=== PATIENT | female | born 1940 | race Caucasian/White ===

== ENCOUNTER 2021-03-02 05:49 | Emergency (ER) | payer MEDICARE, MEDICAID, SELFPAY ==
--- NOTE | ~2021-03-02 | XR_ITS ---
EXAMINATION: XR hip RT 2V w AP pelvis INDICATION: Right hip pain after fall TECHNIQUE: AP view of the pelvis and two views of the right hip are obtained. COMPARISON: None available FINDINGS: Bone alignment is normal. There is no fracture. 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 Phleboliths are n oted in the pelvis. There is calcified atherosclerosis. IMPRESSION: 1. No acute osseous abnormality. Reviewed, dictated and finalized at location A.
--- NOTE | ~2021-03-02 | CT_ITS ---
EXAMINATION: CT cervical spine wo con DATE: 03/02/2021 06:24 INDICATION: Neck pain, head injury TECHNIQUE: Computed tomography (CT) of the cervical spine was performed without intravenous contrast. The dose-length product (DLP) was 461.10 mGy-cm. Automated exposure control and iterative reconstruc tion technique were employed. COMPARISON: None FINDINGS: There is no fracture. There are 2 mm of anterolisthesis of C3 on C4. The vertebral body hei ghts are maintained. There is severe loss of intervertebral disc space height at C4-5, C5-6, and C6-7 . The odontoid is intact. The prevertebral soft tissues are normal. There is moderate multilevel face t and uncovertebral joint osteoarthritis. There is moderate central canal stenosis at C5-6. Scarring is noted in the lung apices. IMPRESSION: 1. Severe cervical spondylosis without acute findings. Reviewed, dictated and finalized at location A.
--- NOTE | ~2021-03-02 | XR_ITS ---
EXAMINATION: XR shoulder RT min 2V INDICATION: Right shoulder pain TECHNIQUE: Four views of the right shoulder are submitted. COMPARISON: None FINDINGS: Normal alignment. No fracture. Glenohumeral and acromioclavicular joint spaces are normal. Soft tissues are unremarkable. IMPRESSION: 1. No acute osseous abnormality. Reviewed, dictated and finalized at location A.
--- NOTE | ~2021-03-02 | XR_ITS ---
EXAMINATION: XR foot RT min 3V DATE: 03/02/2021 06:39 INDICATION: Right foot pain TECHNIQUE: Dorsoplantar, lateral, and 2 oblique views of the right foot were obtained. COMPARISON: None. FINDINGS: There is no fracture, dislocation, or subluxation. Mild osteoarthritis is noted in multiple interphalangeal joints as well as at the first metatarsophalangeal joint. The soft tissues are unrem arkable IMPRESSION: 1. No acute osseous abnormality. Reviewed, dictated and finalized at location A.
--- NOTE | ~2021-03-02 | CT_ITS ---
EXAMINATION: CT brain wo con INDICATION: Head injury COMPARISON: None TECHNIQUE: Standard unenhanced head CT. The dose-length product (DLP) was 605.33 mGy-cm. The mA was a djusted according to patient size. Iterative reconstruction technique was employed. FINDINGS: There is no acute intraparenchymal hemorrhage. No evidence of mass lesion. No evidence of a cute infarction. There is mild periventricular and subcortical hypodensity probably related to small vessel ischemic disease. There is mild prominence of the sulci and ventricles related to cerebral atr ophy. Intracranial calcified cerebral atherosclerosis is noted. There are no extra-axial collections. There is no mass effect or midline shift. Changes in the globes are likely from ocular lens surgery. There is a polyp or mucous retention cyst of the left maxillary sinus. There is frontal skull hypero stosis (hyperostosis frontalis interna), a normal variant. IMPRESSION: 1. No acute intracranial abnormality. 2. Age related findings. Reviewed, dictated and finalized at location A.
[2021-03-02 05:58] VITALS: BP 143/86; PULSE 89; RESP 18; TEMP 36.6; O2SAT 97
--- NOTE | 2021-03-02 06:08 | ED.GENADULT ---
HPI - General Adult General Chief complaint: Fall <Khalif Chaidez MD - Last Filed: 03/02/21 06:09> Stated complaint: fall on eliquis <Khalif Chaidez MD - Last Filed: 03/02/21 06:09> Time Seen by Provider: 03/02/21 05:56 <Khalif Chaidez MD - Last Filed: 03/02/21 06:09> History of Present Illness HPI narrative: 80-year-old female from with chief complaint of the right side. The patient reports that she was reaching to adjust her CPAP machine and struck her head and right shoulder against a table and a door at home where she lives. Patient states she also has pain in her right hip and also in her right foot. Patient denies loss of consciousness but does report that she is on Eliquis for a blood thinner. Patient states that she had a little bit of a headache she was given a [place]se[place] prior to arrival in the emergency department. Patient denies nausea vomiting denies focal neurological deficit. <Khalif Chaidez MD - Last Filed: 03/02/21 06:09> Related Data Home medications: Home Medications Medication Instructions Recorded Confirmed acetaminophen 500 mg PO TID 03/02/21 03/02/21 albuterol sulfate [Ventolin HFA] 2 puff INHALATION QID 03/02/21 03/02/21 apixaban [Eliquis] 5 mg PO BID 03/02/21 03/02/21 atorvastatin [Lipitor] 40 mg PO HS 03/02/21 03/02/21 atorvastatin [Lipitor] 40 mg PO HS 03/02/21 03/02/21 bisacodyl 10 mg RECTAL DAILY PRN 03/02/21 03/02/21 budesonide-formoterol [Symbicort] 2 puff INHALATION Q12H 03/02/21 03/02/21 fludrocortisone 0.1 mg PO DAILY 03/02/21 03/02/21 fluticasone propionate 2 spray INTRANASAL DAILY 03/02/21 03/02/21 furosemide 80 mg PO DAILY 03/02/21 03/02/21 gabapentin 200 mg PO BID 03/02/21 03/02/21 gabapentin 400 mg PO HS 03/02/21 03/02/21 latanoprost [Xalatan] 1 drp EACH EYE QPM 03/02/21 03/02/21 levothyroxine [Synthroid] 137 mcg PO DAILY 03/02/21 03/02/21 lidocaine [Lidocaine Pain Relief] 1 patch TOPICAL DAILY PRN 03/02/21 03/02/21 metoprolol succinate 12.5 mg PO DAILY 03/02/21 03/02/21 nystatin 1 applic TOPICAL TID 03/02/21 03/02/21 polyethylene glycol 3350 [Miralax] 17 g PO DAILY 03/02/21 03/02/21 primidone 150 mg PO HS 03/02/21 03/02/21 sertraline [Zoloft] 75 mg PO HS 03/02/21 03/02/21 sertraline [Zoloft] 100 mg PO DAILY 03/02/21 03/02/21 trazodone 150 mg PO HS 03/02/21 03/02/21 <Khalif Chaidez MD - Last Filed: 03/02/21 06:09> Allergies/adverse reactions: Allergies Allergy/AdvReac Type Severity Reaction Status Date / Time No Known Allergies Allergy Verified 03/02/21 06:08 <Khalif Chaidez MD - Last Filed: 03/02/21 06:09> Review of Systems Review of Systems: A 10 system review of systems was completed on the patient and is negative except for what is stated in the HPI. Nursing and ancillary documentation was reviewed. <Khalif Chaidez MD - Last Filed: 03/02/21 06:09> Exam Narrative: GENERAL: Well-appearing, well-nourished, and in no acute distress. HEAD: Normocephalic, atraumatic. EYES: PERRLA and EOMI. ENT: Nares clear, no rhinorrhea or epistaxis. Mucous membranes moist. NECK: Supple. CHEST: Clear to auscultation. No respiratory distress. HEART: Regular rate and rhythm. No murmur heard. Normal peripheral pulses. ABDOMEN: Soft, nontender, nondistended, normal active bowel sounds. EXTREMITIES: Normal range of motion. No edema. There is tenderness palpation the right shoulder right hip and right foot SKIN: Warm, dry, no rash. NEURO: No focal deficits. Alert and oriented x3. PSYCH: Normal mood and affect. <Khalif Chaidez MD - Last Filed: 03/02/21 06:09> Course Course Emergency Course: I assumed care of this patient at shift change with pending radiology results. I have reviewed all the x-rays including CT scans. Reevaluated the patient. Patient states she is feeling much better. She does feel comfortable going back to correction. <Jonah Padilla MD - Last Filed: 02/06
[2021-03-02 06:42] VITALS: BP 137/95; PULSE 88; RESP 18; O2SAT 95
[2021-03-02 08:37] VITALS: BP 122/91; PULSE 82; RESP 14; O2SAT 96
[2021-03-02 09:30] VITALS: BP 106/88; PULSE 80; RESP 18; O2SAT 98
== END 2021-03-02 09:35 ==
PROVIDERS: Emergency Provider Family Medicine; PCP Family Medicine
DX: S40.011A Contusion of right shoulder, initial encounter (principal); S70.01XA Contusion of right hip, initial encounter; M47.812 Spondylosis without myelopathy or radiculopathy, cervical region; Z79.01 Long term (current) use of anticoagulants; W01.198A Fall on same level from slipping, tripping and stumbling with subsequent striking against other object, initial encounter
CPT/HCPCS: 70450; 72125; 73030; 73502; 73630; 99284

== ENCOUNTER 2021-06-30 22:43 | Emergency (ER) | payer OTHER, SELFPAY ==
--- NOTE | ~2021-06-30 | XR_ITS ---
EXAMINATION: XR hip LT min 3V w AP pelvis DATE: 07/01/2021 00:00 INDICATION: Left hip pain. Fall. TECHNIQUE: An anteroposterior view of the pelvis and 2 views of left hip were obtained. COMPARISON: Pelvis radiograph 03/02/2021 FINDINGS: Bone alignment is normal. No acute fracture. There are old healed fractures of left superio r and inferior pubic rami. There is mild osteoarthritis of the hips. There is moderate lumbar spondyl osis. IMPRESSION: 1. Mild osteoarthritis of the hips. Reviewed, dictated and finalized at location E. GER STORY
--- NOTE | ~2021-06-30 | CT_ITS ---
EXAMINATION: CT thoracic lumbar wo con EXAM DATE: 06/30/2021 23:35 INDICATION: Fall, mid and low back pain. TECHNIQUE: Spiral CT thoracolumbar spine was performed without contrast. Axial, coronal and sagittal images of the thoracic spine were reviewed. Axial, coronal and sagittal images of the lumbar spine we re reviewed. The dose-length product (DLP) for this examination was 2077.14 mGy-cm. The exposure was tailored according to patient size (auto mA exposure control), and iterative reconstruction (ASIR) w as used as additional dose reduction technique. There is no prior study for comparison. FINDINGS: THORACIC SPINE: Mild to moderate thoracic facet arthropathy. Mild to moderate thoracic spondylosis. T here are no acute fractures identified. Paraspinal soft tissue is unremarkable. LUMBAR SPINE: Mild to moderate lumbar spondylosis. There is no evidence of acute lumbar fracture. T here is no disc space widening or traumatic vertebral body subluxation suspected. Paraspinal soft ti ssue is unremarkable. Vertebral body and disc heights are well-maintained. A detailed level by myrtle bangura evaluation of spondylosis can be added as addendum if requested. IMPRESSION: 1. No acute findings. 2. Mild to moderate thoracolumbar spondylosis. Reviewed, dictated and finalized at location G. RONMENTAL PROTECTION INSPECTOR
--- NOTE | ~2021-06-30 | CT_ITS ---
EXAMINATION: CT brain wo con, CT cervical spine wo con EXAM DATE: 06/30/2021 23:34 (accession [id number]), 06/30/2021 23:35 (accession [id number]) INDICATION: Head injury, fall. TECHNIQUE: Spiral CT of the head was performed without contrast. Axial, coronal and sagittal images were reviewed. Spiral CT of the cervical spine was performed without contrast. Axial images were rev iewed. Coronal and sagittal reformatted images were also reviewed. The dose-length product (DLP) fo r this examination was 681.00 (accession [id number]), 493.05 (accession [id number]) mGy-cm. The exposure was tailored according to patient size, and iterative reconstruction (ASIR) was used as additional dose reduction technique. Comparison is made to prior examination from 03/02/2021. FINDINGS: HEAD CT: Right-sided mastoidectomy. There is no acute intraparenchymal hemorrhage. No evidence of in traparenchymal brain mass lesion. No evidence of acute infarction. Please note that initial head CT has limited sensitivity for small or acute infarctions. There is mild periventricular and subcortica l hypodensity, nonspecific but probably related to small vessel ischemic disease. There is moderate prominence of the sulci and ventricles related to cerebral atrophy. Hyperostosis frontalis. There i s intracranial carotid arteriosclerosis. There are no extra-axial collections. There is no mass eff ect or midline shift. Patient has had bilateral ocular lens surgery. Soft tissue is unremarkable. The visualized sinuses and mastoid air cells are well aerated. CERVICAL CT: There is no evidence of acute cervical fracture. The odontoid process is intact. Pre- dens space is normal. Prevertebral soft tissue is normal. There are no soft tissue abnormalities id entified. There is no disc space widening or traumatic vertebral body subluxation suspected. Modera te to severe cervical spondylosis. Apical scarring. A detailed level by level evaluation of spondylo sis can be added as addendum if requested. IMPRESSION: 1. No acute intracranial findings or cervical fracture. 2. Moderate to severe cervical spondylosis. 3. Atrophy and microangiopathy. Reviewed, dictated and finalized at location G. CTOR OF THERAPY SERVICES IMPRESSION: 1. No acute intracranial findings or cervical fracture. 2. Moderate to severe cervical spondylosis. 3. Atrophy and microangiopathy.
--- NOTE | ~2021-06-30 | XR_ITS ---
EXAMINATION: XR ribs RT 2V w CXR 2V DATE: 07/01/2021 00:00 INDICATION: Right posterior rib pain TECHNIQUE: AP and lateral views of the chest of the chest and 3 views of the left ribs were obtained. COMPARISON: None FINDINGS: No rib fractures identified. No focal airspace opacities, pulmonary edema, pleural effusion or pneumo thorax. Cardiomediastinal silhouette is normal. Dual lead pacemaker seen with leads projecting over t he expected locations of the right atrium and right ventricle. Mild to moderate thoracic spondylosis. IMPRESSION: 1. No rib fracture or acute cardiopulmonary disease. Reviewed, dictated and finalized at location A. URER MACHINE
[2021-06-30 22:44] VITALS: BP 159/90; PULSE 90; RESP 17; TEMP 36.6; O2SAT 96
--- NOTE | 2021-06-30 23:02 | ED.FALL ---
HPI - Fall General Chief Complaint: Fall <Anne Urena PA-C - Last Filed: 07/01/21 02:03> Stated Complaint: glf x 3 <Anne Urena PA-C - Last Filed: 07/01/21 02:03> Time Seen by Provider: 06/30/21 22:49 <Anne Urena PA-C - Last Filed: 07/01/21 02:03> Source: patient and EMS <Anne Urena PA-C - Last Filed: 07/01/21 02:03> Mode of arrival: EMS <CLOVER Hernández Last Filed: 07/01/21 02:03> Limitations: other (poor historian) <Anne Urena PA-C - Last Filed: 07/01/21 02:03> History of Present Illness HPI Narrative: This is a 81-year-old female that presents to the emergency department after a fall today with head injury. Reports she was trying to get up off the toilet when she fell and struck her head. She does not think that she lost consciousness. She was sent in for evaluation due to her being on Eliquis. Also reports back pain and left hip pain. Denies vision changes, vomiting, numbness, or weakness. <Anne Urena PA-C - Last Filed: 07/01/21 02:03> Related Data Home Medications: Home Medications Medication Instructions Recorded Confirmed acetaminophen 500 mg PO TID 03/02/21 03/02/21 albuterol sulfate [Ventolin HFA] 2 puff INHALATION QID 03/02/21 03/02/21 apixaban [Eliquis] 5 mg PO BID 03/02/21 03/02/21 atorvastatin [Lipitor] 40 mg PO HS 03/02/21 03/02/21 atorvastatin [Lipitor] 40 mg PO HS 03/02/21 03/02/21 bisacodyl 10 mg RECTAL DAILY PRN 03/02/21 03/02/21 budesonide-formoterol [Symbicort] 2 puff INHALATION Q12H 03/02/21 03/02/21 fludrocortisone 0.1 mg PO DAILY 03/02/21 03/02/21 fluticasone propionate 2 spray INTRANASAL DAILY 03/02/21 03/02/21 furosemide 80 mg PO DAILY 03/02/21 03/02/21 gabapentin 200 mg PO BID 03/02/21 03/02/21 gabapentin 400 mg PO HS 03/02/21 03/02/21 latanoprost [Xalatan] 1 drp EACH EYE QPM 03/02/21 03/02/21 levothyroxine [Synthroid] 137 mcg PO DAILY 03/02/21 03/02/21 metoprolol succinate 12.5 mg PO DAILY 03/02/21 03/02/21 nystatin 1 applic TOPICAL TID 03/02/21 03/02/21 polyethylene glycol 3350 [Miralax] 17 g PO DAILY 03/02/21 03/02/21 primidone 150 mg PO HS 03/02/21 03/02/21 sertraline [Zoloft] 75 mg PO HS 03/02/21 03/02/21 sertraline [Zoloft] 100 mg PO DAILY 03/02/21 03/02/21 trazodone 150 mg PO HS 03/02/21 03/02/21 lidocaine 4 % topical patch 2 patch TOPICAL DAILY ea 03/29/21 <Anne Urena PA-C - Last Filed: 07/01/21 02:03> Allergies/Adverse Reactions: Allergies Allergy/AdvReac Type Severity Reaction Status Date / Time No Known Allergies Allergy Verified 03/02/21 06:08 <Anne Urena PA-C - Last Filed: 07/01/21 02:03> Review of Systems Review of Systems: CONSTITUTIONAL: Denies fever EYES: Denies visual changes CARDIOVASCULAR: Denies chest pain RESPIRATORY: Denies dyspnea. GASTROINTESTINAL: Denies vomiting MUSCULOSKELETAL: Reports back pain, joint pain, and myalgia. NEUROLOGIC: Denies headache, numbness, or weakness. <Anne Urena PA-C - Last Filed: 07/01/21 02:03> All systems reviewed & are unremarkable except as noted in HPI and below <Anne Urena PA-C - Last Filed: 07/01/21 02:03> [facility] Past Medical History Medical History: Medical History (Updated 07/01/21 @ 01:08 by Anne Urena PA-C) History of atrial fibrillation History of bipolar disorder History of COPD History of hyperlipidemia History of hypothyroidism <Anne Urena PA-C - Last Filed: 07/01/21 02:03> Social History Social History: Social History (Updated 06/30/21 @ 23:06 by Anne Urena PA-C) Smoking status: Never smoker <Anne Urena PA-C - Last Filed: 07/01/21 02:03> Exam Narrative: GENERAL: Elderly, well-nourished, and in no acute distress. HEAD: Normocephalic, atraumatic. EYES: EOMI. Right pupil is irregular and not reactive due to history of previous surgery ENT: Nares clear, no rhinorrhea or epistaxis. Mucous membranes moist. Oropharynx without tonsillar hypertrophy e
[2021-07-01 04:38] VITALS: BP 123/76; PULSE 89; RESP 18; TEMP 36.7; O2SAT 99
[2021-07-01 04:42] VITALS: BP 123/76; PULSE 89; RESP 18; TEMP 36.7; O2SAT 99
== END 2021-07-01 05:03 ==
PROVIDERS: Emergency Provider Emergency Medicine; PCP Family Medicine
DX: I48.91 Unspecified atrial fibrillation (principal); J44.9 Chronic obstructive pulmonary disease, unspecified; E78.5 Hyperlipidemia, unspecified; E03.9 Hypothyroidism, unspecified; F31.9 Bipolar disorder, unspecified; Z79.01 Long term (current) use of anticoagulants; M47.812 Spondylosis without myelopathy or radiculopathy, cervical region; W18.11XA Fall from or off toilet without subsequent striking against object, initial encounter
CPT/HCPCS: 70450; 71046; 71100; 72125; 72128; 72131; 73502; 99284

== ENCOUNTER 2021-08-25 10:22 | Outpatient (CLI) | payer MEDICAID, SELFPAY ==
--- NOTE | ~2021-08-25 | US_ITS ---
EXAMINATION: US abdomen duplex complete DATE: 08/25/2021 11:32 INDICATION: Mesenteric artery stenosis TECHNIQUE: Multiple grayscale, color Doppler, and pulsed Doppler images of the superior mesenteric ar dixon, celiac axis and common, left and right hepatic arteries. COMPARISON: None. FINDINGS: The aorta peak systolic velocity is 56 cm/s. The celiac axis peak systolic velocity is 397 cm/s peak systolic velocity in the common hepatic artery is 279 cm/s proximally, 156 cm/s in the mid segment, a nd 140 cm/s in the distal segment. The left hepatic artery peak systolic velocity is 67 cm/s and the right hepatic artery peak systolic velocity is 133 cm/s. Peak systolic velocities in the superior mes enteric artery are 113 cm/s in the proximal segment, 139 cm/s in the mid segment, and 75 cm/s in the distal segment. The origin of the superior mesenteric artery is however not visualized. IMPRESSION: 1. Markedly elevated peak systolic velocities at the celiac axis and into the proximal common hepati c artery consistent with a likely high-grade stenosis. 2. Normal peak systolic velocities in the visualized superior mesenteric artery. There does however a ppear to be a likely hemodynamically significant stenosis at the origin of the superior mesenteric ar dixon based upon thoracic spine CT dated 06/30/2021 which is not correctly imaged on the current study. Reviewed, dictated and finalized at location A. IMPRESSION: 1. 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 2. Normal peak systolic velocities in the visualized superior mesenteric artery . There does however appear to be a likely hemodynamically significant stenosis at the origin of the superior mesenteric artery based upon thoracic spine CT d ated 06/30/2021 which is not correctly imaged on the current study.
== END 2021-08-25 10:23 | disposition home or self-care (01) ==
PROVIDERS: PCP Family Medicine; Visit Provider Family Medicine
DX: K55.1 Chronic vascular disorders of intestine (principal)
CPT/HCPCS: 93978

== ENCOUNTER 2021-11-05 14:07 | Emergency (ER) | payer MEDICARE, MEDICAID, SELFPAY ==
[2021-11-05] VITALS (7 sets, daily range): BP systolic 112–139; BP diastolic 57–107; PULSE 70–100; RESP 9–18; TEMP 36.4; O2SAT 95–99
--- NOTE | ~2021-11-05 | XR_ITS ---
XR chest 2V DATE: 11/05/2021 14:48 INDICATION: Shaking, weakness TECHNIQUE: AP and lateral views COMPARISON: June 30, 2021 AP and lateral chest FINDINGS: Left-sided dual-lead pacemaker device with leads overlying right atrium and right ventricle . Borderline heart size. Aortic calcification and mild unfolding. No pulmonary infiltrate or consolidation, pleural effusion or pulmonary vascular congestion or pneumo thorax is detected. The lungs are moderately hyperinflated. Diffuse osteopenia. IMPRESSION: Borderline heart size Dual-lead left-sided pacemaker device No active pulmonary disease Osteopenia Reviewed, dictated and finalized at location A.
--- NOTE | 2021-11-05 14:31 | ECG_ITS ---
Measurements Intervals [place] Rate: 93 P: OR: 0 QRS: 7 QRSD: 105 T: 96 QT: 397 QTc: 495 Interpretive Statements ATRIAL FIBRILLATION INCOMPLETE RIGHT BUNDLE BRANCH BLOCK BORDERLINE T WAVE ABNORMALITY- DIFFUSE LEADS BASELINE ARTIFACT- V3 ABNORMAL ECG Electronically Signed On 11-05-2021 15:26:21 CDT by Jez Gauthier D.O.
[2021-11-05 15:42] LABS: Basophils Percent Auto 0.6 % (0.2-1.2); Eosinophils Absolute Auto 0.1 K/mm3 (0-0.3); Hematocrit 46.4 % (37.0-47.0); Hemoglobin 14.9 g/dL (12.0-15.0); Immature Granulocyte Absolute 0.01 K/mm3 (0.00-0.031); Immature Granulocyte Percent A 0.1 % (0-0.5); Lymphocytes Absolute Auto 3.21 K/mm3 (0.9-3.2); Lymphocytes Percent Auto 44.9 % (18.3-44.2); Mean Corpuscular HGB Conc 32.1 g/dl (32-36); Mean Corpuscular Hemoglobin 30.3 pg (26-34); Mean Corpuscular Volume 94.3 fl (80-100); Mean Platelet Volume 9.3 fl (7.4-10.4); Monocytes Absolute Auto 0.4 K/mm3 (0.1-0.6); Monocytes Percent Auto 5.9 % (2.6-8.5); Neutrophils Absolute Auto 3.4 K/mm3 (1.3-6.7); Neutrophils Percent Auto 47.5 % (45.5-73.1); Platelet Count Result 177 k/mm3 (150-375); Red Blood Count 4.92 M/mm3 (4.2-5.4); Red Cell Distribution Width 13.6 % (11.5-14.5); White Blood Count 7.2 K/mm3 (4.5-10.0)
[2021-11-05 15:49] LABS: Alanine Aminotransferase 15 U/L (6-35); Albumin Level 4.2 g/dL (3.5-5.1); Alkaline Phosphatase 82 U/L (38-126); Anion Gap 6 mmol/L (8-16); Aspartate Amino Transferase 24 U/L (14-36); Bilirubin,Total 0.6 mg/dL (0.2-1.3); Blood Urea Nitrogen 25 mg/dL (7-17); Calcium 9.4 mg/dL (8.4-10.2); Carbon Dioxide 31 mmol/L (22-30); Chloride 104 mmol/L (98-107); Estimated Glomerular Filt Rate 53; Glucose 91 mg/dL (65-110); Sodium 141 mmol/L (137-145)
[2021-11-05 16:47] LABS: Appearance Urine Clear (Clear); Bilirubin Urine Negative (Negative); Blood Urine 1+ (Negative); Color Urine Yellow (Yellow); Glucose Urine UA Negative (Negative); Ketones Urine Negative (Negative); Leukocyte Esterase Ur Trace LEU/UL (Negative); Nitrate Urine Negative (Negative); Protein Urine Negative (Negative); Specific Grav Ur 1.015 (1.001-1.035)
[2021-11-05 16:52] LABS: Bacteria Urine Trace /hpf; Mucus Urine Rare /lpf; Squamous Epithelial Cell Urine Rare /hpf (Few); WBC Urine 0-3 /hpf
[2021-11-05 17:01] LABS: Add Urine Microscopic? YES
--- NOTE | 2021-11-05 17:48 | ED.WEAKNESS ---
HPI - Weakness General Chief complaint: Weakness Stated complaint: weakness Time Seen by Provider: 11/05/21 14:14 History of Present Illness HPI Narrative: Patient is a 81-year-old female who presents ER with generalized weakness. Occurred at her custodial. Patient has no complaints of pain at this time. She is oriented x3. She has no urinary frequency urgency or dysuria. Family arrived later and reports that patient has had some intermittent episodes like this in the past. She has not been able to get an MRI due to an implanted pacemaker. Patient has no seizure history. Related Data Home Medications Medication Instructions Recorded Confirmed acetaminophen 500 mg tablet 500 mg PO TID 03/02/21 03/02/21 albuterol sulfate 90 mcg/actuation 2 puff inhalation QID 03/02/21 03/02/21 aerosol inhaler (Ventolin HFA) apixaban 5 mg tablet (Eliquis) 5 mg PO BID 03/02/21 03/02/21 atorvastatin 40 mg tablet (Lipitor) 40 mg PO HS 03/02/21 03/02/21 bisacodyl 10 mg rectal suppository 10 mg RECTAL DAILY PRN Constipation 03/02/21 03/02/21 budesonide-formoterol HFA 160 2 puff inhalation Q12H 03/02/21 03/02/21 mcg-4.5 mcg/actuation aerosol inhaler (Symbicort) fludrocortisone 0.1 mg tablet 0.1 mg PO DAILY 03/02/21 03/02/21 fluticasone propionate 50 2 spray intranasal DAILY 03/02/21 03/02/21 mcg/actuation nasal spray,suspension furosemide 40 mg tablet 80 mg PO DAILY 03/02/21 03/02/21 gabapentin 100 mg tablet 400 mg PO TID 03/02/21 03/02/21 gabapentin 400 mg capsule 400 mg PO HS 03/02/21 03/02/21 levothyroxine 137 mcg tablet 137 mcg PO DAILY 03/02/21 03/02/21 (Synthroid) metoprolol succinate 25 mg capsule 12.5 mg PO DAILY 03/02/21 03/02/21 sprinkle, ext. release 24 hr nystatin 100,000 unit/gram topical 1 applic topical TID 03/02/21 03/02/21 cream polyethylene glycol 3350 17 gram 17 g PO DAILY 03/02/21 03/02/21 oral powder packet (Miralax) primidone 50 mg tablet 150 mg PO HS 03/02/21 03/02/21 sertraline 100 mg tablet (Zoloft) 100 mg PO DAILY 03/02/21 03/02/21 sertraline 50 mg tablet (Zoloft) 75 mg PO HS 03/02/21 03/02/21 lidocaine 4 % topical patch 2 patch topical DAILY Muscle Pain 03/29/21 (Lidocaine Pain Relief) calcium carbonate 500 mg calcium 500 mg PO DAILY 11/05/21 (1,250 mg) chewable tablet cetirizine 5 mg tablet 5 mg PO DAILY 11/05/21 chlorhexidine gluconate 0.12 % 15 ml buccal BID 11/05/21 mouthwash cholecalciferol (vitamin D3) 50 50 mcg PO DAILY 11/05/21 mcg (2,000 unit) tablet diclofenac sodium 3 % topical gel 1 applic topical QID 11/05/21 divalproex 125 mg capsule,delayed 125 mg PO BID 11/05/21 release sprinkle (Depakote Sprinkles) latanoprost 0.005 % eye drops 1 drp EACH EYE QPM 11/05/21 (Xalatan) potassium chloride 20 mEq 40 meq PO DAILY 11/05/21 tablet,extended release trazodone 100 mg tablet 100 mg PO HS 11/05/21 Allergies Allergy/AdvReac Type Severity Reaction Status Date / Time No Known Allergies Allergy Verified 03/02/21 06:08 Review of Systems Review of Systems: All systems reviewed & are unremarkable except as noted in HPI and below Constitutional: Constitutional: Denies chills, Denies fever(s) and Reports weakness ENT: Denies nasal congestion and Denies sore throat Cardiovascular: Cardiovascular: Denies chest pain and Denies radiating jaw, neck or arm pain Gastrointestinal: Gastrointestinal: Denies abdominal pain, Denies diarrhea, Denies nausea and Denies vomiting Genitourinary: Genitourinary: Denies nocturia and Denies dysuria Neurologic: Denies headache(s), Denies focal weakness and Denies numbness PMFSH Past Medical History Medical History (Updated 11/05/21 @ 18:51 by Graeme Jackson MD) History of atrial fibrillation History of bipolar disorder History of COPD History of hyperlipidemia History of hypothyroidism Surgical History Surgical History (Updated 11/05/21 @ 22:17 by Graeme Jackson MD) Pacemaker Social History Social
== END 2021-11-05 19:55 ==
PROVIDERS: Emergency Provider Emergency Medicine; PCP Family Medicine
DX: R53.1 Weakness (principal); I48.91 Unspecified atrial fibrillation; J44.9 Chronic obstructive pulmonary disease, unspecified; E78.5 Hyperlipidemia, unspecified; E03.9 Hypothyroidism, unspecified
CPT/HCPCS: 36415; 71046; 80053; 81001; 85025; 93005; 99283

== ENCOUNTER 2021-11-15 17:47 | Inpatient (IN) | payer MEDICARE, MEDICAID, SELFPAY ==
[2021-11-15] VITALS (9 sets, daily range): BP systolic 149–170; BP diastolic 77–115; PULSE 121–140; RESP 18–20; TEMP 36.3–36.6; O2SAT 93–99; BMI 36.1
--- NOTE | ~2021-11-15 | XR_ITS ---
XR hand LT min 3V 11/15/2021 20:02 Indication: Left hand pain Procedure: 3 views left hand Comparison: No prior studies for comparison. Findings: There is osteoarthritis of the first carpometacarpal joint. Osteopenia. No acute fracture o r traumatic malalignment. No focal soft tissue abnormality. No foreign body. Impression: 1: No acute fracture. Reviewed, dictated and finalized at location A. Impression: 1: No acute fracture.
--- NOTE | ~2021-11-15 | US_ITS ---
EXAMINATION: US abdomen limited DATE: 11/19/2021 10:00 INDICATION: Abnormal liver function tests. TECHNIQUE: Multiple grayscale and Doppler ultrasound images of the abdomen were obtained. COMPARISON: CT abdomen and pelvis 11/15/2021 FINDINGS: The visualized portions of the head, body, and tail of the pancreas are normal. The liver i s normal without focal lesion. There is normal flow in main portal vein. The gallbladder is absent. T he common duct is normal and measures 6 mm. IMPRESSION: 1. Normal right upper quadrant ultrasound status post cholecystectomy. Reviewed, dictated and finalized at location A.
--- NOTE | ~2021-11-15 | CT_ITS ---
EXAMINATION: CT abdomen pelvis wo con DATE: 11/15/2021 19:01 INDICATION: Altered mental status. Abdomen pain. TECHNIQUE: Computed tomography (CT) of the abdomen and pelvis was performed without intravenous contr ast. The dose-length product was 1421.38 mGy-cm. Automated exposure control and iterative reconstruct ion technique were employed. COMPARISON: None. FINDINGS: Lung bases unremarkable. Heart size normal. No significant pleural or pericardial effusion. Small hiatal hernia. There is atherosclerosis of the aorta without aneurysm. Status post cholecystectomy. The liver, spleen, pancreas, adrenal glands and kidneys are unremarkable . No hydronephrosis. Nonobstructive bowel gas pattern. No free air or free fluid. No lymphadenopathy. Bladder is decompressed. Mild-moderate lumbar spondylosis. Healed left pubic rami fracture noted. No acute osseous abnormality. IMPRESSION: 1. No acute abdominal abnormality. Reviewed, dictated and finalized at location A.
--- NOTE | ~2021-11-15 | XR_ITS ---
XR chest 1V portable 11/15/2021 18:36 Indication: Altered mental status. Procedure: AP portable chest Comparison: 11/05/2021 Findings: Borderline heart size. Pacemaker leads are stable. There is mild interstitial edema. The ronen ngs are hyperinflated which is consistent with, but not diagnostic of chronic obstructive pulmonary d isease. Impression: 1: Borderline heart size is with mild interstitial edema. Reviewed, dictated and finalized at location A. Impression: 1: Borderline heart size is with mild interstitial edema.
--- NOTE | ~2021-11-15 | XR_ITS ---
XR foot RT min 3V 11/15/2021 20:02 Indication: Right foot pain Procedure: 3 views right foot Comparison: 03/02/2021 Findings: Osteopenia. Demineralization limits evaluation for nondisplaced fractures. Lisfranc joint i s intact. No fracture or traumatic malalignment. No focal soft tissue abnormality. Mild osteoarthriti s of the first MTP joint. Impression: 1: No acute fracture. Reviewed, dictated and finalized at location A. Impression: 1: No acute fracture.
--- NOTE | ~2021-11-15 | CT_ITS ---
EXAMINATION: CT brain wo con DATE: 11/15/2021 19:01 INDICATION: Altered mental status TECHNIQUE: Computed tomography (CT) of the head was performed without intravenous contrast. The dose- length product was 908.00 mGy-cm. Automated exposure control and iterative reconstruction technique w ere employed. COMPARISON: CT dated 06/30/2021 FINDINGS: Generalized atrophy. There are scattered mild periventricular and subcortical white matter changes, most likely related to small vessel ischemic disease (microangiopathy). No ventriculomegaly or midline shift. Basilar cisterns are patent. No acute intracranial hemorrhage, infarction, mass or mass effect. Paranasal sinuses and mastoids are pneumatized. There is hyperostosis frontalis interna. No depressed skull fractures. IMPRESSION: 1. No acute intracranial abnormality. 2: Chronic age-related findings. Reviewed, dictated and finalized at location A.
--- NOTE | ~2021-11-15 | XR_ITS ---
EXAMINATION: XR barium swallow modified DATE: 11/18/2021 09:45 INDICATION: Dysphagia. Cough. TECHNIQUE: The patient was given barium-containing material of multiple consistencies to swallow by t kimberly speech pathologist while I performed fluoroscopy. Fluoroscopy exposure time was 1.4 minutes. The n umber of fluoroscopy images saved to the PACS was 1. Dose-area product was 1.137 Gy-cm^2. FINDINGS: There is reduced laryngeal elevation. There is trace laryngeal penetration with thin liquids via stra w. No aspiration. IMPRESSION: 1. Trace laryngeal penetration with thin liquids via straw. 2. Please refer to the speech therapy report for recommendations. Reviewed, dictated and finalized at location A.
--- NOTE | 2021-11-15 17:54 | ECG_ITS ---
Measurements Intervals [place] Rate: 141 P: [place]: 0 QRS: 5 QRSD: 96 T: 0 QT: 209 QTc: 320 Interpretive Statements ATRIAL FIBRILLATION WITH RAPID VENTRICULAR RESPONSE NONSPECIFIC ST & T-WAVE ABNORMALITY- INF/LAT LEADS ABNORMAL ECG Electronically Signed On 11-15-2021 21:23:33 CDT by Jez Gauthier D.O.
[2021-11-15] MEDS: SODIUM CHLORIDE 0.9% IV 1,000 ML 999 ML IV CONT (18:06)
[2021-11-15 18:22] LABS: Appearance Urine Turbid (Clear); Bilirubin Urine 2+ (Negative); Blood Urine 2+ (Negative); Color Urine Amber (Yellow); Glucose Urine UA Negative (Negative); Ketones Urine 1+ mg/dL (Negative); Leukocyte Esterase Ur 3+ LEU/UL (Negative); Nitrate Urine Negative (Negative); Protein Urine 3+ mg/dL (Negative); Urobilinogen Urine >=8.0 mg/dL (<2.0)
[2021-11-15 18:33] LABS: Basophils Percent Auto 0.2 % (0.2-1.2); Hematocrit 42.8 % (37.0-47.0); Hemoglobin 14.4 g/dL (12.0-15.0); Immature Granulocyte Absolute 0.11 K/mm3 (0.00-0.031); Immature Granulocyte Percent A 0.8 % (0-0.5); Lymphocytes Absolute Auto 2.06 K/mm3 (0.9-3.2); Lymphocytes Percent Auto 14.3 % (18.3-44.2); Mean Corpuscular HGB Conc 33.6 g/dl (32-36); Mean Corpuscular Hemoglobin 30.4 pg (26-34); Mean Corpuscular Volume 90.5 fl (80-100); Mean Platelet Volume 9.6 fl (7.4-10.4); Monocytes Absolute Auto 1.4 K/mm3 (0.1-0.6); Monocytes Percent Auto 9.9 % (2.6-8.5); Neutrophils Absolute Auto 10.8 K/mm3 (1.3-6.7); Neutrophils Percent Auto 74.8 % (45.5-73.1); Platelet Count Result 274 k/mm3 (150-375); Red Blood Count 4.73 M/mm3 (4.2-5.4); Red Cell Distribution Width 13.9 % (11.5-14.5); White Blood Count 14.4 K/mm3 (4.5-10.0)
[2021-11-15 18:33] LABS: Bacteria Urine Trace /hpf; Mucus Urine Rare /lpf; WBC Clumps Urine Present /HPF; WBC Urine >75 /hpf
[2021-11-15 18:43] LABS: INR 1.4; Prothrombin Time 16.6 Seconds (11.1-14.7)
[2021-11-15 18:44] LABS: Partial Thromboplastin Time 43.2 SECONDS (22.3-36.8)
[2021-11-15 18:45] LABS: Add Urine Microscopic? YES
[2021-11-15 18:51] LABS: Lactic Acid Reflex 1.5 mmol/L (0.7-2.0); Magnesium 1.9 mg/dL (1.6-2.3)
[2021-11-15 19:03] LABS: NT Pro B Type Natriuretic Pept 1920 pg/mL (5-100); Troponin I < 0.012 ng/mL (0.000-0.034)
[2021-11-15 19:20] LABS: Alanine Aminotransferase 38 U/L (6-35); Albumin Level 3.9 g/dL (3.5-5.1); Alkaline Phosphatase 137 U/L (38-126); Anion Gap 5 mmol/L (8-16); Aspartate Amino Transferase 30 U/L (14-36); Blood Urea Nitrogen 25 mg/dL (7-17); Calcium 10.6 mg/dL (8.4-10.2); Carbon Dioxide 33 mmol/L (22-30); Chloride 99 mmol/L (98-107); Estimated Glomerular Filt Rate 60; Glucose 204 mg/dL (65-110); Potassium 4.2 mmol/L (3.4-5.0); Sodium 137 mmol/L (137-145)
[2021-11-15 19:25] LABS: Bilirubin,Total 0.8 mg/dL (0.2-1.3)
--- NOTE | 2021-11-15 19:49 | PC.NURSE ---
called lab at 19:48 and added Zachary ramírez
[2021-11-15] MEDS: dilTIAZem HCl INJ 25 MG/5 ML VIAL 5 MG IV PUSH (20:03)
[2021-11-15] MEDS: dilTIAZem 100 MG/100 ML 100 MG/100 ML BAG IV CONT (20:04)
[2021-11-15] MEDS: SODIUM CHLORIDE 0.9% IV 1,000 ML 125 ML IV CONT (20:07)
[2021-11-15 20:15] LABS: Alveolar/Arterial O2 Gradient 35.7 mmHg; Base Excess ABG 6.8 mEq/l (+/-2.0); Carboxyhemoglobin 0.6 % THb (0-2.0); Fractional Inspired Oxygen 21 %; HCO3 ABG 31.3 mEq/l (22.0-26.0); Methemoglobin ABG 0.2 %THb (0-1.5); Oxygen Saturation ABG 92.7 % (95.0-100.0); Oxyhemoglobin 90.8 % THb (90.0-100.0); PCO2 ABG 44.1 mmHg (35.0-45.0); PO2 ABG 61.2 mmHg (80.0-100.0); PO2 FiO2 Ratio Arterial Blood 2.91 %; Reduced Hemoglobin 8.4 %THb (0-5.0); Total Hemoglobin 14.1 g/dL (12.0-18.0); pH ABG 7.469 (7.350-7.450)
--- NOTE | 2021-11-15 20:27 | ED.WEAKNESS ---
HPI - Weakness General Chief complaint: Weakness Stated complaint: increased lethargy Time Seen by Provider: 11/15/21 17:59 Source: RN notes reviewed History of Present Illness HPI Narrative: Patient presents emergency department from [facility] via EMS for weakness. History is per the patient as well as daughters present. Daughter states the patient has had a progressive downhill decline since May. States that she has been less responsive and weaker. Patient began to have redness and erythema with swelling over her right foot and left hand starting yesterday. The patient was less responsive today per the staff at [facility] and was sent in for further evaluation patient is currently sleeping in bed but will awaken to verbal stimuli she is able to tell me her name and location she notes pain in her hand and foot she denies any chest pain shortness of breath nausea or vomiting Related Data Home Medications Medication Instructions Recorded Confirmed acetaminophen 500 mg tablet 500 mg PO TID 03/02/21 03/02/21 albuterol sulfate 90 mcg/actuation 2 puff inhalation QID 03/02/21 03/02/21 aerosol inhaler (Ventolin HFA) apixaban 5 mg tablet (Eliquis) 5 mg PO BID 03/02/21 03/02/21 atorvastatin 40 mg tablet (Lipitor) 40 mg PO HS 03/02/21 03/02/21 bisacodyl 10 mg rectal suppository 10 mg RECTAL DAILY PRN Constipation 03/02/21 03/02/21 budesonide-formoterol HFA 160 2 puff inhalation Q12H 03/02/21 03/02/21 mcg-4.5 mcg/actuation aerosol inhaler (Symbicort) fludrocortisone 0.1 mg tablet 0.1 mg PO DAILY 03/02/21 03/02/21 fluticasone propionate 50 2 spray intranasal DAILY 03/02/21 03/02/21 mcg/actuation nasal spray,suspension furosemide 40 mg tablet 80 mg PO DAILY 03/02/21 03/02/21 gabapentin 100 mg tablet 400 mg PO TID 03/02/21 03/02/21 gabapentin 400 mg capsule 400 mg PO HS 03/02/21 03/02/21 levothyroxine 137 mcg tablet 137 mcg PO DAILY 03/02/21 03/02/21 (Synthroid) metoprolol succinate 25 mg capsule 12.5 mg PO DAILY 03/02/21 03/02/21 sprinkle, ext. release 24 hr nystatin 100,000 unit/gram topical 1 applic topical TID 03/02/21 03/02/21 cream polyethylene glycol 3350 17 gram 17 g PO DAILY 03/02/21 03/02/21 oral powder packet (Miralax) primidone 50 mg tablet 150 mg PO HS 03/02/21 03/02/21 sertraline 100 mg tablet (Zoloft) 100 mg PO DAILY 03/02/21 03/02/21 sertraline 50 mg tablet (Zoloft) 75 mg PO HS 03/02/21 03/02/21 lidocaine 4 % topical patch 2 patch topical DAILY Muscle Pain 03/29/21 (Lidocaine Pain Relief) calcium carbonate 500 mg calcium 500 mg PO DAILY 11/05/21 (1,250 mg) chewable tablet cetirizine 5 mg tablet 5 mg PO DAILY 11/05/21 chlorhexidine gluconate 0.12 % 15 ml buccal BID 11/05/21 mouthwash cholecalciferol (vitamin D3) 50 50 mcg PO DAILY 11/05/21 mcg (2,000 unit) tablet diclofenac sodium 3 % topical gel 1 applic topical QID 11/05/21 divalproex 125 mg capsule,delayed 125 mg PO BID 11/05/21 release sprinkle (Depakote Sprinkles) latanoprost 0.005 % eye drops 1 drp EACH EYE QPM 11/05/21 (Xalatan) potassium chloride 20 mEq 40 meq PO DAILY 11/05/21 tablet,extended release trazodone 100 mg tablet 100 mg PO HS 11/05/21 Allergies Allergy/AdvReac Type Severity Reaction Status Date / Time No Known Allergies Allergy Verified 11/15/21 18:14 Review of Systems Review of Systems: Gen.: Denies fevers or chills Eyes: Denies eye pain or visual change ENT: Denies congestion Respiratory: Denies shortness of breath or cough CV: Denies chest pain or palpitations GI: Denies abdominal pain nausea, emesis or diarrhea Musculoskeletal: Denies back pain or muscle pain Neuro: Reports generalized weakness Skin: redness of right foot and left hand Except as documented, all other systems reviewed and negative PMFSH Past Medical History Medical History History of atrial fibrillation History of bipolar disorder History of COPD History of hyperlipidem
--- NOTE | 2021-11-15 20:31 | PM.IMHP ---
H&P: HPI History of Present Illness Date/Time: 11/15/21 20:31 Chief Complaint: Weakness Narrative: 81-year-old female with past medical history significant for bipolar disorder, COPD, atrial fibrillation, hyperlipidemia and hypothyroidism is presenting with generalized weakness. Daughters in the room and provides some history. She states her mother appears to have declined overall since May 2021. She appears to be less responsive and more weak. The nursing staff at the [facility] sent her to the ER for evaluation due to decrease in responsiveness to verbal stimuli and also concern for redness and swelling of her right foot and left hand since yesterday. Per the ER documentation, she complained of pain in her right foot and left hand but denied chest pain, shortness of breath, nausea, vomiting or diarrhea. No fevers or chills noted. In the ER, ECG showed AFib with RVR. She is on chronic anticoagulation with Eliquis at home. She was started on a Cardizem drip as well as normal saline at 125 mL/hr (this was discontinued when she arrived to the floor). Cardiology was consulted. Labs showed a leukocytosis of 14. ABG on room air showed a pH of 7.46, CO2 of 44, O2 of 61 an oxygen saturation of 92.7%. CMP showed elevated carbon dioxide of 33, BUN of 25, creatinine of 0.9, which appears to be baseline. Glucose of 204. She was noted to have hypercalcemia with a calcium of 10.6. LFTs were slightly elevated with an ALT of 38 and an alk-phos of 137, AST was normal at 30. Troponin was negative. BNP was elevated at 1920. Urinalysis looked positive for infection, nitrites were negative but leuk esterase was positive with numerous white blood cells. Urine culture pending, dose of Rocephin given in the ER. Hand and foot x-rays were negative for acute fractures. Some osteopenia noted with osteoarthritis but no further changes commented on. CT abdomen and pelvis was essentially benign. Head CT was nonacute. Chest x-ray showed some mild interstitial edema. Blood cultures were sent and are pending. When the patient arrived to the floor, Cardizem drip and was increased to 15 milligrams/hour with little improvement in heart rate. Patient remained in the 120s to 130s. Therefore, this was switched to labetalol. Cardiology consult pending. Review of Systems Review of Systems: 12 point review of systems was assessed and was negative except as noted in the HPI ROS unobtainable: Yes unobtainable due to mental status PMFSH Past Medical History Medical History History of atrial fibrillation History of bipolar disorder History of COPD History of hyperlipidemia History of hypothyroidism Surgical History Surgical History Pacemaker Family History Family History Other Unknown family medical history Social History Social History Smoking status: Never smoker Alcohol intake: never Substance use: never Substance use type: does not use Spiritual care concerns: No Meds Home Medications and Allergies Home Medications Medication Instructions Recorded Confirmed Type acetaminophen 500 mg tablet 500 mg PO TID 03/02/21 03/02/21 History albuterol sulfate 90 mcg/actuation 2 puff inhalation QID PRN 03/02/21 11/15/21 History aerosol inhaler (Ventolin HFA) Shortness Of Breath Or Wheezing apixaban 5 mg tablet (Eliquis) 5 mg PO BID 03/02/21 11/15/21 History atorvastatin 40 mg tablet (Lipitor) 40 mg PO HS 03/02/21 11/15/21 History bisacodyl 10 mg rectal suppository 10 mg RECTAL DAILY PRN Constipation 03/02/21 11/15/21 History budesonide-formoterol HFA 160 2 puff inhalation Q12H 03/02/21 11/15/21 History mcg-4.5 mcg/actuation aerosol inhaler (Symbicort) fludrocortisone 0.1 mg tablet 0.1 mg PO DAILY 03/02/21 11/15/21 History f
[2021-11-15 20:53] LABS: Uric Acid 8.7 mg/dL (2.5-7.5)
--- NOTE | 2021-11-15 20:57 | ADMGEN ---
This patient, Carissa Castro, was admitted to IMU Room 213-01 at 2057. Patient/family oriented to hospital policies and general routines including ID bracelet, bed and alarms, visiting hours, pain management, procedures, bathroom and other care routines, personal items, smoking policy, room service/diet, and visiting hours. Information on how to activate the Rapid Response Team has been discussed. Patient/Family are encouraged to report perceived risks to care and to ask questions if they do not understand what they are told or what they should do.
[2021-11-15 21:37] LABS: SARS-CoV-2 RNA PCR Negative
[2021-11-15 22:07] LABS: Troponin I < 0.012 ng/mL (0.000-0.034)
[2021-11-16] VITALS (23 sets, daily range): BP systolic 142–156; BP diastolic 78–97; PULSE 116–149; RESP 18–20; TEMP 36.1–36.6; O2SAT 93–99
[2021-11-16 01:17] LABS: Troponin I < 0.012 ng/mL (0.000-0.034)
[2021-11-16] MEDS: LABETALOL HCL INJ 100 MG/20 ML VIAL 20 MG IV PUSH (02:50)
[2021-11-16 05:20] LABS: Basophils Percent Auto 0.1 % (0.2-1.2); Hematocrit 39.5 % (37.0-47.0); Hemoglobin 13.1 g/dL (12.0-15.0); Immature Granulocyte Absolute 0.07 K/mm3 (0.00-0.031); Immature Granulocyte Percent A 0.5 % (0-0.5); Lymphocytes Absolute Auto 2.37 K/mm3 (0.9-3.2); Lymphocytes Percent Auto 16.9 % (18.3-44.2); Mean Corpuscular HGB Conc 33.2 g/dl (32-36); Mean Corpuscular Hemoglobin 30.3 pg (26-34); Mean Corpuscular Volume 91.4 fl (80-100); Mean Platelet Volume 9.5 fl (7.4-10.4); Monocytes Absolute Auto 1.5 K/mm3 (0.1-0.6); Monocytes Percent Auto 10.5 % (2.6-8.5); Neutrophils Absolute Auto 10.1 K/mm3 (1.3-6.7); Platelet Count Result 277 k/mm3 (150-375); Red Blood Count 4.32 M/mm3 (4.2-5.4); Red Cell Distribution Width 14.1 % (11.5-14.5)
[2021-11-16 05:54] LABS: Alanine Aminotransferase 30 U/L (6-35); Albumin Level 3.7 g/dL (3.5-5.1); Alkaline Phosphatase 122 U/L (38-126); Anion Gap 7 mmol/L (8-16); Aspartate Amino Transferase 27 U/L (14-36); Bilirubin,Total 0.8 mg/dL (0.2-1.3); Blood Urea Nitrogen 24 mg/dL (7-17); Calcium 10.3 mg/dL (8.4-10.2); Carbon Dioxide 29 mmol/L (22-30); Chloride 103 mmol/L (98-107); Estimated CRCL calculation 63 ml/min; Estimated Glomerular Filt Rate > 60; Glucose 130 mg/dL (65-110); Sodium 139 mmol/L (137-145)
[2021-11-16] MEDS: METOPROLOL TARTRATE INJ 5 MG/5 ML VIAL IV PUSH (10:32)
[2021-11-16 12:00] LABS: Uric Acid 8.5 mg/dL (2.5-7.5)
--- NOTE | 2021-11-16 12:11 | PM.CNCAR ---
Assessment and Plan Assessment and plan (1) Atrial fibrillation with rapid ventricular response: Code(s): I48.91 - Unspecified atrial fibrillation Status: Acute Assessment and Plan: Poorly controlled atrial fibrillation with rapid ventricular response. She remains anticoagulated with Eliquis 5 mg twice daily. Heart rate no doubt driven by acute infection and severe pain in her feet and left hand. Continue systemic anticoagulation with Eliquis 5 mg b.i.d.. Heart rate control strategy at this time most appropriate given presentation with a degree of altered mental status. Continue treatment of her underlying infection, pain control likely to improve overall response to therapy. He to clarify prior records with regards to chronicity of atrial fibrillation. If patient poorly tolerates medications and/or heart rate remains unacceptably rapid cardioversion an option with or without AMBROCIO depending upon chronicity with anticoagulation as well as atrial fibrillation not deemed longstanding persistent. Heart rate slightly improved with addition of metoprolol, poor response to diltiazem at 15 milligrams/hour. Increase metoprolol to 50 mg p.o. q.8 hours. Give IV digoxin 0.25 mg x 10.125 mg daily beginning tomorrow depending on heart rate control. 2D echo cardiac to assess LV size/function, chamber size, valve pathology pulmonary pressures with heart rate better controlled. (2) Acute UTI: Code(s): N39.0 - Urinary tract infection, site not specified Status: Acute Assessment and Plan: Per primary service. Continue IV antibiotics. (3) Sepsis: Code(s): A41.9 - Sepsis, unspecified organism Status: Acute Assessment and Plan: Per primary service. Patient improving on IV antibiotics. Currently afebrile, BP stable. Cultures pending. (4) History of hypothyroidism: Code(s): Z86.39 - Personal history of other endocrine, nutritional and metabolic disease Status: Acute Assessment and Plan: Check TSH. (5) Cellulitis of foot, right: Code(s): L03.115 - Cellulitis of right lower limb Status: Acute Assessment and Plan: Per primary service. X-rays without fracture or evidence of acute infection. Monitor response with IV antibiotics. (6) Cellulitis of left hand: Code(s): L03.114 - Cellulitis of left upper limb Status: Acute Assessment and Plan: As above. (7) History of hyperlipidemia: Code(s): Z86.39 - Personal history of other endocrine, nutritional and metabolic disease Status: Acute Assessment and Plan: Continue atorvastatin. History of Present Illness History of Present Illness Consult date/time: Date of service: 11/16/21 12:11 Requesting physician: Raysa Whipple DO Reason For Visit: sepsis, uti, a fib with rvr Narrative: On a patient is a 81-year-old female with a past medical history significant for bipolar disorder, COPD, atrial fibrillation, hyperlipidemia, hypothyroidism who presents emergency department complaints of weakness and lethargy. Patient was complaining of redness pain and swelling of the right foot left hand prior to admission. She was found to have urinary tract infection based on urinalysis with evidence of leukocytosis, tachycardia for which she was given IV ceftriaxone in the emergency department. CT abdomen and pelvis was obtained in the ER which was unremarkable as was her CT head. Patient was found to be in atrial fibrillation with rapid ventricular response with heart rate in the 140s for which she was started on diltiazem continuous infusion and increased to 15 milligrams/hour without significant improvement. She was given IV fluids admitted to the floor. Diltiazem infusion with subsequent discontinued in favor of p.r.n. IV labetalol, however, her heart rate remains poorly controlled generally in the 140s- 150s this morning. Patient denies chest pain, shortness of breath or palpi
[2021-11-16] MEDS: METOPROLOL TARTRATE 50 MG TAB PO ×2 (13:13→21:00)
--- NOTE | 2021-11-16 13:44 | ECHO_ITS ---
Patient Info Name: Carissa Castro Age: 81 years : 1940 Gender: Female Ht: 64 in Wt: 210 lbs BSA: 2.12 m2 HR: 124 bpm BP: 156 / 78 mmHg Heart Rhythm: Atrial Fibrillation, Tachycardia Technical Quality: Fair Exam Date: 11/16/2021 2:09 PM Exam Location: [facility] Card Pulmonary Patient Status: Inpatient Admit Date: 11/15/2021 Staff Ordering Physician: Frankie Grijalva MD Dairy Processing Equipment Operator: Deysi Mullins RDCS Attending Provider: Raysa Whipple DO Referring Physician: Valentine OLIVA; Exam Type: CA echo doppler color flow Study Info Indications - Afib with RVR Complete two-dimensional, color flow and Doppler transthoracic echocardiogram is performed. Summary 1. Complete two-dimensional, color flow and Doppler transthoracic echocardiogram is performed. 2. Left ventricular chamber dimension is normal. 3. Left ventricular systolic function is normal, estimated at 65-70%. 4. There is mildly increased left ventricular wall thickness. 5. There is mild mitral valve regurgitation. 6. There is no aortic valve stenosis. 7. There is mild tricuspid valve regurgitation. 8. Mild pulmonary hypertension, estimated pulmonary arterial systolic pressure is 37 mmHg. Left Ventricle Left ventricular chamber dimension is normal. Left ventricular systolic function is normal, estimated at 65-70%. There is mildly increased left ventricular wall thickness. The left ventricular diastolic function is indeterminate. Right Ventricle Right ventricular chamber dimension is normal. Right ventricular systolic function is normal. Left Atria Left atrial chamber dimension is normal. Right Atria Right atrial chamber dimension is normal. Aortic Valve The aortic valve is not well visualized. There is no aortic valve stenosis. There is no aortic valve regurgitation. Pulmonic Valve The pulmonic valve is not well visualized. Mitral Valve The mitral valve has thickened leaflets. There is mild mitral valve regurgitation. The mitral valve annulus is moderately calcified. Tricuspid Valve The tricuspid valve leaflets are normal. There is mild tricuspid valve regurgitation. Mild pulmonary hypertension, estimated pulmonary arterial systolic pressure is 37 mmHg. Pericardium/Pleural The pericardium appears normal. There is small pericardial effusion. Aorta The aortic root size at the sinus of Valsalva is normal. There is mild-moderate aortic atherosclerosis. Left Ventricular Outflow Tract Name Value Normal LVOT 2D LVOT Diameter 1.9 cm LVOT Doppler LVOT Peak Gradient 2 mmHg LVOT Mean Gradient 1 mmHg LVOT VTI 13 cm LVOT VTI/AV VTI Ratio 0.7 LVOT Stroke Volume 38 ml LVOT CO 3.6 l/min LVOT CI 1.7 l/min/m2 Pulmonic Valve Name Value Normal
[2021-11-16] MEDS: IPRATROPIUM BR 0.02% INH SOLN 0.5 MG/2.5 ML VIAL INHALATION ×2 (14:43→20:06)
[2021-11-16] MEDS: DIGOXIN INJ 250 MCG/ML 2 ML AMP (*BKC) IV PUSH (15:34)
--- NOTE | 2021-11-16 17:35 | PM.IMPN ---
Progress Note: A&P Assessment and Plan (1) Acute UTI: Code(s): N39.0 - Urinary tract infection, site not specified Status: Acute Assessment and Plan: Continue Rocephin, follow up urine culture (2) Atrial fibrillation with rapid ventricular response: Code(s): I48.91 - Unspecified atrial fibrillation Status: Acute Assessment and Plan: Continue Cardizem drip, appreciate cardiology consultation, continue home Eliquis Update: Switched to labetalol, patient was still tachy in the 140s on Cardizem at 15 milligrams/hour (3) Cellulitis of left hand: Code(s): L03.114 - Cellulitis of left upper limb Status: Acute Assessment and Plan: Do not suspect cellulitis, monitor (4) Cellulitis of foot, right: Code(s): L03.115 - Cellulitis of right lower limb Status: Acute Assessment and Plan: Do not suspect cellulitis, monitor (5) History of hypothyroidism: Code(s): Z86.39 - Personal history of other endocrine, nutritional and metabolic disease Status: Acute Assessment and Plan: Continue home medications (6) History of hyperlipidemia: Code(s): Z86.39 - Personal history of other endocrine, nutritional and metabolic disease Status: Acute (7) History of bipolar disorder: Code(s): Z86.59 - Personal history of other mental and behavioral disorders Status: Acute (8) History of COPD: Code(s): Z87.09 - Personal history of other diseases of the respiratory system Status: Acute Plan Some concern for multiple myeloma or other underlying malignancy due to elevated calcium, elevated uric acid, elevated alk-phos with mildly elevated ALT and AST within normal limits. Would recommend rechecking labs after hydration to assess possible resolution versus further workup. Eliquis for DVT prophylaxis Full code Additional Plan 11/16/2021 interval history: patient with history of atrial fibrillator presented with a RVR and was started on diltiazem drip this morning patient heart rate is still trending up patient seen by pantry attendant recommended to stop the diltiazem drip and added metoprolol 50 mg q.8 and digoxin and continue anticoagulation suspect the increased heart rate stemming from cellulitis and possibly gout, pain in her wrist lower extremity, her urine is also suspicion for UTI patient being treated with Rocephin for UTI and cellulitis added prednisone 60 mg for gout as patient uric acid level is elevated. patient family is presented in the room. Subjective Date/time seen: 11/16/21 17:35 Weakness Narrative: [id number]-old female with past medical history significant for bipolar disorder, COPD, atrial fibrillation, hyperlipidemia and hypothyroidism is presenting with generalized weakness.? Daughters in the room and provides some history.? She states her mother appears to have declined overall since May 2021.? She appears to be less responsive and more weak.? The nursing staff at the [facility] sent her to the ER for evaluation due to decrease in responsiveness to verbal stimuli and also concern for redness and swelling of her right foot and left hand since yesterday.? Per the ER documentation, she complained of pain in her right foot and left hand but denied chest pain, shortness of breath, nausea, vomiting or diarrhea.? No fevers or chills noted. In the ER, ECG showed AFib with RVR.? She is on chronic anticoagulation with Eliquis at home.? She was started on a Cardizem drip as well as normal saline at 125 mL/hr (this was discontinued when she arrived to the floor). Cardiology was consulted.? Labs showed a leukocytosis of 14.? ABG on room air showed a pH of 7.46, CO2 of 44, O2 of 61 an oxygen saturation of 92.7%.? CMP showed elevated carbon dioxide of 33, BUN of 25, creatinine of 0.9, which appears to be baseline.? Glucose of 204.? She was noted to have hypercalcemia with a calcium of 10.6.? LFTs were slightly elevated with an ALT of 3
[2021-11-16] MEDS: predniSONE 40 MG, predniSONE 10 MG 50 MG PO (18:31)
[2021-11-16 19:32] LABS: Thyroid Stimulating Hormone Reflex 0.805 uIU/mL (0.465-4.68)
[2021-11-16] MEDS: FLUTICASONE/SALMETEROL 115-21 MCG INHALER 1 PUFF 2 PUFF INHALATION (20:07)
[2021-11-16] MEDS: ATORVASTATIN 40 MG TABLET PO (20:55)
[2021-11-16] MEDS: GABAPENTIN 400 MG CAPSULE PO (20:55)
[2021-11-16] MEDS: PRIMIDONE 50 MG TABLET 150 MG PO (20:56)
[2021-11-16] MEDS: SERTRALINE HCL 25 MG TABLET 75 MG PO (20:57)
[2021-11-16] MEDS: SERTRALINE HCL 50 MG TABLET 100 MG PO (20:58)
[2021-11-16] MEDS: traZODone HCL 50 MG TABLET 100 MG PO (20:59)
[2021-11-17] VITALS (22 sets, daily range): BP systolic 116–143; BP diastolic 72–99; PULSE 90–132; RESP 12–20; TEMP 36.3–37.6; O2SAT 93–98
[2021-11-17] MEDS: LEVOTHYROXINE SODIUM 112 MCG TABLET PO (05:55)
[2021-11-17] MEDS: LEVOTHYROXINE SODIUM 25 MCG TABLET PO (05:55)
[2021-11-17] MEDS: METOPROLOL TARTRATE 50 MG TAB PO (05:56)
--- NOTE | 2021-11-17 08:23 | ECG_ITS ---
Measurements Intervals Anderson Rate: 107 P: LA: 0 QRS: -15 QRSD: 110 T: 0 QT: 287 QTc: 384 Interpretive Statements ATRIAL FIBRILLATION WITH RAPID VENTRICULAR RESPONSE VENTRICULAR PREMATURE COMPLEXES INCOMPLETE RIGHT BUNDLE BRANCH BLOCK LOW QRS VOLTAGE IN PRECORDIAL LEADS BORDERLINE T WAVE ABNORMALITY- ANTEROLAT/INF LEADS ABNORMAL ECG Electronically Signed On 11-17-2021 11:34:10 CDT by Jez Gauthier D.O.
[2021-11-17] MEDS: FLUTICASONE PROPIONATE 0.05% NA SPR 16 GM BTL (*BKC) 2 SPRAY NASAL (08:36)
[2021-11-17] MEDS: polyethylene glycoL 3350 17 GM POWD.PACK PO (08:37)
[2021-11-17] MEDS: DIGOXIN TAB 125 MCG TABLET PO (08:40)
[2021-11-17] MEDS: predniSONE 40 MG, predniSONE 10 MG 50 MG PO (08:40)
[2021-11-17] MEDS: CALCIUM CARBONATE (TUMS) 500 MG (200 MG ELEMENTAL) PO (08:41)
[2021-11-17] MEDS: CHOLECALCIFEROL 1,000 UNITS TABLET 2000 UNITS PO (08:42)
[2021-11-17] MEDS: ACETAMINOPHEN 500 MG TABLET PO ×2 (08:42→16:33)
[2021-11-17] MEDS: DIVALPROEX SODIUM SPRINKLE 125 MG CAP.DR 500 MG PO ×2 (08:42→16:33)
[2021-11-17] MEDS: POTASSIUM CHLORIDE 20 MEQ TABLET.ER 40 MEQ PO (08:43)
[2021-11-17] MEDS: FLUDROCORTISONE ACETATE 0.1 MG TABLET PO (08:43)
[2021-11-17] MEDS: GABAPENTIN 400 MG CAPSULE PO ×2 (08:43→16:33)
[2021-11-17] MEDS: FUROSEMIDE 40 MG TABLET 80 MG PO (08:43)
[2021-11-17] MEDS: APIXABAN 5 MG TABLET PO ×2 (08:43→16:33)
[2021-11-17] MEDS: LORATADINE 5 MG TABLET PO (08:43)
[2021-11-17] MEDS: IPRATROPIUM BR 0.02% INH SOLN 0.5 MG/2.5 ML VIAL INHALATION ×3 (09:11→20:13)
[2021-11-17] MEDS: FLUTICASONE/SALMETEROL 115-21 MCG INHALER 1 PUFF 2 PUFF INHALATION ×2 (09:11→20:17)
--- NOTE | 2021-11-17 09:54 | PM.IMPN ---
Progress Note: A&P Assessment and Plan (1) Acute UTI: Code(s): N39.0 - Urinary tract infection, site not specified Status: Acute Assessment and Plan: Continue Rocephin, follow up urine culture (2) Atrial fibrillation with rapid ventricular response: Code(s): I48.91 - Unspecified atrial fibrillation Status: Acute Assessment and Plan: Is started on Cardizem drip. Continue home Eliquis Also on labetalol at home which is continued. (3) Cellulitis of left hand: Code(s): L03.114 - Cellulitis of left upper limb Status: Acute Assessment and Plan: Do not suspect cellulitis, monitor (4) Cellulitis of foot, right: Code(s): L03.115 - Cellulitis of right lower limb Status: Acute Assessment and Plan: Do not suspect cellulitis, monitor (5) History of hypothyroidism: Code(s): Z86.39 - Personal history of other endocrine, nutritional and metabolic disease Status: Acute Assessment and Plan: Continue home medications (6) History of hyperlipidemia: Code(s): Z86.39 - Personal history of other endocrine, nutritional and metabolic disease Status: Acute (7) History of bipolar disorder: Code(s): Z86.59 - Personal history of other mental and behavioral disorders Status: Acute (8) History of COPD: Code(s): Z87.09 - Personal history of other diseases of the respiratory system Status: Acute Plan Generalized weakness Altered mental status CT head negative Atrial fibrillation with rapid ventricular rate. Started on Cardizem drip. Cardizem drip was stopped 11/16/2021 added on metoprolol and digoxin. Echo ordered EF 65-70% mildly increased left ventricular wall thickness no significant valvular abnormality. 11/16/2021 TSH is normal Suspected sepsis blood cultures has been negative so far. On IV ceftriaxone for UTI. Left wrist and right foot swelling is present suspected gout and on prednisone however may need to rule out septic arthritis. Will consult Orthopedics possible tap Status post pacemaker implantation Bipolar disorder COPD Elevated BNP chest x-ray with mild interstitial edema UTI urine culture with E coli. Sensitive to ceftriaxone which she is currently getting Hypertension Hyperlipidemia [facility] Right foot pain/left hand pain Concern for right foot and left hand cellulitis suspected gout and started on prednisone. Uric acid level was elevated. Hyperuricemia start allopurinol Hypercalcemia check PTH DVT prophylaxis on Eliquis Full code Additional Plan 11/16/2021 interval history: patient with history of atrial fibrillator presented with a RVR and was started on diltiazem drip this morning patient heart rate is still trending up patient seen by chief drafter recommended to stop the diltiazem drip and added metoprolol 50 mg q.8 and digoxin and continue anticoagulation suspect the increased heart rate stemming from cellulitis and possibly gout, pain in her wrist lower extremity, her urine is also suspicion for UTI patient being treated with Rocephin for UTI and cellulitis added prednisone 60 mg for gout as patient uric acid level is elevated. patient family is presented in the room. Subjective Date/time seen: 11/17/21 09:55 Interval history: HPI:81-year-old female with past medical history significant for bipolar disorder, COPD, atrial fibrillation, hyperlipidemia and hypothyroidism is presenting with generalized weakness.? Daughters in the room and provides some history.? She states her mother appears to have declined overall since May 2021.? She appears to be less responsive and more weak.? The nursing staff at the [facility] sent her to the ER for evaluation due to decrease in responsiveness to verbal stimuli and also concern for redness and swelling of her right foot and left hand since yesterday.? Per the ER documentation, she complained of pain in her right foot and left hand but rigo
[2021-11-17] MEDS: allopurinoL 100 MG TABLET PO (11:39)
[2021-11-17] MEDS: cefTRIAXone 2 GM in SODIUM CHLORIDE 0.9% IV 100 ML 200 ML IVPB (11:39)
[2021-11-17 12:00] LABS: Parathyroid Intact 105.6 pg/mL (7.5-53.5)
--- NOTE | 2021-11-17 12:21 | PCSTNOTE ---
Please refer to the Bedside Swallow Evaluation in the EMR. Please note, silent aspiration cannot be ruled out at bedside.
--- NOTE | 2021-11-17 12:59 | PM.PNCARD ---
Progress Note: A&P Assessment and Plan (1) Atrial fibrillation with rapid ventricular response: Code(s): I48.91 - Unspecified atrial fibrillation Status: Acute Assessment and Plan: Heart rate control strategy at this time most appropriate given presentation with a degree of altered mental status. Continue treatment of her underlying infection, pain control likely to improve overall response to therapy. If patient poorly tolerates medications and/or heart rate remains unacceptably rapid cardioversion an option with or without AMBROCIO depending upon chronicity with anticoagulation as well as atrial fibrillation not deemed longstanding persistent. - Increase metoprolol to 75 mg p.o. q.8 hours. Continue digoxin 0.125 mg daily. Check level in a.m.. If heart rate adequately controlled on her regimen anticipate transition to metoprolol tartrate 150 mg twice daily. 2D echo personally reviewed from 11/16/2021. Summary ? 1. Complete two-dimensional, color flow and Doppler transthoracic echocardiogram is performed. ? 2. Left ventricular chamber dimension is normal. ? 3. Left ventricular systolic function is normal, estimated at 65-70%. ? 4. There is mildly increased left ventricular wall thickness. ? 5. There is mild mitral valve regurgitation. ? 6. There is no aortic valve stenosis. ? 7. There is mild tricuspid valve regurgitation. ? 8. Mild pulmonary hypertension, estimated pulmonary arterial systolic pressure is 37 mmHg. (2) Acute UTI: Code(s): N39.0 - Urinary tract infection, site not specified Status: Acute Assessment and Plan: Per primary service. Continue IV antibiotics. (3) Sepsis: Code(s): A41.9 - Sepsis, unspecified organism Status: Acute Assessment and Plan: Per primary service. Patient improving on IV antibiotics. Currently afebrile, BP stable. Cultures pending. (4) History of hypothyroidism: Code(s): Z86.39 - Personal history of other endocrine, nutritional and metabolic disease Status: Acute Assessment and Plan: Check TSH. (5) Cellulitis of foot, right: Code(s): L03.115 - Cellulitis of right lower limb Status: Acute Assessment and Plan: Per primary service. X-rays without fracture or evidence of acute infection. Monitor response with IV antibiotics. (6) Cellulitis of left hand: Code(s): L03.114 - Cellulitis of left upper limb Status: Acute Assessment and Plan: As above. (7) History of hyperlipidemia: Code(s): Z86.39 - Personal history of other endocrine, nutritional and metabolic disease Status: Acute Assessment and Plan: Continue atorvastatin. Subjective Date/time seen: Date of service: 11/17/21 12:59 Follow-up for atrial fibrillation with rapid ventricular response, mild troponin elevation without anginal symptoms Patient feels better. Complains of pain in her hand and foot although improving. Denies shortness of breath, palpitations or chest pain. No fevers overnight. Remains in AFib with RVR although heart rate better controlled 90s to 100s more often. Digoxin added yesterday to oral metoprolol. Review of Systems Review of Systems: All systems reviewed & are unremarkable except as noted in HPI and below Constitutional: Constitutional: Reports as per HPI and Reports no additional constitutional complaints Eyes: Eyes: Reports as per HPI and Reports no additional eye complaints ENT: Reports system reviewed and no additional complaints, except as documented and Reports as per HPI Cardiovascular: Cardiovascular: Reports as per HPI and Reports no additional cardiovascular complaints Respiratory: Respiratory: Reports as per HPI and Reports no additional respiratory complaints Gastrointestinal: Gastrointestinal: Reports as per HPI and Reports no additional gastrointestinal complaints Genitourinary: Genitourinary: Reports as per HPI Musculoskeletal: Musculoskeletal: Re
--- NOTE | 2021-11-17 15:47 | PCPTNOTE ---
Spoke to hospitalist about patient being dependent at baseline. Hospitalist agreed to stopping orders for patient. Orders stopped at this date.
[2021-11-17] MEDS: METOPROLOL TARTRATE 25 MG TABLET 75 MG PO ×2 (16:33→20:07)
[2021-11-17] MEDS: LATANOPROST 0.005% OP SOLN 2.5 ML BTL 1 DROP EACH EYE (18:58)
[2021-11-17] MEDS: MICONAZOLE NITRATE 2% CREAM 30 GM TUBE 1 APPLIC TOPICAL ×3 (19:01→19:02)
--- NOTE | 2021-11-17 20:00 | PC.NURSE ---
Clarified NPO order with Dr. Craig; suggests pt take her scheduled metoprolol crushed in applesauce as tolerated.
[2021-11-17] MEDS: traZODone HCL 50 MG TABLET 100 MG PO (20:06)
[2021-11-18] VITALS (27 sets, daily range): BP systolic 104–143; BP diastolic 59–101; PULSE 76–140; RESP 14–20; TEMP 35.8–37.3; O2SAT 95–100
[2021-11-18] MEDS: IPRATROPIUM BR 0.02% INH SOLN 0.5 MG/2.5 ML VIAL INHALATION ×4 (02:26→20:19)
[2021-11-18 05:36] LABS: Basophils Percent Auto 0.2 % (0.2-1.2); Hematocrit 39.9 % (37.0-47.0); Hemoglobin 12.8 g/dL (12.0-15.0); Immature Granulocyte Absolute 0.04 K/mm3 (0.00-0.031); Immature Granulocyte Percent A 0.4 % (0-0.5); Lymphocytes Absolute Auto 1.88 K/mm3 (0.9-3.2); Lymphocytes Percent Auto 20.2 % (18.3-44.2); Mean Corpuscular HGB Conc 32.1 g/dl (32-36); Mean Corpuscular Hemoglobin 30.7 pg (26-34); Mean Corpuscular Volume 95.7 fl (80-100); Monocytes Absolute Auto 0.4 K/mm3 (0.1-0.6); Monocytes Percent Auto 4.2 % (2.6-8.5); Platelet Count Result 312 k/mm3 (150-375); Red Blood Count 4.17 M/mm3 (4.2-5.4); White Blood Count 9.3 K/mm3 (4.5-10.0)
--- NOTE | 2021-11-18 05:50 | PC.NURSE ---
UO for shift 100 mL. Bladder scan showed 436 mL of urine left. Called Dr. Craig and obtained orders for steiner catheter.
[2021-11-18 06:09] LABS: Alanine Aminotransferase 738 U/L (6-35); Albumin Level 3.4 g/dL (3.5-5.1); Alkaline Phosphatase 154 U/L (38-126); Anion Gap 7 mmol/L (8-16); Blood Urea Nitrogen 26 mg/dL (7-17); Calcium 10.5 mg/dL (8.4-10.2); Carbon Dioxide 29 mmol/L (22-30); Chloride 99 mmol/L (98-107); Estimated CRCL calculation 64 ml/min; Estimated Glomerular Filt Rate > 60; Glucose 102 mg/dL (65-110); Magnesium 2.2 mg/dL (1.6-2.3); Sodium 135 mmol/L (137-145)
[2021-11-18 06:31] LABS: Digoxin 1.9 ng/mL (0.8-2.0)
[2021-11-18 07:53] LABS: Aspartate Amino Transferase 1232 U/L (14-36)
[2021-11-18] MEDS: FLUTICASONE/SALMETEROL 115-21 MCG INHALER 1 PUFF 2 PUFF INHALATION ×2 (09:03→20:19)
--- NOTE | 2021-11-18 09:51 | PCSTNOTE ---
Please refer to the Modified Barium Swallow Evaluation in the EMR.
[2021-11-18 10:22] LABS: Acetaminophen < 10 ug/mL (10-30)
[2021-11-18] MEDS: MORPHINE SULFATE (*CRX) 2 MG/ML INJ IV PUSH ×2 (10:31→15:58)
[2021-11-18 10:45] LABS: Hepatitis B Surface Antigen Negative (Negative)
[2021-11-18 10:46] LABS: Erythrocyte Sedimentation Rate 11 mm/hr (0-20)
[2021-11-18 10:51] LABS: HAV RESULT Negative (Negative); Hepatitis B Core IgM Result Negative (Negative)
[2021-11-18] MEDS: DIVALPROEX SODIUM SPRINKLE 125 MG CAP.DR 500 MG PO ×2 (10:52→16:00)
[2021-11-18] MEDS: APIXABAN 5 MG TABLET PO ×2 (10:55→15:59)
[2021-11-18] MEDS: ACETAMINOPHEN 500 MG TABLET PO (10:55)
[2021-11-18] MEDS: polyethylene glycoL 3350 17 GM POWD.PACK PO (10:56)
[2021-11-18] MEDS: allopurinoL 100 MG TABLET PO (10:57)
[2021-11-18] MEDS: DIGOXIN TAB 125 MCG TABLET PO (10:58)
[2021-11-18] MEDS: CALCIUM CARBONATE (TUMS) 500 MG (200 MG ELEMENTAL) PO (10:58)
[2021-11-18] MEDS: GABAPENTIN 400 MG CAPSULE PO ×3 (10:59→21:11)
[2021-11-18] MEDS: MICONAZOLE NITRATE 2% CREAM 30 GM TUBE 1 APPLIC TOPICAL (10:59)
[2021-11-18] MEDS: FLUTICASONE PROPIONATE 0.05% NA SPR 16 GM BTL (*BKC) 2 SPRAY NASAL (11:00)
[2021-11-18] MEDS: CHOLECALCIFEROL 1,000 UNITS TABLET 2000 UNITS PO (11:00)
[2021-11-18 11:02] LABS: Hepatitis C Virus Antibody Negative (Negative)
[2021-11-18] MEDS: LORATADINE 5 MG TABLET PO (11:02)
[2021-11-18] MEDS: FLUDROCORTISONE ACETATE 0.1 MG TABLET PO (11:03)
--- NOTE | 2021-11-18 11:26 | PM.PNCARD ---
Progress Note: A&P Assessment and Plan (1) Atrial fibrillation with rapid ventricular response: Code(s): I48.91 - Unspecified atrial fibrillation Status: Acute Assessment and Plan: Heart rate control strategy at this time most appropriate given presentation with a degree of altered mental status. Continue treatment of her underlying infection, pain control likely to improve overall response to therapy. If patient poorly tolerates medications and/or heart rate remains unacceptably rapid cardioversion an option with or without AMBROCIO depending upon chronicity with anticoagulation as well as atrial fibrillation not deemed longstanding persistent. Currently asymptomatic and rate adequately controlled. - Transition metoprolol tartrate to 150mg b.i.d. Continue digoxin 0.125 mg daily. Check level in a.m.. 2D echo personally reviewed from 11/16/2021. Summary ? 1. Complete two-dimensional, color flow and Doppler transthoracic echocardiogram is performed. ? 2. Left ventricular chamber dimension is normal. ? 3. Left ventricular systolic function is normal, estimated at 65-70%. ? 4. There is mildly increased left ventricular wall thickness. ? 5. There is mild mitral valve regurgitation. ? 6. There is no aortic valve stenosis. ? 7. There is mild tricuspid valve regurgitation. ? 8. Mild pulmonary hypertension, estimated pulmonary arterial systolic pressure is 37 mmHg. (2) Acute UTI: Code(s): N39.0 - Urinary tract infection, site not specified Status: Acute Assessment and Plan: Per primary service. Continue IV antibiotics. (3) Sepsis: Code(s): A41.9 - Sepsis, unspecified organism Status: Acute Assessment and Plan: Per primary service. Patient improving on IV antibiotics. Currently afebrile, BP stable. Cultures pending. (4) History of hypothyroidism: Code(s): Z86.39 - Personal history of other endocrine, nutritional and metabolic disease Status: Acute Assessment and Plan: Check TSH. (5) Cellulitis of foot, right: Code(s): L03.115 - Cellulitis of right lower limb Status: Acute Assessment and Plan: Per primary service. X-rays without fracture or evidence of acute infection. Monitor response with IV antibiotics. (6) Cellulitis of left hand: Code(s): L03.114 - Cellulitis of left upper limb Status: Acute Assessment and Plan: As above. (7) History of hyperlipidemia: Code(s): Z86.39 - Personal history of other endocrine, nutritional and metabolic disease Status: Acute Assessment and Plan: Continue atorvastatin. Subjective Date/time seen: 11/18/21 11:26 Cardiology follow up for [place] Feels okay today. Complaining of pain in her feet and wrist. HR reasonably controlled for the most part but was more elevated this morning. She is asymptomatic. Review of Systems Review of Systems: All systems reviewed & are unremarkable except as noted in HPI and below Constitutional: Constitutional: Reports as per HPI and Reports no additional constitutional complaints Eyes: Eyes: Reports as per HPI and Reports no additional eye complaints ENT: Reports system reviewed and no additional complaints, except as documented and Reports as per HPI Cardiovascular: Cardiovascular: Reports as per HPI and Reports no additional cardiovascular complaints Respiratory: Respiratory: Reports as per HPI and Reports no additional respiratory complaints Gastrointestinal: Gastrointestinal: Reports as per HPI and Reports no additional gastrointestinal complaints Genitourinary: Genitourinary: Reports as per HPI Musculoskeletal: Musculoskeletal: Reports no additional musculoskeletal complaints and Reports as per HPI Integumentary/Breasts: Skin/Breast: Reports system reviewed and no additional complaints, except as docu and Reports as per HPI Neurologic: Reports system reviewed and no additional complaints, except as documente
[2021-11-18] MEDS: cefTRIAXone 2 GM in SODIUM CHLORIDE 0.9% IV 100 ML 200 ML IVPB (11:32)
--- NOTE | 2021-11-18 12:34 | PM.CNOR ---
Assessment and Plan Assessment and plan (1) Left wrist pain: Code(s): M25.532 - Pain in left wrist <RAINA Horvath - Last Filed: 11/18/21 13:04> Status: Acute <RAINA Horvath - Last Filed: 11/18/21 13:04> (2) Right foot pain: Code(s): M79.671 - Pain in right foot <RAINA Horvath - Last Filed: 11/18/21 13:04> Status: Acute <RAINA Horvath - Last Filed: 11/18/21 13:04> Assessment and Plan: Patient seen and examined. Significant swelling at the left wrist and right ankle. The wrist aspiration did not produce fluid. The ankle aspiration produced significant inflammatory appearing fluid that was quite thick. There appeared to be some gross white flecks in it. This is consistent with possible crystals from gout or pseudogout. Septic arthritis less likely. Culture sent. Cell count and crystal analysis sent. Consider intra-articular steroid injection depending on the results. <You Walker MD - Last Filed: 11/18/21 17:28> Additional Plan Patient complains of pain and swelling in left hand and right foot. She has been admitted for UTI, Sepsis, and A.fib with RVR. Patient has had pain in her wrist and foot for weeks. Differential includes gout and arthritis. I do not believe she has cellulitis. Reviewed radiographs taken 11/15/21. 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 No acute fractures. Right foot radiographs show osteopenia and demineralization. Likely from being non ambulatory. There is some arthritis at the 1st MTP joint. No fractures. She does have a history of gout and uric acid is elevated at 8.5 on 11/16. ESR is normal. CRP elevated at 24. WBC is back to normal at 9.3. Patient is currently on oral Prednisone 50 mg. Patient states that the pain has not gotten any better; however when speaking with the hospitalist, he states the swelling and warmth are better today. <RAINA Horvath - Last Filed: 11/18/21 13:04> History of Present Illness HPI Consult date: 11/18/21 <RAINA Horvath - Last Filed: 11/18/21 13:04> 11/18/21 <You Walker MD - Last Filed: 11/18/21 17:28> Consult reason: joint pain (Right foot. Left wrist. ) <RAINA Horvath - Last Filed: 11/18/21 13:04> Chief complaint: sepsis, uti, a fib with rvr <RAINA Horvath - Last Filed: 11/18/21 13:04> Narrative: Patient resting comfortably in bed at the time of my visit. Patient was admitted to the hospital for sepsis, UTI, and a.fib with RVR. Patient typically lives in a senior living and is non-ambulatory. She typically uses a wheelchair. She has not fallen. She states she has pain in her left hand and that it is swollen. She states that it has been painful and swollen for many weeks. Pain is located at the wrist. Pain with motion. States it was warm. No numbness or tingling. Also complains of pain in her right foot. States both feet hurt but right is worse. Pain with ankle motion. Notes swelling and redness. No numbness or tingling. This has also been going on for weeks. She states she has a history of gout years ago in her big toe. <RAINA Horvath - Last Filed: 11/18/21 13:04> Review of Systems Review of Systems: All systems reviewed & are unremarkable except as noted in HPI and below <RAINA Horvath - Last Filed: 11/18/21 13:04> [facility] Past Medical History Medical History: Medical History History of atrial fibrillation History of bipolar disorder History of COPD History of hyperlipidemia History of hypothyroidism <RAINA Horvath - Last Filed: 11/18/21 13:04> Surgical History Surgical History: Surgical History Pacemaker <RAINA Horvath - Last Filed: 07/14/22 13:04> Family History Family History: Family
[2021-11-18] MEDS: METOPROLOL TARTRATE 25 MG TABLET 75 MG PO ×2 (12:59→21:12)
--- NOTE | 2021-11-18 14:00 | PM.IMPN ---
Progress Note: A&P Assessment and Plan (1) Acute UTI: Code(s): N39.0 - Urinary tract infection, site not specified Status: Acute (2) Atrial fibrillation with rapid ventricular response: Code(s): I48.91 - Unspecified atrial fibrillation Status: Acute (3) Cellulitis of left hand: Code(s): L03.114 - Cellulitis of left upper limb Status: Acute (4) Cellulitis of foot, right: Code(s): L03.115 - Cellulitis of right lower limb Status: Acute (5) History of hypothyroidism: Code(s): Z86.39 - Personal history of other endocrine, nutritional and metabolic disease Status: Acute (6) History of hyperlipidemia: Code(s): Z86.39 - Personal history of other endocrine, nutritional and metabolic disease Status: Acute (7) History of bipolar disorder: Code(s): Z86.59 - Personal history of other mental and behavioral disorders Status: Acute (8) History of COPD: Code(s): Z87.09 - Personal history of other diseases of the respiratory system Status: Acute Plan # Generalized weakness # Altered mental status CT head negative # Atrial fibrillation with rapid ventricular rate. Started on Cardizem drip. Cardizem drip was stopped 11/16/2021 added on metoprolol and digoxin. Echo ordered EF 65-70% mildly increased left ventricular wall thickness no significant valvular abnormality. 11/16/2021 TSH is normal # Suspected sepsis blood cultures has been negative so far. On IV ceftriaxone for UTI. Left wrist and right foot swelling is present suspected gout and on prednisone however may need to rule out septic arthritis. Orthopedics consulted and discussed with them. Plan for tap to rule out septic joint # elevated liver enzymes liver number shot up 1999 today suggestive of acute liver injury. Will check ultrasound right upper quadrant. Unclear etiology. Will hold prednisone. Check Tylenol level in hepatitis profile. # Status post pacemaker implantation # Bipolar disorder # COPD # Elevated BNP chest x-ray with mild interstitial edema # UTI urine culture with E coli. Sensitive to ceftriaxone which she is currently getting # Hypertension # Hyperlipidemia [facility] resident # Right foot pain/left hand pain Concern for right foot and left hand cellulitis suspected gout and started on prednisone. Uric acid level was elevated. # Hyperuricemia start allopurinol # Hypercalcemia PTH is also elevated suggestive of primary hyperparathyroidism. # DVT prophylaxis on Eliquis # Full code Subjective Date/time seen: 11/18/21 14:00 Interval history: HPI:81-year-old female with past medical history significant for bipolar disorder, COPD, atrial fibrillation, hyperlipidemia and hypothyroidism is presenting with generalized weakness.? Daughters in the room and provides some history.? She states her mother appears to have declined overall since May 2021.? She appears to be less responsive and more weak.? The nursing staff at the [facility] sent her to the ER for evaluation due to decrease in responsiveness to verbal stimuli and also concern for redness and swelling of her right foot and left hand since yesterday.? Per the ER documentation, she complained of pain in her right foot and left hand but denied chest pain, shortness of breath, nausea, vomiting or diarrhea.? No fevers or chills noted. In the ER, ECG showed AFib with RVR.? She is on chronic anticoagulation with Eliquis at home.? She was started on a Cardizem drip as well as normal saline at 125 mL/hr (this was discontinued when she arrived to the floor). Cardiology was consulted.? Labs showed a leukocytosis of 14.? ABG on room air showed a pH of 7.46, CO2 of 44, O2 of 61 an oxygen saturation of 92.7%.? CMP showed elevated carbon dioxide of 33, BUN of 25, creatinine of 0.9, which appears to be baseline.? Glucose of 204.? She was noted to have hypercalcemia with a calcium of 10.6.? LFTs were slightly elevated with an ALT of
[2021-11-18 14:48] LABS: Alanine Aminotransferase 578 U/L (6-35); Albumin Level 3.3 g/dL (3.5-5.1); Alkaline Phosphatase 158 U/L (38-126); Bilirubin,Total 0.8 mg/dL (0.2-1.3)
[2021-11-18 15:00] LABS: Aspartate Amino Transferase 838 U/L (14-36)
--- NOTE | 2021-11-18 17:28 | PM.OP ---
Procedure Note - Brief Procedure Note - Brief Date of procedure: 11/18/21 Pre-op diagnosis: left wrist and right ankle swelling Post-op diagnosis: Same Procedure performed: Aspiration right ankle and left wrist. Description of procedure: Sterile prep and drape performed with chlorhexidine. 18 gauge needle inserted into the dorsal wrist joint. No fluid obtained. Anterolateral approach to the right ankle performed in the similar fashion. Proximally 1-2 mL of inflammatory appearing fluid obtained. Subtle evidence for white flecks consistent with crystalline arthropathy. Fluid was fairly thick and a bit yellowish as well. Culture sent to rule out infection. Surgeon: You Walker MD Pathology: Yes (Cell count, crystal analysis, cultures.) Complications: No immediate complications Condition: Stable Disposition: Floor
[2021-11-18] MEDS: LATANOPROST 0.005% OP SOLN 2.5 ML BTL 1 DROP EACH EYE (18:02)
[2021-11-18] MEDS: traZODone HCL 50 MG TABLET 100 MG PO (21:11)
[2021-11-18] MEDS: PRIMIDONE 50 MG TABLET 150 MG PO (21:11)
[2021-11-18] MEDS: SERTRALINE HCL 25 MG TABLET 75 MG PO (21:11)
[2021-11-18] MEDS: SERTRALINE HCL 50 MG TABLET 100 MG PO (21:11)
[2021-11-18] MEDS: KETOROLAC 30 MG/ML VIAL (*BKC) IV PUSH (21:55)
[2021-11-19] VITALS (22 sets, daily range): BP systolic 118–131; BP diastolic 61–86; PULSE 70–107; RESP 14–20; TEMP 36.2–36.7; O2SAT 93–99
[2021-11-19] MEDS: IPRATROPIUM BR 0.02% INH SOLN 0.5 MG/2.5 ML VIAL INHALATION ×4 (02:24→21:43)
[2021-11-19 05:05] LABS: Basophils Absolute Auto 0.1 K/mm3 (0.0-0.1); Basophils Percent Auto 0.5 % (0.2-1.2); Eosinophils Absolute Auto 0.1 K/mm3 (0-0.3); Eosinophils Percent Auto 0.5 % (0-4.4); Hematocrit 37.9 % (37.0-47.0); Immature Granulocyte Absolute 0.06 K/mm3 (0.00-0.031); Immature Granulocyte Percent A 0.6 % (0-0.5); Lymphocytes Absolute Auto 2.76 K/mm3 (0.9-3.2); Lymphocytes Percent Auto 28.8 % (18.3-44.2); Mean Corpuscular HGB Conc 31.7 g/dl (32-36); Mean Corpuscular Hemoglobin 30.2 pg (26-34); Mean Corpuscular Volume 95.2 fl (80-100); Mean Platelet Volume 9.4 fl (7.4-10.4); Monocytes Absolute Auto 0.8 K/mm3 (0.1-0.6); Monocytes Percent Auto 7.9 % (2.6-8.5); Neutrophils Absolute Auto 5.9 K/mm3 (1.3-6.7); Neutrophils Percent Auto 61.7 % (45.5-73.1); Nucleated Red Blood Cells Perc 0.3 % (0.0-0.2); Platelet Count Result 372 k/mm3 (150-375); Red Blood Count 3.98 M/mm3 (4.2-5.4); Red Cell Distribution Width 14.2 % (11.5-14.5); White Blood Count 9.6 K/mm3 (4.5-10.0)
[2021-11-19 05:16] LABS: Alanine Aminotransferase 424 U/L (6-35); Alkaline Phosphatase 136 U/L (38-126); Anion Gap 4 mmol/L (8-16); Aspartate Amino Transferase 467 U/L (14-36); Bilirubin,Total 0.6 mg/dL (0.2-1.3); Blood Urea Nitrogen 23 mg/dL (7-17); Calcium 9.8 mg/dL (8.4-10.2); Carbon Dioxide 31 mmol/L (22-30); Chloride 99 mmol/L (98-107); Estimated CRCL calculation 65 ml/min; Estimated Glomerular Filt Rate > 60; Glucose 86 mg/dL (65-110); Potassium 4.2 mmol/L (3.4-5.0); Sodium 134 mmol/L (137-145)
[2021-11-19] MEDS: METOPROLOL TARTRATE 25 MG TABLET 75 MG PO (06:18)
[2021-11-19] MEDS: LEVOTHYROXINE SODIUM 112 MCG TABLET PO (06:18)
[2021-11-19] MEDS: LEVOTHYROXINE SODIUM 25 MCG TABLET PO (06:18)
--- NOTE | 2021-11-19 07:11 | PM.PNCARD ---
Subjective Date/time seen: 11/19/21 07:11 Cardiology follow up for atrial fibrillation Objective Data Vital Signs Vital Signs: Vital Signs - 24 hr 11/18/21 09:03 11/18/21 09:06 11/18/21 08:00 Temperature 37.3 C Pulse Rate 86 110 H Respiratory Rate 18 16 Blood Pressure 135/78 Pulse Oximetry 98 99 Oxygen Delivery Room Air 11/18/21 09:12 11/18/21 10:58 11/18/21 12:00 Temperature 36.8 C Pulse Rate 95 117 H 108 H Respiratory Rate 18 16 Blood Pressure 114/73 Pulse Oximetry 99 Oxygen Delivery 11/18/21 12:59 11/18/21 13:34 11/18/21 13:42 Temperature Pulse Rate 114 H 103 H 102 H Respiratory Rate 18 18 Blood Pressure Pulse Oximetry Oxygen Delivery 11/18/21 16:00 11/18/21 08:00 11/18/21 12:00 Temperature 36.3 C L Pulse Rate 97 Respiratory Rate 16 Blood Pressure 108/59 L Pulse Oximetry 96 Oxygen Delivery Room Air Room Air 11/18/21 16:00 11/18/21 08:00 11/18/21 12:00 Temperature Pulse Rate 104 H 117 H Respiratory Rate Blood Pressure Pulse Oximetry Oxygen Delivery Room Air 11/18/21 16:00 11/18/21 10:00 11/18/21 14:00 Temperature Pulse Rate 111 H 140 H 125 H Respiratory Rate Blood Pressure Pulse Oximetry Oxygen Delivery 11/18/21 18:00 11/18/21 20:20 11/18/21 20:29 Temperature Pulse Rate 124 H 96 99 Respiratory Rate 18 18 Blood Pressure Pulse Oximetry Oxygen Delivery 11/18/21 20:30 11/18/21 21:12 11/18/21 20:00 Temperature 36.6 C Pulse Rate 100 100 Respiratory Rate 14 Blood Pressure 135/70 Pulse Oximetry 97 98 Oxygen Delivery Room Air 11/18/21 20:00 11/18/21 22:00 11/18/21 22:35 Temperature Pulse Rate 111 H 108 H 89 Respiratory Rate Blood Pressure Pulse Oximetry 95 Oxygen Delivery Autopap 11/18/21 21:10 11/19/21 00:00 11/19/21 00:00 Temperature Pulse Rate 98 Respiratory Rate Blood Pressure Pulse Oximetry Oxygen Delivery Room Air Room Air 11/19/21 00:00 11/19/21 02:00 11/19/21 02:24 Temperature 36.2 C L Pulse Rate 82 99 87 Respiratory Rate 18 18 Blood Pressure 123/64 Pulse Oximetry 97 Oxygen Delivery 11/19/21 02:31 11/19/21 02:36 11/19/21 04:00 Temperature 36.5 C Pulse Rate 86 85 70 Respiratory Rate 18 14 Blood Pressure 118/70 Pulse Oximetry 96 99 Oxygen Delivery Autopap 11/19/21 04:00 11/19/21 04:00 11/19/21 06:00 Temperature Pulse Rate 89 87 Respiratory Rate Blood Pressure Pulse Oximetry Oxygen Delivery CPAP 11/19/21 06:18 Temperature Pulse Rate 80 Respiratory Rate Blood Pressure Pulse Oximetry Oxygen Delivery Intake/Output Intake/Output: Intake & Output 11/16/21 11/17/21 11/18/21 11/19/21 23:59 23:59 23:59 23:59 Intake Total 450 780 970 250 Output Total 200 775 225 Balance 450 580 195 25 Meds/Results Medications: Active Medications Generic Name Dose Route Start Last Admin Trade Name Freq PRN Reason Stop Dose Admin Acetaminophen 500 mg 11/17/21 09:00 11/18/21 12:58 Acetaminophen 500 Mg Tablet PO Not Given TID JILL Albuterol 2 puff 11/16/21 18:02 Albuterol Sulfate (*Sp) Aerosol 1 Puff INHALATION QID PRN Shortness Of Breath Or Wheezing Allopurinol 100 mg 11/17/21 08:00 11/18/21 10:57 Allopurinol 100 Mg Tablet PO 100 mg DAILY@0800 [facility] Administration Apixaban 5 mg 11/17/21 09:00 11/18/21 15:59 Apixaban 5 Mg Tablet PO 5 mg BID JILL Administration Atorvastatin Calcium 40 mg 11/16/21 21:00 11/17/21 20:26 Atorvastatin 40 Mg Tablet PO Not Given HS JILL Bisacodyl 10 mg 11/16/21 18:02 Bisacodyl 10 Mg Suppository RECTAL DAILY PRN Constipation Calcium Carbonate 200 mg 11/18/21 09:00 11/18/21 10:58 Calcium Carbonate (Tums) 500 Mg (200 Mg Elemental) PO 200 mg DAILY JILL Administration Chlorhexidine Gluconate 15 ml 11/18/21 17:09 Chlorhexidine Gluconate 0.1
[2021-11-19] MEDS: FLUTICASONE PROPIONATE 0.05% NA SPR 16 GM BTL (*BKC) 2 SPRAY NASAL (08:32)
[2021-11-19] MEDS: LIDOCAINE 5% PATCH 2 PATCH TRANSDERM (08:32)
[2021-11-19] MEDS: cefTRIAXone 2 GM in SODIUM CHLORIDE 0.9% IV 100 ML 200 ML IVPB (08:32)
[2021-11-19] MEDS: CALCIUM CARBONATE (TUMS) 500 MG (200 MG ELEMENTAL) PO (08:33)
[2021-11-19] MEDS: CHOLECALCIFEROL 1,000 UNITS TABLET 2000 UNITS PO (08:34)
[2021-11-19] MEDS: DIVALPROEX SODIUM SPRINKLE 125 MG CAP.DR 500 MG PO ×2 (08:34→16:48)
[2021-11-19] MEDS: GABAPENTIN 400 MG CAPSULE PO ×4 (08:34→21:28)
[2021-11-19] MEDS: FLUDROCORTISONE ACETATE 0.1 MG TABLET PO (08:34)
[2021-11-19] MEDS: APIXABAN 5 MG TABLET PO ×2 (08:34→16:48)
[2021-11-19] MEDS: LORATADINE 5 MG TABLET PO (08:34)
[2021-11-19] MEDS: polyethylene glycoL 3350 17 GM POWD.PACK PO (08:34)
[2021-11-19] MEDS: allopurinoL 100 MG TABLET PO (08:35)
[2021-11-19] MEDS: DIGOXIN TAB 125 MCG TABLET PO (08:35)
[2021-11-19] MEDS: FLUTICASONE/SALMETEROL 115-21 MCG INHALER 1 PUFF 2 PUFF INHALATION ×2 (09:44→21:43)
--- NOTE | 2021-11-19 10:55 | PM.PNORT ---
Progress Note: A&P Assessment and Plan (1) Right foot pain: Code(s): M79.671 - Pain in right foot Status: Acute (2) Left wrist pain: Code(s): M25.532 - Pain in left wrist Status: Acute Plan ?Patient seen and examined.? Swelling and pain has decreased significantly in her left wrist. Patient states it feels better then it has in a very long time. Dr. Walker was unable to drain fluid off the wrist yesterday. Patient notes the ankle is still hurting, but it is improving. Redness and swelling are improving slightly from yesterday. The ankle aspiration yesterday produced significant inflammatory appearing fluid that was quite thick.? There appeared to be some gross white flecks in it.?Unable to send for crystals and cell count because there was not enough fluid. Awaiting cultures. No growth to date. White blood cells seen. Because patient is improving on oral steroids we will hold off on a steroid injection. Subjective Subjective Date/Time Seen: 11/19/21 10:55 Interval history: Patient resting comfortably in bed. She states her wrist is feeling significantly better today. Swelling as decreased. She has been keeping it elevated. She is still having pain in her ankle however the pain is decreasing. No numbness or tingling. No other complaints. Objective Data Vital Signs Vital Signs: Vital Signs - 24 hr 11/18/21 10:58 11/18/21 12:00 11/18/21 12:59 Temperature 98.3 F Pulse Rate 117 H 108 H 114 H Respiratory Rate 16 Blood Pressure 114/73 Pulse Oximetry 99 Oxygen Delivery 11/18/21 13:34 11/18/21 13:42 11/18/21 16:00 Temperature 97.4 F L Pulse Rate 103 H 102 H 97 Respiratory Rate 18 18 16 Blood Pressure 108/59 L Pulse Oximetry 96 Oxygen Delivery 11/18/21 12:00 11/18/21 16:00 11/18/21 12:00 Temperature Pulse Rate 117 H Respiratory Rate Blood Pressure Pulse Oximetry Oxygen Delivery Room Air Room Air 11/18/21 16:00 11/18/21 14:00 11/18/21 18:00 Temperature Pulse Rate 111 H 125 H 124 H Respiratory Rate Blood Pressure Pulse Oximetry Oxygen Delivery 11/18/21 20:20 11/18/21 20:29 11/18/21 20:30 Temperature Pulse Rate 96 99 Respiratory Rate 18 18 Blood Pressure Pulse Oximetry 97 Oxygen Delivery Room Air 11/18/21 21:12 11/18/21 20:00 11/18/21 20:00 Temperature 97.9 F Pulse Rate 100 100 111 H Respiratory Rate 14 Blood Pressure 135/70 Pulse Oximetry 98 Oxygen Delivery 11/18/21 22:00 11/18/21 22:35 11/18/21 21:10 Temperature Pulse Rate 108 H 89 Respiratory Rate Blood Pressure Pulse Oximetry 95 Oxygen Delivery Autopap Room Air 11/19/21 00:00 11/19/21 00:00 11/19/21 00:00 Temperature 97.2 F L Pulse Rate 98 82 Respiratory Rate 18 Blood Pressure 123/64 Pulse Oximetry 97 Oxygen Delivery Room Air 11/19/21 02:00 11/19/21 02:24 11/19/21 02:31 Temperature Pulse Rate 99 87 86 Respiratory Rate 18 Blood Pressure Pulse Oximetry 96 Oxygen Delivery Autopap 11/19/21 02:36 11/19/21 04:00 11/19/21 04:00 Temperature 97.7 F Pulse Rate 85 70 89 Respiratory Rate 18 14 Blood Pressure 118/70 Pulse Oximetry 99 Oxygen Delivery 11/19/21 04:00 11/19/21 06:00 11/19/21 06:18 Temperature Pulse Rate 87 80 Respiratory Rate Blood Pressure Pulse Oximetry Oxygen Delivery CPAP 11/19/21 08:00 11/19/21 08:35 11/19/21 08:00 Temperature 97.7 F Pulse Rate 76 89 87 Respiratory Rate 16 Blood Pressure 127/81 Pulse Oximetry 98 Oxygen Delivery 11/19/21 09:40 11/19/21 09:46 11/19/21 09:54 Temperature Pulse Rate 83 84 Respiratory Rate 16 16 Blood Pressure Pulse Oximetry 97 Oxygen Delivery Room Air 11/19/21 08:00 11/19/21 10:00 Temperature Pulse Rate 88 Respiratory Rate Blood Pressure Pulse Oximetry Oxygen Delivery Room Air Intake/Output Intake/Output: Intake & Output
--- NOTE | 2021-11-19 11:12 | WPDNEURCNPN ---
Assessment and Plan Assessment and plan (1) History of bipolar disorder: Code(s): Z86.59 - Personal history of other mental and behavioral disorders Status: Acute (2) Atrial fibrillation with rapid ventricular response: Code(s): I48.91 - Unspecified atrial fibrillation Status: Acute (3) Generalized weakness: Code(s): R53.1 - Weakness Status: Acute (4) TIA (transient ischemic attack): Code(s): G45.9 - Transient cerebral ischemic attack, unspecified Status: Acute Plan generalized weakness with underlying bipolar illness, atrial fibrillation but able to carry out the conversation and has difficulties moving the left upper ex neurologically treatment will be continued as such might repeat the CT scan of the head Peter if he can get the MRI of the brain Consult date: 11/19/21 Time Seen: 09:00 HPI: Carissa Castro is a 81 year old female admitted to the hospital for the complaints of generalized weakness in addition to the ongoing history of 1. Bipolar disorder 2. Atrial fibrillation 3. Hyperlipidemia 4. Hypothyroidism 5. COPD the nursing staff at the [facility] sent her to the emergency room for the complaints of increasing the responsiveness to verbal stimuli along with the redness and swelling of her right foot and left hand. On initial evaluation in the emergency room he was noted lead in AFib on EKG and has been on anticoagulation therapy with Eliquis she was treated with Cardizem drip which was subsequently discontinued when she arrived to the floor CBC was compatible with leukocytosis BUN was 25 with creatinine of 0.9 and glucose 204 calcium 10.6 hepatic enzymes are slightly elevated troponin was negative and BNP was 1920 UA was positive for leukocyte Estrace she was started on Rocephin in the emergency room routine x-rays of the hand and few documented osteopenia and osteoarthritis the CT of the abdomen and pelvis were negative subsequently her Cardizem drip was increased [id number]/hour with little improvement in the heart rate does still 120s to 130s, as per the project landscape architect systemic anticoagulation was continued with Eliquis 5 mg twice a day with the intention to consider cardioversion if necessary she has documented slight improvement with metoprolol for response of diltiazem was also given IV digoxin Review of Systems Review of Systems: All systems reviewed & are unremarkable except as noted in HPI and below PMFSH Past Medical History Medical History History of atrial fibrillation History of bipolar disorder History of COPD History of hyperlipidemia History of hypothyroidism Surgical History Surgical History Pacemaker Family History Family History Other Unknown family medical history Social History Social History Smoking status: Never smoker Alcohol intake: never Substance use: never Substance use type: does not use Spiritual care concerns: No Meds Home Medications and Allergies Home Medications Medication Instructions Recorded Confirmed Type acetaminophen 500 mg tablet 1,000 mg PO TID 03/02/21 11/19/21 History apixaban 5 mg tablet (Eliquis) 5 mg PO BID 03/02/21 11/15/21 History atorvastatin 40 mg tablet (Lipitor) 40 mg PO HS 03/02/21 11/15/21 History bisacodyl 10 mg rectal suppository 10 mg RECTAL DAILY PRN Constipation 03/02/21 11/15/21 History budesonide-formoterol HFA 160 2 puff inhalation Q12H 03/02/21 11/15/21 History mcg-4.5 mcg/actuation aerosol inhaler (Symbicort) fludrocortisone 0.1 mg tablet 0.1 mg PO DAILY 03/02/21 11/15/21 History fluticasone propionate 50 2 spray intranasal DAILY 03/02/21 11/15/21 History mcg/actuation nasal spray,suspension furosemide 40 mg tablet 80 mg PO DAILY
--- NOTE | 2021-11-19 12:17 | WPDCDIQUERY2 ---
CDI Query Clarification Request 11/15 ER physician documented: Discharge Plan: Clinical Impression: ?Sepsis, Acute UTI, Atrial fibrillation with rapid ventricular response, Cellulitis of left hand, Cellulitis of foot, right 11/16 Cardiology documented: Sepsis: ?Code(s): A41.9 - Sepsis, unspecified organism ?Status:?Acute ?Assessment and Plan: Per primary service.? Patient improving on IV antibiotics.? Currently afebrile, BP stable.? Cultures pending Patient presented with HR 138, WBC 14.4, one time temp of 96.5 on 11/18, Acute UTI and Cellulitis Please clarify if Sepsis has been ruled in, ruled out or undetermined. If ruled in please add to problem list. <Mandy Panchal - Last Filed: 11/19/21 12:33> Provider Comments Sepsis undetermined <Santy Schaffer MD - Last Filed: 11/19/21 14:56>
--- NOTE | 2021-11-19 14:33 | PM.IMPN ---
Progress Note: A&P Assessment and Plan (1) Acute UTI: Code(s): N39.0 - Urinary tract infection, site not specified Status: Acute (2) Atrial fibrillation with rapid ventricular response: Code(s): I48.91 - Unspecified atrial fibrillation Status: Acute (3) Cellulitis of left hand: Code(s): L03.114 - Cellulitis of left upper limb Status: Acute (4) Cellulitis of foot, right: Code(s): L03.115 - Cellulitis of right lower limb Status: Acute (5) History of hypothyroidism: Code(s): Z86.39 - Personal history of other endocrine, nutritional and metabolic disease Status: Acute (6) History of hyperlipidemia: Code(s): Z86.39 - Personal history of other endocrine, nutritional and metabolic disease Status: Acute (7) History of bipolar disorder: Code(s): Z86.59 - Personal history of other mental and behavioral disorders Status: Acute (8) History of COPD: Code(s): Z87.09 - Personal history of other diseases of the respiratory system Status: Acute Plan # Generalized weakness # Altered mental status CT head negative # Atrial fibrillation with rapid ventricular rate. Started on Cardizem drip. Cardizem drip was stopped 11/16/2021 added on metoprolol and digoxin. Echo ordered EF 65-70% mildly increased left ventricular wall thickness no significant valvular abnormality. 11/16/2021 TSH is normal # Suspected sepsis blood cultures has been negative so far. On IV ceftriaxone for UTI. Left wrist and right foot swelling is present suspected gout and on prednisone however may need to rule out septic arthritis. Orthopedics consulted and discussed with them. Status post tap with expression of thick white flaky inflammatory fluid. Cultures awaited which has been negative so far # elevated liver enzymes liver number shot up 199911/17/2021 suggestive of acute liver injury. Ultrasound upper quadrant normal Unclear etiology. Resume prednisone. Tylenol level and hepatitis profile negative # Status post pacemaker implantation # Bipolar disorder # COPD # Elevated BNP chest x-ray with mild interstitial edema # UTI urine culture with E coli. Sensitive to ceftriaxone which she is currently getting # Hypertension # Hyperlipidemia retirement resident # Right foot pain/left hand pain Concern for right foot and left hand cellulitis suspected gout and started on prednisone. Uric acid level was elevated. # Hyperuricemia start allopurinol # Hypercalcemia PTH is also elevated suggestive of primary hyperparathyroidism. # DVT prophylaxis on Eliquis # Full code Subjective Date/time seen: 11/19/21 14:33 Interval history: HPI:81-year-old female with past medical history significant for bipolar disorder, COPD, atrial fibrillation, hyperlipidemia and hypothyroidism is presenting with generalized weakness.? Daughters in the room and provides some history.? She states her mother appears to have declined overall since May 2021.? She appears to be less responsive and more weak.? The nursing staff at the [facility] sent her to the ER for evaluation due to decrease in responsiveness to verbal stimuli and also concern for redness and swelling of her right foot and left hand since yesterday.? Per the ER documentation, she complained of pain in her right foot and left hand but denied chest pain, shortness of breath, nausea, vomiting or diarrhea.? No fevers or chills noted. In the ER, ECG showed AFib with RVR.? She is on chronic anticoagulation with Eliquis at home.? She was started on a Cardizem drip as well as normal saline at 125 mL/hr (this was discontinued when she arrived to the floor). Cardiology was consulted.? Labs showed a leukocytosis of 14.? ABG on room air showed a pH of 7.46, CO2 of 44, O2 of 61 an oxygen saturation of 92.7%.? CMP showed elevated carbon dioxide of 33, BUN of 25, creatinine of 0.9, which appears to be baseline.? Glucose of 204.? She was noted to have hyper
[2021-11-19] MEDS: LATANOPROST 0.005% OP SOLN 2.5 ML BTL 1 DROP EACH EYE (17:23)
[2021-11-19] MEDS: IBUPROFEN 400 MG TABLET PO (18:31)
[2021-11-19] MEDS: METOPROLOL TARTRATE 50 MG TAB 150 MG PO (21:28)
[2021-11-19] MEDS: PRIMIDONE 50 MG TABLET 150 MG PO (21:29)
[2021-11-19] MEDS: SERTRALINE HCL 25 MG TABLET 75 MG PO (21:29)
[2021-11-19] MEDS: SERTRALINE HCL 50 MG TABLET 100 MG PO (21:29)
[2021-11-19] MEDS: traZODone HCL 50 MG TABLET 100 MG PO (21:29)
--- NOTE | 2021-11-19 22:47 | PC.NURSE ---
This patient, Carissa Castro, was transferred to [ [facility]] on 11/19/21 at 2245. Personal belongings sent with patient. Report given to [Mary Beth ]. Appropriate documentation sent with patient.
[2021-11-20] VITALS (18 sets, daily range): BP systolic 105–149; BP diastolic 58–90; PULSE 67–105; RESP 16–20; TEMP 35.8–35.9; O2SAT 93–98
[2021-11-20] MEDS: IPRATROPIUM BR 0.02% INH SOLN 0.5 MG/2.5 ML VIAL INHALATION ×4 (02:18→20:00)
[2021-11-20] MEDS: LEVOTHYROXINE SODIUM 112 MCG TABLET PO (05:44)
[2021-11-20] MEDS: LEVOTHYROXINE SODIUM 25 MCG TABLET PO (05:44)
--- NOTE | 2021-11-20 06:12 | PC.NURSE ---
Left voicemail for dtr Claudia that pt was moved overnight to room 317.
[2021-11-20] MEDS: FLUTICASONE/SALMETEROL 115-21 MCG INHALER 1 PUFF 2 PUFF INHALATION ×2 (09:08→20:00)
--- NOTE | 2021-11-20 09:17 | PM.PNCARD ---
Progress Note: A&P Assessment and Plan (1) Atrial fibrillation with rapid ventricular response: Code(s): I48.91 - Unspecified atrial fibrillation Status: Acute (2) Acute UTI: Code(s): N39.0 - Urinary tract infection, site not specified Status: Acute (3) Sepsis: Code(s): A41.9 - Sepsis, unspecified organism Status: Acute (4) History of hypothyroidism: Code(s): Z86.39 - Personal history of other endocrine, nutritional and metabolic disease Status: Acute (5) Cellulitis of foot, right: Code(s): L03.115 - Cellulitis of right lower limb Status: Acute (6) Cellulitis of left hand: Code(s): L03.114 - Cellulitis of left upper limb Status: Acute (7) History of hyperlipidemia: Code(s): Z86.39 - Personal history of other endocrine, nutritional and metabolic disease Status: Acute (8) History of bipolar disorder: Code(s): Z86.59 - Personal history of other mental and behavioral disorders Status: Acute (9) History of COPD: Code(s): Z87.09 - Personal history of other diseases of the respiratory system Status: Acute Plan # Generalized weakness # Altered mental status CT head negative # Atrial fibrillation with rapid ventricular rate. Started on Cardizem drip. Cardizem drip was stopped 11/16/2021 added on metoprolol and digoxin. Echo ordered EF 65-70% mildly increased left ventricular wall thickness no significant valvular abnormality. 11/16/2021 TSH is normal # Suspected sepsis blood cultures has been negative so far. On IV ceftriaxone for UTI. Left wrist and right foot swelling is present suspected gout and on prednisone however may need to rule out septic arthritis. Orthopedics consulted and discussed with them. Status post tap with expression of thick white flaky inflammatory fluid. Cultures awaited which has been negative so far # elevated liver enzymes liver number shot up 199911/17/2021 suggestive of acute liver injury. Ultrasound upper quadrant normal Unclear etiology. Resume prednisone. Tylenol level and hepatitis profile negative # Status post pacemaker implantation # Bipolar disorder # COPD # Elevated BNP chest x-ray with mild interstitial edema # UTI urine culture with E coli. Sensitive to ceftriaxone which she is currently getting # Hypertension # Hyperlipidemia detention resident # Right foot pain/left hand pain Concern for right foot and left hand cellulitis suspected gout and started on prednisone. Uric acid level was elevated. # Hyperuricemia start allopurinol # Hypercalcemia PTH is also elevated suggestive of primary hyperparathyroidism. # DVT prophylaxis on Eliquis # Full code Subjective Date/time seen: Date of service: 11/20/21 09:17 Interval history: Follow-up visit in this 81-year-old lady with atrial fibrillation with rapid ventricular response on admission. She has been placed on a higher dose of metoprolol with good rate control. Patient has a dual-chamber pacing device with ventricular lead that appears to be in a mid septal position and atrial lead that appears to be in atrial free wall position. She apparently moved here last year from [facility] and resides in a fci here. The patient states she does not have a pleater following up her pacemaker device since she moved to this area. No cardiovascular complaints this morning. Exam Const: General: comfortable and no acute distress Other: Pleasant elderly lady receiving a nebulizer treatment at this time appears to be comfortable no complaints HENMT: Mouth: Yes moist mucous membranes Eyes: Sclera: sclerae normal Neck: Neck: supple and no JVD Resp: Effort & Inspection: normal respiratory effort Cardio: Rhythm: abnormal rhythm irregularly irregular GI: GI Palp: Yes Soft to palpation Auscultation: normal bowel sounds Skin: General skin exam: normal color Neuro: Other: Normal cognition Objecti
[2021-11-20] MEDS: IBUPROFEN 400 MG TABLET PO ×2 (09:40→20:34)
[2021-11-20] MEDS: METOPROLOL TARTRATE 50 MG TAB 150 MG PO ×2 (09:41→20:34)
[2021-11-20] MEDS: DIVALPROEX SODIUM SPRINKLE 125 MG CAP.DR 500 MG PO ×2 (09:41→18:06)
[2021-11-20] MEDS: predniSONE 40 MG, predniSONE 10 MG 50 MG PO (09:42)
[2021-11-20] MEDS: allopurinoL 100 MG TABLET PO (09:42)
[2021-11-20] MEDS: POTASSIUM CHLORIDE 20 MEQ TABLET.ER PO (09:43)
[2021-11-20] MEDS: GABAPENTIN 400 MG CAPSULE PO ×4 (09:43→20:35)
[2021-11-20] MEDS: CHOLECALCIFEROL 1,000 UNITS TABLET 2000 UNITS PO (09:43)
[2021-11-20] MEDS: APIXABAN 5 MG TABLET PO ×2 (09:44→18:08)
[2021-11-20] MEDS: LORATADINE 5 MG TABLET PO (09:44)
[2021-11-20] MEDS: FLUDROCORTISONE ACETATE 0.1 MG TABLET PO (09:44)
[2021-11-20] MEDS: FLUTICASONE PROPIONATE 0.05% NA SPR 16 GM BTL (*BKC) 2 SPRAY NASAL (09:45)
[2021-11-20] MEDS: cefTRIAXone 2 GM in SODIUM CHLORIDE 0.9% IV 100 ML 200 ML IVPB (09:45)
[2021-11-20] MEDS: LIDOCAINE 5% PATCH 2 PATCH TRANSDERM (09:45)
[2021-11-20] MEDS: polyethylene glycoL 3350 17 GM POWD.PACK PO (09:54)
[2021-11-20 10:12] LABS: Basophils Percent Auto 0.5 % (0.2-1.2); Eosinophils Absolute Auto 0.1 K/mm3 (0-0.3); Eosinophils Percent Auto 0.6 % (0-4.4); Hematocrit 39.9 % (37.0-47.0); Hemoglobin 12.5 g/dL (12.0-15.0); Immature Granulocyte Absolute 0.11 K/mm3 (0.00-0.031); Immature Granulocyte Percent A 1.2 % (0-0.5); Lymphocytes Absolute Auto 2.39 K/mm3 (0.9-3.2); Lymphocytes Percent Auto 26.9 % (18.3-44.2); Mean Corpuscular HGB Conc 31.3 g/dl (32-36); Mean Corpuscular Volume 95.9 fl (80-100); Mean Platelet Volume 9.3 fl (7.4-10.4); Monocytes Absolute Auto 0.5 K/mm3 (0.1-0.6); Monocytes Percent Auto 5.4 % (2.6-8.5); Neutrophils Absolute Auto 5.8 K/mm3 (1.3-6.7); Neutrophils Percent Auto 65.4 % (45.5-73.1); Platelet Count Result 422 k/mm3 (150-375); Red Blood Count 4.16 M/mm3 (4.2-5.4); Red Cell Distribution Width 14.5 % (11.5-14.5); White Blood Count 8.9 K/mm3 (4.5-10.0)
[2021-11-20 10:23] LABS: Alanine Aminotransferase 264 U/L (6-35); Albumin Level 3.3 g/dL (3.5-5.1); Alkaline Phosphatase 147 U/L (38-126); Anion Gap 6 mmol/L (8-16); Aspartate Amino Transferase 149 U/L (14-36); Bilirubin,Total 0.4 mg/dL (0.2-1.3); Blood Urea Nitrogen 19 mg/dL (7-17); Carbon Dioxide 31 mmol/L (22-30); Chloride 99 mmol/L (98-107); Estimated CRCL calculation 75 ml/min; Estimated Glomerular Filt Rate > 60; Glucose 120 mg/dL (65-110); Magnesium 1.9 mg/dL (1.6-2.3); Potassium 3.9 mmol/L (3.4-5.0); Sodium 136 mmol/L (137-145)
--- NOTE | 2021-11-20 12:49 | PM.IMPN ---
Progress Note: A&P Assessment and Plan (1) Acute UTI: Code(s): N39.0 - Urinary tract infection, site not specified Status: Acute (2) Atrial fibrillation with rapid ventricular response: Code(s): I48.91 - Unspecified atrial fibrillation Status: Acute (3) Cellulitis of left hand: Code(s): L03.114 - Cellulitis of left upper limb Status: Acute (4) Cellulitis of foot, right: Code(s): L03.115 - Cellulitis of right lower limb Status: Acute (5) History of hypothyroidism: Code(s): Z86.39 - Personal history of other endocrine, nutritional and metabolic disease Status: Acute (6) History of hyperlipidemia: Code(s): Z86.39 - Personal history of other endocrine, nutritional and metabolic disease Status: Acute (7) History of bipolar disorder: Code(s): Z86.59 - Personal history of other mental and behavioral disorders Status: Acute (8) History of COPD: Code(s): Z87.09 - Personal history of other diseases of the respiratory system Status: Acute Plan # Generalized weakness # Altered mental status CT head negative # Atrial fibrillation with rapid ventricular rate. Started on Cardizem drip. Cardizem drip was stopped 11/16/2021 added on metoprolol and digoxin. Echo ordered EF 65-70% mildly increased left ventricular wall thickness no significant valvular abnormality. 11/16/2021 TSH is normal # Suspected sepsis blood cultures has been negative so far. On IV ceftriaxone for UTI. Left wrist and right foot swelling is present suspected gout and on prednisone however may need to rule out septic arthritis. Orthopedics consulted and discussed with them. Status post tap with expression of thick white flaky inflammatory fluid. Cultures awaited which has been negative so far # elevated liver enzymes liver number shot up 199911/17/2021 suggestive of acute liver injury. Ultrasound upper quadrant normal Unclear etiology. Resume prednisone. Tylenol level and hepatitis profile negative # Status post pacemaker implantation # Bipolar disorder # COPD # Elevated BNP chest x-ray with mild interstitial edema # UTI urine culture with E coli. Sensitive to ceftriaxone which she is currently getting # Hypertension # Hyperlipidemia half-way resident # Right foot pain/left hand pain Concern for right foot and left hand cellulitis suspected gout and started on prednisone. Uric acid level was elevated. # Hyperuricemia start allopurinol # Hypercalcemia PTH is also elevated suggestive of primary hyperparathyroidism. # DVT prophylaxis on Eliquis # Full code Subjective Date/time seen: 11/20/21 12:49 Interval history: HPI:81-year-old female with past medical history significant for bipolar disorder, COPD, atrial fibrillation, hyperlipidemia and hypothyroidism is presenting with generalized weakness.? Daughters in the room and provides some history.? She states her mother appears to have declined overall since May 2021.? She appears to be less responsive and more weak.? [facility] her to the ER for evaluation due to decrease in responsiveness to verbal stimuli and also concern for redness and swelling of her right foot and left hand since yesterday.? Per the ER documentation, she complained of pain in her right foot and left hand but denied chest pain, shortness of breath, nausea, vomiting or diarrhea.? No fevers or chills noted. In the ER, ECG showed AFib with RVR.? She is on chronic anticoagulation with Eliquis at home.? She was started on a Cardizem drip as well as normal saline at 125 mL/hr (this was discontinued when she arrived to the floor). Cardiology was consulted.? Labs showed a leukocytosis of 14.? ABG on room air showed a pH of 7.46, CO2 of 44, O2 of 61 an oxygen saturation of 92.7%.? CMP showed elevated carbon dioxide of 33, BUN of 25, creatinine of 0.9, which appears to be baseline.? Glucose of 204
[2021-11-20] MEDS: LATANOPROST 0.005% OP SOLN 2.5 ML BTL 1 DROP EACH EYE (18:07)
[2021-11-20] MEDS: SERTRALINE HCL 25 MG TABLET 75 MG PO (20:34)
[2021-11-20] MEDS: SERTRALINE HCL 50 MG TABLET 100 MG PO (20:35)
[2021-11-20] MEDS: PRIMIDONE 50 MG TABLET 150 MG PO (20:35)
[2021-11-20] MEDS: traZODone HCL 50 MG TABLET 100 MG PO (20:35)
[2021-11-21] VITALS (19 sets, daily range): BP systolic 116–156; BP diastolic 69–88; PULSE 62–94; RESP 15–20; TEMP 35.8–36.4; O2SAT 94–97
[2021-11-21] MEDS: IPRATROPIUM BR 0.02% INH SOLN 0.5 MG/2.5 ML VIAL INHALATION ×4 (02:02→19:27)
[2021-11-21] MEDS: LEVOTHYROXINE SODIUM 25 MCG TABLET PO (05:54)
[2021-11-21] MEDS: LEVOTHYROXINE SODIUM 112 MCG TABLET PO (05:55)
[2021-11-21 06:08] LABS: Basophils Absolute Auto 0.1 K/mm3 (0.0-0.1); Basophils Percent Auto 0.3 % (0.2-1.2); Eosinophils Percent Auto 0.1 % (0-4.4); Hematocrit 37.5 % (37.0-47.0); Hemoglobin 11.9 g/dL (12.0-15.0); Immature Granulocyte Absolute 0.24 K/mm3 (0.00-0.031); Immature Granulocyte Percent A 1.5 % (0-0.5); Lymphocytes Absolute Auto 3.43 K/mm3 (0.9-3.2); Lymphocytes Percent Auto 21.5 % (18.3-44.2); Mean Corpuscular HGB Conc 31.7 g/dl (32-36); Mean Corpuscular Hemoglobin 30.1 pg (26-34); Mean Corpuscular Volume 94.9 fl (80-100); Mean Platelet Volume 9.3 fl (7.4-10.4); Monocytes Absolute Auto 0.6 K/mm3 (0.1-0.6); Monocytes Percent Auto 3.9 % (2.6-8.5); Neutrophils Absolute Auto 11.6 K/mm3 (1.3-6.7); Neutrophils Percent Auto 72.7 % (45.5-73.1); Platelet Count Result 444 k/mm3 (150-375); Red Blood Count 3.95 M/mm3 (4.2-5.4); Red Cell Distribution Width 13.9 % (11.5-14.5)
[2021-11-21 06:25] LABS: Alanine Aminotransferase 182 U/L (6-35); Alkaline Phosphatase 134 U/L (38-126); Anion Gap 5 mmol/L (8-16); Aspartate Amino Transferase 82 U/L (14-36); Bilirubin,Total 0.4 mg/dL (0.2-1.3); Blood Urea Nitrogen 20 mg/dL (7-17); Calcium 10.3 mg/dL (8.4-10.2); Carbon Dioxide 28 mmol/L (22-30); Chloride 103 mmol/L (98-107); Estimated CRCL calculation 74 ml/min; Estimated Glomerular Filt Rate > 60; Glucose 100 mg/dL (65-110); Potassium 4.4 mmol/L (3.4-5.0); Sodium 136 mmol/L (137-145)
[2021-11-21 06:55] LABS: Digoxin 0.6 ng/mL (0.8-2.0)
[2021-11-21] MEDS: FLUTICASONE/SALMETEROL 115-21 MCG INHALER 1 PUFF 2 PUFF INHALATION ×2 (07:35→19:27)
[2021-11-21] MEDS: CHOLECALCIFEROL 1,000 UNITS TABLET 2000 UNITS PO (08:50)
[2021-11-21] MEDS: DIVALPROEX SODIUM SPRINKLE 125 MG CAP.DR 500 MG PO ×2 (08:50→18:15)
[2021-11-21] MEDS: GABAPENTIN 400 MG CAPSULE PO ×4 (08:50→21:10)
[2021-11-21] MEDS: predniSONE 40 MG, predniSONE 10 MG 50 MG PO (08:50)
[2021-11-21] MEDS: polyethylene glycoL 3350 17 GM POWD.PACK PO (08:50)
[2021-11-21] MEDS: APIXABAN 5 MG TABLET PO ×2 (08:51→18:14)
[2021-11-21] MEDS: METOPROLOL TARTRATE 50 MG TAB 150 MG PO ×2 (08:51→21:11)
[2021-11-21] MEDS: LORATADINE 5 MG TABLET PO (08:51)
[2021-11-21] MEDS: allopurinoL 100 MG TABLET PO (08:52)
[2021-11-21] MEDS: FLUDROCORTISONE ACETATE 0.1 MG TABLET PO (08:52)
[2021-11-21] MEDS: FLUTICASONE PROPIONATE 0.05% NA SPR 16 GM BTL (*BKC) 2 SPRAY NASAL (08:52)
[2021-11-21] MEDS: LIDOCAINE 5% PATCH 2 PATCH TRANSDERM (08:52)
[2021-11-21] MEDS: POTASSIUM CHLORIDE 20 MEQ TABLET.ER PO (08:52)
[2021-11-21] MEDS: cefTRIAXone 2 GM in SODIUM CHLORIDE 0.9% IV 100 ML 200 ML IVPB (08:53)
--- NOTE | 2021-11-21 08:53 | PM.PNORT ---
Progress Note: A&P Assessment and Plan (1) Right foot pain: Code(s): M79.671 - Pain in right foot Status: Acute (2) Left wrist pain: Code(s): M25.532 - Pain in left wrist Status: Acute Plan Patient seen and examined.?Swelling and pain continue to decreased in her left wrist and right ankle. Patient states both hurt still but they are improving. Ankle aspiration still shows no growth to date. Likely gout or pseudogout and responding well to oral steroids and elevation. Thank you for the participation in the patient's care. Subjective Subjective Date/Time Seen: 11/21/21 08:53 Interval history: Patient resting comfortably in bed. She states her wrist is feeling slightly worse today because she used it a lot yesterday. Notes her pain in her wrist and ankle is decreasing overall. Swelling as decreased. She has been keeping both ankle and wrist elevated. No numbness or tingling. No other complaints. Exam Narrative: Overweight 81 y/o female. No acute distress. Alert and oriented x3. Right hand with mild swelling. No warmth. Mild tenderness to ROM of the wrist. Tenderness only at the wrist. No errythemia. Negative Tinel at the wrist. No pain with elbow or shoulder ROM. Distal neurovascularly intact. Light touch sensation intact. Normal capillary refill. Left foot with mild swelling. Petechiae and erythema on lateral ankle have improved. Pain with ROM. She is able to move her ankle. No warmth. Distal neurovascularly intact. Light touch sensation intact. Normal capillary refill. Objective Data Vital Signs Vital Signs: Vital Signs - 24 hr 11/20/21 09:00 11/20/21 09:41 11/20/21 13:50 Temperature Pulse Rate 86 90 74 Respiratory Rate 20 20 Blood Pressure Pulse Oximetry Oxygen Delivery 11/20/21 13:58 11/20/21 14:00 11/20/21 12:00 Temperature 96.5 F L Pulse Rate 81 67 79 Respiratory Rate 20 20 Blood Pressure 105/90 Pulse Oximetry 98 Oxygen Delivery 11/20/21 16:00 11/20/21 20:00 11/20/21 20:00 Temperature Pulse Rate 90 105 H 105 H Respiratory Rate 20 Blood Pressure Pulse Oximetry 94 Oxygen Delivery Room Air 11/20/21 20:15 11/20/21 20:34 11/20/21 21:46 Temperature 96.6 F L Pulse Rate 89 90 84 Respiratory Rate 20 16 Blood Pressure 149/79 H Pulse Oximetry 95 Oxygen Delivery 11/20/21 20:00 11/21/21 02:02 11/20/21 23:10 Temperature Pulse Rate 91 92 88 Respiratory Rate 20 Blood Pressure Pulse Oximetry 94 Oxygen Delivery Autopap 11/21/21 02:10 11/21/21 05:56 11/21/21 00:00 Temperature 96.8 F L Pulse Rate 87 80 82 Respiratory Rate 18 16 Blood Pressure 130/70 Pulse Oximetry 96 Oxygen Delivery 11/21/21 04:00 11/21/21 07:37 11/21/21 07:49 Temperature Pulse Rate 83 87 91 Respiratory Rate 18 18 Blood Pressure Pulse Oximetry Oxygen Delivery Intake/Output Intake/Output: Intake & Output 11/18/21 11/19/21 11/20/21 11/21/21 23:59 23:59 23:59 23:59 Intake Total 970 1230 2740 750 Output Total 897 386 0212 900 Balance 749 826 8014 -150 Meds/Results Medications: Active Medications Generic Name Dose Route Start Last Admin Trade Name Freq PRN Reason Stop Dose Admin Acetaminophen 500 mg 11/17/21 09:00 11/18/21 12:58 Acetaminophen 500 Mg Tablet PO Not Given TID JILL Albuterol 2 puff 11/16/21 18:02 Albuterol Sulfate (*Sp) Aerosol 1 Puff INHALATION QID PRN Shortness Of Breath Or Wheezing Allopurinol 100 mg 11/17/21 08:00 11/20/21 09:42 Allopurinol 100 Mg Tablet PO 100 mg DAILY@0800 JILL Administration Apixaban 5 mg 11/17/21 09:00 11/20/21 18:08 Apixaban 5 Mg Tablet PO 5 mg BID JILL Administration Atorvastatin Calcium 40 mg 11/16/21 21:00 11/17/21 20:26 Atorvastatin 40 Mg Tablet PO Not Given HS JILL Bisacodyl 10 mg 11/16/21 18:02 Bisacodyl 10 Mg Suppository RECTAL DAILY PRN Constipation Calc
[2021-11-21] MEDS: IBUPROFEN 400 MG TABLET PO ×2 (08:57→15:54)
--- NOTE | 2021-11-21 13:30 | PM.IMPN ---
Progress Note: A&P Assessment and Plan (1) Acute UTI: Code(s): N39.0 - Urinary tract infection, site not specified Status: Acute (2) Atrial fibrillation with rapid ventricular response: Code(s): I48.91 - Unspecified atrial fibrillation Status: Acute (3) Cellulitis of left hand: Code(s): L03.114 - Cellulitis of left upper limb Status: Acute (4) Cellulitis of foot, right: Code(s): L03.115 - Cellulitis of right lower limb Status: Acute (5) History of hypothyroidism: Code(s): Z86.39 - Personal history of other endocrine, nutritional and metabolic disease Status: Acute (6) History of hyperlipidemia: Code(s): Z86.39 - Personal history of other endocrine, nutritional and metabolic disease Status: Acute (7) History of bipolar disorder: Code(s): Z86.59 - Personal history of other mental and behavioral disorders Status: Acute (8) History of COPD: Code(s): Z87.09 - Personal history of other diseases of the respiratory system Status: Acute Plan # Generalized weakness # Altered mental status CT head negative # Atrial fibrillation with rapid ventricular rate. Started on Cardizem drip. Cardizem drip was stopped 11/16/2021 added on metoprolol and digoxin. Echo ordered EF 65-70% mildly increased left ventricular wall thickness no significant valvular abnormality. 11/16/2021 TSH is normal # Suspected sepsis blood cultures has been negative so far. On IV ceftriaxone for UTI. Left wrist and right foot swelling is present suspected gout and on prednisone however may need to rule out septic arthritis. Orthopedics consulted and discussed with them. Status post tap with expression of thick white flaky inflammatory fluid. Cultures awaited which has been negative so far on ceftriaxone # elevated liver enzymes liver number shot up 199911/17/2021 suggestive of acute liver injury. Ultrasound upper quadrant normal Unclear etiology. Resume prednisone. Tylenol level and hepatitis profile negative # Status post pacemaker implantation # Bipolar disorder # COPD # Elevated BNP chest x-ray with mild interstitial edema # UTI urine culture with E coli. Sensitive to ceftriaxone which she is currently getting. Will change to cephalexin q6h # Hypertension # Hyperlipidemia assisted resident # Right foot pain/left hand pain Concern for right foot and left hand cellulitis suspected gout and started on prednisone. Uric acid level was elevated. # Hyperuricemia start allopurinol # Hypercalcemia PTH is also elevated suggestive of primary hyperparathyroidism. # DVT prophylaxis on Eliquis # Full code Subjective Date/time seen: 11/21/21 13:30 Interval history: HPI:81-year-old female with past medical history significant for bipolar disorder, COPD, atrial fibrillation, hyperlipidemia and hypothyroidism is presenting with generalized weakness.? Daughters in the room and provides some history.? She states her mother appears to have declined overall since May 2021.? She appears to be less responsive and more weak.? The nursing staff at the [facility] sent her to the ER for evaluation due to decrease in responsiveness to verbal stimuli and also concern for redness and swelling of her right foot and left hand since yesterday.? Per the ER documentation, she complained of pain in her right foot and left hand but denied chest pain, shortness of breath, nausea, vomiting or diarrhea.? No fevers or chills noted. In the ER, ECG showed AFib with RVR.? She is on chronic anticoagulation with Eliquis at home.? She was started on a Cardizem drip as well as normal saline at 125 mL/hr (this was discontinued when she arrived to the floor). Cardiology was consulted.? Labs showed a leukocytosis of 14.? ABG on room air showed a pH of 7.46, CO2 of 44, O2 of 61 an oxygen saturation of 92.7%.? CMP showed elevated carbon dioxide of 33, BUN of 25, creatinine of 0.9
[2021-11-21] MEDS: CEPHALEXIN 250 MG CAPSULE PO (18:14)
[2021-11-21] MEDS: LATANOPROST 0.005% OP SOLN 2.5 ML BTL 1 DROP EACH EYE (18:14)
[2021-11-21] MEDS: SERTRALINE HCL 50 MG TABLET 100 MG PO (21:10)
[2021-11-21] MEDS: traZODone HCL 50 MG TABLET 100 MG PO (21:10)
[2021-11-21] MEDS: PRIMIDONE 50 MG TABLET 150 MG PO (21:11)
[2021-11-21] MEDS: SERTRALINE HCL 25 MG TABLET 75 MG PO (21:11)
[2021-11-22] VITALS (16 sets, daily range): BP systolic 137–150; BP diastolic 73–91; PULSE 70–84; RESP 16–18; TEMP 35.8–36.6; O2SAT 96–99
[2021-11-22] MEDS: CEPHALEXIN 250 MG CAPSULE PO ×4 (00:41→17:08)
[2021-11-22] MEDS: IPRATROPIUM BR 0.02% INH SOLN 0.5 MG/2.5 ML VIAL INHALATION ×3 (01:30→21:25)
[2021-11-22] MEDS: LEVOTHYROXINE SODIUM 25 MCG TABLET PO (05:37)
[2021-11-22] MEDS: LEVOTHYROXINE SODIUM 112 MCG TABLET PO (05:37)
[2021-11-22 06:18] LABS: Basophils Absolute Auto 0.1 K/mm3 (0.0-0.1); Basophils Percent Auto 0.3 % (0.2-1.2); Eosinophils Percent Auto 0.1 % (0-4.4); Hematocrit 40.9 % (37.0-47.0); Hemoglobin 12.5 g/dL (12.0-15.0); Immature Granulocyte Absolute 0.36 K/mm3 (0.00-0.031); Immature Granulocyte Percent A 1.9 % (0-0.5); Lymphocytes Absolute Auto 3.46 K/mm3 (0.9-3.2); Mean Corpuscular HGB Conc 30.6 g/dl (32-36); Mean Corpuscular Hemoglobin 29.8 pg (26-34); Mean Corpuscular Volume 97.6 fl (80-100); Mean Platelet Volume 9.4 fl (7.4-10.4); Monocytes Absolute Auto 0.7 K/mm3 (0.1-0.6); Monocytes Percent Auto 3.4 % (2.6-8.5); Neutrophils Absolute Auto 14.7 K/mm3 (1.3-6.7); Neutrophils Percent Auto 76.3 % (45.5-73.1); Platelet Count Result 566 k/mm3 (150-375); Red Blood Count 4.19 M/mm3 (4.2-5.4); Red Cell Distribution Width 14.1 % (11.5-14.5); White Blood Count 19.2 K/mm3 (4.5-10.0)
[2021-11-22 06:19] LABS: Alanine Aminotransferase 163 U/L (6-35); Albumin Level 3.3 g/dL (3.5-5.1); Alkaline Phosphatase 133 U/L (38-126); Anion Gap 4 mmol/L (8-16); Aspartate Amino Transferase 64 U/L (14-36); Bilirubin,Total 0.4 mg/dL (0.2-1.3); Blood Urea Nitrogen 21 mg/dL (7-17); Calcium 10.4 mg/dL (8.4-10.2); Carbon Dioxide 30 mmol/L (22-30); Chloride 103 mmol/L (98-107); Estimated CRCL calculation 65 ml/min; Estimated Glomerular Filt Rate > 60; Glucose 102 mg/dL (65-110); Magnesium 2.1 mg/dL (1.6-2.3); Potassium 4.8 mmol/L (3.4-5.0); Sodium 137 mmol/L (137-145)
[2021-11-22] MEDS: FLUTICASONE PROPIONATE 0.05% NA SPR 16 GM BTL (*BKC) 2 SPRAY NASAL (08:50)
[2021-11-22] MEDS: allopurinoL 100 MG TABLET PO (08:51)
[2021-11-22] MEDS: CHOLECALCIFEROL 1,000 UNITS TABLET 2000 UNITS PO (08:52)
[2021-11-22] MEDS: predniSONE 40 MG, predniSONE 10 MG 50 MG PO (08:52)
[2021-11-22] MEDS: APIXABAN 5 MG TABLET PO ×2 (08:52→17:08)
[2021-11-22] MEDS: LORATADINE 5 MG TABLET PO (08:53)
[2021-11-22] MEDS: METOPROLOL TARTRATE 50 MG TAB 150 MG PO ×2 (08:53→22:12)
[2021-11-22] MEDS: GABAPENTIN 400 MG CAPSULE PO ×4 (08:53→22:10)
[2021-11-22] MEDS: FLUDROCORTISONE ACETATE 0.1 MG TABLET PO (08:53)
[2021-11-22] MEDS: DIVALPROEX SODIUM SPRINKLE 125 MG CAP.DR 500 MG PO ×2 (08:53→17:08)
[2021-11-22] MEDS: polyethylene glycoL 3350 17 GM POWD.PACK PO (08:54)
[2021-11-22] MEDS: FLUTICASONE/SALMETEROL 115-21 MCG INHALER 1 PUFF 2 PUFF INHALATION ×2 (09:00→21:26)
--- NOTE | 2021-11-22 11:24 | PM.PNORT ---
Subjective Subjective Date/Time Seen: 11/22/21 11:24 Objective Data Vital Signs Vital Signs: Vital Signs - 24 hr 11/21/21 13:55 11/21/21 14:06 11/21/21 14:00 Temperature 97.6 F Pulse Rate 85 88 81 Respiratory Rate 18 18 20 Blood Pressure 116/69 Pulse Oximetry 97 Oxygen Delivery Fraction of Inspired Oxygen 11/21/21 12:00 11/21/21 16:00 11/21/21 21:11 Temperature Pulse Rate 77 82 62 Respiratory Rate Blood Pressure Pulse Oximetry Oxygen Delivery Fraction of Inspired Oxygen 11/21/21 19:27 11/21/21 19:42 11/21/21 22:00 Temperature Pulse Rate 68 68 82 Respiratory Rate 18 18 Blood Pressure Pulse Oximetry 94 Oxygen Delivery Autopap Fraction of Inspired Oxygen 11/21/21 22:00 11/21/21 20:00 11/22/21 00:00 Temperature 96.4 F L Pulse Rate 94 87 74 Respiratory Rate 15 Blood Pressure 156/88 H Pulse Oximetry 97 Oxygen Delivery Fraction of Inspired Oxygen 11/22/21 01:30 11/22/21 01:40 11/22/21 02:19 Temperature Pulse Rate 72 72 78 Respiratory Rate 18 18 Blood Pressure Pulse Oximetry 96 Oxygen Delivery Autopap Fraction of Inspired Oxygen 11/22/21 04:00 11/22/21 06:00 11/22/21 08:53 Temperature 96.5 F L Pulse Rate 73 74 74 Respiratory Rate 16 Blood Pressure 150/91 H Pulse Oximetry 99 Oxygen Delivery Fraction of Inspired Oxygen 11/22/21 08:00 11/22/21 08:00 Temperature Pulse Rate 74 70 Respiratory Rate 16 Blood Pressure Pulse Oximetry 99 Oxygen Delivery Room Air Fraction of Inspired Oxygen 21 Intake/Output Intake/Output: Intake & Output 11/19/21 11/20/21 11/21/21 11/22/21 23:59 23:59 23:59 23:59 Intake Total 1230 2840 2870 790 Output Total 725 1350 2000 1600 Balance 505 1490 870 -810 Meds/Results Medications: Active Medications Generic Name Dose Route Start Last Admin Trade Name Freq PRN Reason Stop Dose Admin Acetaminophen 500 mg 11/17/21 09:00 11/18/21 12:58 Acetaminophen 500 Mg Tablet PO Not Given TID JILL Albuterol 2 puff 11/16/21 18:02 Albuterol Sulfate (*Sp) Aerosol 1 Puff INHALATION QID PRN Shortness Of Breath Or Wheezing Allopurinol 100 mg 11/17/21 08:00 11/22/21 08:51 Allopurinol 100 Mg Tablet PO 100 mg DAILY@0800 JILL Administration Apixaban 5 mg 11/17/21 09:00 11/22/21 08:52 Apixaban 5 Mg Tablet PO 5 mg BID JILL Administration Atorvastatin Calcium 40 mg 11/16/21 21:00 11/17/21 20:26 Atorvastatin 40 Mg Tablet PO Not Given HS JILL Bisacodyl 10 mg 11/16/21 18:02 Bisacodyl 10 Mg Suppository RECTAL DAILY PRN Constipation Calcium Carbonate 200 mg 11/19/21 11:06 Calcium Carbonate (Tums) 500 Mg (200 Mg Elemental) PO DAILY PRN Acid Reflux Cephalexin HCl 250 mg 11/21/21 18:00 11/22/21 11:20 Cephalexin 250 Mg Capsule PO 250 mg Q6HR JILL Administration Chlorhexidine Gluconate 15 ml 11/18/21 17:09 Chlorhexidine Gluconate 0.12% Oral Rinse 473 Ml Btl (*Bkc) SWISH/SPIT BID PRN mouth sores Divalproex Sodium 500 mg 11/17/21 09:00 11/22/21 08:53 Divalproex Sodium Sprinkle 125 Mg Cap.Dr PO 500 mg BID JILL Administration Fludrocortisone Acetate 0.1 mg 11/17/21 09:00 11/22/21 08:53 Fludrocortisone Acetate 0.1 Mg Tablet PO 0.1 mg DAILY JILL Administration Fluticasone Propionate 2 spray 11/17/21 09:00 11/22/21 08:50 Fluticasone Propionate 0.05% Na Spr 16 Gm Btl (*Bkc) NASAL 2 spray DAILY JILL Administration Furosemide 80 mg 11/17/21 09:00 11/18/21 11:54 Furosemide 40 Mg Tablet PO Not Given DAILY JILL Gabapentin 400 mg 11/16/21 21:00 11/21/21 21:10 Gabapentin 400 Mg Capsule PO 400 mg HS JILL Administration Gabapentin 400 mg 11/17/21 09:00 11/22/21 08:53 Gabapentin 400 Mg Capsule PO 12/17/21 08:59 400 mg TID JILL Administration Ibuprofen 400 mg 11/19/21 18:21 11/21/21 15:54 Ibuprofen 400 Mg
--- NOTE | 2021-11-22 12:51 | PC.NURSE ---
pt to discharge to [facility] once medically stable wbc remain elevated at this time.
[2021-11-22] MEDS: methylPREDNISolone ACETATE 80 MG/ML VIAL IM (14:54)
--- NOTE | 2021-11-22 14:54 | PC.NURSE ---
MD Smiley performed depo-medrol joint injection in L wrist and R ankle this shift.
--- NOTE | 2021-11-22 15:28 | PM.PNORT ---
Progress Note: A&P Assessment and Plan (1) Left wrist pain: Code(s): M25.532 - Pain in left wrist Status: Acute (2) Right foot pain: Code(s): M79.671 - Pain in right foot Status: Acute Subjective Subjective Date/Time Seen: 11/22/21 15:28 Interval history: Patient continues to have significant pain in the wrist and ankle, although there is definite improvement. Examination The left wrist is tender with minimal erythema. No definite effusion. She can use it weakly to hold objects, which is an improvement. The right ankle is no longer erythematous. There is some persistent effusion, swelling, and tenderness. She has bilateral mild edema. Motion of the ankle was tolerated through a small arc of motion but she has pain at the extremes of motion. Diagnostics Cultures remain negative. Impression Symptoms consistent with gout. Although she is improving modestly, an intra-articular injection at the wrist and ankle may be beneficial. I provided a 40 mg Depo-Medrol intra-articular injection at both the left wrist and right ankle today. She tolerated this procedure well. Discharge planning in progress. Objective Data Vital Signs Vital Signs: Vital Signs - 24 hr 11/21/21 16:00 11/21/21 21:11 11/21/21 19:27 Temperature Pulse Rate 82 62 68 Respiratory Rate 18 Blood Pressure Pulse Oximetry Oxygen Delivery Fraction of Inspired Oxygen 11/21/21 19:42 11/21/21 22:00 11/21/21 22:00 Temperature 35.8 C L Pulse Rate 68 82 94 Respiratory Rate 18 15 Blood Pressure 156/88 H Pulse Oximetry 94 97 Oxygen Delivery Autopap Fraction of Inspired Oxygen 11/21/21 20:00 11/22/21 00:00 11/22/21 01:30 Temperature Pulse Rate 87 74 72 Respiratory Rate 18 Blood Pressure Pulse Oximetry Oxygen Delivery Fraction of Inspired Oxygen 11/22/21 01:40 11/22/21 02:19 11/22/21 04:00 Temperature Pulse Rate 72 78 73 Respiratory Rate 18 Blood Pressure Pulse Oximetry 96 Oxygen Delivery Autopap Fraction of Inspired Oxygen 11/22/21 06:00 11/22/21 08:53 11/22/21 08:00 Temperature 35.8 C L Pulse Rate 74 74 74 Respiratory Rate 16 16 Blood Pressure 150/91 H Pulse Oximetry 99 99 Oxygen Delivery Room Air Fraction of Inspired Oxygen 11/22/21 08:00 11/22/21 13:50 11/22/21 13:59 Temperature Pulse Rate 70 80 82 Respiratory Rate 18 18 Blood Pressure Pulse Oximetry Oxygen Delivery Fraction of Inspired Oxygen 11/22/21 12:00 11/22/21 14:00 Temperature 36.6 C Pulse Rate 82 84 Respiratory Rate 18 Blood Pressure 140/73 Pulse Oximetry 99 Oxygen Delivery Fraction of Inspired Oxygen Intake/Output Intake/Output: Intake & Output 11/19/21 11/20/21 11/21/21 11/22/21 23:59 23:59 23:59 23:59 Intake Total 1230 2840 2870 1030 Output Total 725 1350 2000 1600 Balance 505 1490 870 -570 Meds/Results Medications: Active Medications Generic Name Dose Route Start Last Admin Trade Name Freq PRN Reason Stop Dose Admin Acetaminophen 500 mg 11/17/21 09:00 11/18/21 12:58 Acetaminophen 500 Mg Tablet PO Not Given TID JILL Albuterol 2 puff 11/16/21 18:02 Albuterol Sulfate (*Sp) Aerosol 1 Puff INHALATION QID PRN Shortness Of Breath Or Wheezing Allopurinol 100 mg 11/17/21 08:00 11/22/21 08:51 Allopurinol 100 Mg Tablet PO 100 mg DAILY@0800 JILL Administration Apixaban 5 mg 11/17/21 09:00 11/22/21 08:52 Apixaban 5 Mg Tablet PO 5 mg BID JILL Administration Atorvastatin Calcium 40 mg 11/16/21 21:00 11/17/21 20:26 Atorvastatin 40 Mg Tablet PO Not Given HS [facility] Bisacodyl 10 mg 11/16/21 18:02 Bisacodyl 10 Mg Suppository RECTAL DAILY PRN Constipation Calcium Carbonate 200 mg 11/19/21 11:06 Calcium Carbonate (Tums) 500 Mg (200 Mg Elemental) PO DAILY PRN Acid Reflux Cephalexin HCl 250 mg 11/21/21 18:00 11/22/21 11:2
--- NOTE | 2021-11-22 15:35 | PM.OP ---
Procedure Note - Brief Procedure Note - Brief Date of procedure: 11/22/21 Pre-op diagnosis: left wrist and right ankle swelling Post-op diagnosis: Other (Left wrist and right ankle swelling due to gout arthritis.) Procedure performed: Intra-articular injection right ankle and intra-articular injection left wrist. Description of procedure: The joint was identified at the anterolateral ankle and at the dorsal wrist. The area was cleaned and prepped with alcohol. 40 mg of Depo-Medrol was injected with a 22 gauge needle. The patient tolerated the procedure well. There were no complications. Anesthesia: none Surgeon: You Walker MD Estimated blood loss (mL): 0 Pathology: None sent Complications: No immediate complications Condition: Stable
--- NOTE | 2021-11-22 15:36 | PM.IMPN ---
Progress Note: A&P Assessment and Plan (1) Acute UTI: Code(s): N39.0 - Urinary tract infection, site not specified Status: Acute (2) Atrial fibrillation with rapid ventricular response: Code(s): I48.91 - Unspecified atrial fibrillation Status: Acute (3) Cellulitis of left hand: Code(s): L03.114 - Cellulitis of left upper limb Status: Acute (4) Cellulitis of foot, right: Code(s): L03.115 - Cellulitis of right lower limb Status: Acute (5) History of hypothyroidism: Code(s): Z86.39 - Personal history of other endocrine, nutritional and metabolic disease Status: Acute (6) History of hyperlipidemia: Code(s): Z86.39 - Personal history of other endocrine, nutritional and metabolic disease Status: Acute (7) History of bipolar disorder: Code(s): Z86.59 - Personal history of other mental and behavioral disorders Status: Acute (8) History of COPD: Code(s): Z87.09 - Personal history of other diseases of the respiratory system Status: Acute Plan # Generalized weakness # Altered mental status CT head negative # Atrial fibrillation with rapid ventricular rate. Started on Cardizem drip. Cardizem drip was stopped 11/16/2021 added on metoprolol and digoxin. Echo ordered EF 65-70% mildly increased left ventricular wall thickness no significant valvular abnormality. 11/16/2021 TSH is normal # Suspected sepsis blood cultures has been negative so far. On IV ceftriaxone for UTI. Left wrist and right foot swelling is present suspected gout and on prednisone however may need to rule out septic arthritis. Orthopedics consulted and discussed with them. Status post tap with expression of thick white flaky inflammatory fluid. Cultures awaited which has been negative so far on ceftriaxone. This has been switched to cephalexin # elevated liver enzymes liver number shot up 199911/17/2021 suggestive of acute liver injury. Ultrasound upper quadrant normal Unclear etiology. Resume prednisone. Tylenol level and hepatitis profile negative # Status post pacemaker implantation # Bipolar disorder # COPD # Elevated BNP chest x-ray with mild interstitial edema # UTI urine culture with E coli. Sensitive to ceftriaxone which she is currently getting. Will change to cephalexin q6h # Hypertension # Hyperlipidemia # care home resident # Right foot pain/left hand pain Concern for right foot and left hand cellulitis suspected gout and started on prednisone. Uric acid level was elevated. Cultures has been negative. Most consistent with gouty arthritis. Orthopedics following and received 40 mg of Depo-Medrol intra-articular injection at both left wrist and right ankle 11/22/2021 Will continue on steroid and potentially taper slowly over versus 5 days course as order depending on her clinical improvement. # Hyperuricemia start allopurinol # Hypercalcemia PTH is also elevated suggestive of primary hyperparathyroidism. # DVT prophylaxis on Eliquis # leukocytosis worsening could be related to steroid will recheck again in the morning to ensure stability. # Full code # [facility] resident planned to go to a different nursing facility care coordination on board Subjective Date/time seen: 11/22/21 15:36 Interval history: HPI:81-year-old female with past medical history significant for bipolar disorder, COPD, atrial fibrillation, hyperlipidemia and hypothyroidism is presenting with generalized weakness.? Daughters in the room and provides some history.? She states her mother appears to have declined overall since May 2021.? She appears to be less responsive and more weak.? The nursing staff at the [facility] sent her to the ER for evaluation due to decrease in responsiveness to verbal stimuli and also concern for redness and swelling of her right foot and left hand since yesterday.? Per the ER documentation, she complaine
[2021-11-22] MEDS: PRIMIDONE 50 MG TABLET 150 MG PO (22:10)
[2021-11-22] MEDS: SERTRALINE HCL 50 MG TABLET 100 MG PO (22:11)
[2021-11-22] MEDS: SERTRALINE HCL 25 MG TABLET 75 MG PO (22:12)
[2021-11-22] MEDS: LATANOPROST 0.005% OP SOLN 2.5 ML BTL 1 DROP EACH EYE (22:12)
[2021-11-22] MEDS: traZODone HCL 50 MG TABLET 100 MG PO (22:12)
[2021-11-23] VITALS (9 sets, daily range): BP systolic 134–143; BP diastolic 84–90; PULSE 65–97; RESP 18–20; TEMP 35.1–36; O2SAT 95–96
[2021-11-23] MEDS: CEPHALEXIN 250 MG CAPSULE PO ×3 (00:57→14:02)
[2021-11-23] MEDS: IPRATROPIUM BR 0.02% INH SOLN 0.5 MG/2.5 ML VIAL INHALATION ×3 (02:46→13:57)
[2021-11-23] MEDS: LEVOTHYROXINE SODIUM 112 MCG TABLET PO (06:13)
[2021-11-23] MEDS: LEVOTHYROXINE SODIUM 25 MCG TABLET PO (06:13)
[2021-11-23 06:27] LABS: Basophils Absolute Auto 0.1 K/mm3 (0.0-0.1); Basophils Percent Auto 0.4 % (0.2-1.2); Eosinophils Percent Auto 0.1 % (0-4.4); Hemoglobin 12.8 g/dL (12.0-15.0); Immature Granulocyte Absolute 0.48 K/mm3 (0.00-0.031); Immature Granulocyte Percent A 2.5 % (0-0.5); Lymphocytes Absolute Auto 4.34 K/mm3 (0.9-3.2); Lymphocytes Percent Auto 22.8 % (18.3-44.2); Mean Corpuscular Hemoglobin 29.8 pg (26-34); Mean Platelet Volume 9.1 fl (7.4-10.4); Monocytes Absolute Auto 1.1 K/mm3 (0.1-0.6); Monocytes Percent Auto 5.5 % (2.6-8.5); Neutrophils Absolute Auto 13.1 K/mm3 (1.3-6.7); Neutrophils Percent Auto 68.7 % (45.5-73.1); Platelet Count Result 576 k/mm3 (150-375); Red Cell Distribution Width 14.2 % (11.5-14.5); White Blood Count 19.1 K/mm3 (4.5-10.0)
[2021-11-23 06:44] LABS: Alanine Aminotransferase 123 U/L (6-35); Albumin Level 3.3 g/dL (3.5-5.1); Alkaline Phosphatase 124 U/L (38-126); Anion Gap 6 mmol/L (8-16); Aspartate Amino Transferase 46 U/L (14-36); Bilirubin,Total 0.4 mg/dL (0.2-1.3); Blood Urea Nitrogen 25 mg/dL (7-17); Calcium 10.7 mg/dL (8.4-10.2); Carbon Dioxide 29 mmol/L (22-30); Chloride 102 mmol/L (98-107); Estimated CRCL calculation 74 ml/min; Estimated Glomerular Filt Rate > 60; Glucose 90 mg/dL (65-110); Magnesium 2.1 mg/dL (1.6-2.3); Potassium 4.7 mmol/L (3.4-5.0); Sodium 137 mmol/L (137-145)
[2021-11-23] MEDS: FLUTICASONE/SALMETEROL 115-21 MCG INHALER 1 PUFF 2 PUFF INHALATION (08:23)
[2021-11-23] MEDS: POTASSIUM CHLORIDE 20 MEQ TABLET.ER PO (09:01)
[2021-11-23] MEDS: FLUDROCORTISONE ACETATE 0.1 MG TABLET PO (09:01)
[2021-11-23] MEDS: CHOLECALCIFEROL 1,000 UNITS TABLET 2000 UNITS PO (09:02)
[2021-11-23] MEDS: allopurinoL 100 MG TABLET PO (09:02)
[2021-11-23] MEDS: predniSONE 40 MG, predniSONE 10 MG 50 MG PO (09:02)
[2021-11-23] MEDS: GABAPENTIN 400 MG CAPSULE PO ×2 (09:02→14:00)
[2021-11-23] MEDS: DIVALPROEX SODIUM SPRINKLE 125 MG CAP.DR 500 MG PO (09:02)
[2021-11-23] MEDS: APIXABAN 5 MG TABLET PO (09:03)
[2021-11-23] MEDS: METOPROLOL TARTRATE 50 MG TAB 150 MG PO (09:03)
[2021-11-23] MEDS: polyethylene glycoL 3350 17 GM POWD.PACK PO (09:04)
[2021-11-23] MEDS: FLUTICASONE PROPIONATE 0.05% NA SPR 16 GM BTL (*BKC) 2 SPRAY NASAL (09:07)
--- NOTE | 2021-11-23 09:50 | PM.DS ---
DS: Admitting Diagnosis Discharge Date 11/23/2021 Admitting Diagnosis altered mental status DS: Discharge Diagnosis Discharge Diagnosis (1) Acute UTI: Code(s): N39.0 - Urinary tract infection, site not specified Status: Acute (2) Atrial fibrillation with rapid ventricular response: Code(s): I48.91 - Unspecified atrial fibrillation Status: Acute (3) Cellulitis of left hand: Code(s): L03.114 - Cellulitis of left upper limb Status: Acute (4) Cellulitis of foot, right: Code(s): L03.115 - Cellulitis of right lower limb Status: Acute (5) History of hypothyroidism: Code(s): Z86.39 - Personal history of other endocrine, nutritional and metabolic disease Status: Acute (6) History of hyperlipidemia: Code(s): Z86.39 - Personal history of other endocrine, nutritional and metabolic disease Status: Acute (7) History of bipolar disorder: Code(s): Z86.59 - Personal history of other mental and behavioral disorders Status: Acute (8) History of COPD: Code(s): Z87.09 - Personal history of other diseases of the respiratory system Status: Acute Plan # Generalized weakness # Altered mental status CT head negative continued to improve throughout the hospital stay and improved back to normal baseline mental status. Neurology evaluated the patient as well during the hospital stay # Atrial fibrillation with rapid ventricular rate. Started on Cardizem drip. Cardizem drip was stopped 11/16/2021 added on metoprolol and digoxin. Echo ordered EF 65-70% mildly increased left ventricular wall thickness no significant valvular abnormality. 11/16/2021 TSH is normal. discharged on metoprolol 150 mg b.i.d. as suggested by stair builder. # Suspected sepsis blood cultures has been negative so far. On IV ceftriaxone for UTI. Left wrist and right foot swelling is present suspected gout and on prednisone however may need to rule out septic arthritis. Orthopedics consulted and discussed with them. Status post tap with expression of thick white flaky inflammatory fluid. Cultures awaited which has been negative so far on ceftriaxone. This has been switched to cephalexin . She also underwent right ankle and left wrist intra-articular steroid injection which he tolerated well which was done on 11/22/2021 # elevated liver enzymes liver number shot up 2000 11/17/2021 suggestive of acute liver injury. Ultrasound upper quadrant normal Unclear etiology. Resume prednisone. Tylenol level and hepatitis profile negative. Liver enzymes continue to improve throughout the hospital stay and was almost back to normal by the time of discharge. # Status post pacemaker implantation # Bipolar disorder Resumed on Depakote # COPD not on exacerbation # Elevated BNP chest x-ray with mild interstitial edema resume Lasix at discharge. # UTI urine culture with E coli. Sensitive to ceftriaxone which she is currently getting. Will change to cephalexin q6h . Five more days of cephalexin at discharge # Hypertension blood pressure stable and continued on home medication throughout the hospital stay # Hyperlipidemia statin on hold due to elevated liver enzymes, which improved and hence resume statin at discharge # senior care resident # Right foot pain/left hand pain Concern for right foot and left hand cellulitis suspected gout and started on prednisone. Uric acid level was elevated. Cultures has been negative. Most consistent with gouty arthritis. Orthopedics following and received 40 mg of Depo-Medrol intra-articular injection at both left wrist and right ankle 11/22/2021 will continue slow taper of steroid at discharge # Hyperuricemia start allopurinol. Needs uric acid level in 3 months # Hypercalcemia PTH is also elevated suggestive of primary hyperparathyroidism. # DVT prophylaxis on Eliquis # leukocytosis worsening could be related to steroid. WBC co
[2021-11-23 10:28] LABS: EDCOVIDSCREEN Negative (Negative)
[2021-11-23] MEDS: IBUPROFEN 400 MG TABLET PO (16:05)
== END 2021-11-23 17:05 | DRG 872 ==
LOC: ANHED 18:15 → ANHIMU 20:05 → ANH3MEDSUR 11-19 22:56
PROVIDERS: Family Medicine; Internal Medicine Cardiovascular Disease; Admitting Provider Student in an Organized Health Care Education/Training Program; Emergency Provider Emergency Medicine; PCP Family Medicine; Visit Provider Internal Medicine
DX: A41.9 Sepsis, unspecified organism (principal); N39.0 Urinary tract infection, site not specified; L03.114 Cellulitis of left upper limb; L03.115 Cellulitis of right lower limb; S36.119A Unspecified injury of liver, initial encounter; M10.042 Idiopathic gout, left hand; M10.071 Idiopathic gout, right ankle and foot; Z20.822 Contact with and (suspected) exposure to COVID-19; R40.4 Transient alteration of awareness; X58.XXXA Exposure to other specified factors, initial encounter; B96.20 Unspecified Escherichia coli [E. coli] as the cause of diseases classified elsewhere; J44.9 Chronic obstructive pulmonary disease, unspecified; I48.91 Unspecified atrial fibrillation; E78.5 Hyperlipidemia, unspecified; F31.9 Bipolar disorder, unspecified; E03.9 Hypothyroidism, unspecified; I10 Essential (primary) hypertension; E83.52 Hypercalcemia; D72.829 Elevated white blood cell count, unspecified; Z95.0 Presence of cardiac pacemaker; Z79.01 Long term (current) use of anticoagulants
CPT/HCPCS: 36415; 36600; 51701; 70450; 71045; 73130; 73630; 74176; 76705; 80053; 80074; 80076; 80162; 80307; 81001; 82375; 82805; 83050; 83605; 83735; 83880; 83970; 84443; 84484; 84550; 85025; 85610; 85652; 85730; 86140; 87040; 87070; 87075; 87077; 87086; 87088; 87186; 87205; 87426; 92610; 92611; 93005; 93306; 94640; 96361; 96365; 96366; 96367; 96375; 99285; A4248; A9270; C9803; G0378; J0696; J1040; J1160; J1885; J2270; J7030; J7512; U0003; U0005

== ENCOUNTER 2021-12-22 17:57 | Inpatient (IN) | payer MEDICARE, MEDICAID, SELFPAY ==
[2021-12-22] VITALS (35 sets, daily range): BP systolic 94–224; BP diastolic 61–176; PULSE 95–129; RESP 13–35; TEMP 36.2–38.5; O2SAT 82–100
--- NOTE | ~2021-12-22 | XR_ITS ---
EXAMINATION: XR chest 1V portable DATE: 12/22/2021 18:45 INDICATION: Cough and fever. TECHNIQUE: A single frontal view of the chest was obtained. COMPARISON: Chest single view 11/15/2021, CT abdomen and pelvis 11/15/2021 FINDINGS: There is no pneumonia, pleural effusion, or pneumothorax. The heart size is normal. There i s a left chest wall pacer with leads in the right atrium and right ventricle. IMPRESSION: 1. No acute cardiopulmonary disease. Reviewed, dictated and finalized at location A.
--- NOTE | ~2021-12-22 | XR_ITS ---
XR thoracic spine 2V 12/24/2021 14:31 Indication: Back pain Procedure: 3 views thoracic spine Comparison: No prior studies for comparison. Findings: There is mildly accentuated thoracic kyphosis. Vertebral body heights are maintained. No ac yuliana fracture or traumatic malalignment. There is degenerative disc disease at multiple levels. No sig nificant paraspinal soft tissue abnormality. Osteopenia. Pedicles intact. There is atherosclerosis of the aorta. Impression: 1: Mild-moderate thoracic spondylosis. Reviewed, dictated and finalized at location B. Impression: 1: Mild-moderate thoracic spondylosis.
--- NOTE | ~2021-12-22 | XR_ITS ---
EXAMINATION: XR chest 1V portable DATE: 12/25/2021 06:01 INDICATION: COVID-19 pneumonia. TECHNIQUE: A single frontal view of the chest was obtained. COMPARISON: Chest single view 12/22/2021, CT abdomen and pelvis 11/16/2011 FINDINGS: There is no pneumonia, pleural effusion, or pneumothorax. Cardiomegaly is noted. There is a left chest wall pacer with leads in the right atrium and right ventricle. IMPRESSION: 1. Cardiomegaly. Reviewed, dictated and finalized at location A. IMPRESSION: 1. Cardiomegaly.
--- NOTE | ~2021-12-22 | CT_ITS ---
EXAMINATION: CT brain wo con DATE: 12/22/2021 19:07 INDICATION: Head injury. TECHNIQUE: Computed tomography (CT) of the head was performed without intravenous contrast. The mA wa s adjusted according to patient size. Iterative reconstruction technique was employed. The dose-lengt h product was 983.67 mGy-cm. COMPARISON: Head CT 11/15/2021 FINDINGS: There are scattered areas of low attenuation in the cerebral white matter, which is within normal limits for the patient's age. There is no intracranial hemorrhage, acute infarction, or abnorm al intracranial mass lesion. The ventricles are normal in size. There are likely changes of ocular le ns replacement surgeries. There is mild mucosal thickening in the ethmoid sinuses. There are changes of right mastoidectomy. IMPRESSION: 1. Normal aging brain. Reviewed, dictated and finalized at location A. IMPRESSION: 1. Normal aging brain.
--- NOTE | 2021-12-22 18:09 | ECG_ITS ---
Measurements Intervals [place] Rate: 114 P: [place]: 0 QRS: 8 QRSD: 109 T: -38 QT: 252 QTc: 348 Interpretive Statements ATRIAL FIBRILLATION WITH RAPID VENTRICULAR RESPONSE INCOMPLETE RIGHT BUNDLE BRANCH BLOCK [90+ ms QRS DURATION, TERMINAL R IN V1/V2, 40+ ms S IN I/aVL/V4/V5/V6] NONSPECIFIC ST & T-WAVE ABNORMALITY ABNORMAL RHYTHM ECG ABNORMAL ECG COMPARED TO ECG 11/17/2021 11:25:22 ABERRANT CONDUCTION OF SUPRAVENTRICULAR BEAT(S) NOW PRESENT T-WAVE ABNORMALITY NOW PRESENT Electronically Signed On 12-23-2021 9:34:51 CDT by Balwinder Noble M.D.
--- NOTE | 2021-12-22 18:40 | ED.FEVER ---
HPI - Fever General Chief Complaint: Fever Stated Complaint: fever per alf Time Seen by Provider: 12/22/21 17:59 Source: patient, family, EMS, RN notes reviewed and old records reviewed Mode of arrival: EMS History of Present Illness HPI Narrative: This is a 81 year old female with history of COPD, atrial fibrillation and other medical problems who presents from alf for fever and shaking. Patient has chronic tremor but it is reported her tremors and shaking is worse today. Patient's daughter is at bedside and she states she was told patient had t max 103. 5 F so they sent her to ER. Patient states she thinks she has gotten sick from her roommate who is sick. Patient reports cough but she denies chest pain, sob, abdominal pain, nausea or vomiting. Her daughter states she has been admitted for sepsis due to UTI in the past. Her daughter also reports patient has had 3 falls this week and she think she hit her head yesterday. PAtient denies having headache. She does take Eliquis Related Data Home Medications Medication Instructions Recorded Confirmed acetaminophen 500 mg tablet 1,000 mg PO TID 03/02/21 12/16/21 apixaban 5 mg tablet (Eliquis) 5 mg PO BID 03/02/21 12/16/21 atorvastatin 40 mg tablet (Lipitor) 40 mg PO HS 03/02/21 12/16/21 bisacodyl 10 mg rectal suppository 10 mg RECTAL DAILY PRN Constipation 03/02/21 12/16/21 budesonide-formoterol HFA 160 2 puff inhalation Q12H 03/02/21 12/16/21 mcg-4.5 mcg/actuation aerosol inhaler (Symbicort) fludrocortisone 0.1 mg tablet 0.1 mg PO DAILY 03/02/21 12/16/21 fluticasone propionate 50 2 spray intranasal DAILY 03/02/21 12/16/21 mcg/actuation nasal spray,suspension furosemide 40 mg tablet 80 mg PO DAILY 03/02/21 12/16/21 gabapentin 400 mg capsule 400 mg PO HS 03/02/21 12/16/21 levothyroxine 137 mcg tablet 137 mcg PO DAILY 03/02/21 12/16/21 (Synthroid) nystatin 100,000 unit/gram topical 1 applic topical TID 03/02/21 12/16/21 cream polyethylene glycol 3350 17 gram 17 g PO DAILY 03/02/21 12/16/21 oral powder packet (Miralax) primidone 50 mg tablet 150 mg PO HS 03/02/21 12/16/21 sertraline 100 mg tablet (Zoloft) 175 mg PO HS 03/02/21 12/16/21 lidocaine 4 % topical patch 2 patch topical DAILY Muscle Pain 03/29/21 12/16/21 (Lidocaine Pain Relief) calcium carbonate 500 mg calcium 500 mg PO DAILY PRN Acid Reflux 11/05/21 12/16/21 (1,250 mg) chewable tablet cetirizine 5 mg tablet 5 mg PO DAILY 11/05/21 12/16/21 chlorhexidine gluconate 0.12 % 15 ml buccal BID 11/05/21 11/15/21 mouthwash cholecalciferol (vitamin D3) 50 50 mcg PO DAILY 11/05/21 12/16/21 mcg (2,000 unit) tablet diclofenac sodium 3 % topical gel 1 applic topical QID 11/05/21 12/16/21 divalproex 125 mg capsule,delayed 500 mg PO BID 11/05/21 12/16/21 release sprinkle (Depakote Sprinkles) latanoprost 0.005 % eye drops 1 drp EACH EYE QPM 11/05/21 12/16/21 (Xalatan) potassium chloride 20 mEq 20 meq PO DAILY 11/05/21 12/16/21 tablet,extended release trazodone 100 mg tablet 100 mg PO HS 11/05/21 12/16/21 Allergies Allergy/AdvReac Type Severity Reaction Status Date / Time morphine Allergy Flushing Verified 12/22/21 18:12 Review of Systems Review of Systems: All systems reviewed & are unremarkable except as noted in HPI and below Constitutional: Constitutional: Reports chills and Reports fever(s) Eyes: Eyes: Denies change in vision ENT: Denies sore throat Cardiovascular: Cardiovascular: Denies chest pain Respiratory: Respiratory: Reports cough and Denies dyspnea Gastrointestinal: Gastrointestinal: Denies abdominal pain, Denies nausea and Denies vomiting Neurologic: Denies headache(s) PMFSH Past Medical History Medical History History of atrial fibrillation History of bipolar disorder History of COPD History of hyperlipidemia History of hypothyroidism Surgical History Surgical History (Reviewed
[2021-12-22] MEDS: ACETAMINOPHEN 500 MG TABLET 1000 MG PO (18:48)
[2021-12-22 18:57] LABS: Basophils Percent Auto 0.2 % (0.2-1.2); Hematocrit 45.7 % (37.0-47.0); Hemoglobin 14.8 g/dL (12.0-15.0); Immature Granulocyte Absolute 0.02 K/mm3 (0.00-0.031); Immature Granulocyte Percent A 0.2 % (0-0.5); Lymphocytes Absolute Auto 1.39 K/mm3 (0.9-3.2); Lymphocytes Percent Auto 16.3 % (18.3-44.2); Mean Corpuscular HGB Conc 32.4 g/dl (32-36); Mean Corpuscular Hemoglobin 30.4 pg (26-34); Mean Corpuscular Volume 93.8 fl (80-100); Mean Platelet Volume 9.3 fl (7.4-10.4); Monocytes Absolute Auto 0.6 K/mm3 (0.1-0.6); Monocytes Percent Auto 6.7 % (2.6-8.5); Neutrophils Absolute Auto 6.5 K/mm3 (1.3-6.7); Neutrophils Percent Auto 76.6 % (45.5-73.1); Platelet Count Result 312 k/mm3 (150-375); Red Blood Count 4.87 M/mm3 (4.2-5.4); Red Cell Distribution Width 14.3 % (11.5-14.5); White Blood Count 8.5 K/mm3 (4.5-10.0)
[2021-12-22 19:03] LABS: Appearance Urine Clear (Clear); Bilirubin Urine Negative (Negative); Color Urine Yellow (Yellow); Glucose Urine UA Negative (Negative); Ketones Urine Negative (Negative); Leukocyte Esterase Ur Negative LEU/UL (Negative); Nitrate Urine Negative (Negative); Protein Urine 2+ mg/dL (Negative); Urobilinogen Urine 0.2 mg/dL (<2.0); pH Urine 6.5 (5.0-9.0)
[2021-12-22 19:08] LABS: Add Urine Microscopic? YES; Blood Urine Trace-Intact (Negative)
[2021-12-22 19:09] LABS: INR 1.3; Prothrombin Time 15.8 Seconds (11.1-14.7)
[2021-12-22 19:10] LABS: Partial Thromboplastin Time 34.4 SECONDS (22.3-36.8)
[2021-12-22 19:12] LABS: Bacteria Urine Trace /hpf; Mucus Urine Rare /lpf; RBC Urine 0-2 /hpf (0-2); WBC Urine 0-3 /hpf
[2021-12-22 19:15] LABS: Alanine Aminotransferase 17 U/L (6-35); Albumin Level 4.6 g/dL (3.5-5.1); Alkaline Phosphatase 133 U/L (38-126); Anion Gap 8 mmol/L (8-16); Aspartate Amino Transferase 31 U/L (14-36); Bilirubin,Total 0.6 mg/dL (0.2-1.3); Blood Urea Nitrogen 20 mg/dL (7-17); CRP 5.4 mg/dL (<1.0); Calcium 10.1 mg/dL (8.4-10.2); Carbon Dioxide 36 mmol/L (22-30); Chloride 94 mmol/L (98-107); Estimated Glomerular Filt Rate 40; Glucose 118 mg/dL (65-110); Lactic Acid Reflex 1.2 mmol/L (0.7-2.0); Potassium 4.1 mmol/L (3.4-5.0); Sodium 138 mmol/L (137-145)
[2021-12-22 19:16] LABS: Valproic Acid 49.9 ug/mL (50-120)
[2021-12-22 19:18] LABS: Alveolar/Arterial O2 Gradient 39.5 mmHg; Base Excess ABG 6.4 mEq/l (+/-2.0); Carboxyhemoglobin 0.4 % THb (0-2.0); Fractional Inspired Oxygen 21 %; HCO3 ABG 31.5 mEq/l (22.0-26.0); Methemoglobin ABG 0.3 %THb (0-1.5); Oxygen Content ABG 17.7 %vol (16.0-22.0); Oxygen Saturation ABG 89.3 % (95.0-100.0); PCO2 ABG 46.7 mmHg (35.0-45.0); PO2 ABG 54.3 mmHg (80.0-100.0); PO2 FiO2 Ratio Arterial Blood 2.59 %; Reduced Hemoglobin 12.1 %THb (0-5.0); Total Hemoglobin 14.5 g/dL (12.0-18.0); pH ABG 7.447 (7.350-7.450)
[2021-12-22 19:20] LABS: Device ROOM AIR; Modified Allen's Test Pass; Oxyhemoglobin 87.2 % THb (90.0-100.0); Site Drawn LEFT RADIAL
[2021-12-22 19:38] LABS: Influenza A QL RT-PCR Negative (Negative); Influenza B QL RT-PCR Negative (Negative); SARS-CoV-2 RNA PCR Positive
[2021-12-22 20:18] LABS: Alanine Aminotransferase 16 U/L (6-35); Estimated Glomerular Filt Rate 40
[2021-12-22] MEDS: METOPROLOL TARTRATE 50 MG TAB PO (20:49)
[2021-12-22] MEDS: METOPROLOL TARTRATE INJ 5 MG/5 ML VIAL IV PUSH (20:51)
[2021-12-22] MEDS: REMDESIVIR 200 MG/NS 250 ML 200 MG/250 ML BAG 250 MG IVPB (21:51)
--- NOTE | 2021-12-22 22:46 | ADMGEN ---
This patient, Carissa Castro, was admitted to IMU Room 213-01 at 2245. Patient/family oriented to hospital policies and general routines including ID bracelet, bed and alarms, visiting hours, pain management, procedures, bathroom and other care routines, personal items, smoking policy, room service/diet, and visiting hours. Information on how to activate the Rapid Response Team has been discussed. Patient/Family are encouraged to report perceived risks to care and to ask questions if they do not understand what they are told or what they should do.
[2021-12-22] MEDS: SODIUM CHLORIDE 0.9% IV 1,000 ML 999 ML IV CONT (23:30)
[2021-12-23] VITALS (25 sets, daily range): BP systolic 99–151; BP diastolic 65–93; PULSE 82–119; RESP 16–20; TEMP 36.1–36.6; O2SAT 93–100; BMI 31.5
--- NOTE | 2021-12-23 01:04 | PM.IMHP ---
H&P: HPI History of Present Illness Date/Time: 12/23/21 01:04 Chief Complaint: Encephalopathy, fevers Narrative: Greater than 30 minutes spent reviewing chart, evaluating, treating patient. Anticipate less than 48 hour admission, will admit under observation. 81-year-old female past medical history of bipolar disorder, hypothyroidism, COPD, atrial fibrillation, status post pacemaker placement, HLD/HTN. Presents from [facility] with encephalopathy and fevers. Patient unable to provide history, obtained from daughter on the phone. She states patient had a fall Monday where she hit her head. Patient was alert and oriented and put back into bed. She then fell again. Patient is on Eliquis for her atrial fibrillation. Patient did not have any altered status at that time. Patient has a noted central tremor of her right lower extremity and right upper extremity. Daughter states are noted at [facility] that her tremor was much more exacerbated yesterday. Her temperature was initially 101? F and upon recheck it was 103 ? F. Daughter reports patient had COVID back in 04/2020, which was severe for her. Patient is vaccinated boost as well. Patient was recently treated for UTI in the hospital, and daughter reports they discussed DNR status at that time. Patient wished to be full code. In the ED, patient noted be febrile to 100.3 F. blood pressure stable. Patient's pulse ox noted to be in the low 90s, improved with 2 L nasal cannula. ABG on room air showed PaO2 54.3, pH 7.447. Patient's heart rate in the 120s, EKG noted AFib with RVR. Patient given IV Lopressor 5 mg as well as 50 mg p.o. Lopressor with improvement in heart rate to 90s. Patient had CT done that was negative for acute intracranial pathology. Chest x-ray clear with COPD changes. Other labs remarkable for white count 8.5. Creatinine 1.3 (baseline creatinine around 0.6). Patient given a dose of remdesivir, Decadron, and 1 L bolus IVF. Review of Systems Review of Systems: Unable to obtain due to encephalopathy [facility] Past Medical History Medical History History of atrial fibrillation History of bipolar disorder History of COPD History of hyperlipidemia History of hypothyroidism Surgical History Surgical History Pacemaker Family History Family History Other Unknown family medical history Social History Social History Smoking status: Never smoker Alcohol intake: never Substance use: never Substance use type: does not use Spiritual care concerns: No Meds Home Medications and Allergies Home Medications Medication Instructions Recorded Confirmed Type acetaminophen 500 mg tablet 1,000 mg PO TID PRN Mild Pain 03/02/21 12/22/21 History (Scale Score 1-4) apixaban 5 mg tablet (Eliquis) 5 mg PO BID 03/02/21 12/22/21 History atorvastatin 40 mg tablet (Lipitor) 40 mg PO HS 03/02/21 12/22/21 History bisacodyl 10 mg rectal suppository 10 mg RECTAL DAILY PRN Constipation 03/02/21 12/22/21 History budesonide-formoterol HFA 160 2 puff inhalation Q12H 03/02/21 12/22/21 History mcg-4.5 mcg/actuation aerosol inhaler (Symbicort) fludrocortisone 0.1 mg tablet 0.1 mg PO DAILY 03/02/21 12/22/21 History fluticasone propionate 50 2 spray intranasal DAILY 03/02/21 12/22/21 History mcg/actuation nasal spray,suspension furosemide 40 mg tablet 80 mg PO DAILY 03/02/21 12/22/21 History gabapentin 400 mg capsule 400 mg PO HS 03/02/21 12/22/21 History polyethylene glycol 3350 17 gram 17 g PO DAILY PRN Constipation 03/02/21 12/22/21 History oral powder packet (Miralax) primidone 50 mg tablet 150 mg PO HS 03/02/21 12/22/21 History sertraline 100 mg tablet (Zoloft) 175 mg PO HS 03/02/21 12/22/21 History calcium carbonate 500 mg calcium
[2021-12-23] MEDS: LACTATED RINGERS 1,000 ML 125 ML IV CONT ×2 (02:05→10:01)
[2021-12-23] MEDS: IPRATROPIUM BR 0.02% INH SOLN 0.5 MG/2.5 ML VIAL INHALATION ×4 (02:38→20:50)
[2021-12-23] MEDS: ALBUTEROL SULFATE NEB 2.5 MG/3 ML INH INHALATION ×4 (02:38→20:50)
[2021-12-23 05:19] LABS: Basophils Percent Auto 0.2 % (0.2-1.2); Hematocrit 36.1 % (37.0-47.0); Hemoglobin 11.3 g/dL (12.0-15.0); Immature Granulocyte Absolute 0.04 K/mm3 (0.00-0.031); Immature Granulocyte Percent A 0.5 % (0-0.5); Lymphocytes Absolute Auto 1.63 K/mm3 (0.9-3.2); Lymphocytes Percent Auto 19.2 % (18.3-44.2); Mean Corpuscular HGB Conc 31.3 g/dl (32-36); Mean Corpuscular Hemoglobin 30.3 pg (26-34); Mean Corpuscular Volume 96.8 fl (80-100); Mean Platelet Volume 9.4 fl (7.4-10.4); Monocytes Absolute Auto 0.6 K/mm3 (0.1-0.6); Monocytes Percent Auto 6.8 % (2.6-8.5); Neutrophils Absolute Auto 6.2 K/mm3 (1.3-6.7); Neutrophils Percent Auto 73.3 % (45.5-73.1); Platelet Count Result 234 k/mm3 (150-375); Red Blood Count 3.73 M/mm3 (4.2-5.4); Red Cell Distribution Width 14.6 % (11.5-14.5); White Blood Count 8.5 K/mm3 (4.5-10.0)
[2021-12-23 05:29] LABS: INR 1.3; Prothrombin Time 15.9 Seconds (11.1-14.7)
[2021-12-23 05:35] LABS: Alanine Aminotransferase 12 U/L (6-35); Albumin Level 3.2 g/dL (3.5-5.1); Alkaline Phosphatase 80 U/L (38-126); Anion Gap 7 mmol/L (8-16); Aspartate Amino Transferase 26 U/L (14-36); Bilirubin,Total 0.5 mg/dL (0.2-1.3); Blood Urea Nitrogen 22 mg/dL (7-17); Carbon Dioxide 33 mmol/L (22-30); Chloride 96 mmol/L (98-107); Estimated CRCL calculation 48 ml/min; Estimated Glomerular Filt Rate 53; Glucose 125 mg/dL (65-110); Sodium 136 mmol/L (137-145)
[2021-12-23] MEDS: METOPROLOL TARTRATE 50 MG TAB PO (09:49)
[2021-12-23] MEDS: APIXABAN 5 MG TABLET PO ×2 (09:51→16:42)
[2021-12-23] MEDS: PANTOPRAZOLE 40 MG TABLET PO (09:51)
[2021-12-23] MEDS: DIVALPROEX SODIUM SPRINKLE 125 MG CAP.DR 500 MG PO ×2 (09:51→16:42)
[2021-12-23] MEDS: FLUDROCORTISONE ACETATE 0.1 MG TABLET PO (09:51)
[2021-12-23] MEDS: DEXAMETHASONE 2 MG TABLET 6 MG PO (09:53)
[2021-12-23] MEDS: LEVOTHYROXINE SODIUM 150 MCG TABLET PO (09:53)
--- NOTE | 2021-12-23 10:41 | PC.NURSE ---
Updated patient's daughter, Nadira, on patient condition.
--- NOTE | 2021-12-23 13:43 | PM.IMPN ---
Progress Note: A&P Assessment and Plan (1) COVID-19: Code(s): U07.1 - COVID-19 Status: Acute Assessment and Plan: Dru presents with confusion, fever and tremors. SARS-CoV2 positive. Dru has been vaccinated and boosted. She has hypoxia so Decadron and remdesivir started. Code status verified with daughter, full code. BCx NGTD. fevers resolved. Mental status back to baseline. Continue inhalers. Continue Decadron and remdesivir. Wean o2 as tolerated (2) Altered mental status: Code(s): R41.82 - Altered mental status, unspecified Status: Acute Assessment and Plan: Patient was confused on admission. Brain CT was read as normal. She was COVID positive. Influenza negative. Chest x-ray was clear. Recent TSH was normal. Will check B12 folate level. Confusion has resolved. Suspect related to COVID infection. Continue to follow. Increase activity. PT/OT (3) Atrial fibrillation with rapid ventricular response: Code(s): I48.91 - Unspecified atrial fibrillation Status: Acute Assessment and Plan: Patient was in atrial fibrillation with RVR on admission. Heart rate better controlled with IV and then with p.o. Lopressor. Patient has listed Lopressor dose 150 mg q.12 but was started on Lopressor 50 b.i.d. given softer pressures. Heart rate remaining stable. Continue Eliquis. Advance Lopressor back to home dose as she toelrates (4) CESAR (acute kidney injury): Code(s): N17.9 - Acute kidney failure, unspecified Status: Acute Assessment and Plan: Normal baseline Cr. Cr 1.3 on admission and now trending down with IV fluids. Given that she has COVID and that she is eating okay, will stop IV fluids. Continue to monitor. Continue to hold Lasix. (5) History of COPD: Code(s): Z87.09 - Personal history of other diseases of the respiratory system Status: Acute Assessment and Plan: No wheezing. CXR clear. Continue scheduled albuterol and Atrovent. Resume Symbicort. (6) History of hypothyroidism: Code(s): Z86.39 - Personal history of other endocrine, nutritional and metabolic disease Status: Acute Assessment and Plan: TSH 11/2021 was normal. Continue Synthroid (7) History of bipolar disorder: Code(s): Z86.59 - Personal history of other mental and behavioral disorders Status: Acute Assessment and Plan: Mood stable. She is feeling better and is less confused. Continue sertraline and Depakote. Add back half dose of Trazodone. Plan DVT Prophylaxis: Eliquis Code Status: Full Diet: Heart healthy Subjective Date/time seen: 12/23/21 13:43 Interval history: 81yo female with bipolar disorder, COPD and AFib here for AMS, fever and tremors. Patient is awake, alert and oriented. She denies any nausea or vomiting. No diarrhea. She denies feeling short of. Minimal cough. She has been falling quite frequently. She complains of bilateral shoulder pain and midback pain related to the falls. Exam Narrative: Tm 101.3 97.4 142/93 90 16 95% 2L Gen - NARD lying semi-recumbent in bed Chest - CTA bilaterally, nml RR CV - irregularly irregular. Tele showing AFib with controlled rate. Abd - Soft, obese, NT Ext - trace pedal edema Neuro - Alert and oriented x4. Nonfocal exam. Psych - Nml mood and affect Skin - Warm and dry. mild erythema in the groin folds. Objective Data Vital Signs Vital Signs: Vital Signs - 24 hr 12/22/21 18:06 12/22/21 18:50 12/22/21 18:59 Temperature 101.3 F H Pulse Rate 116 H 116 H Respiratory Rate 20 22 H Blood Pressure 169/101 H 198/90 H Pulse Oximetry 97 96 Oxygen Delivery Room Air Oxygen Flow Rate 12/22/21 20:00 12/22/21 18:04 12/22/21 18:05 Temperature Pulse Rate 116 H 128 H Respiratory Rate 35 H 26 H Blood Pressure 169/101 H Pulse Oximetry 100 94 Oxygen Delivery Nasal Cannula Oxygen Flow Rate 2 12/22/21 1
[2021-12-23] MEDS: LATANOPROST 0.005% OP SOLN 2.5 ML BTL 1 DROP EACH EYE (16:42)
[2021-12-23] MEDS: FLUTICASONE/SALMETEROL 115-21 MCG INHALER 1 PUFF 2 PUFF INHALATION (20:50)
[2021-12-23] MEDS: PRIMIDONE 50 MG TABLET 150 MG PO (21:23)
[2021-12-23] MEDS: SERTRALINE HCL 50 MG TABLET 150 MG PO (21:24)
[2021-12-23] MEDS: GABAPENTIN 400 MG CAPSULE PO (21:24)
[2021-12-23] MEDS: METOPROLOL TARTRATE 25 MG TABLET 75 MG PO (21:25)
[2021-12-23] MEDS: traZODone HCL 50 MG TABLET PO (21:26)
[2021-12-23] MEDS: ATORVASTATIN 40 MG TABLET PO (21:26)
[2021-12-23] MEDS: SERTRALINE HCL 25 MG TABLET PO (21:27)
[2021-12-23] MEDS: ACETAMINOPHEN 325 MG TABLET 650 MG PO (21:28)
[2021-12-23] MEDS: REMDESIVIR 100 MG/NS 250 ML 100 MG/250 ML BAG 250 MG IVPB (22:28)
[2021-12-24] VITALS (21 sets, daily range): BP systolic 116–154; BP diastolic 71–97; PULSE 74–113; RESP 16–20; TEMP 35.8–36.6; O2SAT 91–100
[2021-12-24] MEDS: LIDOCAINE 5% PATCH 1 PATCH TRANSDERM ×2 (00:03→21:13)
[2021-12-24] MEDS: IPRATROPIUM BR 0.02% INH SOLN 0.5 MG/2.5 ML VIAL INHALATION ×4 (03:25→20:30)
[2021-12-24] MEDS: ALBUTEROL SULFATE NEB 2.5 MG/3 ML INH INHALATION ×4 (03:25→20:31)
[2021-12-24 05:43] LABS: INR 1.3; Prothrombin Time 15.5 Seconds (11.1-14.7)
[2021-12-24 05:53] LABS: Basophils Percent Auto 0.4 % (0.2-1.2); Eosinophils Absolute Auto 0.1 K/mm3 (0-0.3); Eosinophils Percent Auto 0.7 % (0-4.4); Hematocrit 34.8 % (37.0-47.0); Immature Granulocyte Absolute 0.02 K/mm3 (0.00-0.031); Immature Granulocyte Percent A 0.3 % (0-0.5); Lymphocytes Absolute Auto 2.82 K/mm3 (0.9-3.2); Lymphocytes Percent Auto 41.7 % (18.3-44.2); Mean Corpuscular HGB Conc 31.6 g/dl (32-36); Mean Corpuscular Volume 94.8 fl (80-100); Mean Platelet Volume 9.6 fl (7.4-10.4); Monocytes Absolute Auto 0.7 K/mm3 (0.1-0.6); Monocytes Percent Auto 10.1 % (2.6-8.5); Neutrophils Absolute Auto 3.2 K/mm3 (1.3-6.7); Neutrophils Percent Auto 46.8 % (45.5-73.1); Platelet Count Result 212 k/mm3 (150-375); Red Blood Count 3.67 M/mm3 (4.2-5.4); White Blood Count 6.8 K/mm3 (4.5-10.0)
[2021-12-24 05:58] LABS: Alanine Aminotransferase 15 U/L (6-35); Alkaline Phosphatase 86 U/L (38-126); Anion Gap 4 mmol/L (8-16); Aspartate Amino Transferase 27 U/L (14-36); Bilirubin,Total 0.2 mg/dL (0.2-1.3); Blood Urea Nitrogen 18 mg/dL (7-17); Calcium 9.6 mg/dL (8.4-10.2); Carbon Dioxide 34 mmol/L (22-30); Chloride 100 mmol/L (98-107); Estimated CRCL calculation 67 ml/min; Estimated Glomerular Filt Rate > 60; Glucose 99 mg/dL (65-110); Potassium 3.4 mmol/L (3.4-5.0); Sodium 138 mmol/L (137-145)
[2021-12-24 06:07] LABS: Magnesium 1.6 mg/dL (1.6-2.3)
[2021-12-24] MEDS: LEVOTHYROXINE SODIUM 150 MCG TABLET PO (06:32)
[2021-12-24] MEDS: FLUTICASONE/SALMETEROL 115-21 MCG (*SP) INHALER 2 PUFF INHALATION ×2 (08:15→20:30)
[2021-12-24 09:11] LABS: Folic Acid 4.3 ng/mL (2.76->20)
[2021-12-24] MEDS: allopurinoL 100 MG TABLET PO (10:00)
[2021-12-24] MEDS: APIXABAN 5 MG TABLET PO ×2 (10:00→17:53)
[2021-12-24] MEDS: DEXAMETHASONE 2 MG TABLET 6 MG PO (10:00)
[2021-12-24] MEDS: DIVALPROEX SODIUM SPRINKLE 125 MG CAP.DR 500 MG PO ×2 (10:01→17:53)
[2021-12-24] MEDS: FLUTICASONE PROPIONATE 0.05% NA SPR 16 GM BTL (*BKC) 2 SPRAY NASAL (10:02)
[2021-12-24] MEDS: FLUDROCORTISONE ACETATE 0.1 MG TABLET PO (10:02)
[2021-12-24] MEDS: METOPROLOL TARTRATE 25 MG TABLET 75 MG PO (10:02)
[2021-12-24] MEDS: PANTOPRAZOLE 40 MG TABLET PO (10:03)
[2021-12-24] MEDS: POTASSIUM CHLORIDE 20 MEQ TABLET 40 MEQ PO (10:05)
[2021-12-24] MEDS: ACETAMINOPHEN 325 MG TABLET 650 MG PO (10:50)
--- NOTE | 2021-12-24 13:06 | PM.IMPN ---
Progress Note: A&P Assessment and Plan (1) COVID-19: Code(s): U07.1 - COVID-19 Status: Acute Assessment and Plan: Patient presents with confusion, fever and tremors. SARS-CoV2 positive. Patient has been vaccinated and boosted. She has hypoxia so Decadron and remdesivir started. Code status verified with daughter, full code. BCx NGTD. Fevers resolved. Mental status back to baseline. Continue inhalers. Continue Decadron and remdesivir. Wean o2 as tolerated. Check CXR tomorrow (2) Altered mental status: Code(s): R41.82 - Altered mental status, unspecified Status: Acute Assessment and Plan: Patient was confused on admission. Brain CT was read as normal. She was COVID positive. Influenza negative. Chest x-ray was clear. Recent TSH was normal. B12 and folate levels okay. Confusion has resolved. Suspect related to COVID infection. Continue to follow. Continue PT/OT (3) Atrial fibrillation with rapid ventricular response: Code(s): I48.91 - Unspecified atrial fibrillation Status: Acute Assessment and Plan: Patient was in atrial fibrillation with RVR on admission. Heart rate better controlled with IV and then with p.o. Lopressor. Patient has listed Lopressor dose 150 mg q.12 but was started on Lopressor 50 b.i.d. given softer blood pressures and advanced to 75 Q12 and tolerating this. Heart rate remaining stable. Continue Eliquis. Advance Lopressor back to home dose as she tolerates. (4) CESAR (acute kidney injury): Code(s): N17.9 - Acute kidney failure, unspecified Status: Acute Assessment and Plan: Normal baseline Cr. Cr 1.3 on admission and trended to normal with IV fluids. Given that she has COVID, IV fluids stopped. Continue to monitor. Continue to hold Lasix. (5) History of COPD: Code(s): Z87.09 - Personal history of other diseases of the respiratory system Status: Acute Assessment and Plan: No wheezing. CXR clear. Continue scheduled albuterol and Atrovent. Continue Symbicort. (6) History of hypothyroidism: Code(s): Z86.39 - Personal history of other endocrine, nutritional and metabolic disease Status: Acute Assessment and Plan: TSH 11/2021 was normal. Continue Synthroid. (7) History of bipolar disorder: Code(s): Z86.59 - Personal history of other mental and behavioral disorders Status: Acute Assessment and Plan: Mood stable. She is feeling better and is less confused. Continue sertraline and Depakote. Currently on half dose of Trazodone. Plan DVT Prophylaxis: Eliquis Code Status: Full Diet: Heart healthy Subjective Date/time seen: 12/24/21 13:06 Interval history: 81yo female with bipolar disorder, COPD and AFib here for AMS, fever and tremors. No issues overnight. She denies any nausea or vomiting. No diarrhea. She denies shortness of breath. She did have chest wall pain yesterday that was palpable and is slightly sore today as well. Minimal cough. She has essential tremors and they were worse yesterday when trying to eat. She was out of the bed to the chair yesterday. Shoulder pain is better but she still has the upper back pain. Exam Narrative: AF 97.1 116/71 90 18 91% 1L Gen - NARD lying semi-recumbent in bed Chest - CTA bilaterally, nml RR. palpable chest wall pain to the right of midline midchest (no bruising noted) CV - irregularly irregular. Tele showing AFib with controlled rate. Abd - Soft, obese, NT Back - upper thoracic pain midline. Ext - trace pedal edema Neuro - Alert and appropriate Psych - Nml mood and affect Skin - Warm and dry. Objective Data Vital Signs Vital Signs: Vital Signs - 24 hr 12/23/21 13:55 12/23/21 14:04 12/23/21 14:00 Temperature Pulse Rate 100 110 H 117 H Respiratory Rate 18 18 Blood Pressure Pulse Oximetry Oxygen Delivery Oxygen Flow Rate 12/23/21 16:00 12/23/21 16:00
[2021-12-24] MEDS: LATANOPROST 0.005% OP SOLN 2.5 ML BTL 1 DROP EACH EYE (17:53)
[2021-12-24] MEDS: MAGNESIUM OXIDE 400 MG TABLET PO (17:53)
[2021-12-24] MEDS: IPRATROPIUM BR 0.02% INH SOLN 0.5 MG/2.5 ML VIAL (20:35)
[2021-12-24] MEDS: GABAPENTIN 400 MG CAPSULE PO (21:10)
[2021-12-24] MEDS: SERTRALINE HCL 25 MG TABLET PO (21:10)
[2021-12-24] MEDS: PRIMIDONE 50 MG TABLET 150 MG PO (21:10)
[2021-12-24] MEDS: SERTRALINE HCL 50 MG TABLET 150 MG PO (21:10)
[2021-12-24] MEDS: METOPROLOL TARTRATE 50 MG TAB 100 MG PO (21:11)
[2021-12-24] MEDS: ATORVASTATIN 40 MG TABLET PO (21:11)
[2021-12-24] MEDS: traZODone HCL 50 MG TABLET PO (21:12)
[2021-12-24] MEDS: REMDESIVIR 100 MG/NS 250 ML 100 MG/250 ML BAG 250 MG IVPB (21:13)
[2021-12-25] VITALS (13 sets, daily range): BP systolic 130–148; BP diastolic 67–98; PULSE 54–105; RESP 16–18; TEMP 36.7–37; O2SAT 97–100
[2021-12-25] MEDS: ALBUTEROL SULFATE NEB 2.5 MG/3 ML INH INHALATION ×3 (02:24→14:23)
[2021-12-25] MEDS: IPRATROPIUM BR 0.02% INH SOLN 0.5 MG/2.5 ML VIAL INHALATION ×2 (02:24→09:01)
[2021-12-25 05:01] LABS: INR 1.3
[2021-12-25 05:02] LABS: Alanine Aminotransferase 18 U/L (6-35); Albumin Level 2.8 g/dL (3.5-5.1); Anion Gap 5 mmol/L (8-16); Blood Urea Nitrogen 16 mg/dL (7-17); CRP 3.7 mg/dL (<1.0); Calcium 9.5 mg/dL (8.4-10.2); Carbon Dioxide 30 mmol/L (22-30); Chloride 101 mmol/L (98-107); Estimated CRCL calculation 78 ml/min; Estimated Glomerular Filt Rate > 60; Glucose 96 mg/dL (65-110); Lactate Dehydrogenase 141 U/L (120-246); Magnesium 1.5 mg/dL (1.6-2.3); Phosphorus 2.4 mg/dL (2.5-4.5); Potassium 3.5 mmol/L (3.4-5.0); Sodium 136 mmol/L (137-145)
[2021-12-25] MEDS: LEVOTHYROXINE SODIUM 150 MCG TABLET PO (05:52)
[2021-12-25] MEDS: FLUTICASONE/SALMETEROL 115-21 MCG (*SP) INHALER 2 PUFF INHALATION (09:01)
[2021-12-25] MEDS: DEXAMETHASONE 2 MG TABLET 6 MG PO (09:29)
[2021-12-25] MEDS: POTASSIUM/PHOSPHORUS/SODIUM 1.5 GM PACKET 1 PACKET PO (09:30)
[2021-12-25] MEDS: DIVALPROEX SODIUM SPRINKLE 125 MG CAP.DR 500 MG PO (09:30)
[2021-12-25] MEDS: allopurinoL 100 MG TABLET PO (09:30)
[2021-12-25] MEDS: APIXABAN 5 MG TABLET PO (09:30)
[2021-12-25] MEDS: FLUDROCORTISONE ACETATE 0.1 MG TABLET PO (09:31)
[2021-12-25] MEDS: FLUTICASONE PROPIONATE 0.05% NA SPR 16 GM BTL (*BKC) 2 SPRAY NASAL (09:31)
[2021-12-25] MEDS: MAGNESIUM OXIDE 400 MG TABLET PO (09:31)
[2021-12-25] MEDS: FUROSEMIDE 20 MG TABLET PO (09:31)
[2021-12-25] MEDS: PANTOPRAZOLE 40 MG TABLET PO (09:32)
[2021-12-25] MEDS: METOPROLOL TARTRATE 50 MG TAB 100 MG PO (09:32)
--- NOTE | 2021-12-25 11:09 | PM.DS ---
DS: Admitting Diagnosis Discharge Date 12/25/21 Admitting Diagnosis AMS, fever and tremors. DS: Discharge Diagnosis Discharge Diagnosis (1) COVID-19: Code(s): U07.1 - COVID-19 Status: Acute (2) Altered mental status: Code(s): R41.82 - Altered mental status, unspecified Status: Acute (3) Atrial fibrillation with rapid ventricular response: Code(s): I48.91 - Unspecified atrial fibrillation Status: Acute (4) CESRA (acute kidney injury): Code(s): N17.9 - Acute kidney failure, unspecified Status: Acute (5) History of COPD: Code(s): Z87.09 - Personal history of other diseases of the respiratory system Status: Acute (6) History of hypothyroidism: Code(s): Z86.39 - Personal history of other endocrine, nutritional and metabolic disease Status: Acute (7) History of bipolar disorder: Code(s): Z86.59 - Personal history of other mental and behavioral disorders Status: Acute DS: Summary Hospital Course Reason for hospitalization: 81yo female with bipolar disorder, COPD and AFib here for AMS, fever and tremors. Please see H&P for details. Hospital Course: Patient presents with confusion, fever and tremors. SARS-CoV2 positive. Patient has been vaccinated and boosted. She has hypoxia so Decadron and remdesivir started.?BCx NGTD. Fevers resolved. Mental status back to baseline. CXR at discharge was clear. She was weaned to room air. Patient was confused on admission.? Brain CT was read as normal.? Influenza negative.? Recent TSH was normal. B12 and folate levels okay.? Confusion resolved and suspected related to COVID infection.?She worked with PT/OT. Patient was in atrial fibrillation with RVR on admission.? Heart rate better controlled with IV and then with p.o. Lopressor.? Patient has listed Lopressor dose 150 mg q.12 but was started on Lopressor 50 Q12 given softer blood pressures and advanced to 100mg Q12 as she tolerated this. Heart rate and BP remained stable. We continued Eliquis. She has a normal baseline Cr. Cr 1.3 on admission and trended to normal with IV fluids. IV fluids stopped once renal function improved. Lasix resumed at lower dose. Mood stable. She is feeling better and is less confused. We continued sertraline and Depakote. Currently on half dose of Trazodone. She had clinical improvement. She was complaining of upper back pain initially she felt related to one of her many falls and thoracic spine xray showing mild-moderate thoracic spondylosis. Later, the pain was more involving the right scapula that improved with heating pad and lidoderm patch. She overall did well and was able to be discharged on 12/25/21 Status at Discharge Cognitive/behavioral status at discharge: Stable Time Spent with Patient Time attestation: Total time spent providing and/or coordinating discharge services: 34 minutes Time spent: Greater than 30 minutes Exam Narrative: AF 98.1 148/98 99 18 97% RA Gen - NARD lying semi-recumbent in bed Chest - CTA bilaterally, nml RR CV - irregularly irregular. Tele showing AFib with controlled rate. Abd - Soft, obese, NT Back - pain to the right scapula region but no crepitus or step off Ext - no pedal edema Neuro - Alert and appropriate. nml ambulance paramedic. normal sensation to the upper extremities. Psych - Nml mood and affect Skin - Warm and dry. DS: Data Data Completed and Pending Labs on day of discharge: Labs from last 24 hours 12/25/21 12/25/21 04:40 04:40 PT 16.0 H INR 1.3 Sodium 136 L Potassium 3.5 Chloride 101 Carbon Dioxide 30 Anion Gap 5 L BUN 16 Creatinine 0.60 L Estim Creat Clear Calc 78 Estimated GFR > 60 Glucose 96 Calcium 9.5 Phosphorus 2.4 L Magnesium 1.5 L ALT 18 Lactate Dehydrogenase 141 C-Reactive Protein 3.7 H Albumin 2.8 L Preliminary micro results at discharge 12/22/21 18:49 Blood Culture - Preliminary Blood 12/22/21
== END 2021-12-25 15:26 | DRG 178 ==
LOC: ANHED 18:48 → ANHIMU 22:10
PROVIDERS: Admitting Provider Internal Medicine; Emergency Provider General Practice; Visit Provider Internal Medicine
DX: U07.1 COVID-19 (principal); N17.9 Acute kidney failure, unspecified; G93.49 Other encephalopathy; R09.02 Hypoxemia; I48.91 Unspecified atrial fibrillation; J44.9 Chronic obstructive pulmonary disease, unspecified; E03.9 Hypothyroidism, unspecified; E78.5 Hyperlipidemia, unspecified; F31.9 Bipolar disorder, unspecified; I10 Essential (primary) hypertension; R29.6 Repeated falls; M47.814 Spondylosis without myelopathy or radiculopathy, thoracic region; G25.0 Essential tremor; M25.511 Pain in right shoulder; M25.512 Pain in left shoulder; Z79.01 Long term (current) use of anticoagulants; Z86.16 Personal history of COVID-19; Z95.0 Presence of cardiac pacemaker
CPT/HCPCS: 36415; 36600; 51701; 70450; 71045; 72070; 80053; 80069; 80164; 81001; 82375; 82565; 82607; 82746; 82805; 83050; 83605; 83615; 83735; 84460; 85025; 85610; 85730; 86140; 87040; 87502; 93005; 94640; 96361; 96374; 96375; 97161; 97165; 97535; 99285; A9270; C9803; G0378; J0248; J1100; J7030; J7120; J8540; U0003; U0005

== ENCOUNTER 2022-08-23 16:42 | Emergency (ER) | payer MEDICARE, MEDICAID, SELFPAY ==
--- NOTE | ~2022-08-23 | XR_ITS ---
XR chest 1V portable 08/23/2022 17:28 Indication: Altered level consciousness Procedure: 2 view chest Comparison: Comparison to multiple prior studies sequentially, with oldest reviewed study dated 05/2021. Findings: Stable mild cardiomegaly. Pacemaker leads are unchanged. No focal air space disease, pulmon edith edema, pleural effusion or suspected pneumothorax. The lungs are hyperinflated which is consisten t with, but not diagnostic of chronic obstructive pulmonary disease. No acute osseous abnormality. Impression: 1: No acute cardiopulmonary disease. Reviewed, dictated and finalized at location A. Impression: 1: No acute cardiopulmonary disease.
[2022-08-23 16:51] VITALS: BP 150/102; PULSE 88; RESP 16; TEMP 36.8; O2SAT 100
--- NOTE | 2022-08-23 16:57 | ECG_ITS ---
Measurements Intervals [place] Rate: 83 P: LA: 0 QRS: 30 QRSD: 126 T: -21 QT: 366 QTc: 430 Interpretive Statements ATRIAL FIBRILLATION RIGHT BUNDLE BRANCH BLOCK [120+ ms QRS DURATION, UPRIGHT V1, 40+ ms S IN I/aVL/V4/V5/V6] COMPARED TO ECG 12/22/2021 18:27:11 RIGHT BUNDLE-BRANCH BLOCK NOW PRESENT Electronically Signed On 08-23-2022 18:12:33 CDT by Jamel Koehler M.D.
[2022-08-23 17:00] VITALS: PULSE 79
[2022-08-23 17:00] LABS: Glucose Point of Care 61 mg/dl (65-105)
--- NOTE | 2022-08-23 17:18 | ED.AMS ---
HPI - Altered Mental Status General Chief Complaint: Altered Mental Status Stated Complaint: Altered mental status Time Seen by Provider: 08/23/22 17:10 History of Present Illness HPI narrative: [facility]. Pt says she is just sleepy and has no complaints. Pt denies fever, cough CP , SOB. Pt denies urinary symptoms. Related Data Home Medications Medication Instructions Recorded Confirmed atorvastatin 40 mg tablet (Lipitor) 40 mg PO HS 03/02/21 12/22/21 bisacodyl 10 mg rectal suppository 10 mg RECTAL DAILY PRN Constipation 03/02/21 12/22/21 budesonide-formoterol HFA 160 2 puff inhalation Q12H 03/02/21 12/22/21 mcg-4.5 mcg/actuation aerosol inhaler (Symbicort) fludrocortisone 0.1 mg tablet 0.1 mg PO DAILY 03/02/21 12/22/21 fluticasone propionate 50 2 spray intranasal DAILY 03/02/21 12/22/21 mcg/actuation nasal spray,suspension gabapentin 400 mg capsule 400 mg PO HS 03/02/21 12/22/21 polyethylene glycol 3350 17 gram 17 g PO DAILY PRN Constipation 03/02/21 12/22/21 oral powder packet (Miralax) primidone 50 mg tablet 150 mg PO HS 03/02/21 12/22/21 sertraline 100 mg tablet (Zoloft) 175 mg PO HS 03/02/21 12/22/21 calcium carbonate 500 mg calcium 500 mg PO DAILY PRN Acid Reflux 11/05/21 12/22/21 (1,250 mg) chewable tablet cetirizine 5 mg tablet 5 mg PO DAILY 11/05/21 12/22/21 cholecalciferol (vitamin D3) 50 50 mcg PO DAILY 11/05/21 12/22/21 mcg (2,000 unit) tablet latanoprost 0.005 % eye drops 1 drp EACH EYE QPM 11/05/21 12/22/21 (Xalatan) albuterol sulfate 90 mcg/actuation 2 inh inhalation Q4-6H PRN 12/22/21 12/22/21 breath activated powder Shortness Of Breath Or Wheezing inhaler,sensor allopurinol 100 mg tablet 100 mg PO DAILY 12/22/21 12/22/21 levothyroxine 150 mcg tablet 150 mcg PO DAILY 12/22/21 12/22/21 (Synthroid) Allergies Allergy/AdvReac Type Severity Reaction Status Date / Time morphine Allergy Flushing Verified 12/22/21 18:12 Review of Systems Review of Systems: All systems reviewed & are unremarkable except as noted in HPI and below PMFSH Past Medical History Medical History History of atrial fibrillation History of bipolar disorder History of COPD History of hyperlipidemia History of hypothyroidism Surgical History Surgical History Pacemaker Family History Family History Other Unknown family medical history Social History Social History Smoking packs per day: 0.5 Smoking cigarettes per day: 10.0 Years smoked: 34 Smoking pack-years: 17.00 Smoking status: Former smoker Tobacco type: cigarettes Second hand tobacco smoke exposure: No Smoking end date: 12/06/01 Alcohol intake: former Drinks per week: 0 Substance use: never Substance use type: does not use Spiritual care concerns: No Exam Const: General: healthy appearing Nutritional Appearance: well nourished Orientation/consciousness: patient oriented x3 Limitations: no limitations HENMT: Head: normal to inspection Mouth: Yes moist mucous membranes Eyes: Conjunctivae: conjunctivae normal EOM: EOMs intact bilaterally Neck: Neck: normal visual inspection, no lymphadenopathy and no meningeal signs Resp: Effort & Inspection: normal respiratory effort Auscultation: clear to auscultation bilaterally Cardio: Rate: regular rate Rhythm: regular rhythm GI: GI Palp: Yes Soft to palpation Auscultation: normal bowel sounds Skin: General skin exam: normal color Neuro: General: patient oriented x3, moves all extremities, no meningeal signs, no focal motor deficits and CN's II-XI intact bilaterally Speech: normal speech Extrem: General: normal to inspection and no clubbing, cyanosis or edema Psych: Mental Status: mental status gross
[2022-08-23 17:58] LABS: Basophils Percent Auto 0.7 % (0.2-1.2); Eosinophils Absolute Auto 0.1 K/mm3 (0-0.3); Eosinophils Percent Auto 1.5 % (0-4.4); Hematocrit 42.8 % (37.0-47.0); Hemoglobin 13.9 g/dL (12.0-15.0); Immature Granulocyte Absolute 0.01 K/mm3 (0.00-0.031); Immature Granulocyte Percent A 0.2 % (0-0.5); Lymphocytes Absolute Auto 3.04 K/mm3 (0.9-3.2); Lymphocytes Percent Auto 51.9 % (18.3-44.2); Mean Corpuscular HGB Conc 32.5 g/dl (32-36); Mean Corpuscular Hemoglobin 31.4 pg (26-34); Mean Corpuscular Volume 96.8 fl (80-100); Monocytes Absolute Auto 0.4 K/mm3 (0.1-0.6); Monocytes Percent Auto 6.1 % (2.6-8.5); Neutrophils Absolute Auto 2.3 K/mm3 (1.3-6.7); Neutrophils Percent Auto 39.6 % (45.5-73.1); Platelet Count Result 163 k/mm3 (150-375); Red Blood Count 4.42 M/mm3 (4.2-5.4); Red Cell Distribution Width 13.9 % (11.5-14.5); White Blood Count 5.9 K/mm3 (4.5-10.0)
[2022-08-23 18:05] LABS: Appearance Urine Clear (Clear); Bacteria Urine None Seen /hpf; Bilirubin Urine 1+ (Negative); Blood Urine Negative (Negative); Color Urine Dark Yellow (Yellow); Glucose Urine UA Negative (Negative); Ketones Urine Trace mg/dL (Negative); Leukocyte Esterase Ur Negative LEU/UL (Negative); Nitrate Urine Negative (Negative); Protein Urine 1+ mg/dL (Negative); RBC Urine 0-2 /hpf (0-2); Specific Grav Ur 1.022 (1.001-1.035); Squamous Epithelial Cell Urine None seen /hpf (Few); WBC Urine 0-5 /hpf; pH Urine 6.5 (5.0-9.0)
[2022-08-23 18:06] LABS: Add Urine Microscopic? YES
[2022-08-23 18:07] LABS: Alanine Aminotransferase 21 U/L (6-35); Albumin Level 3.6 g/dL (3.5-5.1); Alkaline Phosphatase 109 U/L (38-126); Anion Gap 3 mmol/L (8-16); Aspartate Amino Transferase 31 U/L (14-36); Bilirubin,Total 0.7 mg/dL (0.2-1.3); Blood Urea Nitrogen 29 mg/dL (7-17); Calcium 9.8 mg/dL (8.4-10.2); Carbon Dioxide 32 mmol/L (22-30); Chloride 101 mmol/L (98-107); Estimated CRCL calculation 27 ml/min; Estimated Glomerular Filt Rate 33; Glucose 227 mg/dL (65-110); Potassium 3.7 mmol/L (3.4-5.0); Sodium 136 mmol/L (137-145)
[2022-08-23 18:10] LABS: INR 1.2
[2022-08-23 18:13] LABS: Alanine Aminotransferase 22 U/L (6-35); Albumin Level 3.8 g/dL (3.5-5.1); Alkaline Phosphatase 112 U/L (38-126); Anion Gap 2 mmol/L (8-16); Aspartate Amino Transferase 32 U/L (14-36); Bilirubin,Total 0.7 mg/dL (0.2-1.3); Blood Urea Nitrogen 29 mg/dL (7-17); Carbon Dioxide 34 mmol/L (22-30); Chloride 102 mmol/L (98-107); Estimated CRCL calculation 29 ml/min; Estimated Glomerular Filt Rate 36; Glucose 178 mg/dL (65-110); Potassium 3.8 mmol/L (3.4-5.0); Sodium 138 mmol/L (137-145)
[2022-08-23 18:43] LABS: Thyroid Stimulating Hormone < 0.015 uIU/mL (0.465-4.680)
[2022-08-23 19:18] VITALS: BP 135/82; PULSE 82; RESP 18; O2SAT 99
[2022-08-23 19:25] VITALS: BP 135/82; PULSE 78; RESP 21; TEMP 36.4
--- NOTE | 2022-08-23 19:38 | PC.NURSE ---
Called the patient's daughter to inquire about coming to pick the patient up to taker back to [facility]. Per daughter call daughter in law to see about picking patient up.
--- NOTE | 2022-08-23 19:41 | PC.NURSE ---
Called patient's daughter in law who informed staff that she will not be able to come get the patient.
[2022-09-02 19:30] VITALS: BP 128/77; PULSE 84; RESP 16; O2SAT 100
== END 2022-08-24 01:00 ==
PROVIDERS: Emergency Provider Emergency Medicine
DX: R40.0 Somnolence (principal); I48.91 Unspecified atrial fibrillation; J44.9 Chronic obstructive pulmonary disease, unspecified; E78.5 Hyperlipidemia, unspecified; E03.9 Hypothyroidism, unspecified; F31.9 Bipolar disorder, unspecified; Z95.0 Presence of cardiac pacemaker; Z87.891 Personal history of nicotine dependence; Z79.01 Long term (current) use of anticoagulants; I45.10 Unspecified right bundle-branch block
CPT/HCPCS: 36415; 71045; 80053; 81001; 82948; 84443; 85025; 85610; 85730; 87040; 93005; 99283

== ENCOUNTER 2022-09-02 13:23 | Inpatient (IN) | payer MEDICARE, MEDICAID, SELFPAY ==
[2022-09-02] VITALS (25 sets, daily range): BP systolic 119–123; BP diastolic 70–84; PULSE 80–97; RESP 11–23; TEMP 36.1–36.4; O2SAT 93–98; BMI 27.3
--- NOTE | ~2022-09-02 | CT_ITS ---
EXAMINATION: CT abdomen pelvis wo con DATE: 09/02/2022 15:10 INDICATION: Abdominal tenderness. Chronic urinary tract infections. Generalized weakness. TECHNIQUE: Computed tomography (CT) of the abdomen and pelvis was performed without intravenous contr ast. Automated exposure control and iterative reconstruction technique were employed. The dose-length product was 1168.67 mGy-cm. COMPARISON: CT abdomen and pelvis 11/15/2021 FINDINGS: The visualized portions of the lung bases demonstrate mild atelectasis. No pleural effusion . The heart size is normal. No pericardial effusion. There are pacer wires in right atrium and right ventricle. The liver is normal. There are changes of cholecystectomy. The spleen, pancreas, and adren al glands are normal. There are cysts in the kidneys measuring up to 15 mm on the right. There is no urolithiasis. There is calcified atherosclerosis of the aorta and many of the other arteries. There a re no dilated loops of bowel. The appendix is not visualized. There are no pathologically enlarged ly mph nodes. There is no free intraperitoneal fluid. There are old healed fractures of left superior an d inferior pubic rami. There is moderate lumbar spondylosis. IMPRESSION: 1. No etiology for the patient's symptoms. Reviewed, dictated and finalized at location E.
--- NOTE | ~2022-09-02 | CT_ITS ---
EXAMINATION: CT brain wo con DATE: 09/05/2022 19:34 INDICATION: change in mental status . TECHNIQUE: Computed tomography (CT) of the head was performed without intravenous contrast. The mA wa s adjusted according to patient size. Iterative reconstruction technique was employed. The dose-lengt h product was 983.67 mGy-cm. COMPARISON: 09/02/2022. FINDINGS: Mild motion artifact present. No acute intracranial hemorrhage or extra-axial fluid collection. No hydrocephalus, mass, or herniation. No acute ischemic infarct. Unremarkable dural venous sinus attenuation. No acute osseous abnormality. The aerated spaces are clear. Status post right partial mastoidectomy. Mild atrophy and chronic white matter change. Atherosclerotic intracranial calcification. Bilateral l ens replacements. IMPRESSION: No acute intracranial process. Reviewed, dictated and finalized at location K.
--- NOTE | ~2022-09-02 | CT_ITS ---
EXAMINATION: CT brain wo con INDICATION: Altered mental status COMPARISON: 12/22/2021 TECHNIQUE: Standard unenhanced head CT. The dose-length product (DLP) was 605.33 mGy-cm. The mA was a djusted according to patient size. Iterative reconstruction technique was employed. FINDINGS: There is no acute intraparenchymal hemorrhage. No evidence of mass lesion. No evidence of a cute infarction. There is mild periventricular and subcortical hypodensity probably related to small vessel ischemic disease. There is mild prominence of the sulci and ventricles related to cerebral atr ophy. Intracranial calcified cerebral atherosclerosis is noted. There are no extra-axial collections. There is no mass effect or midline shift. Changes in the globes are likely from ocular lens surgery. There are changes of partial right mastoidectomy. IMPRESSION: 1. No acute intracranial abnormality. 2. Age related findings. Reviewed, dictated and finalized at location B.
--- NOTE | ~2022-09-02 | US_ITS ---
EXAMINATION: US renal BI DATE: 09/03/2022 11:03 INDICATION: Acute renal injury TECHNIQUE: Multiple ultrasound grayscale images of the kidneys were obtained. COMPARISON: CT dated 09/02/2022 FINDINGS: The right kidney measures 9.5 x 5.2 x 4.5 cm. The left kidney measures 11.0 x 5.8 x 5.8 cm. The kidne ys demonstrate normal echogenicity. 1.5 cm right renal cyst. There is no hydronephrosis in either kid roderick. No stones identified. There is small amount of likely dependently layering hyperechoic debris wi thout evident internal vascular flow on color Doppler at the right posterior aspect of the otherwise normal bladder. A left sided ureteral jet is visualized on color Doppler. 2.3 similar nodule along th e caudal margin of and isoechoic to the spleen likely representing a splenule which appears unchanged on the [address] studies. IMPRESSION: 1. 1.5 similar right renal cyst. Otherwise normal kidneys with no hydronephrosis. 2. Hypoechoic likely dependently layering debris in the bladder. Correlate with urinalysis. Reviewed, dictated and finalized at location A. IMPRESSION: 1. 1.5 similar right renal cyst. Otherwise normal kidneys with no hydronephros is. 2. Hypoechoic likely dependently layering debris in the bladder. Correlate with urinalysis.
--- NOTE | ~2022-09-02 | XR_ITS ---
EXAMINATION: XR chest 1V INDICATION: Weakness TECHNIQUE: Frontal view of the chest is obtained. COMPARISON: 08/23/2022 FINDINGS: The lungs are free of acute opacities. No pleural effusion or pneumothorax. The cardiomedia stinal silhouette is normal. A dual-lead cardiac pacemaker of the left chest wall ends with leads in expected locations. IMPRESSION: 1. No acute cardiopulmonary abnormality. Reviewed, dictated and finalized at location B.
--- NOTE | 2022-09-02 13:58 | ECG_ITS ---
Measurements Intervals [place] Rate: 87 P: DE: 0 QRS: 28 QRSD: 130 T: -36 QT: 399 QTc: 482 Interpretive Statements ATRIAL FIBRILLATION RIGHT BUNDLE BRANCH BLOCK [120+ ms QRS DURATION, UPRIGHT V1, 40+ ms S IN I/aVL/V4/V5/V6] PREMATURE VENTRICULAR CONTRACTION COMPARED TO ECG 08/23/2022 16:53:02 NO SIGNIFICANT CHANGES Electronically Signed On 09-03-2022 12:05:15 CDT by Jamel Koehler M.D.
--- NOTE | 2022-09-02 14:06 | ED.GENADULT ---
HPI - General Adult General Chief complaint: Weakness Stated complaint: lethargic Time Seen by Provider: 09/02/22 13:55 History of Present Illness HPI narrative: 82-year-old female presented the emergency department for evaluation of increased lethargy and failure to thrive. Patient has been treated for urinary tract infection as outpatient with Augmentin. group home states patient has had decreased p.o. intake and is more lethargic. Patient does have a past medical history of A-fib, bipolar, COPD, high cholesterol, hypothyroidism. 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 Patient's daughter did present to the ED and states that this is the patient's typical behavior when she does have a urinary tract infection. Related Data Home Medications Medication Instructions Recorded Confirmed atorvastatin 40 mg tablet (Lipitor) 40 mg PO HS 03/02/21 12/22/21 bisacodyl 10 mg rectal suppository 10 mg RECTAL DAILY PRN Constipation 03/02/21 12/22/21 budesonide-formoterol HFA 160 2 puff inhalation Q12H 03/02/21 12/22/21 mcg-4.5 mcg/actuation aerosol inhaler (Symbicort) fludrocortisone 0.1 mg tablet 0.1 mg PO DAILY 03/02/21 12/22/21 fluticasone propionate 50 2 spray intranasal DAILY 03/02/21 12/22/21 mcg/actuation nasal spray,suspension gabapentin 400 mg capsule 400 mg PO HS 03/02/21 12/22/21 polyethylene glycol 3350 17 gram 17 g PO DAILY PRN Constipation 03/02/21 12/22/21 oral powder packet (Miralax) primidone 50 mg tablet 150 mg PO HS 03/02/21 12/22/21 sertraline 100 mg tablet (Zoloft) 175 mg PO HS 03/02/21 12/22/21 calcium carbonate 500 mg calcium 500 mg PO DAILY PRN Acid Reflux 11/05/21 12/22/21 (1,250 mg) chewable tablet cetirizine 5 mg tablet 5 mg PO DAILY 11/05/21 12/22/21 cholecalciferol (vitamin D3) 50 50 mcg PO DAILY 11/05/21 12/22/21 mcg (2,000 unit) tablet latanoprost 0.005 % eye drops 1 drp EACH EYE QPM 11/05/21 12/22/21 (Xalatan) albuterol sulfate 90 mcg/actuation 2 inh inhalation Q4-6H PRN 12/22/21 12/22/21 breath activated powder Shortness Of Breath Or Wheezing inhaler,sensor allopurinol 100 mg tablet 100 mg PO DAILY 12/22/21 12/22/21 levothyroxine 150 mcg tablet 150 mcg PO DAILY 12/22/21 12/22/21 (Synthroid) Allergies Allergy/AdvReac Type Severity Reaction Status Date / Time morphine Allergy Flushing Verified 12/22/21 18:12 Review of Systems Review of Systems: ROS unobtainable: Yes unobtainable due to mental status PMFSH Past Medical History Medical History History of atrial fibrillation History of bipolar disorder History of COPD History of hyperlipidemia History of hypothyroidism Surgical History Surgical History Pacemaker Family History Family History Other Unknown family medical history Social History Social History Smoking packs per day: 0.5 Smoking cigarettes per day: 10.0 Years smoked: 34 Smoking pack-years: 17.00 Smoking status: Former smoker Tobacco type: cigarettes Second hand tobacco smoke exposure: No Smoking end date: 12/06/01 Alcohol intake: former Drinks per week: 0 Substance use: never Substance use type: does not use Spiritual care concerns: No Exam Narrative: APPEARANCE: Ill-appearing and dehydrated appearing. HEAD: normocephalic, atraumatic. EYES: PERRLA/EOMI, conjunctivae clear. NOSE: Normal no drainage NECK: Supple. No adenopathy, no masses. RESPIRATORY: Airway patent, respirations nonlabored. Some wheeze on auscultation CARDIOVASCULAR: Regular rate and rhythm without murmurs rubs or gallops. ABDOMINAL: Soft, nondistended normal bowel sounds mild tenderness to palpation MUSCULOSKELETAL: Moves all extremities. Strength/ROM intact, No edema, No calf tenderness. NEUR
[2022-09-02 14:16] LABS: Basophils Percent Auto 0.4 % (0.2-1.2); Eosinophils Percent Auto 0.5 % (0-4.4); Hematocrit 45.2 % (37.0-47.0); Hemoglobin 14.8 g/dL (12.0-15.0); Immature Granulocyte Absolute 0.02 K/mm3 (0.00-0.031); Immature Granulocyte Percent A 0.3 % (0-0.5); Lymphocytes Absolute Auto 2.41 K/mm3 (0.9-3.2); Lymphocytes Percent Auto 31.9 % (18.3-44.2); Mean Corpuscular HGB Conc 32.7 g/dl (32-36); Mean Corpuscular Hemoglobin 31.1 pg (26-34); Mean Platelet Volume 10.3 fl (7.4-10.4); Monocytes Absolute Auto 0.5 K/mm3 (0.1-0.6); Monocytes Percent Auto 6.2 % (2.6-8.5); Neutrophils Absolute Auto 4.6 K/mm3 (1.3-6.7); Neutrophils Percent Auto 60.7 % (45.5-73.1); Platelet Count Result 226 k/mm3 (150-375); Red Blood Count 4.76 M/mm3 (4.2-5.4); Red Cell Distribution Width 13.9 % (11.5-14.5); White Blood Count 7.6 K/mm3 (4.5-10.0)
[2022-09-02 14:22] LABS: Alanine Aminotransferase 22 U/L (6-35); Albumin Level 3.6 g/dL (3.5-5.1); Alkaline Phosphatase 121 U/L (38-126); Anion Gap 4 mmol/L (8-16); Aspartate Amino Transferase 30 U/L (14-36); Bilirubin,Total 0.7 mg/dL (0.2-1.3); Blood Urea Nitrogen 37 mg/dL (7-17); Calcium 10.2 mg/dL (8.4-10.2); Carbon Dioxide 36 mmol/L (22-30); Chloride 101 mmol/L (98-107); Estimated CRCL calculation 24 ml/min; Estimated Glomerular Filt Rate 29; Glucose 106 mg/dL (65-110); Potassium 4.3 mmol/L (3.4-5.0); Sodium 141 mmol/L (137-145)
[2022-09-02 14:49] LABS: Influenza A QL RT-PCR Negative (Negative); Influenza B QL RT-PCR Negative (Negative); RSV RNA, RT-PCR Negative (Negative); SARS-CoV-2 RNA PCR Negative (Negative)
[2022-09-02 14:49] LABS: Appearance Urine Turbid (Clear); Bacteria Urine 4+ /hpf; Bilirubin Urine Negative (Negative); Blood Urine 3+ (Negative); Color Urine Yellow (Yellow); Glucose Urine UA Negative (Negative); Ketones Urine Negative (Negative); Leukocyte Esterase Ur 3+ LEU/UL (Negative); Need Manual Microscopic Reviewed; Nitrate Urine Negative (Negative); Non Pathogenic Casts >20; Protein Urine 1+ mg/dL (Negative); RBC Urine 21-50 /hpf (0-2); Specific Grav Ur 1.011 (1.001-1.035); Squamous Epithelial Cell Urine Moderate /hpf (Few); WBC Urine >100 /hpf; pH Urine 6.5 (5.0-9.0)
[2022-09-02 14:52] LABS: Add Urine Microscopic? YES
[2022-09-02] MEDS: IPRATROPIUM BR 0.02% INH SOLN 0.5 MG/2.5 ML VIAL INHALATION (15:55)
[2022-09-02] MEDS: LEVALBUTEROL NEB 1.25 MG/3 ML INHALATION (15:55)
[2022-09-02] MEDS: SODIUM CHLORIDE 0.9% IV 1,000 ML 250 ML IV CONT (16:40)
[2022-09-02] MEDS: SODIUM CHLORIDE 0.9% IV 1,000 ML 100 ML IV CONT (20:42)
--- NOTE | 2022-09-02 23:05 | PM.IMHP ---
H&P: HPI History of Present Illness Date/Time: 09/02/22 19:00 Chief Complaint: Weakness and lethargy. Narrative: This is a very pleasant 82-year-old female with history of essential tremors, executive dysfunction, persistent atrial fibrillation, hypertension, COPD, sleep apnea, GERD, hypothyroidism, adrenal insufficiency, anemia, anxiety, and bipolar disorder who presented to the emergency department via EMS from [facility] for evaluation of weakness and lethargy. The patient provides the following history. Her daughter desk up provides additional information, with the patient's permission. She seems to have gone downhill over the past 2 weeks and according to the daughter she has been a bit confused, sleeping much more than usual, and she has not been eating or drinking much. Previously she was participating in therapy but she has not been getting up and about much. She was just recently diagnosed with urinary tract infection for which she was started on Augmentin however she is not getting any better and in fact she seems to be increasingly lethargic. The patient herself does not have many complaints. She states that she occasionally has difficulties urinating but she does not provide any further details. She does deny dysuria and hematuria. She has not had fever, chills, or sweats. She also denies nausea, vomiting, and diarrhea. Vital signs were stable on arrival to the ED. Her white blood cell count was normal. BUN and creatinine are elevated from baseline, likely due to dehydration. Urine appeared grossly infected. Due to the presence of blood in the urine a CT of the abdomen/pelvis was ordered but that did not show any acute findings. She has been started on Rocephin and IV fluids and is being admitted in this setting for further treatment. Review of Systems Review of Systems: Twelve systems were reviewed. She does not have a history of dementia though daughter states she has seemed a bit confused last couple of weeks. She does have executive dysfunction and processes questions slowly but she is otherwise a pretty good historian. She denies chest pain shortness a breath. No cough, cold, or flu symptoms. Except as documented, all other systems were reviewed and are negative. 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 History of excision of pilonidal cyst History of permanent cardiac pacemaker placement Family History Family History Other Unknown family medical history Social History Social History (Updated 09/02/22 @ 23:15 by Celine Sidhu PA-C) Social History: Surrogate medical decision maker: Nadira López, daughter. Code status: Full code. Smoking packs per day: 0.5 Smoking cigarettes per day: 10.0 Years smoked: 34 Smoking pack-years: 17.00 Smoking status: Former smoker Tobacco type: cigarettes Second hand tobacco smoke exposure: No Smoking end date: 12/06/01 Alcohol intake: former Drinks per week: 0 Substance use: never Substance use type: does not use Additional living arrangements comments: Resident at [facility]. Originally from [facility]. 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 Spiritual care concerns: No Meds Home Medications and Allergies Home Medications M
[2022-09-03] VITALS (17 sets, daily range): BP systolic 96–117; BP diastolic 52–66; PULSE 73–90; RESP 16–17; TEMP 36.3–36.6; O2SAT 91–98
--- NOTE | 2022-09-03 00:16 | PC.NURSE ---
Pt in the room, settled in bed. Pt is here for UTI, Afib. Pt is a&o x 2, able to make needs known. pt is very [place]: L ear - hearing aid, R ear deaf. Nuisance Wildlife Control Operator called pt's daughter Nadira, notified about admission and pt's current condition and treatment plan. Understanding verbalized, all questions answered. Pt is currently stable, resting peacefully, denies pain, denies nausea, denies discomfort. Pt was oriented to room, use of call light, fall prevention strategies reviewed, pt verbalized understanding to call for assistance. Bed alarm on for safety considerations. Fluids infusing per orders. Medications reviewed and updated. Pt denies any further questions.
[2022-09-03] MEDS: DIVALPROEX SODIUM SPRINKLE 125 MG CAP.DR 500 MG PO ×3 (01:08→21:06)
[2022-09-03] MEDS: traZODone HCL 50 MG TABLET PO ×2 (01:08→21:02)
[2022-09-03] MEDS: GABAPENTIN 400 MG CAPSULE PO ×2 (01:08→21:07)
[2022-09-03] MEDS: ATORVASTATIN 40 MG TABLET PO ×2 (01:08→21:05)
[2022-09-03] MEDS: APIXABAN 5 MG TABLET PO ×3 (01:08→21:05)
[2022-09-03] MEDS: LATANOPROST 0.005% OP SOLN 2.5 ML BTL 1 DROP EACH EYE ×2 (01:09→18:02)
[2022-09-03] MEDS: METOPROLOL TARTRATE 50 MG TAB 100 MG PO ×2 (01:09→21:32)
[2022-09-03] MEDS: PRIMIDONE 50 MG TABLET 150 MG PO ×2 (01:10→21:01)
[2022-09-03] MEDS: SERTRALINE HCL 25 MG TABLET PO ×2 (01:11→21:05)
[2022-09-03] MEDS: SERTRALINE HCL 50 MG TABLET 150 MG PO ×2 (01:11→21:03)
--- NOTE | 2022-09-03 01:55 | PC.NURSE ---
pt was bladder scanned by the proposal manager writer at 01:30, Dr Holland was notified via phone immediately after that. pt is retaining, 316 cc. No further orders received from Dr Holland. Wait 3-4 hours, repeat bladder scan, notify about the results.
[2022-09-03] MEDS: LEVALBUTEROL NEB 1.25 MG/3 ML 0.63 MG INHALATION ×4 (03:33→22:38)
[2022-09-03 05:24] LABS: Hematocrit 42.2 % (37.0-47.0); Hemoglobin 13.5 g/dL (12.0-15.0); Mean Corpuscular Hemoglobin 30.7 pg (26-34); Mean Corpuscular Volume 95.9 fl (80-100); Mean Platelet Volume 10.2 fl (7.4-10.4); Platelet Count Result 189 k/mm3 (150-375); Red Cell Distribution Width 13.4 % (11.5-14.5); White Blood Count 7.2 K/mm3 (4.5-10.0)
[2022-09-03 05:32] LABS: Alanine Aminotransferase 20 U/L (6-35); Albumin Level 3.2 g/dL (3.5-5.1); Alkaline Phosphatase 102 U/L (38-126); Anion Gap 1 mmol/L (8-16); Aspartate Amino Transferase 29 U/L (14-36); Bilirubin,Total 0.5 mg/dL (0.2-1.3); Blood Urea Nitrogen 35 mg/dL (7-17); Calcium 9.6 mg/dL (8.4-10.2); Carbon Dioxide 33 mmol/L (22-30); Chloride 104 mmol/L (98-107); Estimated CRCL calculation 38 ml/min; Estimated Glomerular Filt Rate 43; Glucose 104 mg/dL (65-110); Magnesium 1.7 mg/dL (1.6-2.3); Potassium 3.9 mmol/L (3.4-5.0); Sodium 138 mmol/L (137-145)
[2022-09-03 06:19] LABS: Thyroid Stimulating Hormone Reflex 0.033 uIU/mL (0.465-4.68)
[2022-09-03] MEDS: LEVOTHYROXINE SODIUM 100 MCG TABLET 200 MCG PO (06:40)
--- NOTE | 2022-09-03 06:46 | PC.NURSE ---
repeat bladder scan completed. 416 cc. the song writer called the provider to notify, no answer, no call back, no further orders.
[2022-09-03 07:18] LABS: Free T4 Free Thyroxine Reflex 0.92 ng/dL (0.78-2.19)
[2022-09-03 09:40] LABS: Total Triiodothyronine (T3) 0.66 NG/ML (0.97-1.69)
[2022-09-03] MEDS: FLUTICASONE/SALMETEROL 115-21 MCG INHALER 1 PUFF 2 PUFF INHALATION ×2 (09:47→22:38)
[2022-09-03] MEDS: SODIUM CHLORIDE 0.9% IV 1,000 ML 100 ML IV CONT ×2 (10:06→21:00)
[2022-09-03] MEDS: MAGNESIUM SULF 2 GM/WATER 50ML 2 GM/50 ML BAG IVPB (10:07)
[2022-09-03] MEDS: LORATADINE 5 MG TABLET PO (10:14)
[2022-09-03] MEDS: CHOLECALCIFEROL 1,000 UNITS TABLET 2000 UNITS PO (10:14)
[2022-09-03] MEDS: FLUTICASONE PROPIONATE 0.05% NA SPR 16 GM BTL (*BKC) 2 SPRAY NASAL (10:15)
--- NOTE | 2022-09-03 11:28 | PM.IMPN ---
Progress Note: A&P Assessment and Plan (1) Urinary tract infection: Code(s): N39.0 - Urinary tract infection, site not specified Status: Acute Assessment and Plan: Patient presented with New onset weakness and lethargy. No symptoms of dysuria, burning or frequency. Some retention on exam and patient was straight cathed. bladder scan PRN. UA with 3+ leukocyte esterase, 21-50 RBCs, > 100 wbc's, 4+ bacteria IV Rocephin initiated. Urine culture pending will tailor antibiotics to culture results PT and OT consulted. (2) Acute kidney injury: Code(s): N17.9 - Acute kidney failure, unspecified Status: Acute Assessment and Plan: She looks very dry on exam which fits with a history of not eating much over the past couple of weeks. Continue judicious IV fluid rehydration with close monitoring of volume status and renal function. Avoid nephrotoxic agents. 09/02 kidney function improved with fluids. Will continue to hydrate. (3) Dehydration: Code(s): E86.0 - Dehydration Status: Acute Assessment and Plan: Plan is as detailed above. (4) Atrial fibrillation: Code(s): I48.91 - Unspecified atrial fibrillation Status: Chronic Assessment and Plan: She is rate controlled on metoprolol. Continue apixaban for stroke prophylaxis. (5) Adrenal insufficiency: Code(s): E27.40 - Unspecified adrenocortical insufficiency Status: Acute Assessment and Plan: Blood pressures are stable; no electrolyte abnormalities. Not currently on medications that I can see. (6) Hypothyroidism: Code(s): E03.9 - Hypothyroidism, unspecified Status: Acute Assessment and Plan: Continue levothyroxine TSH 0.03, normal T4 and T3 0.66. Recommend following up with PCP. Subjective Date/time seen: 09/03/22 11:28 Interval history: Patient sitting up of head it appears very tired. Patient has no complaints at this time other than being sleepy. She is not any urinary symptoms such as dysuria, frequency and urgency. She denies chest pain shortness a nausea vomiting. She is A&O x4. Review of Systems Review of Systems: All systems reviewed & are unremarkable except as noted in HPI and below Exam Narrative: GENERAL: Comfortable, no acute distress HENMT: moist mucous membranes EYES: EOM intact b/l NECK: no lymphadenopathy RESPIRATORY: clear to auscultation CARDIO: RRR GI: soft, nontender, bowel sounds present SKIN: no rashes EXTREMITIES: no edema Objective Data Vital Signs Vital Signs: Vital Signs - 24 hr 09/02/22 13:30 09/02/22 13:36 09/02/22 13:54 Temperature 97.6 F Pulse Rate 93 90 97 Respiratory Rate 13 17 Blood Pressure 123/84 Pulse Oximetry 93 Oxygen Delivery Room Air Oxygen Flow Rate Fraction of Inspired Oxygen 09/02/22 14:00 09/02/22 14:15 09/02/22 14:17 Temperature Pulse Rate 90 87 86 Respiratory Rate 12 12 13 Blood Pressure 121/74 Pulse Oximetry Oxygen Delivery Oxygen Flow Rate Fraction of Inspired Oxygen 09/02/22 14:18 09/02/22 14:30 09/02/22 14:54 Temperature Pulse Rate 87 80 86 Respiratory Rate 12 12 14 Blood Pressure Pulse Oximetry Oxygen Delivery Oxygen Flow Rate Fraction of Inspired Oxygen 09/02/22 15:55 09/02/22 16:04 09/02/22 15:44 Temperature Pulse Rate 91 86 83 Respiratory Rate 18 18 14 Blood Pressure Pulse Oximetry Oxygen Delivery Oxygen Flow Rate Fraction of Inspired Oxygen 09/02/22 15:45 09/02/22 16:00 09/02/22 16:15 Temperature Pulse Rate 94 83 82 Respiratory Rate 13 16 14 Blood Pressure Pulse Oximetry Oxygen Delivery Oxygen Flow Rate Fraction of Inspired Oxygen 09/02/22 17:03 09/02/22 17:18 09/02/22 17:30 Temperature Pulse Rate 94 88 87 Respiratory Rate 13 13 12 Blood Pressure Pulse Oxi
[2022-09-04] VITALS (11 sets, daily range): BP systolic 96–106; BP diastolic 57–60; PULSE 70–88; RESP 14–20; TEMP 36.1–36.3; O2SAT 92–100
[2022-09-04] MEDS: LEVOTHYROXINE SODIUM 100 MCG TABLET 200 MCG PO (06:40)
[2022-09-04 07:31] LABS: Hematocrit 39.5 % (37.0-47.0); Hemoglobin 12.8 g/dL (12.0-15.0); Mean Corpuscular HGB Conc 32.4 g/dl (32-36); Mean Corpuscular Hemoglobin 30.6 pg (26-34); Mean Corpuscular Volume 94.5 fl (80-100); Mean Platelet Volume 10.5 fl (7.4-10.4); Platelet Count Result 194 k/mm3 (150-375); Red Blood Count 4.18 M/mm3 (4.2-5.4); Red Cell Distribution Width 13.4 % (11.5-14.5); White Blood Count 6.8 K/mm3 (4.5-10.0)
[2022-09-04 07:33] LABS: Anion Gap 1 mmol/L (8-16); Blood Urea Nitrogen 28 mg/dL (7-17); Calcium 9.2 mg/dL (8.4-10.2); Carbon Dioxide 32 mmol/L (22-30); Chloride 104 mmol/L (98-107); Estimated CRCL calculation 50 ml/min; Estimated Glomerular Filt Rate 60; Glucose 93 mg/dL (65-110); Potassium 3.9 mmol/L (3.4-5.0); Sodium 137 mmol/L (137-145)
[2022-09-04] MEDS: LEVALBUTEROL NEB 1.25 MG/3 ML 0.63 MG INHALATION ×3 (09:08→21:24)
[2022-09-04] MEDS: FLUTICASONE/SALMETEROL 115-21 MCG INHALER 1 PUFF 2 PUFF INHALATION ×2 (09:09→21:24)
[2022-09-04] MEDS: DIVALPROEX SODIUM SPRINKLE 125 MG CAP.DR 500 MG PO ×2 (09:22→20:23)
[2022-09-04] MEDS: CHOLECALCIFEROL 1,000 UNITS TABLET 2000 UNITS PO (09:22)
[2022-09-04] MEDS: FLUTICASONE PROPIONATE 0.05% NA SPR 16 GM BTL (*BKC) 2 SPRAY NASAL (09:23)
[2022-09-04] MEDS: LORATADINE 5 MG TABLET PO (09:23)
[2022-09-04] MEDS: APIXABAN 5 MG TABLET PO ×2 (09:23→20:23)
--- NOTE | 2022-09-04 14:01 | PM.IMPN ---
Progress Note: A&P Assessment and Plan (1) Urinary tract infection: Code(s): N39.0 - Urinary tract infection, site not specified Status: Acute Assessment and Plan: Patient presented with New onset weakness and lethargy. No symptoms of dysuria, burning or frequency. bladder scan PRN. UA with 3+ leukocyte esterase, 21-50 RBCs, > 100 wbc's, 4+ bacteria IV Rocephin discontinued on 09/04/2022 Urine culture Positive for Enterococcus species and patient switch from Rocephin to vancomycin. Urine sensitivities pending. PT and OT consulted. Blood cultures no growth to date (2) Acute kidney injury: Code(s): N17.9 - Acute kidney failure, unspecified Status: Resolved Assessment and Plan: Resolved with IV fluids (3) Dehydration: Code(s): E86.0 - Dehydration Status: Acute Assessment and Plan: Plan is as detailed above. (4) Atrial fibrillation: Code(s): I48.91 - Unspecified atrial fibrillation Status: Chronic Assessment and Plan: She is rate controlled on metoprolol. Continue apixaban for stroke prophylaxis. (5) Adrenal insufficiency: Code(s): E27.40 - Unspecified adrenocortical insufficiency Status: Acute Assessment and Plan: Blood pressures are stable; no electrolyte abnormalities. Not currently on medications that I can see. (6) Hypothyroidism: Code(s): E03.9 - Hypothyroidism, unspecified Status: Acute Assessment and Plan: Continue levothyroxine TSH 0.03, normal T4 and T3 0.66. Recommend following up with PCP. Subjective Date/time seen: 09/04/22 14:01 Interval history: Patient resting in bed with no new complaints. Patient is A&O x4. She denies abdominal pain, dysuria, nausea, and vomiting. Patient with positive Enterococcus in the urine and she was transitioned to vancomycin. Urine sensitivities are still pending. Review of Systems Review of Systems: All systems reviewed & are unremarkable except as noted in HPI and below Exam Narrative: GENERAL: Comfortable, no acute distress HENMT: moist mucous membranes EYES: EOM intact b/l NECK: no lymphadenopathy RESPIRATORY: clear to auscultation CARDIO: RRR GI: soft, nontender, bowel sounds present SKIN: no rashes EXTREMITIES: no edema Objective Data Vital Signs Vital Signs: Vital Signs - 24 hr 09/03/22 14:21 09/03/22 14:31 09/03/22 14:10 Temperature 97.4 F L Pulse Rate 77 73 84 Respiratory Rate 16 16 16 Blood Pressure 96/52 L Pulse Oximetry 92 Oxygen Delivery 09/03/22 16:00 09/03/22 20:13 09/03/22 21:32 Temperature 97.3 F L Pulse Rate 84 86 80 Respiratory Rate 16 Blood Pressure 117/66 Pulse Oximetry 91 Oxygen Delivery 09/03/22 22:39 09/03/22 20:00 09/04/22 00:00 Temperature Pulse Rate 74 83 73 Respiratory Rate 16 Blood Pressure Pulse Oximetry Oxygen Delivery 09/04/22 04:00 09/04/22 04:42 09/04/22 08:00 Temperature 97 F L Pulse Rate 76 70 80 Respiratory Rate 14 Blood Pressure 96/57 L Pulse Oximetry 100 Oxygen Delivery 09/04/22 09:02 09/04/22 09:02 09/04/22 09:12 Temperature Pulse Rate 72 77 Respiratory Rate 16 16 Blood Pressure Pulse Oximetry 97 Oxygen Delivery Room Air Intake/Output Intake/Output: Intake & Output 09/01/22 09/02/22 09/03/22 09/04/22 23:59 23:59 23:59 23:59 Intake Total 50 2420 780 Output Total 800 Balance 50 2420 -20 Meds/Results Medications: Active Medications Generic Name Dose Route Start Last Admin Trade Name Freq PRN Reason Stop Dose Admin Acetaminophen 650 mg 09/02/22 23:21 Acetaminophen 325 Mg Tablet PO Q6H PRN Mild Pain (1-3) or Fever Apixaban 5 mg 09/02/22 23:40 09/04/22 09:23 Apixaban 5 Mg Tablet PO 5 mg Q12HR JILL Administration Atorvastatin Calcium 40 mg 09/02/22 23:40 09/03/22 21:05
[2022-09-04] MEDS: LATANOPROST 0.005% OP SOLN 2.5 ML BTL 1 DROP EACH EYE (17:49)
[2022-09-04] MEDS: SODIUM CHLORIDE 0.9% IV 1,000 ML 100 ML IV CONT (17:50)
[2022-09-04] MEDS: GABAPENTIN 400 MG CAPSULE PO (20:22)
[2022-09-04] MEDS: PRIMIDONE 50 MG TABLET 150 MG PO (20:22)
[2022-09-04] MEDS: SERTRALINE HCL 50 MG TABLET 150 MG PO (20:22)
[2022-09-04] MEDS: SERTRALINE HCL 25 MG TABLET PO (20:22)
[2022-09-04] MEDS: traZODone HCL 50 MG TABLET PO (20:22)
[2022-09-04] MEDS: ATORVASTATIN 40 MG TABLET PO (20:25)
[2022-09-05] VITALS (13 sets, daily range): BP systolic 108–140; BP diastolic 47–74; PULSE 73–97; RESP 16–20; TEMP 35.8–36.7; O2SAT 85–99
[2022-09-05] MEDS: LEVALBUTEROL NEB 1.25 MG/3 ML 0.63 MG INHALATION ×4 (04:10→20:41)
[2022-09-05 05:31] LABS: Estimated CRCL calculation 56 ml/min; Estimated Glomerular Filt Rate > 60
[2022-09-05] MEDS: FLUTICASONE/SALMETEROL 115-21 MCG INHALER 1 PUFF 2 PUFF INHALATION ×2 (07:40→20:42)
--- NOTE | 2022-09-05 09:18 | PCSTNOTE ---
Please refer to the Bedside Swallow Evaluation in the EMR. Please note, silent aspiration cannot be ruled out at bedside.
--- NOTE | 2022-09-05 09:20 | PM.DS ---
DS: Admitting Diagnosis Discharge Date 09/05/22 Admitting Diagnosis UTI DS: Discharge Diagnosis Discharge Diagnosis (1) Urinary tract infection: Code(s): N39.0 - Urinary tract infection, site not specified Status: Acute Assessment and Plan: Patient presented with New onset weakness and lethargy. No symptoms of dysuria, burning or frequency. bladder scan PRN. UA with 3+ leukocyte esterase, 21-50 RBCs, > 100 wbc's, 4+ bacteria IV Rocephin discontinued on 09/04/2022 Urine culture Positive for Enterococcus species and patient switch from Rocephin to vancomycin. urine sensitive to ampicillin and patient will be transition to p.o. amoxicillin 500 mg every 8 hours for 6 more days. PT and OT consulted. Blood cultures no growth to date (2) Acute kidney injury: Code(s): N17.9 - Acute kidney failure, unspecified Status: Resolved Assessment and Plan: Resolved with IV fluids (3) Dehydration: Code(s): E86.0 - Dehydration Status: Acute Assessment and Plan: Plan is as detailed above. (4) Atrial fibrillation: Code(s): I48.91 - Unspecified atrial fibrillation Status: Chronic Assessment and Plan: She is rate controlled on metoprolol. Continue apixaban for stroke prophylaxis. (5) Adrenal insufficiency: Code(s): E27.40 - Unspecified adrenocortical insufficiency Status: Acute Assessment and Plan: Blood pressures are stable; no electrolyte abnormalities. Not currently on medications that I can see. (6) Hypothyroidism: Code(s): E03.9 - Hypothyroidism, unspecified Status: Acute Assessment and Plan: Continue levothyroxine TSH 0.03, normal T4 and T3 0.66. Recommend following up with PCP. (7) Urinary retention: Code(s): R33.9 - Retention of urine, unspecified Status: Acute Assessment and Plan: Patient is struggling with retention issues. Patient had two bladder scans with greater than 400 cc of urine in the bladder. Adamson catheter placed and advised follow-up with Urology. Patient started on tamsulosin daily Advise follow up with urology Chronic retention could explain frequent UTI's. DS: Summary Hospital Course Hospital Course: This is an 82-year-old female with a history of central tremor, executive dysfunction, persistent AFib, hypertension, COPD, sleep apnea, GERD, hypothyroidism, adrenal insufficiency, edema and psychiatric disorder the presented to the ED on 09/02/2022 due to weakness and lethargy. Patient had been having progressive weakness and confusion over the past 2 weeks with decreased oral intake. Patient recently diagnosed with UTI and treated with Augmentin although there was not much change in patient's overall well being. CT abdomen pelvis with no acute findings. UA with? 3+ leukocyte esterase, 21-50 RBCs, > 100 wbc's, 4+ bacteria And patient started on Rocephin. Urine culture ordered and was positive for Enterococcus species. Patient then transitioned from Rocephin to vancomycin. Sensitivities came back with sensitivity to Rocephin, Macrobid and vanc. Discussed with ID pharmacist and decided that patient will be started on amoxicillin 500 mg Q 8 hr for the remainder of antibiotic course. Patient had Adamson catheter placed after 2 different times of bladder scan being greater than 400 cc. Is advised that patient follow-up with Urology for Adamson catheter management. Patient did have some issues with urinary retention after being treated on appropriate antibiotic she does not have any more issues with retention. Patient's labs and vital signs stable and she has been cleared for discharge. Time Spent with Patient Time attestation: Total time spent providing and/or coordinating discharge services: Exam Narrative: GENERAL: Comfortable, no acute distress HENMT: moist mucous membranes EYES: EOM intact b/
--- NOTE | 2022-09-05 10:29 | PC.NURSE ---
swallow study completed. able to give medications but missing majority of morning meds. awaiting pharmacy to send them
[2022-09-05] MEDS: METOPROLOL TARTRATE 50 MG TAB 100 MG PO ×2 (10:56→20:48)
[2022-09-05] MEDS: LORATADINE 5 MG TABLET PO (10:57)
[2022-09-05] MEDS: CHOLECALCIFEROL 1,000 UNITS TABLET 2000 UNITS PO (10:57)
[2022-09-05] MEDS: APIXABAN 5 MG TABLET PO ×2 (10:57→20:48)
[2022-09-05] MEDS: DIVALPROEX SODIUM SPRINKLE 125 MG CAP.DR 500 MG PO ×2 (18:31→20:48)
[2022-09-05] MEDS: LATANOPROST 0.005% OP SOLN 2.5 ML BTL 1 DROP EACH EYE (18:59)
[2022-09-05] MEDS: SERTRALINE HCL 25 MG TABLET PO (20:48)
[2022-09-05] MEDS: ATORVASTATIN 40 MG TABLET PO (20:48)
[2022-09-05] MEDS: PRIMIDONE 50 MG TABLET 150 MG PO (20:50)
[2022-09-05] MEDS: GABAPENTIN 400 MG CAPSULE PO (20:50)
[2022-09-05] MEDS: traZODone HCL 50 MG TABLET PO (20:50)
[2022-09-05] MEDS: SERTRALINE HCL 50 MG TABLET 150 MG PO (20:50)
[2022-09-06] VITALS (9 sets, daily range): BP systolic 117–125; BP diastolic 59–81; PULSE 67–88; RESP 16–18; TEMP 35.9–36.1; O2SAT 96–98
[2022-09-06] MEDS: LEVALBUTEROL NEB 1.25 MG/3 ML 0.63 MG INHALATION ×3 (02:30→14:20)
[2022-09-06] MEDS: LEVOTHYROXINE SODIUM 100 MCG TABLET 200 MCG PO (05:37)
[2022-09-06 05:52] LABS: Estimated CRCL calculation 50 ml/min; Estimated Glomerular Filt Rate 60
[2022-09-06 07:06] LABS: Hematocrit 36.5 % (37.0-47.0); Hemoglobin 11.9 g/dL (12.0-15.0); Mean Corpuscular HGB Conc 32.6 g/dl (32-36); Mean Corpuscular Hemoglobin 30.4 pg (26-34); Mean Corpuscular Volume 93.4 fl (80-100); Mean Platelet Volume 10.9 fl (7.4-10.4); Platelet Count Result 187 k/mm3 (150-375); Red Blood Count 3.91 M/mm3 (4.2-5.4); Red Cell Distribution Width 13.6 % (11.5-14.5); White Blood Count 7.1 K/mm3 (4.5-10.0)
[2022-09-06 07:30] LABS: Alanine Aminotransferase 15 U/L (6-35); Albumin Level 2.7 g/dL (3.5-5.1); Alkaline Phosphatase 90 U/L (38-126); Anion Gap 1 mmol/L (8-16); Aspartate Amino Transferase 26 U/L (14-36); Bilirubin,Total 0.5 mg/dL (0.2-1.3); Blood Urea Nitrogen 17 mg/dL (7-17); Calcium 9.8 mg/dL (8.4-10.2); Carbon Dioxide 28 mmol/L (22-30); Chloride 109 mmol/L (98-107); Estimated CRCL calculation 50 ml/min; Estimated Glomerular Filt Rate 60; Glucose 87 mg/dL (65-110); Potassium 4.3 mmol/L (3.4-5.0); Sodium 138 mmol/L (137-145)
[2022-09-06] MEDS: CHOLECALCIFEROL 1,000 UNITS TABLET 2000 UNITS PO (10:00)
[2022-09-06] MEDS: APIXABAN 5 MG TABLET PO (10:00)
[2022-09-06] MEDS: DIVALPROEX SODIUM SPRINKLE 125 MG CAP.DR 500 MG PO (10:01)
[2022-09-06] MEDS: LORATADINE 5 MG TABLET PO (10:01)
[2022-09-06] MEDS: METOPROLOL TARTRATE 50 MG TAB 100 MG PO (10:04)
[2022-09-06] MEDS: FLUTICASONE PROPIONATE 0.05% NA SPR 16 GM BTL (*BKC) 2 SPRAY NASAL (10:05)
[2022-09-06] MEDS: FLUTICASONE/SALMETEROL 115-21 MCG INHALER 1 PUFF 2 PUFF INHALATION (10:08)
--- NOTE | 2022-09-06 14:12 | PCPTNOTE ---
Attempted to see patient for PT, however patient refused. Patient reported I'm too tired. Patient is suppose to bed discharging this date.
--- NOTE | 2022-09-06 14:25 | PM.DS ---
DS: Admitting Diagnosis Discharge Date 09/06/22 Admitting Diagnosis UTI DS: Discharge Diagnosis Discharge Diagnosis (1) Urinary tract infection: Code(s): N39.0 - Urinary tract infection, site not specified Status: Acute Assessment and Plan: Patient presented with New onset weakness and lethargy. No symptoms of dysuria, burning or frequency. bladder scan PRN. UA with 3+ leukocyte esterase, 21-50 RBCs, > 100 wbc's, 4+ bacteria IV Rocephin discontinued on 09/04/2022 Urine culture Positive for Enterococcus species and patient switch from Rocephin to vancomycin. urine sensitive to ampicillin and patient will be transition to p.o. amoxicillin 500 mg every 8 hours for 6 more days. PT and OT consulted. Blood cultures no growth after 5 days (2) Acute kidney injury: Code(s): N17.9 - Acute kidney failure, unspecified Status: Resolved Assessment and Plan: Resolved with IV fluids (3) Dehydration: Code(s): E86.0 - Dehydration Status: Acute Assessment and Plan: Plan is as detailed above. (4) Atrial fibrillation: Code(s): I48.91 - Unspecified atrial fibrillation Status: Chronic Assessment and Plan: She is rate controlled on metoprolol. Continue apixaban for stroke prophylaxis. (5) Adrenal insufficiency: Code(s): E27.40 - Unspecified adrenocortical insufficiency Status: Acute Assessment and Plan: Blood pressures are stable; no electrolyte abnormalities. Not currently on medications that I can see. (6) Hypothyroidism: Code(s): E03.9 - Hypothyroidism, unspecified Status: Acute Assessment and Plan: Continue levothyroxine TSH 0.03, normal T4 and T3 0.66. Recommend following up with PCP. (7) Urinary retention: Code(s): R33.9 - Retention of urine, unspecified Status: Acute Assessment and Plan: Patient is struggling with retention issues. Patient had two bladder scans with greater than 400 cc of urine in the bladder. Adamson catheter placed and advised follow-up with Urology. Patient started on tamsulosin daily Advise follow up with urology Chronic retention could explain frequent UTI's. DS: Summary Hospital Course Hospital Course: This is an 82-year-old female with a history of central tremor, executive dysfunction, persistent AFib, hypertension, COPD, sleep apnea, GERD, hypothyroidism, adrenal insufficiency, edema and psychiatric disorder the presented to the ED on 09/02/2022 due to weakness and lethargy.? Patient had been having progressive weakness and confusion over the past 2 weeks with decreased oral intake.? Patient recently diagnosed with UTI and treated with Augmentin although there was not much change in patient's overall well being.? CT abdomen pelvis with no acute findings. UA with? 3+ leukocyte esterase, 21-50 RBCs, > 100 wbc's, 4+ bacteria? And patient started on Rocephin.? Urine culture? ordered and was positive for Enterococcus species.? Patient then transitioned from Rocephin to vancomycin.? Sensitivities came back with sensitivity to Rocephin, Macrobid and vanc.? Discussed with ID pharmacist and decided that patient will be started on amoxicillin 500 mg Q 8 hr for the remainder of antibiotic course.? Patient had Adamson catheter placed after 2 different times of bladder scan being greater than 400 cc.? Is advised that patient follow-up with Urology for Adamson catheter management.? Patient did have some issues with urinary retention after being treated on appropriate antibiotic she does not have any more issues with retention.? Patient's labs and vital signs stable and she has been cleared for discharge. Patient not discharged on 09/05/2022 due to family thinking patient had an acute mental status change that evening. CT head negative for acute intracranial process. Re-evaluation today patient was at baseline and A&O x4.
[2022-09-06 16:19] LABS: EDCOVIDSCREEN Negative (Negative)
[2022-09-06 17:17] LABS: EDCOVIDSCREEN Negative (Negative)
[2022-09-06] MEDS: LATANOPROST 0.005% OP SOLN 2.5 ML BTL 1 DROP EACH EYE (18:21)
== END 2022-09-06 20:09 | DRG 690 ==
LOC: ANHED 14:20 → ANH2MED 18:49
PROVIDERS: Physician Assistant; Admitting Provider Internal Medicine; Emergency Provider Emergency Medicine; PCP Hospitalist; Visit Provider Internal Medicine Critical Care Medicine
DX: N39.0 Urinary tract infection, site not specified (principal); N17.9 Acute kidney failure, unspecified; E27.40 Unspecified adrenocortical insufficiency; I48.19 Other persistent atrial fibrillation; B95.2 Enterococcus as the cause of diseases classified elsewhere; E86.0 Dehydration; E03.9 Hypothyroidism, unspecified; J44.9 Chronic obstructive pulmonary disease, unspecified; Z20.822 Contact with and (suspected) exposure to COVID-19; K21.9 Gastro-esophageal reflux disease without esophagitis; R33.9 Retention of urine, unspecified; F31.9 Bipolar disorder, unspecified; H91.93 Unspecified hearing loss, bilateral; E78.5 Hyperlipidemia, unspecified; R62.7 Adult failure to thrive; D64.9 Anemia, unspecified; I10 Essential (primary) hypertension; F41.9 Anxiety disorder, unspecified; G47.33 Obstructive sleep apnea (adult) (pediatric); Z87.891 Personal history of nicotine dependence; Z68.28 Body mass index [BMI] 28.0-28.9, adult; Z98.42 Cataract extraction status, left eye; Z98.41 Cataract extraction status, right eye; Z96.1 Presence of intraocular lens; Z90.49 Acquired absence of other specified parts of digestive tract; Z95.0 Presence of cardiac pacemaker
CPT/HCPCS: 36415; 70450; 71045; 74176; 76775; 80048; 80053; 81001; 82565; 83735; 84439; 84443; 84480; 85025; 85027; 87040; 87086; 87147; 87181; 87186; 87426; 87637; 92610; 93005; 94640; 96361; 96365; 96375; 96376; 97161; 97166; 97530; 99285; A9270; C9803; G0378; J0696; J3370; J3475; J7030

== ENCOUNTER 2023-04-09 00:45 | Inpatient (IN) | payer MEDICARE, MEDICAID, SELFPAY ==
[2023-04-09] VITALS (16 sets, daily range): BP systolic 87–153; BP diastolic 57–80; PULSE 70–98; RESP 11–20; TEMP 36.4–37.8; O2SAT 94–100
--- NOTE | ~2023-04-09 | XR_ITS ---
MODIFIED ESOPHAGRAM HISTORY: Coughing with thin liquids TECHNIQUE: Modified barium esophagram was performed on 04/10/2023. I administered fluoroscopy and perf ormed the exam with speech pathologist. Patient was seated for lateral fluoroscopic imaging for prakash stion of thin liquids, pudding, solids and quantified amounts, followed by thin liquids in uncontroll ed amounts. This was recorded on tape. A single fluoroscopic spot image was also recorded. The DAP fo r this procedure was 2.4 Gycm2. The amount of fluoroscopy time used during this procedure was 3.5 min utes. FINDINGS: Oral stage: Adequate function. Pharyngeal stage: Adequate function. Cervical/esophageal stage: Adequate function. IMPRESSION: Patient tolerated regular consistency oral feedings in the upright position. Please galo elate with speech pathologist findings and specific feeding recommendations. Reviewed, dictated and finalized at location A. HMAN/CRANE OPERATOR IMPRESSION: Patient tolerated regular consistency oral feedings in the upright position. Please correlate with speech pathologist findings and specific feedi ng recommendations.
--- NOTE | ~2023-04-09 | XR_ITS ---
EXAMINATION: XR chest 1V portable DATE: 04/09/2023 01:35 INDICATION: Dyspnea TECHNIQUE: frontal view of the chest was obtained. COMPARISON: Chest radiograph dated 09/02/2022 FINDINGS: The lungs remain clear with no focal airspace opacities, pulmonary edema, pleural effusion or pneumot horax. The cardiomediastinal silhouette is normal. Dual lead pacemaker seen with leads projecting ove r the expected locations of the right atrium and right ventricle. IMPRESSION: 1. No acute cardiopulmonary disease. Reviewed, dictated and finalized at location A. LITIES AND GROUNDS DIRECTOR
--- NOTE | 2023-04-09 00:56 | ECG_ITS ---
Measurements Intervals Andrews Rate: 76 P: UT: 0 QRS: 58 QRSD: 118 T: 18 QT: 400 QTc: 452 Interpretive Statements ATRIAL FIBRILLATION WITH INTERMITTENT ELECTRONIC VENTRICULAR PACED RHYTHM NONSPECIFIC T-WAVE ABNORMALITY ABNORMAL ECG COMPARED TO ECG 09/02/2022 15:27:32 NO SIGNIFICANT CHANGE Electronically Signed On 04-09-2023 11:56:26 WATER FILTRATION TECHNICIAN by Frankie Grijalva M.D.
[2023-04-09 01:30] LABS: Alveolar/Arterial O2 Gradient 35.3 mmHg; Base Excess ABG 2.3 mEq/l (+/-2.0); Fractional Inspired Oxygen 28 %; HCO3 ABG 26.7 mEq/l (22.0-26.0); Oxygen Content ABG 19.1 %vol (16.0-22.0); Oxygen Saturation ABG 98.3 % (95.0-100.0); Oxyhemoglobin 96.5 % THb (90.0-100.0); PO2 FiO2 Ratio Arterial Blood 4.14 %; pH ABG 7.432 (7.350-7.450)
[2023-04-09 01:31] LABS: Device NASAL CANNULA; Modified Allen's Test Pass; Site Drawn RIGHT RADIAL
[2023-04-09 01:50] LABS: Basophils Absolute Auto 0.1 K/mm3 (0.0-0.1); Basophils Percent Auto 0.5 % (0.2-1.2); Eosinophils Absolute Auto 0.1 K/mm3 (0-0.3); Eosinophils Percent Auto 1.1 % (0-4.4); Hematocrit 41.6 % (37.0-47.0); Hemoglobin 13.4 g/dL (12.0-15.0); Immature Granulocyte Absolute 0.03 K/mm3 (0.00-0.031); Immature Granulocyte Percent A 0.3 % (0-0.5); Lymphocytes Percent Auto 34.9 % (18.3-44.2); Mean Corpuscular HGB Conc 32.2 g/dl (32-36); Mean Corpuscular Hemoglobin 30.2 pg (26-34); Mean Corpuscular Volume 93.7 fl (80-100); Mean Platelet Volume 9.7 fl (7.4-10.4); Monocytes Absolute Auto 0.9 K/mm3 (0.1-0.6); Monocytes Percent Auto 8.7 % (2.6-8.5); Neutrophils Absolute Auto 5.8 K/mm3 (1.3-6.7); Neutrophils Percent Auto 54.5 % (45.5-73.1); Platelet Count Result 204 k/mm3 (150-375); Red Blood Count 4.44 M/mm3 (4.2-5.4); Red Cell Distribution Width 14.5 % (11.5-14.5); White Blood Count 10.6 K/mm3 (4.5-10.0)
[2023-04-09 02:00] LABS: Alanine Aminotransferase 16 U/L (6-35); Albumin Level 3.7 g/dL (3.5-5.1); Alkaline Phosphatase 109 U/L (38-126); Anion Gap 6 mmol/L (8-16); Aspartate Amino Transferase 26 U/L (14-36); Bilirubin,Total 0.8 mg/dL (0.2-1.3); Blood Urea Nitrogen 36 mg/dL (7-17); Calcium 10.8 mg/dL (8.4-10.2); Carbon Dioxide 29 mmol/L (22-30); Chloride 102 mmol/L (98-107); Estimated CRCL calculation 28 ml/min; Estimated Glomerular Filt Rate 31; Glucose 112 mg/dL (65-110); Potassium 4.5 mmol/L (3.4-5.0); Sodium 137 mmol/L (137-145)
[2023-04-09 02:05] LABS: Magnesium 2.1 mg/dL (1.6-2.3)
[2023-04-09 02:09] LABS: NT Pro B Type Natriuretic Pept 2340 pg/mL (19.9-100)
[2023-04-09 02:15] LABS: Troponin I < 0.012 ng/mL (0.000-0.034)
[2023-04-09 02:35] LABS: Lactic Acid Reflex 1.3 mmol/L (0.7-2.0)
[2023-04-09] MEDS: SODIUM CHLORIDE 0.9% IV 1,000 ML 999 ML IV CONT ×3 (02:39→04:02)
[2023-04-09 02:41] LABS: INR 1.3; Prothrombin Time 16.8 Seconds (11.1-14.7)
[2023-04-09 02:42] LABS: Partial Thromboplastin Time 40.5 SECONDS (22.3-36.8)
[2023-04-09 03:01] LABS: Influenza A QL RT-PCR Negative (Negative); Influenza B QL RT-PCR Negative (Negative); RSV RNA, RT-PCR Negative (Negative); SARS-CoV-2 RNA PCR Negative (Negative)
[2023-04-09 03:24] LABS: Appearance Urine Clear (Clear); Bacteria Urine None Seen /hpf; Bilirubin Urine Negative (Negative); Blood Urine Negative (Negative); Color Urine Dark Yellow (Yellow); Glucose Urine UA Negative (Negative); Hyaline Casts Urine Present /lpf; Ketones Urine Trace mg/dL (Negative); Leukocyte Esterase Ur Trace LEU/UL (Negative); Mucus Urine Present /lpf; Need Manual Microscopic Reviewed; Nitrate Urine Negative (Negative); Protein Urine 1+ mg/dL (Negative); RBC Urine 0-2 /hpf (0-2); Specific Grav Ur 1.019 (1.001-1.035); Squamous Epithelial Cell Urine None seen /hpf (Few); Waxy Casts Urine Present /lpf
[2023-04-09 03:31] LABS: Add Urine Microscopic? YES
--- NOTE | 2023-04-09 04:00 | PC.NURSE ---
EDP made aware off pts low bps. Verbal given to this RN to continue to assess while pt receives fluid bolus.
[2023-04-09 04:29] LABS: Procalcitonin 0.1 ng/mL
--- NOTE | 2023-04-09 04:48 | ED.GENADULT ---
HPI - General Adult General Chief complaint: Shortness of Breath/Dyspnea Stated complaint: AMS, HYPOTENSIVE, LOW O2 SATS. Time Seen by Provider: 04/09/23 00:56 History of Present Illness HPI narrative: patient 82-year-old female who presents emerged from with chief complaint of hypoxia generalized weakness and low blood pressure. Patient has a local [facility] and knows that her oxygen saturations were low while she was wearing her CPAP sleeping. The place patient on nasal cannula oxygen in her blood oxygen levels have been in the 90s since then. The patient also has a little bit more confused than normal the patient has had no trauma patient reports that she feels tired. The patient does have history of having blood pressures run in the 90s. Related Data Home Medications Medication Instructions Recorded Confirmed atorvastatin 40 mg tablet (Lipitor) 40 mg PO HS 03/02/21 09/02/22 bisacodyl 10 mg rectal suppository 10 mg RECTAL DAILY PRN Constipation 03/02/21 09/02/22 budesonide-formoterol HFA 160 2 puff inhalation Q12H 03/02/21 09/02/22 mcg-4.5 mcg/actuation aerosol inhaler (Symbicort) fluticasone propionate 50 2 spray intranasal DAILY 03/02/21 09/02/22 mcg/actuation nasal spray,suspension gabapentin 400 mg capsule 400 mg PO HS 03/02/21 09/02/22 polyethylene glycol 3350 17 gram 17 g PO DAILY PRN Constipation 03/02/21 09/02/22 oral powder packet (Miralax) primidone 50 mg tablet 150 mg PO HS 03/02/21 09/02/22 sertraline 100 mg tablet (Zoloft) 150 mg PO HS 03/02/21 09/02/22 calcium carbonate 500 mg calcium 500 mg PO DAILY PRN Acid Reflux 11/05/21 09/02/22 (1,250 mg) chewable tablet cetirizine 5 mg tablet 5 mg PO DAILY 11/05/21 09/02/22 cholecalciferol (vitamin D3) 50 50 mcg PO DAILY 11/05/21 09/02/22 mcg (2,000 unit) tablet latanoprost 0.005 % eye drops 1 drp EACH EYE QPM 11/05/21 09/02/22 (Xalatan) albuterol sulfate 90 mcg/actuation 2 inh inhalation Q4-6H PRN 12/22/21 09/02/22 breath activated powder Shortness Of Breath Or Wheezing inhaler,sensor allopurinol 100 mg tablet 100 mg PO TID 12/22/21 09/02/22 levothyroxine 150 mcg tablet 200 mcg PO DAILY 12/22/21 09/02/22 (Synthroid) amoxicillin 875 mg-potassium 1 tablet PO BID 09/02/22 09/02/22 clavulanate 125 mg tablet ibuprofen 800 mg tablet 800 mg PO QHS 09/02/22 09/02/22 ipratropium 0.5 mg-albuterol 3 mg 3 ml inhalation 4-6XD PRN 09/02/22 09/02/22 (2.5 mg base)/3 mL nebulization Congestion soln Allergies Allergy/AdvReac Type Severity Reaction Status Date / Time morphine Allergy Flushing Verified 12/22/21 18:12 Review of Systems Review of Systems: A 10 system review of systems was completed on the patient and is negative except for what is stated in the HPI. Nursing and ancillary documentation was reviewed. PMFSH Past Medical History Medical History Adrenal insufficiency Atrial fibrillation Bipolar disorder Chronic obstructive pulmonary disease Deafness in right ear Depression with anxiety Gastroesophageal reflux disease Gout Hyperlipidemia Hypothyroidism Migraines Obstructive sleep apnea Surgical History Surgical History History of appendectomy History of cataract extraction with lens replacement History of cholecystectomy History of ear surgery Right ear surgery, reportedly for Meniere's disease, which left her deaf. History of excision of pilonidal cyst History of permanent cardiac pacemaker placement Family History Family History Other Unknown family medical history Social History Social History Social History: Surrogate medical decision maker: Nadira López, daughter. Code status: Full code. Smoking packs per day: 0.5 Smoking cigarettes per day: 10
[2023-04-09 05:41] LABS: Troponin I < 0.012 ng/mL (0.000-0.034)
[2023-04-09] MEDS: SODIUM CHLORIDE 0.9% IV 1,000 ML 125 ML IV CONT ×2 (07:59→19:22)
--- NOTE | 2023-04-09 08:00 | PC.NURSE ---
This patient, Carissa Castro, was admitted to [facility] Surg Room 331-02. Patient/family oriented to hospital policies and general routines including ID bracelet, bed and alarms, visiting hours, pain management, procedures, bathroom and other care routines, personal items, smoking policy, room service/diet, and visiting hours. Patient arrived to floor at 0630 per book. Information on how to activate the Rapid Response Team has been discussed. Patient/Family are encouraged to report perceived risks to care and to ask questions if they do not understand what they are told or what they should do.
--- NOTE | 2023-04-09 09:38 | PM.IMHP ---
H&P: HPI History of Present Illness Date/Time: 04/09/23 09:38 Chief Complaint: hypoxia weakness hypotension Narrative: This is an 82 year old female with a significant past medical history of adrenal insufficiency, atrial fibrillation, bipolar disorder, COPD, anxiety, depression, GERD, gout, hyperlipidemia, hypothyroidism, and KARLO who presented to the hospital with complaint of hypoxia, generalized weakness, and hypotension. Patient was at her nursing facility and was found to be hypotensive, hypoxic, and weak. She was sent to the hospital for further work up. Work up in the hospital included a chest x-ray no acute cardiopulmonary disease. Labs today revealed WBC 10.6, Hgb 13.4, Hct 41.6, Plt 204, PT 16.8, INR 1.3, aPTT 40.5, Na+ 137, K+ 4.5, Chloride 102, BUN 36, Creatinine 1.60, BG 112, Ca+ 10.8, Magnesium 2.1, Liver enzymes are normal, ProBNP 2340, Troponin negative x2, procalcitonin 0.1. UA revealed 1+ protein, trace ketones, trace leukocytes, 6-10 urine WBC, Waxy casts present. Respiratory panel negative for flu, RSV, Covid. ABG revealed ph 7.432, mEZ260.0, pO2 116, HCO3 26.7. Blood and urine cultures were obtained. EKG showing Atrial fibrillation with PVC's, rate 76, right BBB. While in ER patient was given 3L NS, started on maintenance IVF, and given 1g Rocephin. On examination today patient is alert and oriented x3. She denies any fever, chills, nausea, vomiting, diarrhea, shortness of breath, chest pain, or abdominal pain. She does state that she has sleep apnea and has not been wearing her Cpap at night like she is suppose to do. She denies any pain or discomfort at this time. VSS, blood pressures ranging 96/63-105/63, she is afebrile, currently on 2L NC.She will remain in the hospital due to her CESAR and pending Urine and blood cultures. I will transition the patient to Vancomycin considering her last blood culture was showing enterococcus species and back in 2021 she had another UTI resulting E. coli. Will await final read with urine cultures. Review of Systems Review of Systems: All systems reviewed & are unremarkable except as noted in HPI and below Constitutional: Constitutional: Reports as per HPI and Reports no additional constitutional complaints Eyes: Eyes: Reports as per HPI and Reports no additional eye complaints ENT: Reports system reviewed and no additional complaints, except as documented and Reports as per HPI Cardiovascular: Cardiovascular: Reports as per HPI and Reports no additional cardiovascular complaints [facility] Past Medical History Medical History Adrenal insufficiency Atrial fibrillation Bipolar disorder Chronic obstructive pulmonary disease Deafness in right ear Depression with anxiety Gastroesophageal reflux disease Gout Hyperlipidemia Hypothyroidism Migraines Obstructive sleep apnea Surgical History Surgical History History of appendectomy History of cataract extraction with lens replacement History of cholecystectomy History of ear surgery Right ear surgery, reportedly for Meniere's disease, which left her deaf. History of excision of pilonidal cyst History of permanent cardiac pacemaker placement Family History Family History Other Unknown family medical history Social History Social History Social History: Surrogate medical decision maker: Nadira López, daughter. Code status: Full code. Smoking packs per day: 0.5 Smoking cigarettes per day: 10.0 Years smoked: 34 Smoking pack-years: 17.00 Smoking status: Former smoker Tobacco type: cigarettes Second hand tobacco smoke exposure: No Smoking end date: 12/06/01 Alcohol intake: former Drinks per week: 0 Substance use: never Substance use type: does not use Lack of Transportation: No [place]
[2023-04-09 11:14] LABS: Thyroid Stimulating Hormone 0.035 uIU/mL (0.465-4.680)
[2023-04-09] MEDS: LORATADINE 10 MG TABLET PO (12:20)
[2023-04-09] MEDS: FLUTICASONE PROPIONATE 0.05% NA SPR 16 GM BTL (*BKC) 2 SPRAY NASAL (12:20)
[2023-04-09] MEDS: DIVALPROEX SODIUM DR 125 MG TABEC 375 MG PO (12:20)
[2023-04-09] MEDS: allopurinoL 100 MG TABLET PO ×2 (12:21→17:25)
[2023-04-09] MEDS: TOLNAFTATE 1% POWDER 45 GM BTL 1 APPLIC TOPICAL (16:04)
[2023-04-09] MEDS: VANCOMYCIN 1,000 MG/NS 250 ML 1,000 MG/250 ML BAG 250 MG IVPB (16:04)
[2023-04-09] MEDS: APIXABAN 5 MG TABLET PO (17:25)
[2023-04-09] MEDS: ACIDOPHILUS/BULGARICUS CHEWABLE TABLET 1 TABLET PO (17:25)
[2023-04-09] MEDS: LATANOPROST 0.005% OP SOLN 2.5 ML BTL 1 DROP EACH EYE (17:25)
[2023-04-09] MEDS: PRIMIDONE 50 MG TABLET 150 MG PO (20:12)
[2023-04-09] MEDS: DIVALPROEX SODIUM ER 500 MG TAB.24H PO (20:13)
[2023-04-09] MEDS: SERTRALINE HCL 50 MG TABLET 150 MG PO (20:13)
[2023-04-10] VITALS (12 sets, daily range): BP systolic 133–148; BP diastolic 62–93; PULSE 77–101; RESP 18–20; TEMP 36.2–36.6; O2SAT 95–97
[2023-04-10] MEDS: SODIUM CHLORIDE 0.9% IV 1,000 ML 125 ML IV CONT ×2 (03:24→20:16)
[2023-04-10] MEDS: LEVOTHYROXINE SODIUM 100 MCG TABLET 200 MCG PO (06:03)
[2023-04-10] MEDS: ACETAMINOPHEN 325 MG TABLET 650 MG PO (06:47)
[2023-04-10 06:48] LABS: Basophils Percent Auto 0.4 % (0.2-1.2); Eosinophils Absolute Auto 0.1 K/mm3 (0-0.3); Eosinophils Percent Auto 1.4 % (0-4.4); Hematocrit 37.5 % (37.0-47.0); Hemoglobin 12.3 g/dL (12.0-15.0); Immature Granulocyte Absolute 0.02 K/mm3 (0.00-0.031); Immature Granulocyte Percent A 0.3 % (0-0.5); Lymphocytes Absolute Auto 1.61 K/mm3 (0.9-3.2); Lymphocytes Percent Auto 23.1 % (18.3-44.2); Mean Corpuscular HGB Conc 32.8 g/dl (32-36); Mean Corpuscular Hemoglobin 30.7 pg (26-34); Mean Corpuscular Volume 93.5 fl (80-100); Mean Platelet Volume 9.8 fl (7.4-10.4); Monocytes Absolute Auto 0.5 K/mm3 (0.1-0.6); Monocytes Percent Auto 6.6 % (2.6-8.5); Neutrophils Absolute Auto 4.8 K/mm3 (1.3-6.7); Neutrophils Percent Auto 68.2 % (45.5-73.1); Platelet Count Result 188 k/mm3 (150-375); Red Blood Count 4.01 M/mm3 (4.2-5.4); Red Cell Distribution Width 14.1 % (11.5-14.5)
[2023-04-10 07:32] LABS: Alanine Aminotransferase 13 U/L (6-35); Albumin Level 3.1 g/dL (3.5-5.1); Alkaline Phosphatase 105 U/L (38-126); Anion Gap 6 mmol/L (8-16); Aspartate Amino Transferase 27 U/L (14-36); Bilirubin,Total 0.7 mg/dL (0.2-1.3); Blood Urea Nitrogen 25 mg/dL (7-17); Calcium 10.3 mg/dL (8.4-10.2); Carbon Dioxide 23 mmol/L (22-30); Chloride 111 mmol/L (98-107); Estimated CRCL calculation 37 ml/min; Estimated Glomerular Filt Rate 53; Glucose 104 mg/dL (65-110); Potassium 4.7 mmol/L (3.4-5.0); Sodium 140 mmol/L (137-145)
--- NOTE | 2023-04-10 08:25 | P.PNIM_ITS ---
Progress Note: A&P Assessment and Plan (1) CESAR (acute kidney injury): Code(s): N17.9 - Acute kidney failure, unspecified Status: Acute Assessment and Plan: 04/09/23: * BUN 36, creatinine 1.6, potassium 4.5 * Baseline creatinine 0.9 * Continue to trend labs * Holding Lasix and atorvastatin in light of her CESAR 04/10/23: * BUN 25 creatinine 1.0 * Will restart Lasix and atorvastatin * Continue to trend (2) Urinary tract infection: Code(s): N39.0 - Urinary tract infection, site not specified Status: Acute Assessment and Plan: 04/09/23: * Urine showing 1+ protein, trace ketones, trace leukocytes, 6-10 urine WBC's, 6-10 urine casts, hyaline casts present, waxy casts present, urine mucous present. * Urine was sent for culture. * Blood culture pending. * Patient was given 1 dose of Rocephin in the ER * Will start Vancomycin today considering her last urine culture on 09/02/22 was positive for enterococcus species. She also had a urine culture from 11/15/21 which resulted as E. coli * Will await final read of urine cultures. 04/10/23: * Culture showing no growth operative * Urine cultures are still pending * Continue with vancomycin (3) Bipolar disorder: Code(s): F31.9 - Bipolar disorder, unspecified Status: Acute Assessment and Plan: 04/09/23: * Continue Divalproex 04/10/23: * No change to current treatment plan (4) Depression with anxiety: Code(s): F41.8 - Other specified anxiety disorders Status: Acute Assessment and Plan: 04/09/23: * Continue Zoloft 04/10/23: * No change to current treatment plan (5) Atrial fibrillation: Code(s): I48.91 - Unspecified atrial fibrillation Status: Chronic Assessment and Plan: 04/09/23: * Continue Eliquis 5 mg BID * Hold Metoprolol for now as she has been hypotensive today, will reassess in the morning. 04/10/23: * Continue Eliquis * Will restart metoprolol this morning (6) Hyperlipidemia: Code(s): E78.5 - Hyperlipidemia, unspecified Status: Acute Assessment and Plan: 04/09/23: * Will hold atorvastatin for now due to her CESAR 04/10/23: * Will restart atorvastatin out that CESAR is resolved (7) Hypothyroidism: Code(s): E03.9 - Hypothyroidism, unspecified Status: Acute Assessment and Plan: 04/09/23: * Continue Levothyroxine 04/10/23: * No change to current treatment plan (8) History of COPD: Code(s): Z87.09 - Personal history of other diseases of the respiratory system Status: Acute Assessment and Plan: 04/09/23: * Continue neb treatments and albuterol inhaler 04/10/23: * No change to current treatment plan * We got a barium swallow today which did not show any penetration contrast in the airway. We can advance diet as tolerated. I ordered a level 6 diet modification due to her poor dentition and there would like her up out of the bed into the chair for all 3 meals or at least at high Wiggins's position is she is in the bed. Time Spent With Patient Time with patient: 25 - 35 minutes Subjective Date/time seen: 04/10/23 08:25 Interval history: 04/09/23: This is an 82 year old female with a significant past medical history of adrenal insufficiency, atrial fibrillation, bipolar disorder, COPD, anxiety, depression, GERD, gout, hyperlipidemia, hypothyroidism, and KARLO who presented to the hospital with complaint of hypoxia, generalized weakness, and hypotension. Patient w
--- NOTE | 2023-04-10 08:25 | PM.IMPN ---
Progress Note: A&P Assessment and Plan (1) CESAR (acute kidney injury): Code(s): N17.9 - Acute kidney failure, unspecified Status: Acute Assessment and Plan: 04/09/23: BUN 36, creatinine 1.6, potassium 4.5 Baseline creatinine 0.9 Continue to trend labs Holding Lasix and atorvastatin in light of her CESAR 04/10/23: BUN 25 creatinine 1.0 Will restart Lasix and atorvastatin Continue to trend (2) Urinary tract infection: Code(s): N39.0 - Urinary tract infection, site not specified Status: Acute Assessment and Plan: 04/09/23: Urine showing 1+ protein, trace ketones, trace leukocytes, 6-10 urine WBC's, 6-10 urine casts, hyaline casts present, waxy casts present, urine mucous present. Urine was sent for culture. Blood culture pending. Patient was given 1 dose of Rocephin in the ER Will start Vancomycin today considering her last urine culture on 09/02/22 was positive for enterococcus species. She also had a urine culture from 11/15/21 which resulted as E. coli Will await final read of urine cultures. 04/10/23: Culture showing no growth operative Urine cultures are still pending Continue with vancomycin (3) Bipolar disorder: Code(s): F31.9 - Bipolar disorder, unspecified Status: Acute Assessment and Plan: 04/09/23: Continue Divalproex 04/10/23: No change to current treatment plan (4) Depression with anxiety: Code(s): F41.8 - Other specified anxiety disorders Status: Acute Assessment and Plan: 04/09/23: Continue Zoloft 04/10/23: No change to current treatment plan (5) Atrial fibrillation: Code(s): I48.91 - Unspecified atrial fibrillation Status: Chronic Assessment and Plan: 04/09/23: Continue Eliquis 5 mg BID Hold Metoprolol for now as she has been hypotensive today, will reassess in the morning. 04/10/23: Continue Eliquis Will restart metoprolol this morning (6) Hyperlipidemia: Code(s): E78.5 - Hyperlipidemia, unspecified Status: Acute Assessment and Plan: 04/09/23: Will hold atorvastatin for now due to her CESAR 04/10/23: Will restart atorvastatin out that CESAR is resolved (7) Hypothyroidism: Code(s): E03.9 - Hypothyroidism, unspecified Status: Acute Assessment and Plan: 04/09/23: Continue Levothyroxine 04/10/23: No change to current treatment plan (8) History of COPD: Code(s): Z87.09 - Personal history of other diseases of the respiratory system Status: Acute Assessment and Plan: 04/09/23: Continue neb treatments and albuterol inhaler 04/10/23: No change to current treatment plan We got a barium swallow today which did not show any penetration contrast in the airway. We can advance diet as tolerated. I ordered a level 6 diet modification due to her poor dentition and there would like her up out of the bed into the chair for all 3 meals or at least at high Wiggins's position is she is in the bed. Time Spent With Patient Time with patient: 25 - 35 minutes Subjective Date/time seen: 04/10/23 08:25 Interval history: 04/09/23: This is an 82 year old female with a significant past medical history of adrenal insufficiency, atrial fibrillation, bipolar disorder, COPD, anxiety, depression, GERD, gout, hyperlipidemia, hypothyroidism, and KARLO who presented to the hospital with complaint of hypoxia, generalized weakness, and hypotension. Patient was at her nursing facility and was found to be hypotensive, hypoxic, and weak. She was sent to the hospital for further work up.? Work up in the hospital included a chest x-ray no acute cardiopulmonary disease. Labs today revealed WBC 10.6, Hgb 13.4, Hct 41.6, Plt 204, PT 16.8, INR 1.3, aPTT 40.5, Na+ 137, K+ 4.5, Chloride 102, BUN 36, Creatinine 1.60, BG 112, Ca+ 10.8, Magnesium 2.1, Liver enzymes are normal, ProBNP 2340, Troponin negative x2, procalcitonin 0.1. UA revealed 1+ protein, trace ketones, trace le
[2023-04-10 08:56] LABS: Magnesium 1.9 mg/dL (1.6-2.3); Phosphorus 3.1 mg/dL (2.5-4.5)
--- NOTE | 2023-04-10 10:29 | PCSTNOTE ---
Please refer to the Modified Barium Swallow Evaluation in the EMR.
[2023-04-10] MEDS: APIXABAN 5 MG TABLET PO ×2 (11:03→17:04)
[2023-04-10] MEDS: allopurinoL 100 MG TABLET PO ×3 (11:03→17:04)
[2023-04-10] MEDS: ACIDOPHILUS/BULGARICUS CHEWABLE TABLET 1 TABLET PO ×2 (11:04→17:04)
[2023-04-10] MEDS: DIVALPROEX SODIUM DR 125 MG TABEC 375 MG PO (11:04)
[2023-04-10] MEDS: TOLNAFTATE 1% POWDER 45 GM BTL 1 APPLIC TOPICAL (11:04)
[2023-04-10] MEDS: TAMSULOSIN HCL 0.4 MG CAPSULE PO (11:04)
[2023-04-10] MEDS: LORATADINE 10 MG TABLET PO (11:04)
[2023-04-10] MEDS: THERAPEUTIC MULTIVITAMINS/MINERALS TAB (*BKC) 1 TABLET PO (11:06)
[2023-04-10] MEDS: METOPROLOL TARTRATE 50 MG TAB 100 MG PO ×2 (11:06→20:07)
[2023-04-10] MEDS: FUROSEMIDE 40 MG TABLET PO (11:06)
[2023-04-10] MEDS: CHOLECALCIFEROL 1,000 UNITS TABLET 2000 UNITS PO (11:07)
[2023-04-10] MEDS: FLUTICASONE PROPIONATE 0.05% NA SPR 16 GM BTL (*BKC) 2 SPRAY NASAL (11:07)
[2023-04-10] MEDS: LATANOPROST 0.005% OP SOLN 2.5 ML BTL 1 DROP EACH EYE (17:04)
[2023-04-10] MEDS: PRIMIDONE 50 MG TABLET 150 MG PO (20:07)
[2023-04-10] MEDS: DIVALPROEX SODIUM ER 500 MG TAB.24H PO (20:08)
[2023-04-10] MEDS: SERTRALINE HCL 50 MG TABLET 150 MG PO (20:08)
[2023-04-10] MEDS: GABAPENTIN 400 MG CAPSULE PO (20:08)
[2023-04-10] MEDS: ATORVASTATIN 40 MG TABLET PO (20:08)
[2023-04-11] VITALS (11 sets, daily range): BP systolic 131–140; BP diastolic 65–74; PULSE 74–90; RESP 18–20; TEMP 36.3–36.5; O2SAT 94–96
[2023-04-11] MEDS: SODIUM CHLORIDE 0.9% IV 1,000 ML 125 ML IV CONT ×2 (03:20→15:29)
[2023-04-11] MEDS: VANCOMYCIN 1,000 MG/NS 250 ML 1,000 MG/250 ML BAG 250 MG IVPB (03:20)
[2023-04-11] MEDS: LEVOTHYROXINE SODIUM 100 MCG TABLET 200 MCG PO (05:42)
[2023-04-11 06:56] LABS: Basophils Percent Auto 0.6 % (0.2-1.2); Eosinophils Absolute Auto 0.2 K/mm3 (0-0.3); Eosinophils Percent Auto 3.2 % (0-4.4); Hematocrit 35.9 % (37.0-47.0); Hemoglobin 11.5 g/dL (12.0-15.0); Immature Granulocyte Absolute 0.02 K/mm3 (0.00-0.031); Immature Granulocyte Percent A 0.3 % (0-0.5); Lymphocytes Absolute Auto 2.31 K/mm3 (0.9-3.2); Lymphocytes Percent Auto 33.5 % (18.3-44.2); Mean Corpuscular Volume 93.7 fl (80-100); Mean Platelet Volume 9.7 fl (7.4-10.4); Monocytes Absolute Auto 0.5 K/mm3 (0.1-0.6); Monocytes Percent Auto 7.7 % (2.6-8.5); Neutrophils Absolute Auto 3.8 K/mm3 (1.3-6.7); Neutrophils Percent Auto 54.7 % (45.5-73.1); Platelet Count Result 194 k/mm3 (150-375); Red Blood Count 3.83 M/mm3 (4.2-5.4); Red Cell Distribution Width 14.3 % (11.5-14.5); White Blood Count 6.9 K/mm3 (4.5-10.0)
[2023-04-11 07:45] LABS: Alanine Aminotransferase 14 U/L (6-35); Albumin Level 2.8 g/dL (3.5-5.1); Alkaline Phosphatase 96 U/L (38-126); Anion Gap 5 mmol/L (8-16); Aspartate Amino Transferase 27 U/L (14-36); Bilirubin,Total 0.7 mg/dL (0.2-1.3); Blood Urea Nitrogen 21 mg/dL (7-17); Calcium 10.1 mg/dL (8.4-10.2); Carbon Dioxide 24 mmol/L (22-30); Chloride 109 mmol/L (98-107); Estimated CRCL calculation 37 ml/min; Estimated Glomerular Filt Rate 53; Glucose 89 mg/dL (65-110); Potassium 4.5 mmol/L (3.4-5.0); Sodium 138 mmol/L (137-145)
[2023-04-11] MEDS: CHOLECALCIFEROL 1,000 UNITS TABLET 2000 UNITS PO (10:11)
[2023-04-11] MEDS: THERAPEUTIC MULTIVITAMINS/MINERALS TAB (*BKC) 1 TABLET PO (10:11)
[2023-04-11] MEDS: TAMSULOSIN HCL 0.4 MG CAPSULE PO (10:11)
[2023-04-11] MEDS: allopurinoL 100 MG TABLET PO ×3 (10:11→16:27)
[2023-04-11] MEDS: FUROSEMIDE 40 MG TABLET PO ×2 (10:11→16:26)
[2023-04-11] MEDS: ACIDOPHILUS/BULGARICUS CHEWABLE TABLET 1 TABLET PO ×2 (10:11→16:27)
[2023-04-11] MEDS: DIVALPROEX SODIUM DR 125 MG TABEC 375 MG PO (10:11)
[2023-04-11] MEDS: APIXABAN 5 MG TABLET PO ×2 (10:11→16:27)
[2023-04-11] MEDS: LORATADINE 10 MG TABLET PO (10:11)
[2023-04-11] MEDS: METOPROLOL TARTRATE 50 MG TAB 100 MG PO ×2 (10:12→20:21)
[2023-04-11] MEDS: FLUTICASONE PROPIONATE 0.05% NA SPR 16 GM BTL (*BKC) 2 SPRAY NASAL (10:13)
[2023-04-11] MEDS: TOLNAFTATE 1% POWDER 45 GM BTL 1 APPLIC TOPICAL (10:13)
[2023-04-11] MEDS: IPRATROPIUM BR 0.02% INH SOLN 0.5 MG/2.5 ML VIAL INHALATION (14:23)
[2023-04-11] MEDS: ALBUTEROL SULFATE NEB 2.5 MG/3 ML INH INHALATION (14:24)
--- NOTE | 2023-04-11 15:24 | P.PNIM_ITS ---
Progress Note: A&P Assessment and Plan (1) CESAR (acute kidney injury): Code(s): N17.9 - Acute kidney failure, unspecified Status: Acute Assessment and Plan: 04/09/23: * BUN 36, creatinine 1.6, potassium 4.5 * Baseline creatinine 0.9 * Continue to trend labs * Holding Lasix and atorvastatin in light of her CESAR 04/10/23: * BUN 25 creatinine 1.0 * Will restart Lasix and atorvastatin * Continue to trend 04/11/2023: * No change to current treatment plan (2) Urinary tract infection: Code(s): N39.0 - Urinary tract infection, site not specified Status: Acute Assessment and Plan: 04/09/23: * Urine showing 1+ protein, trace ketones, trace leukocytes, 6-10 urine WBC's, 6-10 urine casts, hyaline casts present, waxy casts present, urine mucous present. * Urine was sent for culture. * Blood culture pending. * Patient was given 1 dose of Rocephin in the ER * Will start Vancomycin today considering her last urine culture on 09/02/22 was positive for enterococcus species. She also had a urine culture from 11/15/21 which resulted as E. coli * Will await final read of urine cultures. 04/10/23: * Culture showing no growth operative * Urine cultures are still pending * Continue with vancomycin 04/11/2023: * Blood culture showing no growth to date * Urine culture showing no growth on final read * Will discontinue vancomycin this time. (3) Bipolar disorder: Code(s): F31.9 - Bipolar disorder, unspecified Status: Acute Assessment and Plan: 04/09/23: * Continue Divalproex 04/10/23: * No change to current treatment plan (4) Depression with anxiety: Code(s): F41.8 - Other specified anxiety disorders Status: Acute Assessment and Plan: 04/09/23: * Continue Zoloft 04/10/23: * No change to current treatment plan (5) Atrial fibrillation: Code(s): I48.91 - Unspecified atrial fibrillation Status: Chronic Assessment and Plan: 04/09/23: * Continue Eliquis 5 mg BID * Hold Metoprolol for now as she has been hypotensive today, will reassess in the morning. 04/10/23: * Continue Eliquis * Will restart metoprolol this morning 04/11/2023: * No change to current treatment plan (6) Hyperlipidemia: Code(s): E78.5 - Hyperlipidemia, unspecified Status: Acute Assessment and Plan: 04/09/23: * Will hold atorvastatin for now due to her CESAR 04/10/23: * Will restart atorvastatin now that CESAR is resolved 04/11/2023: * No change to current treatment plan (7) Hypothyroidism: Code(s): E03.9 - Hypothyroidism, unspecified Status: Acute Assessment and Plan: 04/09/23: * Continue Levothyroxine 04/10/23: * No change to current treatment plan (8) History of COPD: Code(s): Z87.09 - Personal history of other diseases of the respiratory system Status: Acute Assessment and Plan: 04/09/23: * Continue neb treatments and albuterol inhaler 04/10/23: * No change to current treatment plan * We got a barium swallow today which did not show any penetration contrast in the airway. We can advance diet as tolerated. I ordered a level 6 diet modification due to her poor dentition and there would like her up out of the bed into the chair for all 3 meals or at least at high Wiggins's position is she is in the bed. 04/11/2023: * No change to current treatment plan Subjective Date/time seen: 04/11/23 15:24 Interval
--- NOTE | 2023-04-11 15:24 | PM.IMPN ---
Progress Note: A&P Assessment and Plan (1) CESAR (acute kidney injury): Code(s): N17.9 - Acute kidney failure, unspecified Status: Acute Assessment and Plan: 04/09/23: BUN 36, creatinine 1.6, potassium 4.5 Baseline creatinine 0.9 Continue to trend labs Holding Lasix and atorvastatin in light of her CESAR 04/10/23: BUN 25 creatinine 1.0 Will restart Lasix and atorvastatin Continue to trend 04/11/2023: No change to current treatment plan (2) Urinary tract infection: Code(s): N39.0 - Urinary tract infection, site not specified Status: Acute Assessment and Plan: 04/09/23: Urine showing 1+ protein, trace ketones, trace leukocytes, 6-10 urine WBC's, 6-10 urine casts, hyaline casts present, waxy casts present, urine mucous present. Urine was sent for culture. Blood culture pending. Patient was given 1 dose of Rocephin in the ER Will start Vancomycin today considering her last urine culture on 09/02/22 was positive for enterococcus species. She also had a urine culture from 11/15/21 which resulted as E. coli Will await final read of urine cultures. 04/10/23: Culture showing no growth operative Urine cultures are still pending Continue with vancomycin 04/11/2023: Blood culture showing no growth to date Urine culture showing no growth on final read Will discontinue vancomycin this time. (3) Bipolar disorder: Code(s): F31.9 - Bipolar disorder, unspecified Status: Acute Assessment and Plan: 04/09/23: Continue Divalproex 04/10/23: No change to current treatment plan (4) Depression with anxiety: Code(s): F41.8 - Other specified anxiety disorders Status: Acute Assessment and Plan: 04/09/23: Continue Zoloft 04/10/23: No change to current treatment plan (5) Atrial fibrillation: Code(s): I48.91 - Unspecified atrial fibrillation Status: Chronic Assessment and Plan: 04/09/23: Continue Eliquis 5 mg BID Hold Metoprolol for now as she has been hypotensive today, will reassess in the morning. 04/10/23: Continue Eliquis Will restart metoprolol this morning 04/11/2023: No change to current treatment plan (6) Hyperlipidemia: Code(s): E78.5 - Hyperlipidemia, unspecified Status: Acute Assessment and Plan: 04/09/23: Will hold atorvastatin for now due to her CESAR 04/10/23: Will restart atorvastatin now that CESAR is resolved 04/11/2023: No change to current treatment plan (7) Hypothyroidism: Code(s): E03.9 - Hypothyroidism, unspecified Status: Acute Assessment and Plan: 04/09/23: Continue Levothyroxine 04/10/23: No change to current treatment plan (8) History of COPD: Code(s): Z87.09 - Personal history of other diseases of the respiratory system Status: Acute Assessment and Plan: 04/09/23: Continue neb treatments and albuterol inhaler 04/10/23: No change to current treatment plan We got a barium swallow today which did not show any penetration contrast in the airway. We can advance diet as tolerated. I ordered a level 6 diet modification due to her poor dentition and there would like her up out of the bed into the chair for all 3 meals or at least at high Wiggins's position is she is in the bed. 04/11/2023: No change to current treatment plan Subjective Date/time seen: 04/11/23 15:24 Interval history: 04/09/23: This is an 82 year old female with a significant past medical history of adrenal insufficiency, atrial fibrillation, bipolar disorder, COPD, anxiety, depression, GERD, gout, hyperlipidemia, hypothyroidism, and KARLO who presented to the hospital with complaint of hypoxia, generalized weakness, and hypotension. Patient was at her nursing facility and was found to be hypotensive, hypoxic, and weak. She was sent to the hospital for further work up.? Work up in the hospital included a chest x-ray no acute cardiopulmonary disease. Labs today
[2023-04-11] MEDS: LATANOPROST 0.005% OP SOLN 2.5 ML BTL 1 DROP EACH EYE (18:03)
[2023-04-11 18:58] LABS: SARS-CoV-2 RNA PCR Negative (Negative)
[2023-04-11] MEDS: PRIMIDONE 50 MG TABLET 150 MG PO (20:20)
[2023-04-11] MEDS: DIVALPROEX SODIUM ER 500 MG TAB.24H PO (20:21)
[2023-04-11] MEDS: SERTRALINE HCL 50 MG TABLET 150 MG PO (20:21)
[2023-04-11] MEDS: GABAPENTIN 400 MG CAPSULE PO (20:21)
[2023-04-11] MEDS: ATORVASTATIN 40 MG TABLET PO (20:21)
--- NOTE | 2023-04-12 00:46 | PM.DS ---
DS: Admitting Diagnosis Discharge Date 04/11/23 Admitting Diagnosis CESAR UTI Bipolar disorder Depression with anxiety Atrial fibrillation hyperlipidemia hypothyroidism History of COPD DS: Discharge Diagnosis Discharge Diagnosis (1) CESAR (acute kidney injury): Code(s): N17.9 - Acute kidney failure, unspecified Status: Acute (2) Urinary tract infection: Code(s): N39.0 - Urinary tract infection, site not specified Status: Acute (3) Bipolar disorder: Code(s): F31.9 - Bipolar disorder, unspecified Status: Acute (4) Depression with anxiety: Code(s): F41.8 - Other specified anxiety disorders Status: Acute (5) Atrial fibrillation: Code(s): I48.91 - Unspecified atrial fibrillation Status: Chronic (6) Hyperlipidemia: Code(s): E78.5 - Hyperlipidemia, unspecified Status: Acute (7) Hypothyroidism: Code(s): E03.9 - Hypothyroidism, unspecified Status: Acute (8) History of COPD: Code(s): Z87.09 - Personal history of other diseases of the respiratory system Status: Acute DS: Summary Hospital Course Reason for hospitalization: CESAR dehydration possible urinary tract infection Hospital Course: This is an 82 year old female who presented to the hospital with complaints of hypoxia, generalized weakness, and hypotension. Work up in the hospital included a chest x-ray no acute cardiopulmonary disease. Labs today revealed WBC 10.6, Hgb 13.4, Hct 41.6, Plt 204, PT 16.8, INR 1.3, aPTT 40.5, Na+ 137, K+ 4.5, Chloride 102, BUN 36, Creatinine 1.60, BG 112, Ca+ 10.8, Magnesium 2.1, Liver enzymes are normal, ProBNP 2340, Troponin negative x2, procalcitonin 0.1. UA revealed 1+ protein, trace ketones, trace leukocytes, 6-10 urine WBC, Waxy casts present. Respiratory panel negative for flu, RSV, Covid. ABG revealed ph 7.432, qOF979.0, pO2 116, HCO3 26.7. Blood and urine cultures were obtained. EKG showing Atrial fibrillation with PVC's, rate 76, right BBB. While in ER patient was given 3L NS, started on maintenance IVF, and given 1g Rocephin. Last urine culture rom previous UTI shown enterococcus species. Patient was transitioned to Vancomycin pending the results of the Urine culture. There were some concerns yesterday for aspiration when drinking thin liquids we went ahead and get a barium swallow today which did not show any penetration of thin liquids into the airway. Patient urine culture was negative for bacteria. On examination today patient is alert and oriented x3, lying in the bed. labs today revealed white blood cell count of 6.9, hemoglobin 11.5, hematocrit 35.9, sodium 138, potassium 4.5, chloride 109, BUN 21, creatinine 1.0, blood sugars 89-104, liver enzymes are normal. Patient had a modified barium swallow which did not show any penetration of thin liquids into the airway. Blood culture showing no growth on preliminary read. Urine culture showing no growth on final read. We will go ahead and discontinue vancomycin. Patient is stable for discharge. Final diagnosis: Acute kidney injury and dehydration Status at Discharge Cognitive/behavioral status at discharge: Alert and oriented x3 Functional status at discharge: bed bound (patient uses trell lift at facility she lives in) Overall status at discharge: patient is progressing back to baseline Time Spent with Patient Time attestation: Total time spent providing and/or coordinating discharge services: Time spent: Greater than 30 minutes Exam Narrative: General: In no acute distress, well nourished Head: atraumatic, no encephalopathy Eyes: EOMI, PERRLA, sclera clear ENT: moist mucous membranes, nasal passages clear Neck: supple, no JVD, no adenopathy, trachea midline Cardiac: Normal S1 and S2. No murmur, gallops or friction rubs, peripheral pulses intact. Respiratory: Lungs clear to auscultation, no adventitious lung sounds Gastrointestinal: soft, non-distended, non-tender, normoactive judy
== END 2023-04-11 21:10 | DRG 683 ==
LOC: ANHED 05:17 → ANH3MEDSUR 05:59
PROVIDERS: Admitting Provider Internal Medicine; Emergency Provider Emergency Medicine; Visit Provider Nurse Practitioner Acute Care
DX: N17.9 Acute kidney failure, unspecified (principal); E27.40 Unspecified adrenocortical insufficiency; E86.0 Dehydration; Z20.822 Contact with and (suspected) exposure to COVID-19; I48.91 Unspecified atrial fibrillation; J44.9 Chronic obstructive pulmonary disease, unspecified; E78.5 Hyperlipidemia, unspecified; E03.9 Hypothyroidism, unspecified; R09.02 Hypoxemia; K21.9 Gastro-esophageal reflux disease without esophagitis; G47.33 Obstructive sleep apnea (adult) (pediatric); F41.8 Other specified anxiety disorders; F31.9 Bipolar disorder, unspecified; Z90.49 Acquired absence of other specified parts of digestive tract; Z98.42 Cataract extraction status, left eye; Z98.41 Cataract extraction status, right eye; Z96.1 Presence of intraocular lens; Z95.0 Presence of cardiac pacemaker; Z87.891 Personal history of nicotine dependence
CPT/HCPCS: 36415; 36600; 71045; 80053; 81001; 82805; 83605; 83735; 83880; 84100; 84145; 84443; 84484; 85025; 85610; 85730; 87040; 87086; 87635; 87637; 92611; 93005; 94002; 94640; 96361; 96365; 96366; 97161; 97165; 99285; A9270; G0378; J0696; J3370; J7030

== ENCOUNTER 2023-06-28 23:47 | Emergency (ER) | payer MEDICARE, MEDICAID, SELFPAY ==
--- NOTE | ~2023-06-28 | XR_ITS ---
Clinical Indication: Chest pain PA and lateral views of the chest: Comparison: 04/09/2023 Findings: The lungs are clear, without evidence of focal consolidation or pleural effusion. Cardiome diastinal silhouette is within normal limits, with pacemaker device. Bones and soft tissues are unrem arkable. Impression: Clear lungs. Reviewed, dictated and finalized at location . CONDITIONING INSTALLER SUPERVISOR Impression: Clear lungs.
[2023-06-28 23:49] VITALS: BP 142/102; PULSE 82; RESP 16; TEMP 36.7; O2SAT 96
[2023-06-29] VITALS (8 sets, daily range): BP systolic 90–134; BP diastolic 59–89; PULSE 71–79; RESP 14–20; O2SAT 94–98
--- NOTE | 2023-06-29 | ECG_ITS ---
Measurements Intervals [place] Rate: 72 P: [place]: 0 QRS: 27 QRSD: 130 T: 34 QT: 385 QTc: 423 Interpretive Statements ATRIAL FIBRILLATION WITH INTERMITTENT ELECTRONIC VENTRICULAR PACED RHYTHM NO FURTHER INTERPRETATION POSSIBLE COMPARED TO ECG 04/09/2023 01:37:05 NO SIGNIFICANT CHANGE Electronically Signed On 06-29-2023 12:23:33 [employer] by Frankie Grijalva M.D.
[2023-06-29 00:11] LABS: Basophils Percent Auto 0.5 % (0.2-1.2); Eosinophils Absolute Auto 0.2 K/mm3 (0-0.3); Eosinophils Percent Auto 2.2 % (0-4.4); Hematocrit 44.6 % (37.0-47.0); Hemoglobin 14.4 g/dL (12.0-15.0); Immature Granulocyte Absolute 0.01 K/mm3 (0.00-0.031); Immature Granulocyte Percent A 0.1 % (0-0.5); Lymphocytes Absolute Auto 2.78 K/mm3 (0.9-3.2); Lymphocytes Percent Auto 37.8 % (18.3-44.2); Mean Corpuscular HGB Conc 32.3 g/dl (32-36); Mean Corpuscular Hemoglobin 30.5 pg (26-34); Mean Corpuscular Volume 94.5 fl (80-100); Mean Platelet Volume 9.9 fl (7.4-10.4); Monocytes Absolute Auto 0.6 K/mm3 (0.1-0.6); Monocytes Percent Auto 7.7 % (2.6-8.5); Neutrophils Absolute Auto 3.8 K/mm3 (1.3-6.7); Neutrophils Percent Auto 51.7 % (45.5-73.1); Platelet Count Result 194 k/mm3 (150-375); Red Blood Count 4.72 M/mm3 (4.2-5.4); Red Cell Distribution Width 14.4 % (11.5-14.5); White Blood Count 7.4 K/mm3 (4.5-10.0)
[2023-06-29 00:21] LABS: INR 1.2; Prothrombin Time 15.5 Seconds (11.1-14.7)
[2023-06-29 00:22] LABS: Partial Thromboplastin Time 32.6 SECONDS (22.3-36.8)
[2023-06-29 00:37] LABS: Alanine Aminotransferase 16 U/L (6-35); Albumin Level 3.8 g/dL (3.5-5.1); Alkaline Phosphatase 98 U/L (38-126); Anion Gap 4 mmol/L (8-16); Aspartate Amino Transferase 35 U/L (14-36); Bilirubin,Total 0.6 mg/dL (0.2-1.3); Blood Urea Nitrogen 39 mg/dL (7-17); Calcium 10.5 mg/dL (8.4-10.2); Carbon Dioxide 33 mmol/L (22-30); Chloride 99 mmol/L (98-107); Estimated CRCL calculation 34 ml/min; Estimated Glomerular Filt Rate 43; Glucose 99 mg/dL (65-110); Lipase 189 U/L (23-300); Potassium 4.6 mmol/L (3.4-5.0); Sodium 136 mmol/L (137-145)
[2023-06-29 00:44] LABS: Troponin I < 0.012 ng/mL (0.000-0.034)
--- NOTE | 2023-06-29 01:09 | ED.CHESTPAIN ---
HPI - Chest Pain General Chief Complaint: Chest Pain Stated Complaint: chest pain Time Seen by Provider: 06/29/23 00:25 Source: patient Mode of arrival: EMS Limitations: other (hard of hearing) History of Present Illness HPI narrative: this is an 83-year-old female past medical history atrial fibrillation and COPD not on supplemental oxygen who presents with report of chest pain and shortness of breath. this occurred at rest while she was trying to sleep. pain radiates up to her throat as well as down towards her stomach. she states she does follow with a [facility] [employer] [facility] though cannot recall the last time she had an appointment. she quit smoking years ago. EMS administered 324 mg acetaminophen. Patient states that her chest pain resolved after that but then return while here in the emergency department. EMS had appreciated expiratory wheezes on their exam. She states she used to be prescribed and use inhalers but has not recently been prescribed any although facility. She denies any fever. She has been having a headache. She has a chronic dry cough with no changes in frequency or production of sputum. Related Data Home Medications Medication Instructions Recorded Confirmed atorvastatin 40 mg tablet (Lipitor) 40 mg PO HS 03/02/21 04/09/23 bisacodyl 10 mg rectal suppository 10 mg RECTAL DAILY PRN Constipation 03/02/21 04/09/23 fluticasone propionate 50 2 spray intranasal DAILY 03/02/21 04/09/23 mcg/actuation nasal spray,suspension gabapentin 400 mg capsule 400 mg PO HS 03/02/21 04/09/23 polyethylene glycol 3350 17 gram 17 g PO DAILY PRN Constipation 03/02/21 04/09/23 oral powder packet (Miralax) primidone 50 mg tablet 150 mg PO HS 03/02/21 04/09/23 sertraline 100 mg tablet (Zoloft) 150 mg PO HS 03/02/21 04/09/23 calcium carbonate 500 mg calcium 500 mg PO DAILY PRN Acid Reflux 11/05/21 04/09/23 (1,250 mg) chewable tablet cetirizine 5 mg tablet 5 mg PO DAILY 11/05/21 04/09/23 cholecalciferol (vitamin D3) 50 50 mcg PO DAILY 11/05/21 04/09/23 mcg (2,000 unit) tablet latanoprost 0.005 % eye drops 1 drp EACH EYE QPM 11/05/21 04/09/23 (Xalatan) albuterol sulfate 90 mcg/actuation 2 inh inhalation Q4-6H PRN 12/22/21 04/09/23 breath activated powder Shortness Of Breath Or Wheezing inhaler,sensor allopurinol 100 mg tablet 100 mg PO TID 12/22/21 04/09/23 levothyroxine 150 mcg tablet 200 mcg PO DAILY 12/22/21 04/09/23 (Synthroid) ipratropium 0.5 mg-albuterol 3 mg 3 ml inhalation 4-6XD PRN 09/02/22 04/09/23 (2.5 mg base)/3 mL nebulization Congestion soln Lactobacillus acidophilus 100 mg PO BID 04/09/23 04/09/23 (Acidophilus capsule) Multi-Day Plus Minerals 1 tablet PO DAILY 04/09/23 04/09/23 apixaban 5 mg tablet (Eliquis) 5 mg PO BID 04/09/23 04/09/23 divalproex 375 mg PO DAILY 04/09/23 04/09/23 divalproex 500 mg PO HS 04/09/23 04/09/23 metoprolol tartrate 50 mg tablet 100 mg PO BID 04/09/23 04/09/23 nystatin 100,000 unit/gram topical 1 applic topical DAILY 04/09/23 04/09/23 powder Allergies Allergy/AdvReac Type Severity Reaction Status Date / Time morphine Allergy Flushing Verified 04/09/23 10:04 PMFSH Past Medical History Medical History Adrenal insufficiency Atrial fibrillation Bipolar disorder Chronic obstructive pulmonary disease Deafness in right ear Depression with anxiety Gastroesophageal reflux disease Gout Hyperlipidemia Hypothyroidism Migraines Obstructive sleep apnea Surgical History Surgical History History of appendectomy History of cataract extraction with lens replacement History of cholecystectomy History of ear surgery Right ear surgery, reportedly for Meniere's disease, which left her deaf. History of excision of pilonidal cyst History of permanent cardiac pacemaker placement Family History Family History (Reviewed 04/09/23 @ 16:46 by Araceli Cid APRN
[2023-06-29] MEDS: ACETAMINOPHEN 500 MG TABLET 1000 MG PO (02:01)
[2023-06-29 03:07] LABS: Influenza A QL RT-PCR Negative (Negative); Influenza B QL RT-PCR Negative (Negative); RSV RNA, RT-PCR Negative (Negative); SARS-CoV-2 RNA PCR Negative (Negative)
[2023-06-29 03:21] LABS: D Dimer < 0.27 ug/mL (<0.48)
[2023-06-29 03:22] LABS: Troponin I < 0.012 ng/mL (0.000-0.034)
[2023-06-29 03:42] LABS: Base Excess ABG 5.1 mEq/l (+/-2.0); HCO3 ABG 30.5 mEq/l (22.0-26.0); PCO2 ABG 47.4 mmHg (35.0-45.0); PO2 ABG 68.3 mmHg (80.0-100.0); pH ABG 7.426 (7.350-7.450)
[2023-06-29 03:43] LABS: Oxygen Saturation ABG 93.9 % (95.0-100.0); Total Hemoglobin 14.4 g/dL (12.0-18.0)
[2023-06-29 03:44] LABS: Alveolar/Arterial O2 Gradient 24.7 mmHg; Oxygen Content ABG 18.6 %vol (16.0-22.0); Oxyhemoglobin 92.1 % THb (90.0-100.0)
[2023-06-29 03:45] LABS: Device ROOM AIR; Fractional Inspired Oxygen 21 %; Modified Allen's Test Pass; PO2 FiO2 Ratio Arterial Blood 3.25 %; Site Drawn RIGHT RADIAL
[2023-06-29] MEDS: BELLADONNA ALK/PHENOB ELIX 10 ML, MAG HYDROX/ALUMINUM HYD/SIMETH 30 ML, LIDOCAINE HCL 2... PO (03:52)
[2023-06-29] MEDS: ALBUTEROL SULFATE NEB 2.5 MG/3 ML INH INHALATION (03:59)
--- NOTE | 2023-06-29 05:42 | PC.NURSE ---
This RN attempted to call both contact numbers on file but they did not ring. Called [facility] and spoke to Jocelynn to give update on patient being discharged. Jocelynn states they may have transportation available after [phone] and to call back to speak to Kimberly.
--- NOTE | 2023-06-29 08:09 | PC.NURSE ---
no answer when this RN called to speak w/ Kimberly regarding a ride for pt [facility] at this time
--- NOTE | 2023-06-29 08:32 | PC.NURSE ---
spoke to NH, pt is bed bound pt, unable to transfer w/out a lift, no ride available, pt has generalized weakness and unable to change position to sit/stand, EMS called for transport due to concerns of pt transfer to and from a car
== END 2023-06-29 09:01 ==
PROVIDERS: Emergency Provider Student in an Organized Health Care Education/Training Program
DX: R06.02 Shortness of breath (principal); E87.1 Hypo-osmolality and hyponatremia; N18.9 Chronic kidney disease, unspecified; Z95.0 Presence of cardiac pacemaker; Z20.822 Contact with and (suspected) exposure to COVID-19; I48.91 Unspecified atrial fibrillation; J44.9 Chronic obstructive pulmonary disease, unspecified; K21.9 Gastro-esophageal reflux disease without esophagitis; E03.9 Hypothyroidism, unspecified; G47.30 Sleep apnea, unspecified; F32.A Depression, unspecified; F41.9 Anxiety disorder, unspecified
CPT/HCPCS: 36415; 36600; 71046; 80053; 82805; 83690; 84484; 85025; 85380; 85610; 85730; 87637; 93005; 94640; 99284; A9270

== ENCOUNTER 2023-07-04 04:09 | Emergency (ER) | payer MEDICARE, MEDICAID, SELFPAY ==
--- NOTE | ~2023-07-04 | XR_ITS ---
Portable chest x-ray Comparison: 06/29/2023 Clinical History: Chest pain Findings: Lungs are clear, without focal consolidation or pleural effusion. Cardiomediastinal silho uette is stable, with pacemaker device. Bones and soft tissues are unremarkable. Impression: Clear lungs. Reviewed, dictated and finalized at [facility]. VIORIST Impression: Clear lungs.
[2023-07-04 04:08] VITALS: BP 138/89; PULSE 85; RESP 19; TEMP 37.4; O2SAT 96
--- NOTE | 2023-07-04 04:21 | ECG_ITS ---
Measurements Intervals [place] Rate: 78 P: [place]: 0 QRS: 18 QRSD: 129 T: 13 QT: 371 QTc: 425 Interpretive Statements ATRIAL FIBRILLATION INTERMITTENT VENTRICULAR PACING RIGHT BUNDLE BRANCH BLOCK [120+ ms QRS DURATION, UPRIGHT V1, 40+ ms S IN I/aVL/V4/V5/V6] COMPARED TO ECG 06/29/2023 00:11:44 NO CHANGE Electronically Signed On 07-04-2023 12:36:40 [employer] 1 [employer]NER OPERATOR by Sallie Fowler M.D.
[2023-07-04 04:37] LABS: Basophils Percent Auto 0.5 % (0.2-1.2); Eosinophils Absolute Auto 0.1 K/mm3 (0-0.3); Hemoglobin 14.4 g/dL (12.0-15.0); Immature Granulocyte Absolute 0.02 K/mm3 (0.00-0.031); Immature Granulocyte Percent A 0.2 % (0-0.5); Lymphocytes Absolute Auto 2.44 K/mm3 (0.9-3.2); Lymphocytes Percent Auto 29.5 % (18.3-44.2); Mean Corpuscular Hemoglobin 30.6 pg (26-34); Mean Corpuscular Volume 95.5 fl (80-100); Mean Platelet Volume 9.5 fl (7.4-10.4); Monocytes Absolute Auto 0.5 K/mm3 (0.1-0.6); Monocytes Percent Auto 6.5 % (2.6-8.5); Neutrophils Absolute Auto 5.1 K/mm3 (1.3-6.7); Neutrophils Percent Auto 62.3 % (45.5-73.1); Platelet Count Result 215 k/mm3 (150-375); Red Blood Count 4.71 M/mm3 (4.2-5.4); Red Cell Distribution Width 14.4 % (11.5-14.5); White Blood Count 8.3 K/mm3 (4.5-10.0)
--- NOTE | 2023-07-04 04:46 | ED.GENADULT ---
HPI - General Adult General Chief complaint: Chest Pain <Vito Helton MD - Last Filed: 07/04/23 06:18> Stated complaint: CHEST PRESSURE, SOB <Vito Helton MD - Last Filed: 07/04/23 06:18> Time Seen by Provider: 07/04/23 04:15 <Vito Helton MD - Last Filed: 07/04/23 06:18> History of Present Illness HPI narrative: This is an 83-year-old female presenting ED with chief complaint chest pain shortness of breath. Patient says the ED p.m. last night she developed pressure in the center of her chest. it is nonradiating, 8 out 10 intensity and fluctuating. No exacerbating alleviating symptoms. Not associated with nausea vomiting diaphoresis fevers chills productive cough or diarrhea. No flu-like symptoms. She had the exact same presentation last week emergency department had a negative chest pain workup including D-dimer. She was discharged. She did not follow up with PCP or Cardiology. <Vito Helton MD - Last Filed: 07/04/23 06:18> Related Data Home medications: Home Medications Medication Instructions Recorded Confirmed atorvastatin 40 mg tablet (Lipitor) 40 mg PO HS 03/02/21 04/09/23 bisacodyl 10 mg rectal suppository 10 mg RECTAL DAILY PRN Constipation 03/02/21 04/09/23 fluticasone propionate 50 2 spray intranasal DAILY 03/02/21 04/09/23 mcg/actuation nasal spray,suspension gabapentin 400 mg capsule 400 mg PO HS 03/02/21 04/09/23 polyethylene glycol 3350 17 gram 17 g PO DAILY PRN Constipation 03/02/21 04/09/23 oral powder packet (Miralax) primidone 50 mg tablet 150 mg PO HS 03/02/21 04/09/23 sertraline 100 mg tablet (Zoloft) 150 mg PO HS 03/02/21 04/09/23 calcium carbonate 500 mg calcium 500 mg PO DAILY PRN Acid Reflux 11/05/21 04/09/23 (1,250 mg) chewable tablet cetirizine 5 mg tablet 5 mg PO DAILY 11/05/21 04/09/23 cholecalciferol (vitamin D3) 50 50 mcg PO DAILY 11/05/21 04/09/23 mcg (2,000 unit) tablet latanoprost 0.005 % eye drops 1 drp EACH EYE QPM 11/05/21 04/09/23 (Xalatan) albuterol sulfate 90 mcg/actuation 2 inh inhalation Q4-6H PRN 12/22/21 04/09/23 breath activated powder Shortness Of Breath Or Wheezing inhaler,sensor allopurinol 100 mg tablet 100 mg PO TID 12/22/21 04/09/23 levothyroxine 150 mcg tablet 200 mcg PO DAILY 12/22/21 04/09/23 (Synthroid) ipratropium 0.5 mg-albuterol 3 mg 3 ml inhalation 4-6XD PRN 09/02/22 04/09/23 (2.5 mg base)/3 mL nebulization Congestion soln Lactobacillus acidophilus 100 mg PO BID 04/09/23 04/09/23 (Acidophilus capsule) Multi-Day Plus Minerals 1 tablet PO DAILY 04/09/23 04/09/23 apixaban 5 mg tablet (Eliquis) 5 mg PO BID 04/09/23 04/09/23 divalproex 375 mg PO DAILY 04/09/23 04/09/23 divalproex 500 mg PO HS 04/09/23 04/09/23 metoprolol tartrate 50 mg tablet 100 mg PO BID 04/09/23 04/09/23 nystatin 100,000 unit/gram topical 1 applic topical DAILY 04/09/23 04/09/23 powder <Vito Helton MD - Last Filed: 07/04/23 06:18> Allergies/adverse reactions: Allergies Allergy/AdvReac Type Severity Reaction Status Date / Time morphine Allergy Flushing Verified 04/09/23 10:04 <Vito Helton MD - Last Filed: 07/04/23 06:18> PMFSH Past Medical History Medical History: Medical History Adrenal insufficiency Atrial fibrillation Bipolar disorder Chronic obstructive pulmonary disease Deafness in right ear Depression with anxiety Gastroesophageal reflux disease Gout Hyperlipidemia Hypothyroidism Migraines Obstructive sleep apnea <Vito Helton MD - Last Filed: 07/04/23 06:18> Surgical History Surgical History: Surgical History History of appendectomy History of cataract extraction with lens replacement History of cholecystectomy History of ear surgery Right ear surgery, reportedly for Meniere's disease, which left her deaf. History of excision of pilonidal cyst History of
[2023-07-04 04:47] LABS: Alanine Aminotransferase 20 U/L (6-35); Albumin Level 3.8 g/dL (3.5-5.1); Alkaline Phosphatase 122 U/L (38-126); Anion Gap 3 mmol/L (8-16); Aspartate Amino Transferase 34 U/L (14-36); Bilirubin,Total 0.6 mg/dL (0.2-1.3); Blood Urea Nitrogen 41 mg/dL (7-17); Carbon Dioxide 31 mmol/L (22-30); Chloride 105 mmol/L (98-107); Estimated CRCL calculation 35 ml/min; Estimated Glomerular Filt Rate 39; Glucose 107 mg/dL (65-110); Lipase 359 U/L (23-300); Potassium 4.6 mmol/L (3.4-5.0); Sodium 139 mmol/L (137-145)
[2023-07-04] MEDS: MAG HYDROX/AL HYDROX/SIMETH 30 ML UDC PO (04:56)
[2023-07-04 04:57] LABS: INR 1.1; Prothrombin Time 14.4 Seconds (11.1-14.7)
[2023-07-04 04:58] LABS: Partial Thromboplastin Time 39.7 SECONDS (22.3-36.8)
[2023-07-04 04:59] LABS: Troponin I < 0.012 ng/mL (0.000-0.034)
[2023-07-04 05:45] VITALS: BP 110/75; PULSE 79; RESP 14; O2SAT 92
[2023-07-04 07:39] VITALS: PULSE 76; RESP 16; O2SAT 93
--- NOTE | 2023-07-04 07:49 | ECG_ITS ---
Measurements Intervals [place] Rate: 77 P: HI: 0 QRS: 20 QRSD: 123 T: -1 QT: 392 QTc: 444 Interpretive Statements ATRIAL FIBRILLATION WITH ABERRANT CONDUCTION OR VENTRICULAR PREMATURE COMPLEXES LEFT BUNDLE BRANCH BLOCK VS INTERMITTENT VENTRICULAR PACING COMPARED TO ECG 07/04/2023 04:14:25 NO CHANGE Electronically Signed On 07-04-2023 12:42:22 [employer]IL SCIENTIST by Sallie Fowler M.D.
[2023-07-04 08:13] LABS: Troponin I < 0.012 ng/mL (0.000-0.034)
[2023-07-04 08:23] VITALS: BP 129/90; PULSE 73; PULSE 76; RESP 16; TEMP 36.7; O2SAT 97
[2023-07-04 08:40] LABS: Appearance Urine Turbid (Clear); Bacteria Urine 4+ /hpf; Bilirubin Urine Negative (Negative); Blood Urine 2+ (Negative); Color Urine Dark Yellow (Yellow); Glucose Urine UA Negative (Negative); Ketones Urine Negative (Negative); Leukocyte Esterase Ur 3+ LEU/UL (Negative); Need Manual Microscopic Reviewed; Nitrate Urine Negative (Negative); Protein Urine 2+ mg/dL (Negative); RBC Urine 21-50 /hpf (0-2); Specific Grav Ur 1.021 (1.001-1.035); Squamous Epithelial Cell Urine None seen /hpf (Few); WBC Urine >100 /hpf; pH Urine 8.5 (5.0-9.0)
[2023-07-04 08:42] LABS: Add Urine Microscopic? YES
== END 2023-07-04 10:05 ==
PROVIDERS: Emergency Medicine; Emergency Provider Emergency Medicine
DX: R07.9 Chest pain, unspecified (principal); N39.0 Urinary tract infection, site not specified; I48.91 Unspecified atrial fibrillation; J44.9 Chronic obstructive pulmonary disease, unspecified; E27.40 Unspecified adrenocortical insufficiency; E78.5 Hyperlipidemia, unspecified; E03.9 Hypothyroidism, unspecified; G47.33 Obstructive sleep apnea (adult) (pediatric); K21.9 Gastro-esophageal reflux disease without esophagitis; M10.9 Gout, unspecified; F31.9 Bipolar disorder, unspecified; F41.8 Other specified anxiety disorders; Z95.0 Presence of cardiac pacemaker; Z96.1 Presence of intraocular lens; Z98.49 Cataract extraction status, unspecified eye; Z87.891 Personal history of nicotine dependence; Z90.49 Acquired absence of other specified parts of digestive tract; Z79.01 Long term (current) use of anticoagulants; I45.10 Unspecified right bundle-branch block; R94.31 Abnormal electrocardiogram [ECG] [EKG]
CPT/HCPCS: 36415; 71045; 80053; 81001; 83690; 84484; 85025; 85610; 85730; 87077; 87086; 87088; 87186; 93005; 96365; 99284; A9270; J0696

== ENCOUNTER 2023-08-12 08:26 | Inpatient (IN) | payer MEDICARE, MEDICAID, SELFPAY ==
[2023-08-12] VITALS (25 sets, daily range): BP systolic 120–142; BP diastolic 65–100; PULSE 79–111; RESP 13–20; TEMP 35.9–36.9; O2SAT 94–100; BMI 26.9
--- NOTE | ~2023-08-12 | CT_ITS ---
EXAMINATION: CTA brain carotid DATE: 08/12/2023 08:56 INDICATION: CVA, AMS TECHNIQUE: Computed tomographic angiography (CTA) of the head was performed without and with 100 mL O mnipaque-350 intravenous contrast. CTA of the neck was performed with intravenous contrast. Automated exposure control and iterative reconstruction technique were employed. The dose-length product was 1 658.37 mGy-cm. Maximum intensity projection and volume rendered 3D-reconstructions were created by e technologist on a separate workstation. COMPARISON: 09/05/2022. FINDINGS: CT BRAIN: No acute large vessel infarct, intracranial hemorrhage, mass, or hydrocephalus. 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 Atherosclerotic intracranial calcification. Bilateral lens replacements. CTA HEAD: No large vessel occlusion, aneurysm, high flow vascular malformation, nidus or extravasation. Mild ca lcification without significant stenosis in the cavernous carotids. Short segment moderate calcified stenosis in the intradural segment of the right vertebral artery. Small motion related artifact versu s fenestration in the right P1 segment. Hypoplastic left P1 segment with dominant flow coming from th e left posterior communicating artery. CTA NECK: Aortic arch and proximal great vessels: Normal arch anatomy. Severe short segment stenosis in the pro ximal left subclavian artery, immediately proximal to the takeoff of the left vertebral artery. Right common carotid, carotid bifurcation, and internal carotid artery: Moderate calcified plaque at the bifurcation.There is 46% stenosis of the proximal right internal carotid artery relative to noé l distal artery lumen diameter (NASCET criteria). Left common carotid, carotid bifurcation, and internal carotid artery: Calcified plaque at the bifurc ation and carotid bulb.There is 20% stenosis of the proximal left internal carotid artery relative to normal distal artery lumen diameter (NASCET criteria). Vertebral arteries: No significant plaque or stenosis. Left vertebral artery is dominant. Other findings: Biapical pleural scarring. Bilateral upper lobe nodules measuring up to 7 mm. Posteri or marginal osteophyte at C5-6 causing moderate central canal stenosis. IMPRESSION: No large vessel intracranial occlusion, high-grade intracranial stenosis, or aneurysm. No carotid or vertebral artery occlusion, dissection, or significant stenosis. Multiple pulmonary nodules, measuring up to 7 mm, recommend follow-up low-dose noncontrast CT of the chest in 6-12 months. Severe short segment stenosis of the proximal left subclavian artery, just proximal to the left verte bral takeoff. Reviewed, dictated and finalized at location K. IMPRESSION: No large vessel intracranial occlusion, high-grade intracranial stenosis, or an eurysm. No carotid or vertebral artery occlusion, dissection, or significant stenosis. Multiple pulmonary nodules, measuring up to 7 mm, recommend follow-up low-dose noncontrast CT of the chest in 6-12 months. 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
--- NOTE | ~2023-08-12 | XR_ITS ---
XR chest 1V portable DATE: 08/12/2023 09:26 INDICATION: Shortness of breath TECHNIQUE: Portable upright AP chest on August 12, 2023 at 0922 hours COMPARISON: July 04, 2023 portable AP chest at 0454 hours FINDINGS: Left transvenous pacemaker device with leads overlying right atrium and right ventricle is again noted. Heart size is within normal range. Is aortic calcification and mild tortuosity. There is pulmonary vascular redistribution. There is mild prominence of the minor fissure suggesting subpleural edema. Subtle Larry B-lines are suggested which may indicate pulmonary interstitial edema . No significant pleural effusion is noted. No consolidation is evident. No pneumothorax. Diffuse osteopenia. IMPRESSION: Pulmonary vascular congestion, subpleural and pulmonary interstitial edema Aortic atherosclerosis Reviewed, dictated and finalized at location A. IMPRESSION: Pulmonary vascular congestion, subpleural and pulmonary interstitia l edema Aortic atherosclerosis
--- NOTE | 2023-08-12 08:28 | ECG_ITS ---
SEE SCANNED COPY FOR CONFIRMED REPORT MTDD
[2023-08-12 08:40] LABS: Glucose Point of Care 160 mg/dl (65-105)
[2023-08-12 08:50] LABS: Basophils Percent Auto 0.5 % (0.2-1.2); Eosinophils Absolute Auto 0.2 K/mm3 (0-0.3); Eosinophils Percent Auto 2.4 % (0-4.4); Hematocrit 51.2 % (37.0-47.0); Hemoglobin 16.5 g/dL (12.0-15.0); Immature Granulocyte Absolute 0.02 K/mm3 (0.00-0.031); Immature Granulocyte Percent A 0.3 % (0-0.5); Lymphocytes Absolute Auto 2.33 K/mm3 (0.9-3.2); Lymphocytes Percent Auto 31.7 % (18.3-44.2); Mean Corpuscular HGB Conc 32.2 g/dl (32-36); Mean Corpuscular Hemoglobin 29.9 pg (26-34); Mean Corpuscular Volume 92.9 fl (80-100); Mean Platelet Volume 10.3 fl (7.4-10.4); Monocytes Absolute Auto 0.5 K/mm3 (0.1-0.6); Monocytes Percent Auto 7.3 % (2.6-8.5); Neutrophils Absolute Auto 4.2 K/mm3 (1.3-6.7); Neutrophils Percent Auto 57.8 % (45.5-73.1); Platelet Count Result 184 k/mm3 (150-375); Red Blood Count 5.51 M/mm3 (4.2-5.4); Red Cell Distribution Width 14.2 % (11.5-14.5); White Blood Count 7.4 K/mm3 (4.5-10.0)
[2023-08-12 08:51] LABS: Estimated CRCL calculation 29 ml/min; Estimated Glomerular Filt Rate 31
--- NOTE | 2023-08-12 08:53 | ED.AMS ---
HPI - Altered Mental Status General Chief Complaint: Altered Mental Status Stated Complaint: unresponsive Time Seen by Provider: 08/12/23 08:32 History of Present Illness HPI narrative: 83-year-old female presented to the emergency department for evaluation of altered mental status. Patient was initially having some shortness of breath an EMS was called to the facility. When EMS arrived patient was lethargic with decreased responsiveness. Since last seen normal was unknown at. During transportation patient became even more lethargic but upon arrival to the emergency department patient was more alert and appropriate. Patient was able to respond to voice and follow commands. No significant neuro deficit. Patient does take Eliquis and did take this this morning. Related Data Home Medications Medication Instructions Recorded Confirmed atorvastatin 40 mg tablet (Lipitor) 40 mg PO HS 03/02/21 08/12/23 bisacodyl 10 mg rectal suppository 10 mg RECTAL DAILY PRN Constipation 03/02/21 08/12/23 fluticasone propionate 50 2 spray intranasal DAILY 03/02/21 08/12/23 mcg/actuation nasal spray,suspension gabapentin 400 mg capsule 400 mg PO HS 03/02/21 08/12/23 polyethylene glycol 3350 17 gram 17 g PO DAILY Constipation 03/02/21 08/12/23 oral powder packet (Miralax) primidone 50 mg tablet 150 mg PO HS 03/02/21 08/12/23 sertraline 100 mg tablet (Zoloft) 150 mg PO HS 03/02/21 08/12/23 calcium carbonate 500 mg calcium 500 mg PO DAILY PRN Acid Reflux 11/05/21 08/12/23 (1,250 mg) chewable tablet cetirizine 5 mg tablet 5 mg PO DAILY 11/05/21 08/12/23 cholecalciferol (vitamin D3) 50 50 mcg PO DAILY 11/05/21 08/12/23 mcg (2,000 unit) tablet latanoprost 0.005 % eye drops 1 drp EACH EYE QPM 11/05/21 08/12/23 (Xalatan) albuterol sulfate 90 mcg/actuation 1 inh inhalation QID PRN Shortness 12/22/21 08/12/23 breath activated powder Of Breath Or Wheezing inhaler,sensor allopurinol 100 mg tablet 100 mg PO TID 12/22/21 08/12/23 levothyroxine 150 mcg tablet 200 mcg PO 0600 12/22/21 08/12/23 (Synthroid) ipratropium 0.5 mg-albuterol 3 mg 3 ml inhalation Q6H PRN Congestion 09/02/22 08/12/23 (2.5 mg base)/3 mL nebulization soln Lactobacillus acidophilus 100 mg PO Q12H 04/09/23 08/12/23 (Acidophilus capsule) apixaban 5 mg tablet (Eliquis) 5 mg PO BID 04/09/23 08/12/23 metoprolol tartrate 50 mg tablet 100 mg PO Q12H 04/09/23 08/12/23 nystatin 100,000 unit/gram topical 1 applic topical Q12H 04/09/23 08/12/23 powder acetaminophen 325 mg tablet 325 mg PO Q6H PRN Pain (Scale 08/12/23 08/12/23 Score 1-3) bupropion HCl 150 mg 24 hr tablet, 150 mg PO QAM 08/12/23 08/12/23 extended release (Wellbutrin XL) divalproex 125 mg tablet,delayed 500 mg PO HS 08/12/23 08/12/23 release multivitamin g-fjshvloc-uhysxce 1 tablet PO DAILY 08/12/23 08/12/23 fumarate 18 mg-vitamin K 25 mcg tablet Allergies Allergy/AdvReac Type Severity Reaction Status Date / Time morphine Allergy Flushing Verified 08/12/23 09:01 Review of Systems Review of Systems: All systems reviewed & are unremarkable except as noted in HPI and below PMFSH Past Medical History Medical History Adrenal insufficiency Atrial fibrillation Bipolar disorder Chronic obstructive pulmonary disease Deafness in right ear Depression with anxiety Gastroesophageal reflux disease Gout Hyperlipidemia Hypothyroidism Migraines Obstructive sleep apnea Surgical History Surgical History History of appendectomy History of cataract extraction with lens replacement History of cholecystectomy History of ear surgery Right ear surgery, reportedly for Meniere's disease, which left her deaf. History of excision of pilonidal cyst History of permanent cardiac pacemaker placement Family History Family History Other
[2023-08-12 09:01] LABS: Alanine Aminotransferase 22 U/L (6-35); Albumin Level 4.1 g/dL (3.5-5.1); Alkaline Phosphatase 132 U/L (38-126); Anion Gap 3 mmol/L (4-12); Aspartate Amino Transferase 37 U/L (14-36); Bilirubin,Total 0.8 mg/dL (0.2-1.3); Blood Urea Nitrogen 38 mg/dL (7-17); Calcium 11.5 mg/dL (8.4-10.2); Carbon Dioxide 34 mmol/L (22-30); Chloride 102 mmol/L (98-107); Estimated CRCL calculation 33 ml/min; Estimated Glomerular Filt Rate 36; Glucose 109 mg/dL (65-110); Lipase 114 U/L (23-300); Potassium 4.3 mmol/L (3.4-5.0); Sodium 139 mmol/L (137-145)
[2023-08-12 09:02] LABS: Lactic Acid Reflex 1.3 mmol/L (0.7-2.0)
[2023-08-12 09:03] LABS: INR 1.2; Prothrombin Time 15.7 Seconds (11.1-14.7)
[2023-08-12 09:04] LABS: Partial Thromboplastin Time 31.8 Seconds (22.3-36.8)
[2023-08-12] MEDS: IPRATROPIUM 0.5 MG/ALBUTEROL SULFATE 2.5 MG AMPUL.NEB 3 ML INHALATION ×4 (09:05→20:46)
[2023-08-12 09:10] LABS: Alveolar/Arterial O2 Gradient 39.4 mmHg; Base Excess ABG 4.3 mEq/l (+/-2.0); Fractional Inspired Oxygen 21 %; HCO3 ABG 29.4 mEq/l (22.0-26.0); Methemoglobin ABG 0.4 %THb (0-1.5); Oxygen Content ABG 18.1 %vol (16.0-22.0); Oxygen Saturation ABG 89.8 % (95.0-100.0); PCO2 ABG 45.4 mmHg (35.0-45.0); PO2 FiO2 Ratio Arterial Blood 2.67 %; Reduced Hemoglobin 10.8 %THb (0-5.0); Total Hemoglobin 14.7 g/dL (12.0-18.0); pH ABG 7.429 (7.350-7.450)
[2023-08-12 09:13] LABS: Oxyhemoglobin 87.8 % THb (90.0-100.0)
[2023-08-12 09:14] LABS: Device ROOM AIR; Modified Allen's Test Pass; Site Drawn RIGHT RADIAL
[2023-08-12 09:31] LABS: Thyroid Stimulating Hormone Reflex 0.018 uIU/mL (0.465-4.68)
[2023-08-12] MEDS: methylPREDNISolone SOD SUCC 125 MG VIAL IV PUSH (09:37)
[2023-08-12 09:48] LABS: Influenza A QL RT-PCR Negative (Negative); Influenza B QL RT-PCR Negative (Negative); RSV RNA, RT-PCR Negative (Negative); SARS-CoV-2 RNA PCR Negative (Negative)
[2023-08-12 10:00] LABS: NT Pro B Type Natriuretic Pept 874 pg/mL (19.9-100)
[2023-08-12 10:03] LABS: Appearance Urine Clear (Clear); Bacteria Urine None Seen /hpf; Bilirubin Urine Negative (Negative); Blood Urine Negative (Negative); Color Urine Dark Yellow (Yellow); Glucose Urine UA Negative (Negative); Ketones Urine Negative (Negative); Leukocyte Esterase Ur Negative LEU/UL (Negative); Nitrate Urine Negative (Negative); Protein Urine 1+ mg/dL (Negative); RBC Urine 0-2 /hpf (0-2); Squamous Epithelial Cell Urine None Seen /hpf (Few); WBC Urine 0-5 /hpf (0-3)
[2023-08-12 10:09] LABS: Add Urine Microscopic? YES; Specific Grav Ur 1.043 (1.001-1.035)
[2023-08-12 10:34] LABS: Free T4 Free Thyroxine Reflex 2.15 ng/dL (0.78-2.19)
[2023-08-12] MEDS: SODIUM CHLORIDE 0.9% IV 500 ML 999 ML IV CONT (11:08)
--- NOTE | 2023-08-12 11:13 | PC.NURSE ---
Report given to Mary GIORDANO, all questions answered
[2023-08-12 11:42] LABS: Total Triiodothyronine (T3) 1.25 NG/ML (0.97-1.69)
[2023-08-12] MEDS: methylPREDNISolone SOD SUCC 125 MG VIAL 60 MG IV PUSH ×2 (12:16→18:46)
[2023-08-12] MEDS: AZITHROMYCIN 500 MG/NS 250 ML 500 MG/250 ML BAG 250 MG IVPB (12:17)
--- NOTE | 2023-08-12 13:21 | ADMGEN ---
This patient, Carissa Castro, was admitted to IMU Room 231-01. Patient/family oriented to hospital policies and general routines including ID bracelet, bed and alarms, visiting hours, pain management, procedures, bathroom and other care routines, personal items, smoking policy, room service/diet, and visiting hours. Information on how to activate the Rapid Response Team has been discussed. Patient/Family are encouraged to report perceived risks to care and to ask questions if they do not understand what they are told or what they should do.
--- NOTE | 2023-08-12 14:21 | PM.IMHP ---
H&P: HPI History of Present Illness Date/Time: 08/12/23 14:15 Chief Complaint: Shortness of breath and decreased level of responsiveness. Narrative: This is a very pleasant 83-year-old female with history of essential tremors, executive dysfunction, persistent atrial fibrillation, hypertension, chronic obstructive pulmonary disease, sleep apnea, gastroesophageal reflux disease, hypothyroidism, adrenal insufficiency, anemia, anxiety, and bipolar disorder who presented to the emergency department via EMS from [facility] for shortness of breath and decreased level of responsiveness. The patient provides the following history. She was in her usual state of health when she went to bed last night and this morning she started to feel a bit short of breath which apparently precipitated the called 911. On EMS arrival she was reportedly lethargic with decreased responsiveness but she was alert and appropriate on arrival to the ED.. There was some concern that she had left-sided facial droop as well but no significant neurologic deficits were noted per the ED physician. She denies vertigo, visual changes, facial droop, difficulty speaking and swallowing (she coughs with eating and drinking), chest pain, palpitations, nausea, vomiting, diarrhea, and dysuria. In the ED: Her SpO2 has been in the upper 90s to 100 on 1 L since admission. The remainder of her vital signs have also been stable. Labs were significant for a WBC count of 7.4, hemoglobin 16.5, BUN 38, creatinine 1.60, lactic acid 1.3, calcium 11.5, proBNP 874, TSH 0.018. Urine specific gravity was 1.043 with 1+ protein. She tested influenza, RSV, and COVID. CT of the head and neck did not show any large vessel occlusion, high-grade intracranial stenosis, or aneurysm. Chest x-ray was read as having pulmonary vascular congestion with subpleural in pulmonary interstitial edema. She was given a dose of azithromycin and ceftriaxone for possible pneumonia, 125 mg IV methylprednisolone for wheezing, and 500 mL normal saline. She is being admitted in this setting for further treatment and evaluation. Review of Systems Review of Systems: Twelve systems were reviewed and are negative except for as per HPI. [facility] Past Medical History Medical History Adrenal insufficiency Atrial fibrillation Bipolar disorder Chronic obstructive pulmonary disease Deafness in right ear Depression with anxiety Gastroesophageal reflux disease Gout Hyperlipidemia Hypothyroidism Migraines Obstructive sleep apnea Surgical History Surgical History History of appendectomy History of cataract extraction with lens replacement History of cholecystectomy History of ear surgery Right ear surgery, reportedly for Meniere's disease, which left her deaf. History of excision of pilonidal cyst History of permanent cardiac pacemaker placement Family History Family History Other Unknown family medical history Social History Social History Social History: Surrogate medical decision maker: Nadira López, daughter. Code status: Full code. Smoking packs per day: 0.5 Smoking cigarettes per day: 10.0 Years smoked: 34 Smoking pack-years: 17.00 Smoking status: Former smoker Tobacco type: cigarettes Second hand tobacco smoke exposure: No Smoking end date: 12/06/01 Alcohol intake: never Drinks per week: 0 Substance use: never Substance use type: does not use Do You Feel Safe in your Home?: No Lack of Transportation: No Lack of Food: Never True Current Housing: I Have Housing Concerned About Future Housing: No Difficulty Paying Gas/Electric Bills: No Difficulty Paying for Meds: No Currently Unemployed: No Education: High School Diploma/GED Difficult
[2023-08-12 21:01] LABS: Anion Gap 14 mmol/L (4-12); Blood Urea Nitrogen 37 mg/dL (7-17); Calcium 11.2 mg/dL (8.4-10.2); Carbon Dioxide 22 mmol/L (22-30); Chloride 104 mmol/L (98-107); Estimated CRCL calculation 31 ml/min; Estimated Glomerular Filt Rate 39; Glucose 154 mg/dL (65-110); Magnesium 1.9 mg/dL (1.6-2.3); Potassium 4.2 mmol/L (3.4-5.0); Sodium 140 mmol/L (137-145)
[2023-08-12 21:08] LABS: CRP 2.3 mg/dL (<1.0)
[2023-08-12 21:15] LABS: Valproic Acid 23.1 ug/mL (50-120)
[2023-08-12 21:18] LABS: Procalcitonin 0.1 ng/mL
[2023-08-12] MEDS: LATANOPROST 0.005% OP SOLN 2.5 ML BTL 1 DROP EACH EYE (22:42)
[2023-08-12] MEDS: ACIDOPHILUS/BULGARICUS CHEWABLE TABLET 1 TABLET PO (22:42)
[2023-08-12] MEDS: allopurinoL 100 MG TABLET PO (22:42)
[2023-08-12] MEDS: APIXABAN 5 MG TABLET PO (22:43)
[2023-08-12] MEDS: DIVALPROEX SODIUM DR 250 MG TABEC 500 MG PO (22:43)
[2023-08-12] MEDS: ATORVASTATIN 40 MG TABLET PO (22:43)
[2023-08-12] MEDS: METOPROLOL TARTRATE 50 MG TAB 100 MG PO (22:44)
[2023-08-12] MEDS: GABAPENTIN 400 MG CAPSULE PO (22:44)
[2023-08-12] MEDS: SERTRALINE HCL 50 MG TABLET 150 MG PO (22:45)
[2023-08-12] MEDS: TOLNAFTATE 1% POWDER 45 GM BTL 1 APPLIC TOPICAL (22:45)
[2023-08-12] MEDS: PRIMIDONE 50 MG TABLET 150 MG PO (22:45)
[2023-08-13] VITALS (24 sets, daily range): BP systolic 80–135; BP diastolic 53–68; PULSE 73–102; RESP 12–20; TEMP 36.1–36.8; O2SAT 92–100
[2023-08-13] MEDS: SODIUM CHLORIDE 0.9% IV 500 ML 75 ML IV CONT (00:48)
[2023-08-13] MEDS: IPRATROPIUM 0.5 MG/ALBUTEROL SULFATE 2.5 MG AMPUL.NEB 3 ML INHALATION ×4 (03:29→20:15)
[2023-08-13 04:33] LABS: Anion Gap 8 mmol/L (4-12); Blood Urea Nitrogen 40 mg/dL (7-17); Calcium 10.8 mg/dL (8.4-10.2); Carbon Dioxide 24 mmol/L (22-30); Chloride 105 mmol/L (98-107); Estimated CRCL calculation 33 ml/min; Estimated Glomerular Filt Rate 43; Glucose 130 mg/dL (65-110); Hematocrit 46.3 % (37.0-47.0); Hemoglobin 14.6 g/dL (12.0-15.0); Mean Corpuscular HGB Conc 31.5 g/dl (32-36); Mean Corpuscular Hemoglobin 30.2 pg (26-34); Mean Corpuscular Volume 95.7 fl (80-100); Mean Platelet Volume 10.6 fl (7.4-10.4); Platelet Count Result 183 k/mm3 (150-375); Potassium 4.4 mmol/L (3.4-5.0); Red Blood Count 4.84 M/mm3 (4.2-5.4); Red Cell Distribution Width 13.9 % (11.5-14.5); Sodium 137 mmol/L (137-145); White Blood Count 7.6 K/mm3 (4.5-10.0)
[2023-08-13] MEDS: LEVOTHYROXINE SODIUM 100 MCG TABLET 200 MCG PO (06:37)
[2023-08-13] MEDS: polyethylene glycoL 3350 17 GM POWD.PACK PO (09:40)
[2023-08-13] MEDS: FLUTICASONE PROPIONATE 0.05% NA SPR 16 GM BTL (*BKC) 2 SPRAY NASAL (09:40)
[2023-08-13] MEDS: LORATADINE 5 MG TABLET PO (09:41)
[2023-08-13] MEDS: APIXABAN 5 MG TABLET PO ×2 (09:41→21:45)
[2023-08-13] MEDS: ACIDOPHILUS/BULGARICUS CHEWABLE TABLET 1 TABLET PO ×2 (09:41→21:46)
[2023-08-13] MEDS: TAMSULOSIN HCL 0.4 MG CAPSULE PO (09:41)
[2023-08-13] MEDS: buPROPion HCL XL (24 HR) 150 MG TABCR PO (09:42)
[2023-08-13] MEDS: allopurinoL 100 MG TABLET PO ×2 (09:42→17:21)
[2023-08-13] MEDS: THERAPEUTIC MULTIVITAMINS/MINERALS TAB (*BKC) 1 TABLET PO (09:42)
[2023-08-13] MEDS: TOLNAFTATE 1% POWDER 45 GM BTL 1 APPLIC TOPICAL ×2 (09:42→21:46)
[2023-08-13] MEDS: METOPROLOL TARTRATE 50 MG TAB 100 MG PO ×2 (09:42→21:45)
--- NOTE | 2023-08-13 12:16 | PCSTNOTE ---
Please refer to the Bedside Swallow Evaluation in the EMR. Please note, silent aspiration cannot be ruled out at bedside.
--- NOTE | 2023-08-13 13:52 | PCCCNOTE ---
On 08/13/23, the student, [Tamiko Carroll ], provided care and completed [facility] documentation on this patient. I have reviewed the student's documentation and agree with the findings.
[2023-08-13] MEDS: LACTATED RINGERS 1,000 ML 80 ML IV CONT (18:01)
--- NOTE | 2023-08-13 18:36 | PM.IMPN ---
Progress Note: A&P Assessment and Plan (1) Decreased responsiveness: Code(s): R41.89 - Other symptoms and signs involving cognitive functions and awareness Status: Acute Assessment and Plan: Clinically intravascular volume is depleted, though CXR is c/w pulmonary vascular congestion and BNP is elevated U/a w/o signs of infection Continue hydration and monitor progress (2) Abnormal chest x-ray: Code(s): R93.89 - Abnormal findings on diagnostic imaging of other specified body structures Status: Acute Assessment and Plan: Findings appear chronic with similar XR findings in 2023 and 2022 (3) Dehydration: Code(s): E86.0 - Dehydration Status: Acute Assessment and Plan: Labs and clinical presentation are c/w this She is dependent upon others to provide food and water Sedation due to polypharmacy may also be playing a role (4) Atrial fibrillation: Code(s): I48.91 - Unspecified atrial fibrillation Status: Chronic Assessment and Plan: Chronic Pacemaker in place (5) Chronic obstructive pulmonary disease: Code(s): J44.9 - Chronic obstructive pulmonary disease, unspecified Status: Acute Assessment and Plan: Clinically stable (6) Hypothyroidism: Code(s): E03.9 - Hypothyroidism, unspecified Status: Acute Assessment and Plan: Levothyroxine dose seems excessive in the absence of a history of thyroid cancer (7) Psychiatric illness: Code(s): F99 - Mental disorder, not otherwise specified Status: Acute Assessment and Plan: Continue home psychoactive medications Subjective Date/time seen: 08/13/23 18:36 Interval history: Sent to ED due to confusion. Improving with hydration. No focal c/o. Review of Systems Review of Systems: All systems reviewed & are unremarkable except as noted in HPI and below Exam Narrative: HEENT: PERRL, sclerae nonicteric, pharyngeal mucosa pink and intact NECK: No JVD CHEST: Clear to auscultation. Normal effort. HEART: NL S1/S2, irregular, soft BEN RUSB ABDOMEN: BS+, soft, nontender, no mass, no bruits EXTREMITIES: No cyanosis, edema, or clubbing NEUROLOGIC: CN intact and symmetric to inspection, but moderately hard of hearing. Moderately severe coarse rest and action tremor affecting head and extremities. MUSCULOSKELETAL: Tone and strength symmetric. PSYCH: Alert. Oriented to person, place, and time (but read them off white board in room) Objective Data Vital Signs Vital Signs: Vital Signs - 24 hr 08/12/23 18:58 08/12/23 20:49 08/12/23 20:49 Temperature 97.2 F L Pulse Rate 89 99 Respiratory Rate 20 16 Blood Pressure 128/84 Pulse Oximetry 100 94 Oxygen Delivery 08/12/23 22:44 08/12/23 20:00 08/12/23 20:00 Temperature Pulse Rate 104 H 96 89 Respiratory Rate 20 Blood Pressure Pulse Oximetry 98 Oxygen Delivery Room Air 08/12/23 22:00 08/13/23 00:20 08/13/23 00:00 Temperature 97.5 F L Pulse Rate 111 H 87 93 Respiratory Rate 20 Blood Pressure 135/68 Pulse Oximetry 98 Oxygen Delivery 08/13/23 00:00 08/13/23 02:00 08/13/23 03:30 Temperature Pulse Rate 87 84 84 Respiratory Rate 20 14 Blood Pressure Pulse Oximetry 98 Oxygen Delivery Room Air 08/13/23 03:31 08/12/23 21:00 08/12/23 22:50 Temperature Pulse Rate 84 102 H 99 Respiratory Rate 14 Blood Pressure Pulse Oximetry 93 94 Oxygen Delivery CPAP CPAP 08/13/23 04:48 08/13/23 04:00 08/13/23 04:00 Temperature 98.2 F Pulse Rate 80 86 80 Respiratory Rate 20 20 Blood Pressure 119/63 Pulse Oximetry 98 98 Oxygen Delivery CPAP 08/13/23 06:00 08/13/23 03:40 08/13/23 07:58 Temperature Pulse Rate 88 88 84 Respiratory Rate 14 14 Blood Pressure Pulse Oximetry Oxygen Delivery 08/13/23 07:59 08/13/23 08:45 08/13/23 09:42 Temperature 96.9 F L Pulse Rate 91 99 Respiratory Rate 2
--- NOTE | 2023-08-13 18:51 | PC.NURSE ---
This patient, Carissa Castro, was transferred to [[id number] ] on 08/13/23 at 1850. Personal belongings sent with patient. Report given to [Armida GIORDANO ]. Appropriate documentation sent with patient.
--- NOTE | 2023-08-13 18:54 | PC.NURSE ---
This patient, Carissa Castro, was received from IMU on 08/13/23 at 1855. Patient/family oriented to unit policies and routines. report received from Christie GIORDANO
[2023-08-13] MEDS: DIVALPROEX SODIUM DR 250 MG TABEC 500 MG PO (21:45)
[2023-08-13] MEDS: PRIMIDONE 50 MG TABLET 150 MG PO (21:45)
[2023-08-13] MEDS: SERTRALINE HCL 50 MG TABLET 150 MG PO (21:45)
[2023-08-13] MEDS: ATORVASTATIN 40 MG TABLET PO (21:46)
[2023-08-13] MEDS: GABAPENTIN 400 MG CAPSULE PO (21:46)
[2023-08-14] VITALS (15 sets, daily range): BP systolic 98–141; BP diastolic 58–92; PULSE 80–97; RESP 16–18; TEMP 36–37.1; O2SAT 91–99
[2023-08-14 05:39] LABS: Hematocrit 40.7 % (37.0-47.0); Hemoglobin 13.2 g/dL (12.0-15.0); Mean Corpuscular HGB Conc 32.4 g/dl (32-36); Mean Corpuscular Hemoglobin 30.9 pg (26-34); Mean Corpuscular Volume 95.3 fl (80-100); Mean Platelet Volume 10.4 fl (7.4-10.4); Platelet Count Result 186 k/mm3 (150-375); Red Blood Count 4.27 M/mm3 (4.2-5.4); White Blood Count 11.4 K/mm3 (4.5-10.0)
[2023-08-14] MEDS: LEVOTHYROXINE SODIUM 100 MCG TABLET 200 MCG PO (06:19)
[2023-08-14] MEDS: LACTATED RINGERS 1,000 ML 80 ML IV CONT (06:19)
[2023-08-14 06:57] LABS: Albumin Level 3.3 g/dL (3.5-5.1); Anion Gap 0 mmol/L (4-12); Blood Urea Nitrogen 36 mg/dL (7-17); Calcium 10.3 mg/dL (8.4-10.2); Carbon Dioxide 29 mmol/L (22-30); Chloride 104 mmol/L (98-107); Estimated CRCL calculation 36 ml/min; Estimated Glomerular Filt Rate 48; Glucose 90 mg/dL (65-110); Phosphorus 2.5 mg/dL (2.5-4.5); Potassium 4.4 mmol/L (3.4-5.0); Sodium 133 mmol/L (137-145)
[2023-08-14] MEDS: IPRATROPIUM 0.5 MG/ALBUTEROL SULFATE 2.5 MG AMPUL.NEB 3 ML INHALATION ×3 (09:14→20:13)
[2023-08-14] MEDS: ACIDOPHILUS/BULGARICUS CHEWABLE TABLET 1 TABLET PO ×2 (11:42→22:30)
[2023-08-14] MEDS: FUROSEMIDE 40 MG TABLET PO (11:43)
[2023-08-14] MEDS: buPROPion HCL XL (24 HR) 150 MG TABCR PO (11:43)
[2023-08-14] MEDS: METOPROLOL TARTRATE 50 MG TAB 100 MG PO ×2 (11:43→22:29)
[2023-08-14] MEDS: APIXABAN 5 MG TABLET PO ×2 (11:43→22:31)
[2023-08-14] MEDS: TAMSULOSIN HCL 0.4 MG CAPSULE PO (11:43)
[2023-08-14] MEDS: THERAPEUTIC MULTIVITAMINS/MINERALS TAB (*BKC) 1 TABLET PO (11:43)
[2023-08-14] MEDS: LORATADINE 5 MG TABLET PO (11:44)
[2023-08-14] MEDS: TOLNAFTATE 1% POWDER 45 GM BTL 1 APPLIC TOPICAL ×2 (11:44→22:31)
[2023-08-14] MEDS: allopurinoL 100 MG TABLET PO ×3 (11:44→17:57)
[2023-08-14] MEDS: polyethylene glycoL 3350 17 GM POWD.PACK PO (11:45)
[2023-08-14] MEDS: FLUTICASONE PROPIONATE 0.05% NA SPR 16 GM BTL (*BKC) 2 SPRAY NASAL (11:45)
[2023-08-14] MEDS: ACETAMINOPHEN 325 MG TABLET 650 MG PO ×2 (13:26→23:29)
[2023-08-14] MEDS: DICLOFENAC SODIUM 1% 100 GM GEL (*BKC) 1 APPLIC TOPICAL (17:59)
--- NOTE | 2023-08-14 20:09 | ECHO_ITS ---
Patient Info Name: Carissa Castro Age: 83 years : 1940 Gender: Female Ht: 68 in Wt: 176 lbs BSA: 1.97 m2 HR: 84 bpm BP: 141 / 92 mmHg Technical Quality: Fair Exam Date: 08/14/2023 8:20 AM Exam Location: Echo Lab Patient Status: Inpatient Admit Date: 08/12/2023 Staff Ordering Physician: Celine Sidhu PA-C Med Aide: Jayla Brandon RDCS Attending Provider: Santy Schaffer MD Referring Physician: Nahum MONSALVE; Exam Type: CA echo doppler color flow Study Info Indications I48.1 - Persistent atrial fibrillation I50.20 - Unspecified systolic (congestive) heart failure Complete two-dimensional, color flow and Doppler transthoracic echocardiogram is performed. Summary 1. Complete two-dimensional, color flow and Doppler transthoracic echocardiogram is performed. 2. Left ventricular chamber dimension is normal. 3. Left ventricular systolic function is normal, estimated at >70%. 4. There is mildly increased left ventricular wall thickness. 5. Right ventricular chamber dimension is mildly enlarged. 6. Right ventricular systolic function is normal. 7. Left atrial chamber dimension is severely enlarged. 8. Right atrial chamber dimension is moderately enlarged. 9. There is mild to moderate mitral valve regurgitation. 10. There is mild to moderate tricuspid valve regurgitation. Left Ventricle Left ventricular chamber dimension is normal. Left ventricular systolic function is normal, estimated at >70%. There is mildly increased left ventricular wall thickness. Right Ventricle Right ventricular chamber dimension is mildly enlarged. Right ventricular systolic function is normal. Left Atria Left atrial chamber dimension is severely enlarged. Right Atria Right atrial chamber dimension is moderately enlarged. Atrial Septum Intact interatrial septum visualized by color flow imaging. Aortic Valve The aortic valve is probable trileaflet. There is no aortic valve stenosis. There is no aortic valve regurgitation. There is moderate aortic valve calcification. Pulmonic Valve The pulmonic valve is not well visualized. Mitral Valve There is mild to moderate mitral valve regurgitation. The mitral valve annulus is severely calcified. Tricuspid Valve There is mild to moderate tricuspid valve regurgitation. Pericardium/Pleural There is no pericardial effusion. Inferior Vena Cava Normal inferior vena cava with >50% collapse upon inspiration consistent with normal right atrial pressure, 3 mmHg. Aorta The aortic root size at the sinus of Valsalva is normal. Left Ventricular Outflow Tract Name Value Normal LVOT 2D LVOT Diameter 1.9 cm LVOT Doppler LVOT Peak Gradient 3 mmHg LVOT Mean Gradient 2 mmHg LVOT VTI 15 cm LVOT VTI/AV VTI Ratio 0.8 LVOT Stroke Volume 43 ml LVOT CO 3.3 l/min LVOT CI 1.7 l/min/m2 Pulmonic Valve Name Value Normal
--- NOTE | 2023-08-14 21:40 | PM.IMPN ---
Progress Note: A&P Assessment and Plan (1) Decreased responsiveness: Code(s): R41.89 - Other symptoms and signs involving cognitive functions and awareness Status: Acute (2) Unresponsive episode: Code(s): R40.4 - Transient alteration of awareness Status: Acute (3) COPD (chronic obstructive pulmonary disease): Code(s): J44.9 - Chronic obstructive pulmonary disease, unspecified Status: Acute Subjective Date/time seen: 08/14/23 21:40 Interval history: Patient seen and examined. She appears to be mentating better today. She has low Na and mildly elevated Cr, will continue hydration. She appeared to eat her breakfast this morning without problem. Possibly polypharmacy led to hospitalization. We will continue supportive care. Patient is apprehensive about discharge tomorrow. Will reassess in AM. Family updated bedside. She denies fever, chills, N/V/D, chest pain. She does endorse some confusion as to why she is in the hospital and recognizes that she is confused. She has insight. Exam Narrative: - GENERAL: Pleasant woman with baseline dysarthria in no acute distress - EYES: EOMI. Anicteric. - HENT: Moist mucous membranes. - LUNGS: Clear to auscultation bilaterally, no wheezing, rhonchi, or rales. - CARDIOVASCULAR: Regular rate and rhythm. No murmur. No JVD. - ABDOMEN: Soft, non-tender and non-distended. No palpable masses. - EXTREMITIES: No edema. Peripheral pulses 2+. Non-tender. - NEUROLOGIC: No focal neurological deficits. CN II-XII grossly intact. - PSYCHIATRIC: Awake, Alert and oriented. appropriate mood and affect. appears to be at baseline as per family bedside - SKIN: No rashes or lesions. Warm. - LYMPH: No cervical lymphadenopathy. Objective Data Vital Signs Vital Signs: Vital Signs - 24 hr 08/13/23 21:45 08/14/23 00:00 08/14/23 02:14 Temperature 36.4 C 36.4 C Pulse Rate 81 94 94 Respiratory Rate 18 18 Blood Pressure 125/65 125/65 Pulse Oximetry 99 99 Oxygen Delivery Fraction of Inspired Oxygen 08/14/23 04:00 08/14/23 05:39 08/14/23 09:14 Temperature 36.6 C 36.4 C Pulse Rate 87 Respiratory Rate 18 18 Blood Pressure 125/67 141/92 H Pulse Oximetry 95 96 Oxygen Delivery Room Air Fraction of Inspired Oxygen 21 08/14/23 09:14 08/14/23 09:19 08/14/23 09:21 Temperature 36.0 C L Pulse Rate 82 80 80 Respiratory Rate 18 18 18 Blood Pressure 111/61 Pulse Oximetry 96 Oxygen Delivery Fraction of Inspired Oxygen 08/14/23 11:43 08/14/23 11:43 08/14/23 13:37 Temperature 36.3 C L Pulse Rate 89 97 92 Respiratory Rate 18 18 Blood Pressure 112/59 L Pulse Oximetry 98 Oxygen Delivery Fraction of Inspired Oxygen 08/14/23 13:44 08/14/23 08:00 08/14/23 16:50 Temperature 36.8 C Pulse Rate 90 89 Respiratory Rate 18 16 Blood Pressure 98/58 L Pulse Oximetry 94 Oxygen Delivery Room Air Fraction of Inspired Oxygen 08/14/23 19:48 08/14/23 20:14 08/14/23 20:26 Temperature 37.1 C Pulse Rate 84 85 87 Respiratory Rate 18 18 18 Blood Pressure 111/65 Pulse Oximetry 91 Oxygen Delivery Fraction of Inspired Oxygen Intake/Output Intake/Output: Intake & Output 08/11/23 08/12/23 08/13/23 08/14/23 23:59 23:59 23:59 23:59 Intake Total 920 1020 2374 Output Total 596 181 4876 Balance 800 420 994 Meds/Results Medications: Active Medications Generic Name Dose Route Start Last Admin Trade Name Freq PRN Reason Stop Dose Admin Acetaminophen 650 mg 08/12/23 20:18 08/14/23 13:26 Acetaminophen 325 Mg Tablet PO 650 mg Q6H PRN Administration Mild Pain (1-3) or Fever Acetaminophen 325 mg 08/12/23 20:19 Acetaminophen 325 Mg Tablet PO Q6H PRN Pain (Scale Score 1-3) Albuterol/Ipratropium 3 ml 08/12/23 14:00 08/14/23 20:13 Ipratropium 0.5 Mg/Albuterol Sulfate 2.5 Mg Ampul.Neb 3 Ml INHALATION 3 ml Q6HRT JILL Administration Allopurinol 100 mg 08/12/23
[2023-08-14] MEDS: ATORVASTATIN 40 MG TABLET PO (22:30)
[2023-08-14] MEDS: PRIMIDONE 50 MG TABLET 150 MG PO (22:30)
[2023-08-14] MEDS: GABAPENTIN 400 MG CAPSULE PO (22:31)
[2023-08-14] MEDS: SERTRALINE HCL 50 MG TABLET 150 MG PO (22:31)
[2023-08-14] MEDS: DIVALPROEX SODIUM DR 250 MG TABEC 500 MG PO (22:31)
[2023-08-14] MEDS: LATANOPROST 0.005% OP SOLN 2.5 ML BTL 1 DROP EACH EYE (22:52)
[2023-08-15] VITALS (12 sets, daily range): BP systolic 104–116; BP diastolic 54–73; PULSE 70–88; RESP 14–18; TEMP 36.1–37.1; O2SAT 93–97
[2023-08-15] MEDS: IPRATROPIUM 0.5 MG/ALBUTEROL SULFATE 2.5 MG AMPUL.NEB 3 ML INHALATION ×3 (01:12→15:01)
[2023-08-15 05:21] LABS: Hematocrit 37.1 % (37.0-47.0); Hemoglobin 11.5 g/dL (12.0-15.0); Mean Corpuscular Hemoglobin 29.8 pg (26-34); Mean Corpuscular Volume 96.1 fl (80-100); Mean Platelet Volume 10.4 fl (7.4-10.4); Platelet Count Result 158 k/mm3 (150-375); Red Blood Count 3.86 M/mm3 (4.2-5.4); Red Cell Distribution Width 14.1 % (11.5-14.5); White Blood Count 7.4 K/mm3 (4.5-10.0)
[2023-08-15 05:30] LABS: Anion Gap 3 mmol/L (4-12); Blood Urea Nitrogen 27 mg/dL (7-17); Calcium 10.4 mg/dL (8.4-10.2); Carbon Dioxide 25 mmol/L (22-30); Chloride 106 mmol/L (98-107); Estimated CRCL calculation 42 ml/min; Estimated Glomerular Filt Rate 48; Glucose 104 mg/dL (65-110); Potassium 4.1 mmol/L (3.4-5.0); Sodium 134 mmol/L (137-145)
[2023-08-15] MEDS: LEVOTHYROXINE SODIUM 100 MCG TABLET 200 MCG PO (06:28)
[2023-08-15] MEDS: TAMSULOSIN HCL 0.4 MG CAPSULE PO (10:06)
[2023-08-15] MEDS: THERAPEUTIC MULTIVITAMINS/MINERALS TAB (*BKC) 1 TABLET PO (10:06)
[2023-08-15] MEDS: allopurinoL 100 MG TABLET PO ×3 (10:06→17:24)
[2023-08-15] MEDS: LORATADINE 5 MG TABLET PO (10:06)
[2023-08-15] MEDS: FLUTICASONE PROPIONATE 0.05% NA SPR 16 GM BTL (*BKC) 2 SPRAY NASAL (10:07)
[2023-08-15] MEDS: APIXABAN 5 MG TABLET PO (10:07)
[2023-08-15] MEDS: ACIDOPHILUS/BULGARICUS CHEWABLE TABLET 1 TABLET PO (10:07)
[2023-08-15] MEDS: buPROPion HCL XL (24 HR) 150 MG TABCR PO (10:07)
[2023-08-15] MEDS: polyethylene glycoL 3350 17 GM POWD.PACK PO (10:07)
[2023-08-15] MEDS: TOLNAFTATE 1% POWDER 45 GM BTL 1 APPLIC TOPICAL (10:12)
--- NOTE | 2023-08-15 12:44 | PM.DS ---
DS: Admitting Diagnosis Discharge Date 08/15/23 Admitting Diagnosis dyspnea on altered mental status DS: Discharge Diagnosis Discharge Diagnosis (1) Decreased responsiveness: Code(s): R41.89 - Other symptoms and signs involving cognitive functions and awareness Status: Acute (2) Unresponsive episode: Code(s): R40.4 - Transient alteration of awareness Status: Acute (3) COPD (chronic obstructive pulmonary disease): Code(s): J44.9 - Chronic obstructive pulmonary disease, unspecified Status: Acute Plan #acute metabolic encephalopathy -possibly confusion from metabolic abnormality, patient had some hyponatremia and renal injury from dehydration -continue supportive care and IVF hydration -patient appears to be back to baseline -possibly polypharmacy, will minimize allergy meds as that is the only possibly sedating medication #chronic conditions -gout: allopurinol -HLD: statin -depression: wellbutrin, zoloft -atrial fib: on AC eliquis, rate control metoprolol -seizure disorder? depakote, primidone -peropheral edema: lasix -peripheral neuropathy: gabapentin -hypothyroidism: synthroid -HTN: metoprolol -flomax Diet:?regular diet with thick liquids DVT ppx:?eliquis code status:?full code disposition: back to SNF DS: Summary Hospital Course Reason for hospitalization: somnolent Hospital Course: Patient is a 83-year-old female from [facility] with history of essential tremors, persistent atrial fibrillation, since hypertension, COPD, sleep apnea, GERD, hypothyroidism, anxiety, bipolar disorder presents to ED from [facility] with dyspnea and decreased mentation. It is unclear because her lethargy there was some concern for possible polypharmacy. Infectious workup was negative, quad screen negative, head CT showed no large lesions. initially she was given doses of Rocephin azithromycin and steroids. her chest x-ray findings on further evaluation appeared to be chronic. She was thought to be dehydrated was given IV fluids. Creatinine stabilized at 1.1. Patient is on some psychoactive medications for her psychiatric disorders including bipolar disorder. With conservative management patient appeared to resume p.o. intake and mentation went back to baseline. It is unclear what caused her somnolence today of admission. Can try taking some of her allergy medications like cetirizine and Flonase, may resume on Monday. we will see if this makes any difference in her mentation. 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 She has numerous pulmonary nodules with recommendation for repeat CT chest in 6-12 months. at time of discharge patient's labs are stable, vitals stable, patient is stable for discharge back to SNF. she should follow-up with PCP in 1 week. Patient understands and agrees with plan. Status at Discharge Cognitive/behavioral status at discharge: stable Time Spent with Patient Time attestation: Total time spent providing and/or coordinating discharge services: 35 minutes Exam Narrative: - GENERAL: Pleasant woman with baseline dysarthria in no acute distress - EYES: EOMI. Anicteric. - HENT: Moist mucous membranes. - LUNGS: Clear to auscultation bilaterally, no wheezing, rhonchi, or rales. - CARDIOVASCULAR: Regular rate and rhythm. No murmur. No JVD. - ABDOMEN: Soft, non-tender and non-distended. No palpable masses. - EXTREMITIES: No edema. Peripheral pulses 2+. Non-tender. - NEUROLOGIC: No focal neurological deficits. CN II-XII grossly intact. - PSYCHIATRIC: Awake, Alert and oriented. appropriate mood and affect. appears to be at baseline as per family bedside - SKIN: No rashes or lesions. Warm. - LYMPH: No cervical lymphadenopathy. DS: Data Data Completed and Pending Labs on day of discharge: Labs from last 24 hours 08/15/23 04:55 WBC 7.4 RBC 3.86 L Hgb 11.5 L Hct 37.1 MCV 96.1 MCH
[2023-08-15] MEDS: BISACODYL 10 MG SUPPOSITORY RECTAL (12:48)
--- NOTE | 2023-08-15 14:14 | WPDNEUROLOGY ---
Neurology EEG Report General Information Date of Study: 08/14/23 TEST eeg DIAGNOSIS Possible seizures CONDITION OF RECORDING drowsy and sleep EEG NUMBER 24-25 CLINICAL HISTORY patient states she was in dining room when her blood pressure made her become confused he did not become unconscious EEG DESCRIPTION whole record consists of large amount of low-voltage 15 to 18 hertz per 2nd beta activity admixed with low to medium voltage 6 to 7 hertz per 2nd theta activity and also poor trip posterior gradient. Bilateral symmetrical sleep activity is noted with symmetrical spindles in addition to mixture of alpha theta and beta activity. Non paroxysmal nonfocal nonlateralizing. IMPRESSION No significant abnormalities noted. This tracing is not compatible with seizure disorder but EEG can be normal In spite of patient's having the clinical seizures.
--- NOTE | 2023-08-15 14:23 | PCCCNOTE ---
On 08/15/23, the student, Diamond Carroll, provided care and completed [facility] documentation on this patient. I have reviewed the student's documentation and agree with the findings.
[2023-08-15 15:02] LABS: SARS-CoV-2 RNA PCR Negative (Negative)
== END 2023-08-15 18:30 | DRG 640 ==
LOC: ANHED 11:11 → ANHIMU 11:47 → ANH2MED 08-13 18:41
PROVIDERS: Internal Medicine; Physician Assistant; Admitting Provider Internal Medicine; Emergency Provider Emergency Medicine; Visit Provider Student in an Organized Health Care Education/Training Program
DX: E87.1 Hypo-osmolality and hyponatremia (principal); G93.41 Metabolic encephalopathy; I48.19 Other persistent atrial fibrillation; E27.40 Unspecified adrenocortical insufficiency; N17.8 Other acute kidney failure; R41.89 Other symptoms and signs involving cognitive functions and awareness; E86.0 Dehydration; Z20.822 Contact with and (suspected) exposure to COVID-19; J44.9 Chronic obstructive pulmonary disease, unspecified; M10.9 Gout, unspecified; E78.5 Hyperlipidemia, unspecified; G40.909 Epilepsy, unspecified, not intractable, without status epilepticus; I70.8 Atherosclerosis of other arteries; T50.995A Adverse effect of other drugs, medicaments and biological substances, initial encounter; G62.9 Polyneuropathy, unspecified; E03.9 Hypothyroidism, unspecified; I10 Essential (primary) hypertension; K21.9 Gastro-esophageal reflux disease without esophagitis; F41.9 Anxiety disorder, unspecified; F31.9 Bipolar disorder, unspecified; R91.8 Other nonspecific abnormal finding of lung field; D64.9 Anemia, unspecified; G47.33 Obstructive sleep apnea (adult) (pediatric); Z96.1 Presence of intraocular lens; Z98.42 Cataract extraction status, left eye; Z98.41 Cataract extraction status, right eye; Z90.49 Acquired absence of other specified parts of digestive tract; Z95.0 Presence of cardiac pacemaker; Z87.891 Personal history of nicotine dependence
CPT/HCPCS: 36415; 36600; 70496; 70498; 71045; 80048; 80053; 80069; 80164; 81001; 82375; 82805; 82948; 83050; 83605; 83690; 83735; 83880; 84145; 84439; 84443; 84480; 85025; 85027; 85610; 85730; 86140; 87040; 87635; 87637; 92526; 92610; 93005; 93306; 94640; 95816; 96365; 96367; 96375; 96376; 99285; A9270; G0378; J0456; J0696; J2919; J7040; J7120; Q9967

== ENCOUNTER 2024-02-18 08:14 | Emergency (ER) | payer MEDICARE, MEDICAID, SELFPAY ==
--- NOTE | ~2024-02-18 | XR_ITS ---
EXAMINATION: XR shoulder RT min 2V DATE: 02/18/2024 09:33 INDICATION: Right shoulder injury. Fall. TECHNIQUE: 4 views of right shoulder were obtained. COMPARISON: None. FINDINGS: Alignment is normal. No fracture. There is mild osteoarthritis of glenohumeral joint and ac romioclavicular joint. Partially visualized are pacer wires. IMPRESSION: 1. Mild polyarticular osteoarthritis. Reviewed, dictated and finalized at location A.
--- NOTE | ~2024-02-18 | XR_ITS ---
EXAMINATION: XR foot RT min 3V DATE: 02/18/2024 09:33 INDICATION: Right foot pain. TECHNIQUE: 4 views of right foot were obtained. COMPARISON: None. FINDINGS: There is a nondisplaced oblique fracture of base of fifth metatarsal. Osteopenia is noted. There is a 7 mm nonaggressive lytic lesion with sclerotic margin in second middle phalanx, which may be an enchondroma. There is mild osteoarthritis of talonavicular joint. There is an enthesophyte at p lantar aspects of calcaneal tuberosity. IMPRESSION: 1. Nondisplaced oblique fracture of base of fifth metatarsal. Reviewed, dictated and finalized at location A.
--- NOTE | ~2024-02-18 | XR_ITS ---
EXAMINATION: XR ankle RT min 3V DATE: 02/18/2024 09:33 INDICATION: Right ankle pain and swelling. Fall. TECHNIQUE: 3 views of right ankle were obtained. COMPARISON: None. FINDINGS: There is a nondisplaced oblique fracture of proximal aspect of fifth metatarsal. There is m ild osteoarthritis of talonavicular joint. There is an enthesophyte at plantar aspect of calcaneal tu berosity. IMPRESSION: 1. Nondisplaced oblique fracture of proximal aspect of fifth metatarsal. Reviewed, dictated and finalized at location A.
--- NOTE | ~2024-02-18 | CT_ITS ---
EXAMINATION: CT brain wo con DATE: 02/18/2024 09:45 INDICATION: Head injury. TECHNIQUE: Computed tomography (CT) of the head was performed without intravenous contrast. The mA wa s adjusted according to patient size. Iterative reconstruction technique was employed. The dose-lengt h product was 605.33 mGy-cm. COMPARISON: CT 08/12/2023 FINDINGS: There are scattered areas of low attenuation in the cerebral white matter, which is within normal limits for the patient's age. There is no intracranial hemorrhage, acute infarction, or abnorm al intracranial mass lesion. The ventricles are normal in size. There is mild mucosal thickening in t he ethmoid sinuses. There are likely changes of ocular lens replacement surgeries. There are changes of right mastoidectomy. IMPRESSION: 1. Normal aging brain. Reviewed, dictated and finalized at location A. IMPRESSION: 1. Normal aging brain.
--- NOTE | ~2024-02-18 | CT_ITS ---
EXAMINATION: CT facial & cervical spine wo DATE: 02/18/2024 09:45 INDICATION: Head injury. TECHNIQUE: Computed tomography (CT) of the maxillofacial region and cervical spine was performed with out intravenous contrast. Automated exposure control and iterative reconstruction technique were empl oyed. The dose-length product was 265.90 mGy-cm. COMPARISON: Thoracic spine CT 06/30/2021 FINDINGS: MAXILLOFACIAL CT: There are likely changes of ocular lens replacement surgeries. There is a right lateral spur of the n donal septum. No fracture. There is mild mucosal thickening in the paranasal sinuses. There are change s of right mastoidectomy. There is material in the postmastoidectomy space and tympanic cavity. CERVICAL SPINE CT: There is mild scarring in the upper lobes of the lungs. There is 2 mm anterolisthesis of C3 on C4 and C7 on T1. Vertebral body heights are normal. There is mildly decreased disc height at C2-C3 and C3-C 4 and severely decreased disc height at C4-C5, C5-C6, C6-C7, and T1-T2. The following disc levels are specifically discussed: C2-C3: There is mild left uncovertebral joint osteoarthritis. There is mild left facet joint osteoart hritis. There is ankylosis of right facet joint with mild hypertrophy. There is mild right neural for aminal stenosis. There is no central canal stenosis. C3-C4: There is mild bilateral uncovertebral joint osteoarthritis. There is severe bilateral facet suleiman int osteoarthritis. There is moderate right and mild left neural foraminal stenosis. There is mild ce ntral canal stenosis. C4-C5: There is severe bilateral uncovertebral joint osteoarthritis. There is moderate right and mild left facet joint osteoarthritis. There is mild right and moderate left neural foraminal stenosis. Th ere is mild central canal stenosis. C5-C6: There is severe bilateral uncovertebral joint osteoarthritis. There is severe right and modera te left facet joint osteoarthritis. There is mild bilateral neural foraminal stenosis. There is moder ate central canal stenosis. C6-C7: There is severe bilateral uncovertebral joint osteoarthritis. There is moderate and severe lef t facet joint osteoarthritis. There is mild bilateral neural foraminal stenosis. There is mild centra l canal stenosis. C7-T1: There is no uncovertebral joint osteoarthritis. There is severe bilateral facet joint osteoart hritis. There is mild bilateral neural foraminal stenosis. There is no central canal stenosis. IMPRESSION: 1. No fracture. 2. Severe cervical spondylosis. Reviewed, dictated and finalized at location A.
[2024-02-18 08:19] VITALS: BP 166/103; PULSE 87; RESP 19; TEMP 36.6; O2SAT 92
[2024-02-18 08:30] VITALS: BP 149/99; PULSE 70; RESP 17; O2SAT 96
--- NOTE | 2024-02-18 09:09 | ED.FALL ---
HPI - Fall General Chief Complaint: Fall Stated Complaint: foot pain Time Seen by Provider: 02/18/24 08:48 History of Present Illness HPI Narrative: 83-year-old female presenting to the emergency department for evaluation after having a fall from bed. Patient is currently on oxygen at her care facility and patient was attempting to test the oxygen and she fell forward striking her face and head along with injuring her right shoulder and right foot. Patient states the primary source of her pain is her right foot. Patient does arrive in a C-collar. Related Data Home Medications Medication Instructions Recorded Confirmed atorvastatin 40 mg tablet (Lipitor) 40 mg PO HS 03/02/21 08/12/23 bisacodyl 10 mg rectal suppository 10 mg RECTAL DAILY PRN Constipation 03/02/21 08/12/23 fluticasone propionate 50 2 spray intranasal DAILY 03/02/21 08/12/23 mcg/actuation nasal spray,suspension gabapentin 400 mg capsule 400 mg PO HS 03/02/21 08/12/23 polyethylene glycol 3350 17 gram 17 g PO DAILY Constipation 03/02/21 08/12/23 oral powder packet (Miralax) primidone 50 mg tablet 150 mg PO HS 03/02/21 08/12/23 sertraline 100 mg tablet (Zoloft) 150 mg PO HS 03/02/21 08/12/23 calcium carbonate 500 mg PO DAILY PRN Acid Reflux 11/05/21 08/12/23 cetirizine 5 mg tablet 5 mg PO DAILY 11/05/21 08/12/23 cholecalciferol (vitamin D3) 50 50 mcg PO DAILY 11/05/21 08/12/23 mcg (2,000 unit) tablet latanoprost 0.005 % eye drops 1 drp EACH EYE HS 11/05/21 08/13/23 (Xalatan) albuterol sulfate 90 mcg/actuation 1 inh inhalation QID PRN Shortness 12/22/21 08/12/23 breath activated powder Of Breath Or Wheezing inhaler,sensor allopurinol 100 mg tablet 100 mg PO TID 12/22/21 08/12/23 levothyroxine 150 mcg tablet 200 mcg PO 0600 12/22/21 08/12/23 (Synthroid) ipratropium 0.5 mg-albuterol 3 mg 3 ml inhalation Q6H PRN Congestion 09/02/22 08/12/23 (2.5 mg base)/3 mL nebulization soln Lactobacillus acidophilus 100 mg PO Q12H 04/09/23 08/12/23 (Acidophilus capsule) apixaban 5 mg tablet (Eliquis) 5 mg PO BID 04/09/23 08/12/23 metoprolol tartrate 50 mg tablet 100 mg PO Q12H 04/09/23 08/12/23 nystatin 100,000 unit/gram topical 1 applic topical Q12H 04/09/23 08/12/23 powder acetaminophen 325 mg tablet 325 mg PO Q6H PRN Pain (Scale 08/12/23 08/12/23 Score 1-3) bupropion HCl 150 mg 24 hr tablet, 150 mg PO QAM 08/12/23 08/12/23 extended release (Wellbutrin XL) divalproex 125 mg tablet,delayed 500 mg PO HS 08/12/23 08/12/23 release multivitamin [id number] 1 tablet PO DAILY 08/12/23 08/12/23 fumarate 18 mg-vitamin K 25 mcg tablet Allergies Allergy/AdvReac Type Severity Reaction Status Date / Time Latex, Natural Rubber Allergy Unknown Verified 02/18/24 08:28 morphine Allergy Flushing Verified 02/18/24 08:28 Sulfa (Sulfonamide Allergy Hives Verified 02/18/24 08:28 Antibiotics) Review of Systems Review of Systems: All systems reviewed & are unremarkable except as noted in HPI and below PMFSH Past Medical History Medical History Adrenal insufficiency Atrial fibrillation Bipolar disorder Chronic obstructive pulmonary disease Deafness in right ear Depression with anxiety Gastroesophageal reflux disease Gout Hyperlipidemia Hypothyroidism Migraines Obstructive sleep apnea Surgical History Surgical History History of appendectomy History of cataract extraction with lens replacement History of cholecystectomy History of ear surgery Right ear surgery, reportedly for Meniere's disease, which left her deaf. History of excision of pilonidal cyst History of permanent cardiac pacemaker placement Family History Family History Other Unknown family medical history Social History Social History (Reviewed 08/12/23 @ 20:04 by Celine Sidhu PA-C
[2024-02-18 09:45] VITALS: BP 153/75; PULSE 67; RESP 18; O2SAT 98
--- NOTE | 2024-02-18 10:03 | PC.NURSE ---
RN reviewed CT results with Dr. Rabago, cervical collar removed. Pt states she uses w/c at CT, unable to ambulate.
[2024-02-18 10:35] VITALS: BP 160/70; PULSE 69; RESP 20; O2SAT 98
[2024-02-18 11:18] VITALS: BP 134/78; PULSE 68; RESP 20; TEMP 36.6; O2SAT 94
--- NOTE | 2024-02-18 11:20 | PC.NURSE ---
1050 short leg splint applied. Pt tolerated well CMS intact
== END 2024-02-18 11:21 ==
PROVIDERS: Emergency Provider Emergency Medicine
DX: S92.354A Nondisplaced fracture of fifth metatarsal bone, right foot, initial encounter for closed fracture (principal); I48.91 Unspecified atrial fibrillation; J44.9 Chronic obstructive pulmonary disease, unspecified; E27.40 Unspecified adrenocortical insufficiency; E78.5 Hyperlipidemia, unspecified; E03.9 Hypothyroidism, unspecified; K21.9 Gastro-esophageal reflux disease without esophagitis; M10.9 Gout, unspecified; G47.33 Obstructive sleep apnea (adult) (pediatric); Z95.0 Presence of cardiac pacemaker; Z98.49 Cataract extraction status, unspecified eye; Z96.1 Presence of intraocular lens; Z87.891 Personal history of nicotine dependence; Z90.49 Acquired absence of other specified parts of digestive tract; M47.812 Spondylosis without myelopathy or radiculopathy, cervical region; M19.011 Primary osteoarthritis, right shoulder; Z79.899 Other long term (current) drug therapy; Z79.01 Long term (current) use of anticoagulants; W06.XXXA Fall from bed, initial encounter
CPT/HCPCS: 29515; 70450; 70486; 72125; 73030; 73610; 73630; 99284

== ENCOUNTER 2024-04-21 09:52 | Inpatient (IN) | payer MEDICARE, MEDICAID, SELFPAY ==
[2024-04-21] VITALS (37 sets, daily range): BP systolic 90–160; BP diastolic 56–94; PULSE 75–108; RESP 12–25; TEMP 36.4–36.9; O2SAT 87–100; BMI 26.6
--- NOTE | ~2024-04-21 | XR_ITS ---
Portable chest x-ray Comparison: 04/21/2024 Clinical History: Cough, aspiration Findings: Lungs are clear, without focal consolidation or pleural effusion. Possible COPD. Cardiome diastinal silhouette is stable, with pacemaker device. Bones and soft tissues are unremarkable. Impression: Clear lungs. Possible COPD. Reviewed, dictated and finalized at location . P PAD MAKER Impression: Clear lungs. Possible COPD.
--- NOTE | ~2024-04-21 | XR_ITS ---
Portable chest x-ray Comparison: 08/12/2023 Clinical History: Cough, shortness of breath Findings: Lungs are clear, without focal consolidation or pleural effusion. Cardiomediastinal silho uette is stable, with pacemaker device. Bones and soft tissues are unremarkable. Impression: Clear lungs. Reviewed, dictated and finalized at [facility]. MAKER Impression: Clear lungs.
--- NOTE | ~2024-04-21 | CT_ITS ---
Clinical Indication: Chest pain CT Scan of the Chest with Contrast: Technique: Contiguous sections were acquired throughout the chest after intravenous administration of 100 cc of Omnipaque 350. Dose reduction technique was used on this scan by utilizing automated expos ure control and iterative reconstruction technique. The dose-length product (DLP) was 420.36 mGy-cm. Findings: There is no evidence of any significant mediastinal, hilar or axillary lymphadenopathy. There is no f illing defect in the pulmonary arterial tree to suggest pulmonary embolus. There is no evidence of ao rtic dissection or aneurysm. There is no evidence of pleural or pericardial effusion. The lungs are clear. No pulmonary nodules or infiltrates are noted. Images through the upper abdomen reveal no abnormalities. Impression: No evidence of pulmonary embolus, aortic dissection, or aortic aneurysm. Clear lungs. Reviewed, dictated and finalized at [facility]. RT PRESS OPERATOR Impression: No evidence of pulmonary embolus, aortic dissection, or aortic aneurysm. Clear lungs.
--- NOTE | 2024-04-21 10:11 | ECG_ITS ---
Test Date: 2024-04-21 09:52:28 Measurements Intervals [place] Rate: 90 P: 0 [place]: 0 QRS: 37 QRSD: 121 T: -38 QT: 357 QTc: 438 Interpretive Statements ATRIAL FIBRILLATION WITH ABERRANT CONDUCTION OR VENTRICULAR PREMATURE COMPLEXES RIGHT BUNDLE BRANCH BLOCK [120+ ms QRS DURATION, UPRIGHT V1, 40+ ms S IN I/aVL/V4/V5/V6] No previous ECG available for comparison Electronically Signed On 04-21-2024 21:58:21 [employer] by Marilyn Das M.D.
--- NOTE | 2024-04-21 10:34 | ED.SOB ---
HPI - SOB/Dyspnea General Chief Complaint: Shortness of Breath/Dyspnea Stated Complaint: cough, SOB, CP Time Seen by Provider: 04/21/24 10:00 History of Present Illness HPI Narrative: 83-year-old female with a history of COPD, CHF, AFib on Eliquis, hyperlipidemia, hypertension presenting with cough and shortness of breath. States it has been going on for the last couple days. She has been feeling more short of breath and has chest pain when she coughs. Related Data Home Medications ?Medication ?Instructions ?Recorded ?Confirmed ?Last Taken ?Type atorvastatin 40 mg tablet (Lipitor) 40 mg PO HS 03/02/21 04/21/24 Unknown History bisacodyl 10 mg rectal suppository 10 mg RECTAL DAILY PRN Constipation 03/02/21 04/21/24 Unknown History fluticasone propionate 50 2 spray intranasal DAILY 03/02/21 04/21/24 Unknown History mcg/actuation nasal spray,suspension gabapentin 400 mg capsule 400 mg PO HS 03/02/21 04/21/24 Unknown History polyethylene glycol 3350 17 gram 17 g PO DAILY Constipation 03/02/21 04/21/24 Unknown History oral powder packet (Miralax) primidone 50 mg tablet 150 mg PO HS 03/02/21 04/21/24 Unknown History sertraline 100 mg tablet (Zoloft) 150 mg PO HS 03/02/21 04/21/24 Unknown History calcium carbonate 500 mg PO DAILY PRN Acid Reflux 11/05/21 04/21/24 Unknown History cetirizine 5 mg tablet 5 mg PO DAILY 11/05/21 04/21/24 Unknown History cholecalciferol (vitamin D3) 50 50 mcg PO DAILY 11/05/21 04/21/24 Unknown History mcg (2,000 unit) tablet latanoprost 0.005 % eye drops 1 drp EACH EYE HS 11/05/21 04/21/24 Unknown History (Xalatan) albuterol sulfate 90 mcg/actuation 1 inh inhalation QID PRN Shortness 12/22/21 04/21/24 Unknown History breath activated powder Of Breath Or Wheezing inhaler,sensor allopurinol 100 mg tablet 100 mg PO TID 12/22/21 04/21/24 Unknown History levothyroxine 150 mcg tablet 200 mcg PO 0600 12/22/21 04/21/24 Unknown History (Synthroid) ipratropium 0.5 mg-albuterol 3 mg 3 ml inhalation Q6H PRN Congestion 09/02/22 04/21/24 Unknown History (2.5 mg base)/3 mL nebulization soln Lactobacillus acidophilus 100 mg PO Q12H 04/09/23 04/21/24 Unknown History (Acidophilus capsule) apixaban 5 mg tablet (Eliquis) 5 mg PO BID 04/09/23 04/21/24 Unknown History metoprolol tartrate 50 mg tablet 100 mg PO Q12H 04/09/23 04/21/24 Unknown History nystatin 100,000 unit/gram topical 1 applic topical Q12H 04/09/23 04/21/24 Unknown History powder acetaminophen 325 mg tablet 325 mg PO Q6H PRN Pain (Scale 08/12/23 04/21/24 Unknown History Score 1-3) bupropion HCl 150 mg 24 hr tablet, 150 mg PO QAM 08/12/23 04/21/24 Unknown History extended release (Wellbutrin XL) divalproex 125 mg tablet,delayed 500 mg PO HS 08/12/23 04/21/24 Unknown History release multivitamin g-[id number] 1 tablet PO DAILY 08/12/23 04/21/24 Unknown History fumarate 18 mg-vitamin K 25 mcg tablet Allergies Allergy/AdvReac Type Severity Reaction Status Date / Time Latex, Natural Rubber Allergy Unknown Verified 04/21/24 10:09 morphine Allergy Flushing Verified 04/21/24 10:09 Sulfa (Sulfonamide Allergy Hives Verified 04/21/24 10:09 Antibiotics) Review of Systems Review of Systems: All systems reviewed & are unremarkable except as noted in HPI and below PMFSH Past Medical History Medical History Deafness in right ear Adrenal insufficiency Gout Gastroesophageal reflux disease Obstructive sleep apnea Depression with anxiety Bipolar disorder Chronic obstructive pulmonary disease Atrial fibrillation Hyperlipidemia Hypothyroidism Migraines Surgical History Surgical History History of ear surgery Right ear surgery, reportedly for Meniere's disease, which left her deaf. History of cataract extraction with lens replacement History of excision of pilonidal cyst History of appendectomy History of cholecystectomy History of permanent cardiac pacemaker placement Family History Family History Other Unknown family medical history Social History Social History Social History: Surrogate medical decision maker: Nadira López, daughter. Code status: Full code. Smoking packs per day: 0.5 Smoking cigarettes per day: 10.0 Years smoked: 34 Smoking pack-years: 17.00 Smoking status: Former smoker Tobacco type: cigarettes Second hand tobacco smoke exposure: No Smoking end date: 12/06/01 Alcohol intake: never Drinks per week: 0 Substance use: never Substance use type: does not use Do You Feel Safe in your Home?: No Lack of Transportation: No Lack of Food: Never True Current Housing: I Have Housing Concerned About Future Housing: No Difficulty Paying Gas/Electric Bills: No Difficulty Paying for Meds: No Currently Unemployed: No Education: High School Diploma/GED Difficulty w/ Childcare or Family Care: No Additional living arrangements comments: Resident at [facility]. Originally from [facility]. 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 Spiritual care concerns: No Exam Narrative: GENERAL: Chronically ill-appearing, no acute distress, pleasant cooperative HEAD: Normocephalic, atraumatic. EYES: PERRLA and EOMI. ENT: + nasal congestion NECK: Supple. CHEST: No respiratory distress. Coarse breath sounds bilaterally with some scattered wheezing HEART: Normal rate, irregular rhythm ABDOMEN: Soft, nontender, nondistended EXTREMITIES: Normal range of motion. No edema. SKIN: Warm, dry, no rash. NEURO: Alert and oriented x2. PSYCH: Normal mood and affect. Course Vital Signs Vital signs: Vital Signs Temperature 97.7 F 04/21/24 09:44 Pulse Rate 86 04/21/24 09:44 Respiratory Rate 25 H 04/21/24 09:44 Pulse Oximetry 98 04/21/24 09:44 Oxygen Delivery Room Air 04/21/24 09:44 Temperature 97.6 F 04/21/24 18:15 Pulse Rate 100 04/21/24 18:15 Respiratory Rate 16 04/21/24 18:15 Blood Pressure 128/79 04/21/24 18:15 Pulse Oximetry 100 04/21/24 18:15 Oxygen Delivery Room Air 04/21/24 09:56 MDM - SOB/Dyspnea MDM Narrative Medical decision making narrative: 83-year-old female presenting with cough and shortness of breath. Patient is a bit tachypneic, otherwise vitals are within normal limits. EKG per my interpretation shows atrial fibrillation with a rate in the 90s, no ST elevations or depressions. Chest x-ray shows no acute abnormalities. CTA of the chest shows acute abnormalities. Will treat for COPD exacerbation with steroids, albuterol, azithromycin. Patient continues to have pretty significant wheezing despite an hour long treatment. Feel she would benefit from admission for COPD exacerbation. I spoke with the hospitalist who has accepted her for admission. Differential Diagnosis Differential diagnosis: Likely acute exacerbation of chronic obstructive airways disease, congestive heart failure, community acquired pneumonia, asthma with exacerbation and pulmonary embolism Medical Records Attestation: I reviewed the patient's medical records. Lab Data Attestation: I reviewed the patient's lab results. 04/21/24 10:35 04/21/24 10:35 Labs: Lab Results 04/21/24 04/21/24 Range/Units 10:35 13:10 WBC 7.2 (4.5-10.0) K/mm3 RBC 4.41 (4.2-5.4) M/mm3 Hgb 13.9 (12.0-15.0) g/dL Hct 42.9 (37.0-47.0) % MCV 97.3 (80-100) fl MCH 31.5 (26-34) pg MCHC 32.4 (32-36) g/dl RDW 14.8 H (11.5-14.5) % Plt Count 150 (150-375) k/mm3 MPV 10.2 (7.4-10.4) fl Immature Gran % (Auto) 0.1 (0-0.5) % Neut % (Auto) 74.5 H (45.5-73.1) % Lymph % (Auto) 16.4 L (18.3-44.2) % [place] % (Auto) 7.0 (2.6-8.5) % Eos % (Auto) 1.7 (0-4.4) % Baso % (Auto) 0.3 (0.2-1.2) % Lymph # (Auto) 1.19 (0.9-3.2) K/mm3 [place] # (Auto) 0.5 (0.1-0.6) K/mm3 Eos # (Auto) 0.1 (0-0.3) K/mm3 Baso # (Auto) 0.0 (0.0-0.1) K/mm3 Abs Immat Gran (auto) 0.01 (0.00-0.031) K/mm3 Absolute Neuts (auto) 5.4 (1.3-6.7) K/mm3 Absolute Nucleated RBC 0.000 (0.0-0.012) K/mm3 Nucleated RBC % 0.0 (0.0-0.2) % PT 14.7 (11.1-14.7) Seconds INR 1.1 APTT 34.4 (22.3-36.8) Seconds Sodium 138 (137-145) mmol/L Potassium 4.3 (3.4-5.0) mmol/L Chloride 101 (98-107) mmol/L Carbon Dioxide 35 H (22-30) mmol/L Anion Gap 2 L (4-12) mmol/L BUN 23 H (7-17) mg/dL Creatinine 1.20 H (0.7-1.0) mg/dL Estim Creat Clear Calc 33 ml/min Estimated GFR 43 L (59 - ) Glucose 116 H (65-110) mg/dL Calcium 10.5 H (8.4-10.2) mg/dL Total Bilirubin 0.8 (0.2-1.3) mg/dL AST 28 (14-36) U/L ALT 16 (6-35) U/L Alkaline Phosphatase 151 H (38-126) U/L Troponin I < 0.012 < 0.012 (0.000-0.034) ng/mL NT-Pro-B Natriuret Pep 2050 H (19.9-100) pg/mL Total Protein 7.0 (6.3-8.2) g/dL Albumin 3.8 (3.5-5.1) g/dL Influenza A (RT-PCR) Negative (Negative) Influenza B (RT-PCR) Negative (Negative) RSV (RT-PCR) Negative (Negative) SARS-CoV-2 RNA (RT-PCR) Negative (Negative) Imaging Data Radiologist's impression: ITS Impressions Chest X-Ray 04/21/24 11:21 Impression: Clear lungs. Chest CTA 04/21/24 13:57 Impression: No evidence of pulmonary embolus, aortic dissection, or aortic aneurysm. Clear lungs. Critical Care Time Critical Care Time Critical Care Time: Yes Total Critical Care Time: 32 Discharge Plan Discharge Clinical Impression: Acute exacerbation of chronic obstructive pulmonary disease Patient Disposition: Still a Patient Condition: Stable
[2024-04-21] MEDS: ALBUTEROL SULFATE NEB 2.5 MG/3 ML INH 5 MG INHALATION ×2 (10:45→14:35)
[2024-04-21] MEDS: IPRATROPIUM BR 0.02% INH SOLN 0.5 MG/2.5 ML VIAL INHALATION ×2 (10:45→14:35)
[2024-04-21 10:46] LABS: Basophils Percent Auto 0.3 % (0.2-1.2); Eosinophils Absolute Auto 0.1 K/mm3 (0-0.3); Eosinophils Percent Auto 1.7 % (0-4.4); Hematocrit 42.9 % (37.0-47.0); Hemoglobin 13.9 g/dL (12.0-15.0); Immature Granulocyte Absolute 0.01 K/mm3 (0.00-0.031); Immature Granulocyte Percent A 0.1 % (0-0.5); Lymphocytes Absolute Auto 1.19 K/mm3 (0.9-3.2); Lymphocytes Percent Auto 16.4 % (18.3-44.2); Mean Corpuscular HGB Conc 32.4 g/dl (32-36); Mean Corpuscular Hemoglobin 31.5 pg (26-34); Mean Corpuscular Volume 97.3 fl (80-100); Mean Platelet Volume 10.2 fl (7.4-10.4); Monocytes Absolute Auto 0.5 K/mm3 (0.1-0.6); Neutrophils Absolute Auto 5.4 K/mm3 (1.3-6.7); Neutrophils Percent Auto 74.5 % (45.5-73.1); Platelet Count Result 150 k/mm3 (150-375); Red Blood Count 4.41 M/mm3 (4.2-5.4); Red Cell Distribution Width 14.8 % (11.5-14.5); White Blood Count 7.2 K/mm3 (4.5-10.0)
[2024-04-21 10:56] LABS: Alanine Aminotransferase 16 U/L (6-35); Albumin Level 3.8 g/dL (3.5-5.1); Alkaline Phosphatase 151 U/L (38-126); Anion Gap 2 mmol/L (4-12); Aspartate Amino Transferase 28 U/L (14-36); Bilirubin,Total 0.8 mg/dL (0.2-1.3); Blood Urea Nitrogen 23 mg/dL (7-17); Calcium 10.5 mg/dL (8.4-10.2); Carbon Dioxide 35 mmol/L (22-30); Chloride 101 mmol/L (98-107); Estimated CRCL calculation 33 ml/min; Estimated Glomerular Filt Rate 43; Glucose 116 mg/dL (65-110); Potassium 4.3 mmol/L (3.4-5.0); Sodium 138 mmol/L (137-145)
[2024-04-21 10:57] LABS: INR 1.1; Prothrombin Time 14.7 Seconds (11.1-14.7)
[2024-04-21 10:58] LABS: Partial Thromboplastin Time 34.4 Seconds (22.3-36.8)
[2024-04-21 11:07] LABS: NT Pro B Type Natriuretic Pept 2050 pg/mL (19.9-100); Troponin I < 0.012 ng/mL (0.000-0.034)
--- NOTE | 2024-04-21 11:14 | PC.NURSE ---
Report given to Sunita GIORDANO, all questions answered
[2024-04-21 11:23] LABS: Influenza A QL RT-PCR Negative (Negative); Influenza B QL RT-PCR Negative (Negative); RSV RNA, RT-PCR Negative (Negative); SARS-CoV-2 RNA PCR Negative (Negative)
[2024-04-21] MEDS: ACETAMINOPHEN 500 MG TABLET 1000 MG PO (11:25)
--- NOTE | 2024-04-21 12:35 | PC.NURSE ---
RN to bedside due to monitor alarming. SpO2 87% on RA. Upon RN entering room, pt appeared to be sleeping, and hunched over to right side. Pt's eyes opened to her name/light touch. Re-centered in the bed. Pt drowsy. SpO2 didn't seem to improve with position so patient was placed on 2L then 4L NC. BP also soft. SpO2 increased to 94% on 4L. Pt reports she feels okay . Pt's primary RN, Sunita, artur.
[2024-04-21 13:37] LABS: Troponin I < 0.012 ng/mL (0.000-0.034)
[2024-04-21] MEDS: methylPREDNISolone SOD SUCC 125 MG VIAL IV PUSH (15:13)
[2024-04-21] MEDS: SODIUM CHLORIDE 0.9% IV 1,000 ML 999 ML IV CONT ×2 (15:13→17:39)
[2024-04-21] MEDS: AZITHROMYCIN 500 MG/NS 250 ML 500 MG/250 ML BAG 250 MG IVPB (15:29)
[2024-04-21 16:56] LABS: Troponin I < 0.012 ng/mL (0.000-0.034)
--- NOTE | 2024-04-21 17:30 | PM.IMHP ---
H&P: HPI History of Present Illness Date/Time: 04/21/24 16:45 Chief Complaint: Shortness of breath. Narrative: This is a pleasant 83-year-old female with chronic obstructive pulmonary disease on p.r.n. oxygen, essential tremors, executive dysfunction, persistent atrial fibrillation, hypertension, sleep apnea, gastroesophageal reflux disease, hypothyroidism, adrenal insufficiency, chronic kidney disease, anemia, anxiety, and bipolar disorder who presented to the emergency department via EMS from [facility] with complaints of shortness of breath. The patient provides the following history. She gives a 2 day history of a mostly nonproductive cough and increasing shortness of breath and wheezing from baseline. She has chest discomfort as well with coughing though she has difficulties describing that. She denies fever, headache, sinus congestion, sore throat, hemoptysis, exertional chest pain, palpitations, edema, abdominal pain, nausea, vomiting, dysuria, and concerns for aspiration. In the ED: She was afebrile on arrival with systolic blood pressures in the upper 90s.. SpO2 has been in the upper 90s to 100% on 2 L.. Labs are significant for a carbon dioxide of 35, BUN 23, creatinine 1.20, calcium 10.5, proBNP 2050, troponin less than 0.012. She tested negative for influenza, RSV, and COVID. Chest CTA was negative for pulmonary embolus, aortic dissection, and aortic aneurysm. Lungs were clear. She was given Solu-Medrol and a continuous nebulizer treatment with some improvement however she continues to have pretty significant wheezing and she is being admitted in this setting for further treatment. She also received IV fluid bolus for systolic blood pressures at the lower end of normal with improvement. Review of Systems Review of Systems: 12 systems were reviewed and are negative except for as per HPI. [facility] Past Medical History Medical History (Updated 04/21/24 @ 20:00 by Celine Sidhu PA-C) Chronic kidney disease, stage 3 Chronic anticoagulation Deafness in right ear Adrenal insufficiency Gout Gastroesophageal reflux disease Obstructive sleep apnea Depression with anxiety Bipolar disorder Chronic obstructive pulmonary disease Atrial fibrillation Hyperlipidemia Hypothyroidism Migraines Surgical History Surgical History History of ear surgery Right ear surgery, reportedly for Meniere's disease, which left her deaf. History of cataract extraction with lens replacement History of excision of pilonidal cyst History of appendectomy History of cholecystectomy History of permanent cardiac pacemaker placement Family History Family History Other Unknown family medical history Social History Social History Social History: Surrogate medical decision maker: Nadira López, daughter. Code status: Full code. Smoking packs per day: 0.5 Smoking cigarettes per day: 10.0 Years smoked: 34 Smoking pack-years: 17.00 Smoking status: Former smoker Tobacco type: cigarettes Second hand tobacco smoke exposure: No Smoking end date: 12/06/01 Alcohol intake: never Drinks per week: 0 Substance use: never Substance use type: does not use Do You Feel Safe in your Home?: Yes Lack of Transportation: No Lack of Food: Never True Current Housing: I Have Housing Concerned About Future Housing: No Difficulty Paying Gas/Electric Bills: No Difficulty Paying for Meds: No Currently Unemployed: No Education: High School Diploma/GED Difficulty w/ Childcare or Family Care: No Additional living arrangements comments: Resident at [facility]. Originally from [facility]. 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 Spiritual care concerns: No Meds Home Medications and Allergies Home Medications ?Medication ?Instructions ?Recorded ?Confirmed ?Type atorvastatin 40 mg tablet (Lipitor) 40 mg PO HS 03/02/21 04/21/24 History bisacodyl 10 mg rectal suppository 10 mg RECTAL DAILY PRN Constipation 03/02/21 04/21/24 History fluticasone propionate 50 2 spray intranasal DAILY 03/02/21 04/21/24 History mcg/actuation nasal spray,suspension gabapentin 400 mg capsule 400 mg PO HS 03/02/21 04/21/24 History polyethylene glycol 3350 17 gram 17 g PO DAILY Constipation 03/02/21 04/21/24 History oral powder packet (Miralax) primidone 50 mg tablet 150 mg PO HS 03/02/21 04/21/24 History sertraline 100 mg tablet (Zoloft) 150 mg PO HS 03/02/21 04/21/24 History calcium carbonate 500 mg PO DAILY PRN Acid Reflux 11/05/21 04/21/24 History cetirizine 5 mg tablet 5 mg PO DAILY 11/05/21 04/21/24 History cholecalciferol (vitamin D3) 50 50 mcg PO DAILY 11/05/21 04/21/24 History mcg (2,000 unit) tablet latanoprost 0.005 % eye drops 1 drp EACH EYE HS 11/05/21 04/21/24 History (Xalatan) albuterol sulfate 90 mcg/actuation 1 inh inhalation QID PRN Shortness 12/22/21 04/21/24 History breath activated powder Of Breath Or Wheezing inhaler,sensor allopurinol 100 mg tablet 100 mg PO TID 12/22/21 04/21/24 History levothyroxine 150 mcg tablet 200 mcg PO 0600 12/22/21 04/21/24 History (Synthroid) diclofenac sodium 3 % topical gel 1 applic topical QID PRN Pain #1 g 12/25/21 04/21/24 Rx furosemide 40 mg tablet 40 mg PO DAILY #1 tablet 12/25/21 04/21/24 Rx ipratropium 0.5 mg-albuterol 3 mg 3 ml inhalation Q6H PRN Congestion 09/02/22 04/21/24 History (2.5 mg base)/3 mL nebulization soln tamsulosin 0.4 mg capsule 0.4 mg PO DAILY #30 caps 09/05/22 04/21/24 Rx Lactobacillus acidophilus 100 mg PO Q12H 04/09/23 04/21/24 History (Acidophilus capsule) apixaban 5 mg tablet (Eliquis) 5 mg PO BID 04/09/23 04/21/24 History metoprolol tartrate 50 mg tablet 100 mg PO Q12H 04/09/23 04/21/24 History nystatin 100,000 unit/gram topical 1 applic topical Q12H 04/09/23 04/21/24 History powder acetaminophen 325 mg tablet 325 mg PO Q6H PRN Pain (Scale 08/12/23 04/21/24 History Score 1-3) bupropion HCl 150 mg 24 hr tablet, 150 mg PO QAM 08/12/23 04/21/24 History extended release (Wellbutrin XL) divalproex 125 mg tablet,delayed 500 mg PO HS 08/12/23 04/21/24 History release multivitamin [id number]-tlfjcnk 1 tablet PO DAILY 08/12/23 04/21/24 History fumarate 18 mg-vitamin K 25 mcg tablet Allergies Allergy/AdvReac Type Severity Reaction Status Date / Time Latex, Natural Rubber Allergy Unknown Verified 04/21/24 10:09 morphine Allergy Flushing Verified 04/21/24 10:09 Sulfa (Sulfonamide Allergy Hives Verified 04/21/24 10:09 Antibiotics) Vital Signs Vital Signs - 24 hr 04/21/24 09:44 04/21/24 09:56 04/21/24 09:56 Temperature 97.7 F Pulse Rate 86 89 Respiratory Rate 25 H Blood Pressure Pulse Oximetry 98 95 Oxygen Delivery Room Air Room Air 04/21/24 09:56 04/21/24 09:57 04/21/24 10:00 Temperature Pulse Rate 88 98 79 Respiratory Rate 20 19 16 Blood Pressure 160/93 H Pulse Oximetry 96 97 95 Oxygen Delivery 04/21/24 10:15 04/21/24 10:30 04/21/24 10:31 Temperature Pulse Rate 93 95 91 Respiratory Rate 17 21 H 17 Blood Pressure 153/94 H Pulse Oximetry 96 96 Oxygen Delivery 04/21/24 10:45 04/21/24 10:45 04/21/24 11:00 Temperature Pulse Rate 80 88 77 Respiratory Rate 16 21 H 16 Blood Pressure Pulse Oximetry Oxygen Delivery 04/21/24 11:01 04/21/24 11:06 04/21/24 11:15 Temperature Pulse Rate 84 93 96 Respiratory Rate 18 18 18 Blood Pressure 145/89 H Pulse Oximetry Oxygen Delivery 04/21/24 11:27 04/21/24 11:30 04/21/24 11:31 Temperature Pulse Rate 108 H 98 97 Respiratory Rate 21 H 22 H 22 H Blood Pressure 145/89 H 137/85 Pulse Oximetry 92 92 Oxygen Delivery 04/21/24 11:45 04/21/24 12:00 04/21/24 12:01 Temperature Pulse Rate 98 89 103 H Respiratory Rate 18 17 17 Blood Pressure 95/61 L Pulse Oximetry 90 89 L 89 L Oxygen Delivery 04/21/24 12:15 04/21/24 12:29 04/21/24 12:30 Temperature Pulse Rate 89 87 101 H Respiratory Rate 15 17 19 Blood Pressure 96/59 L 90/62 L Pulse Oximetry 87 L 88 L 87 L Oxygen Delivery 04/21/24 12:31 04/21/24 12:44 04/21/24 12:44 Temperature 97.8 F Pulse Rate 88 85 91 Respiratory Rate 15 16 16 Blood Pressure 113/65 113/65 Pulse Oximetry 89 L 100 100 Oxygen Delivery 04/21/24 12:45 04/21/24 14:14 04/21/24 14:35 Temperature 98.4 F Pulse Rate 90 81 84 Respiratory Rate 14 13 16 Blood Pressure 98/59 L Pulse Oximetry 100 100 Oxygen Delivery 04/21/24 14:55 04/21/24 15:14 04/21/24 15:36 Temperature 97.9 F Pulse Rate 93 103 H 98 Respiratory Rate 12 14 17 Blood Pressure 115/59 L 100/56 L Pulse Oximetry 97 96 Oxygen Delivery 04/21/24 16:23 Temperature 97.6 F Pulse Rate 93 Respiratory Rate 20 Blood Pressure 96/70 L Pulse Oximetry 99 Oxygen Delivery Exam Narrative: General:?Chronically ill-appearing female in the semi-Wiggins position in bed in no distress. Weight: 79.4 kg. BMI: 26.6. HEENT:?Hard of hearing. PERRL, EOMI. Sclera anicteric. Dry mucous membranes. Multiple missing teeth. Neck:??Supple. No JVD or lymphadenopathy. Respiratory:?Respirations are nonlabored. Lung sounds are diminished at the bases with diffuse expiratory wheezing. Cardiovascular:??Irregularly irregular rate and rhythm. Soft murmur at the upper sternal border. Gastrointestinal:??Abdomen is soft, nontender, and nondistended with positive bowel sounds. Skin:??Warm and dry. Generalized pallor. Extremities:??No cyanosis, clubbing, or significant edema. Radial and pedal pulses intact. Neurological:??Alert and oriented.? Cranial nerves 2-12 are grossly intact. She processes questions slowly but is able to provide a good history and speech is clear. No facial asymmetry. Generally weak without gross focal findings. Psychiatric:??Pleasant and cooperative with appropriate mood and affect. Seems in good spirits. H&P: Results Labs Labs: Short CBC 04/21/24 Range/Units 10:35 WBC 7.2 (4.5-10.0) K/mm3 Hgb 13.9 (12.0-15.0) g/dL Hct 42.9 (37.0-47.0) % Plt Count 150 (150-375) k/mm3 BMP 04/21/24 10:35 Sodium 138 Potassium 4.3 Chloride 101 Carbon Dioxide 35 H BUN 23 H Creatinine 1.20 H Glucose 116 H Calcium 10.5 H Cardiac Enzymes 04/21/24 04/21/24 04/21/24 Range/Units 10:35 13:10 16:28 Troponin I < 0.012 < 0.012 < 0.012 (0.000-0.034) ng/mL Liver Function 04/21/24 Range/Units 10:35 Total Bilirubin 0.8 (0.2-1.3) mg/dL AST 28 (14-36) U/L ALT 16 (6-35) U/L Alkaline Phosphatase 151 H (38-126) U/L Albumin 3.8 (3.5-5.1) g/dL Imaging Chest X-Ray 04/21/24 11:21 Impression: Clear lungs. Chest CTA 04/21/24 13:57 Impression: No evidence of pulmonary embolus, aortic dissection, or aortic aneurysm. Clear lungs. Assessment and Plan Assessment and plan (1) Acute exacerbation of chronic obstructive pulmonary disease: Code(s): J44.1 - Chronic obstructive pulmonary disease with (acute) exacerbation Status: Acute (2) Adrenal insufficiency: Code(s): E27.40 - Unspecified adrenocortical insufficiency Status: Acute (3) Atrial fibrillation: Code(s): I48.91 - Unspecified atrial fibrillation Status: Chronic (4) Chronic anticoagulation: Code(s): Z79.01 - long term (current) use of anticoagulants Status: Acute (5) Chronic kidney disease, stage 3: Code(s): N18.30 - Chronic kidney disease, stage 3 unspecified Status: Acute (6) Hypothyroidism: Code(s): E03.9 - Hypothyroidism, unspecified Status: Acute (7) Psychiatric illness: Code(s): F99 - Mental disorder, not otherwise specified Status: Acute Plan The patient presented to the emergency department for evaluation of cough, wheezing, and shortness of breath as detailed in HPI. Labs, imaging, EKG, and all reports were personally reviewed. Clinically she has a COPD exacerbation and she has been started on scheduled bronchodilators and steroids. Continue maintenance inhalers. Her blood pressures were at the lower end of normal upon arrival and she has a diagnosis of adrenal insufficiency though I do not see that she is on steroids. At this time she has no electrolyte abnormalities and blood pressures are stable after receiving IV fluids. She is in chronic atrial fibrillation and is rate controlled on metoprolol which will be continued with parameters. Continue apixaban for stroke prophylaxis. Renal function is stable on review of previous labs. Continue levothyroxine and check TSH. Mood is stable. Her home medications will be reviewed and resumed as appropriate. Findings and treatment plan were discussed with the patient. Questions were solicited and answered to satisfaction. The patient's medical management will be taken over by the hospitalist team in a.m. Quality VTE Prophylaxis VTE prophylaxis: pharmacologic ordered (on apxiaban) The patient has been admitted under observation status. Hospitalist MIPS Advance Care Plan I have confirmed that the patient's Advanced Care Plan is present, code status is documented, or surrogate decision maker is listed in patient medical record.: Yes Medication Reconciliation I have utilized all available resources to obtain, update and review the patients current medications (includes all prescriptions, OTC, herbals, cannabis, and nutritional supplements).: Yes
--- NOTE | 2024-04-21 19:42 | ADMGEN ---
This patient, Carissa Castro, was admitted to [facility] Room 322-02. Patient/family oriented to hospital policies and general routines including ID bracelet, bed and alarms, visiting hours, pain management, procedures, bathroom and other care routines, personal items, smoking policy, room service/diet, and visiting hours. Information on how to activate the Rapid Response Team has been discussed. Patient/Family are encouraged to report perceived risks to care and to ask questions if they do not understand what they are told or what they should do.
[2024-04-21] MEDS: METOPROLOL TARTRATE 50 MG TAB 100 MG PO (21:39)
[2024-04-21] MEDS: ACIDOPHILUS/BULGARICUS CHEWABLE TABLET 1 TABLET PO (21:39)
[2024-04-21] MEDS: PRIMIDONE 50 MG TABLET 150 MG PO (21:40)
[2024-04-21] MEDS: ATORVASTATIN 40 MG TABLET PO (21:40)
[2024-04-21] MEDS: APIXABAN 5 MG TABLET PO (21:40)
[2024-04-21] MEDS: GABAPENTIN 400 MG CAPSULE PO (21:40)
[2024-04-21] MEDS: allopurinoL 100 MG TABLET PO (21:40)
[2024-04-21] MEDS: DIVALPROEX SODIUM DR 250 MG TABEC 500 MG PO (21:40)
[2024-04-21] MEDS: SERTRALINE HCL 50 MG TABLET 150 MG PO (21:41)
[2024-04-21] MEDS: LATANOPROST 0.005% OP SOLN 2.5 ML BTL 1 DROP EACH EYE (21:49)
[2024-04-22] VITALS (13 sets, daily range): BP systolic 129–145; BP diastolic 74–91; PULSE 79–98; RESP 18–20; TEMP 36.4–36.5; O2SAT 94–100
[2024-04-22] MEDS: LEVOTHYROXINE SODIUM 100 MCG TABLET 200 MCG PO (05:51)
[2024-04-22 06:28] LABS: Hematocrit 39.1 % (37.0-47.0); Hemoglobin 12.5 g/dL (12.0-15.0); Mean Platelet Volume 9.9 fl (7.4-10.4); Platelet Count Result 160 k/mm3 (150-375); Red Blood Count 4.03 M/mm3 (4.2-5.4); Red Cell Distribution Width 14.6 % (11.5-14.5); White Blood Count 6.2 K/mm3 (4.5-10.0)
[2024-04-22] MEDS: IPRATROPIUM 0.5 MG/ALBUTEROL SULFATE 2.5 MG AMPUL.NEB 3 ML INHALATION ×3 (07:00→21:29)
[2024-04-22 07:07] LABS: Anion Gap 3 mmol/L (4-12); Blood Urea Nitrogen 21 mg/dL (7-17); Calcium 10.1 mg/dL (8.4-10.2); Carbon Dioxide 29 mmol/L (22-30); Chloride 107 mmol/L (98-107); Estimated CRCL calculation 43 ml/min; Estimated Glomerular Filt Rate 60; Glucose 102 mg/dL (65-110); Magnesium 1.5 mg/dL (1.6-2.3); Potassium 4.5 mmol/L (3.4-5.0); Sodium 139 mmol/L (137-145)
[2024-04-22 07:16] LABS: Thyroid Stimulating Hormone Reflex 0.325 uIU/mL (0.465-4.68)
--- NOTE | 2024-04-22 07:56 | PM.IMPN ---
Progress Note: A&P Assessment and Plan (1) Acute exacerbation of chronic obstructive pulmonary disease: Code(s): J44.1 - Chronic obstructive pulmonary disease with (acute) exacerbation Status: Acute Assessment and Plan: Given IV Solu-Medrol x1, transition to oral prednisone DuoNebs Azithromycin Guaifenesin (2) Adrenal insufficiency: Code(s): E27.40 - Unspecified adrenocortical insufficiency Status: Acute Assessment and Plan: Not on home steroids (3) Atrial fibrillation: Code(s): I48.91 - Unspecified atrial fibrillation Status: Chronic Assessment and Plan: Restart Eliquis, Lipitor and metoprolol (4) Chronic anticoagulation: Code(s): Z79.01 - correction (current) use of anticoagulants Status: Acute Assessment and Plan: Restarted Eliquis (5) Chronic kidney disease, stage 3: Code(s): N18.30 - Chronic kidney disease, stage 3 unspecified Status: Acute Assessment and Plan: Daily BMP (6) Hypothyroidism: Code(s): E03.9 - Hypothyroidism, unspecified Status: Acute Assessment and Plan: Restarted levothyroxine TSH and total T3 low (7) Psychiatric illness: Code(s): F99 - Mental disorder, not otherwise specified Status: Acute Assessment and Plan: Restarted Wellbutrin, Zoloft and Depakote Plan The patient presented to the emergency department for evaluation of cough, wheezing, and shortness of breath as detailed in HPI. Labs, imaging, EKG, and all reports were personally reviewed. Clinically she has a COPD exacerbation and she has been started on scheduled bronchodilators and steroids. Continue maintenance inhalers. Her blood pressures were at the lower end of normal upon arrival and she has a diagnosis of adrenal insufficiency though I do not see that she is on steroids. At this time she has no electrolyte abnormalities and blood pressures are stable after receiving IV fluids. She is in chronic atrial fibrillation and is rate controlled on metoprolol which will be continued with parameters. Continue apixaban for stroke prophylaxis. Renal function is stable on review of previous labs. Continue levothyroxine and check TSH. Mood is stable. Time Spent With Patient Time with patient: Greater than 35 minutes Subjective Date/time seen: 04/22/24 07:56 Interval history: 83-year-old female with chronic obstructive pulmonary disease on p.r.n. oxygen, essential tremors, executive dysfunction, persistent atrial fibrillation, hypertension, sleep apnea, gastroesophageal reflux disease, hypothyroidism, adrenal insufficiency, chronic kidney disease, anemia, anxiety, and bipolar disorder who presented to the emergency department via EMS from [facility] with complaints of shortness of breath. TSH and total T3 low, free T4 within normal limits UA pending Review of Systems Review of Systems: 12 systems were reviewed and are negative except for as per HPI. Exam Narrative: General:?Chronically ill-appearing female in the semi-Wiggins position in bed in no distress. Weight: 79.4 kg. BMI: 26.6. HEENT:?Hard of hearing. PERRL, EOMI. Sclera anicteric. Dry mucous membranes. Multiple missing teeth. Neck:??Supple. No JVD or lymphadenopathy. Respiratory:?Respirations are nonlabored. Lung sounds course Cardiovascular:??Irregularly irregular rate and rhythm. Soft murmur at the upper sternal border. Gastrointestinal:??Abdomen is soft, nontender, and nondistended with positive bowel sounds. Skin:??Warm and dry. Generalized pallor. Extremities:??No cyanosis, clubbing, or significant edema. Radial and pedal pulses intact. Neurological:??Alert and oriented.? Cranial nerves 2-12 are grossly intact. She processes questions slowly but is able to provide a good history and speech is clear. No facial asymmetry. Generally weak without gross focal findings. Psychiatric:??Pleasant and cooperative with appropriate mood and affect. Seems in good spirits. Hearing aid battery is , daughter call at request of patient Objective Data Vital Signs Vital Signs: Vital Signs - 24 hr 04/21/24 09:44 04/21/24 09:56 04/21/24 09:56 Temperature 97.7 F Pulse Rate 86 89 Respiratory Rate 25 H Blood Pressure Pulse Oximetry 98 95 Oxygen Delivery Room Air Room Air Oxygen Flow Rate 04/21/24 09:56 04/21/24 09:57 04/21/24 10:00 Temperature Pulse Rate 88 98 79 Respiratory Rate 20 19 16 Blood Pressure 160/93 H Pulse Oximetry 96 97 95 Oxygen Delivery Oxygen Flow Rate 04/21/24 10:15 04/21/24 10:30 04/21/24 10:31 Temperature Pulse Rate 93 95 91 Respiratory Rate 17 21 H 17 Blood Pressure 153/94 H Pulse Oximetry 96 96 Oxygen Delivery Oxygen Flow Rate 04/21/24 10:45 04/21/24 10:45 04/21/24 11:00 Temperature Pulse Rate 80 88 77 Respiratory Rate 16 21 H 16 Blood Pressure Pulse Oximetry Oxygen Delivery Oxygen Flow Rate 04/21/24 11:01 04/21/24 11:06 04/21/24 11:15 Temperature Pulse Rate 84 93 96 Respiratory Rate 18 18 18 Blood Pressure 145/89 H Pulse Oximetry Oxygen Delivery Oxygen Flow Rate 04/21/24 11:27 04/21/24 11:30 04/21/24 11:31 Temperature Pulse Rate 108 H 98 97 Respiratory Rate 21 H 22 H 22 H Blood Pressure 145/89 H 137/85 Pulse Oximetry 92 92 Oxygen Delivery Oxygen Flow Rate 04/21/24 11:45 04/21/24 12:00 04/21/24 12:01 Temperature Pulse Rate 98 89 103 H Respiratory Rate 18 17 17 Blood Pressure 95/61 L Pulse Oximetry 90 89 L 89 L Oxygen Delivery Oxygen Flow Rate 04/21/24 12:15 04/21/24 12:29 04/21/24 12:30 Temperature Pulse Rate 89 87 101 H Respiratory Rate 15 17 19 Blood Pressure 96/59 L 90/62 L Pulse Oximetry 87 L 88 L 87 L Oxygen Delivery Oxygen Flow Rate 04/21/24 12:31 04/21/24 12:44 04/21/24 12:44 Temperature 97.8 F Pulse Rate 88 85 91 Respiratory Rate 15 16 16 Blood Pressure 113/65 113/65 Pulse Oximetry 89 L 100 100 Oxygen Delivery Oxygen Flow Rate 04/21/24 12:45 04/21/24 14:14 04/21/24 14:35 Temperature 98.4 F Pulse Rate 90 81 84 Respiratory Rate 14 13 16 Blood Pressure 98/59 L Pulse Oximetry 100 100 Oxygen Delivery Oxygen Flow Rate 04/21/24 14:55 04/21/24 15:14 04/21/24 15:36 Temperature 97.9 F Pulse Rate 93 103 H 98 Respiratory Rate 12 14 17 Blood Pressure 115/59 L 100/56 L Pulse Oximetry 97 96 Oxygen Delivery Oxygen Flow Rate 04/21/24 16:23 04/21/24 17:45 04/21/24 17:47 Temperature 97.6 F 97.9 F Pulse Rate 93 75 103 H Respiratory Rate 20 14 Blood Pressure 96/70 L 101/68 Pulse Oximetry 99 99 Oxygen Delivery Oxygen Flow Rate 04/21/24 18:00 04/21/24 18:15 04/21/24 20:00 Temperature 97.6 F Pulse Rate 100 90 Respiratory Rate 16 Blood Pressure 128/79 Pulse Oximetry 96 100 Oxygen Delivery Nasal Cannula Oxygen Flow Rate 2 04/21/24 20:43 04/21/24 21:39 04/22/24 00:00 Temperature 97.6 F Pulse Rate 92 82 81 Respiratory Rate 18 Blood Pressure 143/79 H Pulse Oximetry 98 Oxygen Delivery Oxygen Flow Rate 04/22/24 04:00 04/22/24 05:30 Temperature 97.6 F Pulse Rate 83 87 Respiratory Rate 18 Blood Pressure 145/91 H Pulse Oximetry 95 Oxygen Delivery Oxygen Flow Rate Intake/Output Intake/Output: Intake & Output 04/19/24 04/20/24 04/21/24 04/22/24 23:59 23:59 23:59 23:59 Intake Total 1250 100 Output Total 300 Balance 1250 -200 Meds/Results Medications: Active Medications Generic Name Dose Route Start Last Admin Trade Name Freq PRN Reason Stop Dose Admin Acetaminophen 650 mg 04/21/24 20:03 Acetaminophen 325 Mg Tablet PO Q6H PRN Mild Pain (1-3) or Fever Albuterol/Ipratropium 3 ml 04/22/24 02:00 Ipratropium 0.5 Mg/Albuterol Sulfate 2.5 Mg Ampul.Neb 3 Ml INHALATION Q6HRT JILL Allopurinol 100 mg 04/21/24 20:35 04/21/24 21:40 Allopurinol 100 Mg Tablet PO 100 mg TID JILL Administration Apixaban 5 mg 04/21/24 21:00 04/21/24 21:40 Apixaban 5 Mg Tablet PO 5 mg Q12HR JILL Administration Atorvastatin Calcium 40 mg 04/21/24 21:00 04/21/24 21:40 Atorvastatin 40 Mg Tablet PO 40 mg HS JILL Administration Azithromycin 250 mg 04/22/24 09:00 Azithromycin 250 Mg Tablet PO 04/25/24 09:01 DAILY JILL Bupropion HCl 150 mg 04/22/24 09:00 Bupropion Hcl Xl (24 Hr) 150 Mg Tabcr PO QAM JILL Calcium Carbonate 500 mg 04/21/24 20:05 Calcium Carbonate (Tums) 500 Mg (200 Mg Elemental) PO DAILY PRN Acid Reflux Divalproex Sodium 500 mg 04/21/24 21:00 04/21/24 21:[address] 250 Mg Tabec PO 500 mg HS [facility] Administration Fluticasone Propionate 2 spray 04/22/24 09:00 Fluticasone Propionate 0.05% Na Spr 16 Gm Btl (*Bkc) NASAL DAILY JILL Gabapentin 400 mg 04/21/24 21:00 04/21/24 21:40 Gabapentin 400 Mg Capsule PO 400 mg HS [facility] Administration Lactobacillus Acidophilus 1 tablet 04/21/24 21:00 04/21/24 21:39 Acidophilus/Bulgaricus Chewable Tablet PO 1 tablet Q12H JILL Administration Latanoprost 1 drop 04/21/24 21:00 04/21/24 21:49 Latanoprost 0.005% Op Soln 2.5 Ml Btl EACH EYE 1 drop HS [facility] Administration Levothyroxine Sodium 200 mcg 04/22/24 06:00 04/22/24 05:51 Levothyroxine Sodium 100 Mcg Tablet PO 200 mcg DAILY@0600 [facility] Administration Loratadine 5 mg 04/22/24 09:00 Loratadine 5 Mg Tablet PO DAILY [facility] Metoprolol Tartrate 100 mg 04/21/24 21:00 04/21/24 21:39 Metoprolol Tartrate 50 Mg Tab PO 100 mg Q12H [facility] Administration Miscellaneous Information 1 each 04/22/24 00:01 Diclofenac Gel 3% Nonform; Can Pt Use From Home Or Pharmacy Carries 1% Gel XX 05/22/24 00:00 CLARIFY [facility] Multivitamins/Calcium 1 tablet 04/22/24 09:00 Therapeutic Multivitamins/Minerals Tab (*Bkc) PO DAILY [facility] Non-Formulary Medication 1 applic 04/21/24 20:05 Diclofenac Sodium TOPICAL QID PRN Pain Polyethylene Glycol 17 gm 04/22/24 09:00 Polyethylene Glycol 3350 17 Gm Powd.Pack PO DAILY [facility] Prednisone 40 mg 04/22/24 08:00 Prednisone 20 Mg Tablet PO 04/27/24 07:59 DAILY@0800 [facility] Primidone 150 mg 04/21/24 21:00 04/21/24 21:40 Primidone 50 Mg Tablet PO 150 mg HS [facility] Administration Sertraline HCl 150 mg 04/21/24 21:00 04/21/24 21:41 Sertraline Hcl 50 Mg Tablet PO 150 mg HS JILL Administration Tamsulosin HCl 0.4 mg 04/22/24 09:00 Tamsulosin Hcl 0.4 Mg Capsule PO DAILY [facility] Vitamin D 2,000 units 04/22/24 09:00 Cholecalciferol 1,000 Units Tablet PO DAILY [facility] Radiology Results: ITS Impressions Chest X-Ray 04/21/24 11:21 Impression: Clear lungs. Chest CTA 04/21/24 13:57 Impression: No evidence of pulmonary embolus, aortic dissection, or aortic aneurysm. Clear lungs. Labs Labs: Laboratory Results - last 24 hr 04/21/24 04/21/24 04/21/24 10:35 13:10 16:28 WBC 7.2 RBC 4.41 Hgb 13.9 Hct 42.9 MCV 97.3 MCH 31.5 MCHC 32.4 RDW 14.8 H Plt Count 150 MPV 10.2 Immature Gran % (Auto) 0.1 Neut % (Auto) 74.5 H Lymph % (Auto) 16.4 L [place] % (Auto) 7.0 Eos % (Auto) 1.7 Baso % (Auto) 0.3 Lymph # (Auto) 1.19 [place] # (Auto) 0.5 Eos # (Auto) 0.1 Baso # (Auto) 0.0 Abs Immat Gran (auto) 0.01 Absolute Neuts (auto) 5.4 Absolute Nucleated RBC 0.000 Nucleated RBC % 0.0 PT 14.7 INR 1.1 APTT 34.4 Sodium 138 Potassium 4.3 Chloride 101 Carbon Dioxide 35 H Anion Gap 2 L BUN 23 H Creatinine 1.20 H Estim Creat Clear Calc 33 Estimated GFR 43 L Glucose 116 H Calcium 10.5 H Magnesium Total Bilirubin 0.8 AST 28 ALT 16 Alkaline Phosphatase 151 H Troponin I < 0.012 < 0.012 < 0.012 NT-Pro-B Natriuret Pep 2050 H Total Protein 7.0 Albumin 3.8 TSH (Reflex) Influenza A (RT-PCR) Negative Influenza B (RT-PCR) Negative RSV (RT-PCR) Negative SARS-CoV-2 RNA (RT-PCR) Negative 04/22/24 06:16 WBC 6.2 RBC 4.03 L Hgb 12.5 Hct 39.1 MCV 97.0 MCH 31.0 MCHC 32.0 RDW 14.6 H Plt Count 160 MPV 9.9 Immature Gran % (Auto) Neut % (Auto) Lymph % (Auto) [place] % (Auto) Eos % (Auto) Baso % (Auto) Lymph # (Auto) [place] # (Auto) Eos # (Auto) Baso # (Auto) Abs Immat Gran (auto) Absolute Neuts (auto) Absolute Nucleated RBC Nucleated RBC % PT INR APTT Sodium 139 Potassium 4.5 Chloride 107 Carbon Dioxide 29 Anion Gap 3 L BUN 21 H Creatinine 0.90 Estim Creat Clear Calc 43 Estimated GFR 60 Glucose 102 Calcium 10.1 Magnesium 1.5 L Total Bilirubin AST ALT Alkaline Phosphatase Troponin I NT-Pro-B Natriuret Pep Total Protein Albumin TSH (Reflex) 0.325 L Influenza A (RT-PCR) Influenza B (RT-PCR) RSV (RT-PCR) SARS-CoV-2 RNA (RT-PCR) Quality VTE Prophylaxis VTE prophylaxis: pharmacologic ordered (on apxiaban) Hospitalist MIPS Medication Reconciliation I have utilized all available resources to obtain, update and review the patients current medications (includes all prescriptions, OTC, herbals, cannabis, and nutritional supplements).: Yes
[2024-04-22 08:08] LABS: Free T4 Free Thyroxine Reflex 1.55 ng/dL (0.78-2.19)
[2024-04-22] MEDS: buPROPion HCL XL (24 HR) 150 MG TABCR PO (09:05)
[2024-04-22] MEDS: predniSONE 20 MG TABLET 40 MG PO (09:05)
[2024-04-22] MEDS: CHOLECALCIFEROL 1,000 UNITS TABLET 2000 UNITS PO (09:05)
[2024-04-22] MEDS: polyethylene glycoL 3350 17 GM POWD.PACK PO (09:05)
[2024-04-22] MEDS: THERAPEUTIC MULTIVITAMINS/MINERALS TAB (*BKC) 1 TABLET PO (09:05)
[2024-04-22] MEDS: TAMSULOSIN HCL 0.4 MG CAPSULE PO (09:05)
[2024-04-22] MEDS: METOPROLOL TARTRATE 50 MG TAB 100 MG PO ×2 (09:06→21:21)
[2024-04-22] MEDS: APIXABAN 5 MG TABLET PO ×2 (09:06→21:21)
[2024-04-22] MEDS: ACIDOPHILUS/BULGARICUS CHEWABLE TABLET 1 TABLET PO ×2 (09:06→21:20)
[2024-04-22] MEDS: AZITHROMYCIN 250 MG TABLET PO (09:06)
[2024-04-22] MEDS: allopurinoL 100 MG TABLET PO ×3 (09:08→18:51)
[2024-04-22] MEDS: FLUTICASONE PROPIONATE 0.05% NA SPR 16 GM BTL (*BKC) 2 SPRAY NASAL (09:15)
[2024-04-22 12:02] LABS: Total Triiodothyronine (T3) 0.73 NG/ML (0.97-1.69)
[2024-04-22] MEDS: MAGNESIUM SULF 1 GM/D5W 100 ML 1 GM/100 ML BAG IVPB (14:27)
--- NOTE | 2024-04-22 16:53 | PCSTNOTE ---
Please refer to the Bedside Swallow Evaluation in the EMR. Please note, silent aspiration cannot be ruled out at bedside.
[2024-04-22 18:07] LABS: Add Urine Microscopic? YES; Appearance Urine Clear (Clear); Bacteria Urine None Seen /hpf; Bilirubin Urine Negative (Negative); Blood Urine Negative (Negative); Color Urine Dark Yellow (Yellow); Glucose Urine UA Negative (Negative); Ketones Urine Negative (Negative); Leukocyte Esterase Ur Negative LEU/UL (Negative); Nitrate Urine Negative (Negative); Non Pathogenic Casts 0-2; Protein Urine 1+ mg/dL (Negative); RBC Urine 0-2 /hpf (0-2); Specific Grav Ur 1.031 (1.001-1.035); Squamous Epithelial Cell Urine None Seen /hpf (Few); WBC Urine 0-5 /hpf (0-3)
[2024-04-22] MEDS: ACETAMINOPHEN 325 MG TABLET 650 MG PO (18:50)
[2024-04-22] MEDS: guaiFENesin 12 HR 600 MG TABCR PO (21:20)
[2024-04-22] MEDS: PRIMIDONE 50 MG TABLET 150 MG PO (21:20)
[2024-04-22] MEDS: DIVALPROEX SODIUM DR 250 MG TABEC 500 MG PO (21:21)
[2024-04-22] MEDS: ATORVASTATIN 40 MG TABLET PO (21:22)
[2024-04-22] MEDS: GABAPENTIN 400 MG CAPSULE PO (21:22)
[2024-04-22] MEDS: SERTRALINE HCL 50 MG TABLET 150 MG PO (21:22)
[2024-04-22] MEDS: LATANOPROST 0.005% OP SOLN 2.5 ML BTL 1 DROP EACH EYE (21:25)
[2024-04-23] VITALS (14 sets, daily range): BP systolic 111–149; BP diastolic 71–82; PULSE 69–771; RESP 16–20; TEMP 35.7–36.6; O2SAT 96–98
[2024-04-23] MEDS: IPRATROPIUM 0.5 MG/ALBUTEROL SULFATE 2.5 MG AMPUL.NEB 3 ML INHALATION ×4 (02:19→22:00)
[2024-04-23] MEDS: LEVOTHYROXINE SODIUM 88 MCG TABLET PO (05:51)
[2024-04-23] MEDS: LEVOTHYROXINE SODIUM 100 MCG TABLET PO (05:51)
[2024-04-23] MEDS: allopurinoL 100 MG TABLET PO ×3 (08:46→17:37)
[2024-04-23] MEDS: THERAPEUTIC MULTIVITAMINS/MINERALS TAB (*BKC) 1 TABLET PO (08:46)
[2024-04-23] MEDS: METOPROLOL TARTRATE 50 MG TAB 100 MG PO ×2 (08:46→21:21)
[2024-04-23] MEDS: ACIDOPHILUS/BULGARICUS CHEWABLE TABLET 1 TABLET PO ×2 (08:46→21:21)
[2024-04-23] MEDS: CHOLECALCIFEROL 1,000 UNITS TABLET 2000 UNITS PO (08:46)
[2024-04-23] MEDS: predniSONE 20 MG TABLET 40 MG PO (08:47)
[2024-04-23] MEDS: LORATADINE 5 MG TABLET PO (08:47)
[2024-04-23] MEDS: FLUTICASONE PROPIONATE 0.05% NA SPR 16 GM BTL (*BKC) 2 SPRAY NASAL (08:47)
[2024-04-23] MEDS: buPROPion HCL XL (24 HR) 150 MG TABCR PO (08:47)
[2024-04-23] MEDS: guaiFENesin 12 HR 600 MG TABCR PO ×2 (08:47→21:21)
[2024-04-23] MEDS: APIXABAN 5 MG TABLET PO ×2 (08:47→21:21)
[2024-04-23] MEDS: TAMSULOSIN HCL 0.4 MG CAPSULE PO (08:47)
[2024-04-23] MEDS: polyethylene glycoL 3350 17 GM POWD.PACK PO (08:48)
[2024-04-23] MEDS: AZITHROMYCIN 250 MG TABLET PO (08:49)
[2024-04-23] MEDS: FUROSEMIDE 40 MG TABLET PO (12:17)
--- NOTE | 2024-04-23 15:42 | P.PNIM_ITS ---
Progress Note: A&P Assessment and Plan (1) Acute exacerbation of chronic obstructive pulmonary disease: Code(s): J44.1 - Chronic obstructive pulmonary disease with (acute) exacerbation Status: Acute Assessment and Plan: Given IV Solu-Medrol x1, transition to oral prednisone DuoNebs Azithromycin Guaifenesin (2) Dysphagia: Code(s): R13.10 - Dysphagia, unspecified Status: Acute Assessment and Plan: 04/23: Patient reports choking on liquids so she has decreased oral intake in response. Does not want to thicken liquids due to taste. Soft and bite sized diet (Level 6) with mildly thickened liquids (Level 2) ordered per Speech Therapy bedside swallow and clinical judgement. (3) Adrenal insufficiency: Code(s): E27.40 - Unspecified adrenocortical insufficiency Status: Acute Assessment and Plan: Not on home steroids (4) Atrial fibrillation: Code(s): I48.91 - Unspecified atrial fibrillation Status: Chronic Assessment and Plan: Restart Eliquis, Lipitor and metoprolol (5) Chronic anticoagulation: Code(s): Z79.01 - vermin exterminator (current) use of anticoagulants Status: Acute Assessment and Plan: Restarted Eliquis (6) Chronic kidney disease, stage 3: Code(s): N18.30 - Chronic kidney disease, stage 3 unspecified Status: Acute Assessment and Plan: Daily BMP (7) Hypothyroidism: Code(s): E03.9 - Hypothyroidism, unspecified Status: Acute Assessment and Plan: Restarted levothyroxine TSH and total T3 low (8) Psychiatric illness: Code(s): F99 - Mental disorder, not otherwise specified Status: Acute Assessment and Plan: Restarted Wellbutrin, Zoloft and Depakote Time Spent With Patient Time with patient: Greater than 35 minutes Subjective Date/time seen: 04/23/24 15:42 Interval history: Patient reports choking on liquids but not wanting to thicken liquids due to taste. Subsequently she has decreased how much she drinks to avoid choking. Patient does not remember why she can no longer ambulate independently like she remembers doing. Patient reports cough and reports neb treatments help. She reports wearing oxygen chronically at the [place] but not always wearing it. Review of Systems Review of Systems: All systems reviewed & are unremarkable except as noted in HPI and below Exam Narrative: General:?Chronically ill-appearing female in the semi-Wiggins position in bed in no distress. HEENT:?Hard of hearing. PERRL, EOMI. Sclera anicteric. Dry mucous membranes. Multiple missing teeth. Neck:??Supple. No JVD or lymphadenopathy. Respiratory:?Respirations are nonlabored. Lung sounds course Cardiovascular:??Irregularly irregular rate and rhythm. Soft murmur at the upper sternal border. Gastrointestinal:??Abdomen is soft, nontender, and nondistended with positive bowel sounds. Skin:??Warm and dry. Generalized pallor. Extremities:??No cyanosis, clubbing, or significant edema. Radial and pedal pulses intact. Neurological:??Alert and oriented.? Cranial nerves 2-12 are grossly intact. She processes questions slowly but is able to provide a good history and speech is clear. No facial asymmetry. Generally weak without gross focal findings. Psychiatric:??Pleasant and cooperative with appropriate mood and affect. Seems in good spirits. Objective Data Vital Signs Vital Signs: Vital Signs - 24 hr 04/22/24 16:00 04/22/24 20:00 04/22/24 21:21 Temperature Pulse Rate 85 79 81 Respiratory Rate Blood Pressure Pulse Oximetry Oxygen Delivery Oxygen Flow Rate 04/22/24 21:39 04/22/24 21:39 04/22/24 21:40 Temperature 36.4 C Pulse Rate 92 85 Respiratory Rate 18 18 Blood Pressure 137/80 Pulse Oximetry 100 97 Oxygen Delivery Nasal Cannula Oxygen Flow Rate 2 04/22/24 21:50 04/23/24 00:00 04/23/24 02:20 Temperature Pulse Rate 96 73 72 Respiratory Rate 18 16 Blood Pressure Pulse Oximetry Oxygen Delivery Oxygen Flow Rate 04/23/24 04:00 04/23/24 06:00 04/23/24 08:00 Temperature 36.6 C Pulse Rate 771 H 72 71 Respiratory Rate 18 Blood Pressure 149/82 H Pulse Oximetry 98 Oxygen Delivery Oxygen Flow Rate 04/23/24 08:09 04/23/24 08:09 04/23/24 08:19 Temperature Pulse Rate 70 70 69 Respiratory Rate 18 18 20 Blood Pressure Pulse Oximetry 97 Oxygen Delivery Nasal Cannula Oxygen Flow Rate 3 04/23/24 08:46 04/23/24 14:00 04/23/24 14:01 Temperature 35.7 C L Pulse Rate 72 69 71 Respiratory Rate 17 20 Blood Pressure 111/72 Pulse Oximetry 98 Oxygen Delivery Oxygen Flow Rate Intake/Output Intake/Output: Intake & Output 04/20/24 04/21/24 04/22/24 04/23/24 23:59 23:59 23:59 23:59 Intake Total 1250 578 360 Output Total 550 200 Balance 1250 28 160 Meds/Results Medications: Active Medications Generic Name Dose Route Start Last Admin Trade Name Freq PRN Reason Stop Dose Admin Acetaminophen 650 mg 04/21/24 20:03 04/22/24 18:50 Acetaminophen 325 Mg Tablet PO 650 mg Q6H PRN Administration Mild Pain (1-3) or Fever Albuterol 1 puff 04/22/24 12:37 Albuterol Sulfate (*Sp) Aerosol 1 Puff INHALATION QID PRN Shortness Of Breath Or Wheezing Albuterol/Ipratropium 3 ml 04/22/24 02:00 04/23/24 13:59 Ipratropium 0.5 Mg/Albuterol Sulfate 2.5 Mg Ampul.Neb 3 Ml INHALATION 3 ml Q6HRT JILL Administration Allopurinol 100 mg 04/21/24 20:35 04/23/24 12:17 Allopurinol 100 Mg Tablet PO 100 mg TID JILL Administration Apixaban 5 mg 04/21/24 21:00 04/23/24 08:47 Apixaban 5 Mg Tablet PO 5 mg Q12HR JILL Administration Atorvastatin Calcium 40 mg 04/21/24 21:00 04/22/24 21:22 Atorvastatin 40 Mg Tablet PO 40 mg HS JILL Administration Azithromycin 250 mg 04/22/24 09:00 04/23/24 08:49 Azithromycin 250 Mg Tablet PO 04/25/24 09:01 250 mg DAILY JILL Administration Bisacodyl 10 mg 04/22/24 12:25 Bisacodyl 10 Mg Suppository RECTAL DAILY PRN Constipation Bupropion HCl 150 mg 04/22/24 09:00 04/23/24 08:47 Bupropion Hcl Xl (24 Hr) 150 Mg Tabcr PO 150 mg QAM JILL Administration Calcium Carbonate 500 mg 04/21/24 20:05 Calcium Carbonate (Tums) 500 Mg (200 Mg Elemental) PO DAILY PRN Acid Reflux Divalproex Sodium 500 mg 04/21/24 21:00 04/22/24 21:[address] 250 Mg Tabec PO 500 mg HS JILL Administration Fluticasone Propionate 2 spray 04/22/24 09:00 04/22/24 09:15 Fluticasone Propionate 0.05% Na Spr 16 Gm Btl (*Bkc) NASAL 2 spray DAILY [facility] Administration Furosemide 40 mg 04/23/24 09:00 04/23/24 12:17 Furosemide 40 Mg Tablet PO 40 mg DAILY [facility] Administration Gabapentin 400 mg 04/21/24 21:00 04/22/24 21:22 Gabapentin 400 Mg Capsule PO 400 mg HS JILL Administration Guaifenesin 600 mg 04/22/24 21:00 04/23/24 08:47 Guaifenesin 12 Hr 600 Mg Tabcr PO 600 mg Q12HR JILL Administration Lactobacillus Acidophilus 1 tablet 04/21/24 21:00 04/23/24 08:46 Acidophilus/Bulgaricus Chewable Tablet PO 1 tablet Q12H JILL Administration Latanoprost 1 drop 04/21/24 21:00 04/22/24 21:25 Latanoprost 0.005% Op Soln 2.5 Ml Btl EACH EYE 1 drop HS [facility] Administration Levothyroxine Sodium 88 mcg 04/23/24 06:30 04/23/24 05:51 Levothyroxine Sodium 88 Mcg Tablet PO 88 mcg DAILY@0630 [facility] Administration Levothyroxine Sodium 100 mcg 04/23/24 06:30 04/23/24 05:51 Levothyroxine Sodium 100 Mcg Tablet PO 100 mcg DAILY@0630 [facility] Administration Loratadine 5 mg 04/22/24 09:00 04/23/24 08:47 Loratadine 5 Mg Tablet PO 5 mg DAILY [facility] Administration Metoprolol Tartrate 100 mg 04/21/24 21:00 04/23/24 08:46 Metoprolol Tartrate 50 Mg Tab PO 100 mg Q12H JILL Administration Miscellaneous Information 1 each 04/22/24 00:01 Diclofenac Gel 3% Nonform; Can Pt Use From Home Or Pharmacy Carries 1% Gel XX 05/22/24 00:00 CLARIFY REPLACED BY [facility] Multivitamins/Calcium 1 tablet 04/22/24 09:00 04/23/24 08:46 Therapeutic Multivitamins/Minerals Tab (*Bkc) PO 1 tablet DAILY JILL Administration Non-Formulary Medication 1 applic 04/21/24 20:05 Diclofenac Sodium TOPICAL QID PRN Pain Polyethylene Glycol 17 gm 04/22/24 09:00 04/23/24 08:48 Polyethylene Glycol 3350 17 Gm Powd.Pack PO 17 gm DAILY JILL Administration Prednisone 40 mg 04/22/24 08:00 04/23/24 08:47 Prednisone 20 Mg Tablet PO 04/27/24 07:59 40 mg DAILY@0800 JILL Administration Primidone 150 mg 04/21/24 21:00 04/22/24 21:20 Primidone 50 Mg Tablet PO 150 mg HS JILL Administration Sertraline HCl 150 mg 04/21/24 21:00 04/22/24 21:22 Sertraline Hcl 50 Mg Tablet PO 150 mg HS [facility]ILL Administration Tamsulosin HCl 0.4 mg 04/22/24 09:00 04/23/24 08:47 Tamsulosin Hcl 0.4 Mg Capsule PO 0.4 mg DAILY [facility] Administration Vitamin D 2,000 units 04/22/24 09:00 04/23/24 08:46 Cholecalciferol 1,000 Units Tablet PO 2,000 units DAILY [facility]ILL Administration Radiology Results: ITS Impressions Chest X-Ray 04/21/24 11:21 Impression: Clear lungs. Chest CTA 04/21/24 13:57 Impression: No evidence of pulmonary embolus, aortic dissection, or aortic aneurysm. Clear lungs. Labs Labs: Laboratory Results - last 24 hr 04/22/24 17:51 Urine Color Dark yellow Urine Appearance Clear Urine pH 8.0 Ur Specific [place] 1.031 Urine Protein 1+ H Urine Glucose (UA) Negative Urine Ketones Negative Ur Blood (Man) Negative Urine Nitrate Negative Urine Bilirubin Negative Urine Urobilinogen 1.0 Leukocyte Esterase Rfl Negative Urine RBC 0-2 Urine WBC 0-5 Ur Squamous Epith Cells None seen Urine Bacteria None seen Urine Casts 0-2 Pulse Oximetry SpO2 results: 97-98% on 2-3 LPM via [place] Attestation: I personally reviewed and interpreted this pulse oximetry as follows: Interpretation: Patient continues to require supplemental oxygenation Quality VTE Prophylaxis VTE prophylaxis: pharmacologic ordered (on apxiaban) Hospitalist [facility] Advance Care Plan I have confirmed that the patient's Advanced Care Plan is present, code status is documented, or surrogate decision maker is listed in patient medical record.: Yes Medication Reconciliation I have utilized all available resources to obtain, update and review the patients current medications (includes all prescriptions, OTC, herbals, cannabis, and nutritional supplements).: Yes
[2024-04-23] MEDS: ATORVASTATIN 40 MG TABLET PO (21:21)
[2024-04-23] MEDS: DIVALPROEX SODIUM DR 250 MG TABEC 500 MG PO (21:21)
[2024-04-23] MEDS: SERTRALINE HCL 50 MG TABLET 150 MG PO (21:21)
[2024-04-23] MEDS: GABAPENTIN 400 MG CAPSULE PO (21:21)
[2024-04-23] MEDS: PRIMIDONE 50 MG TABLET 150 MG PO (21:21)
[2024-04-23] MEDS: LATANOPROST 0.005% OP SOLN 2.5 ML BTL 1 DROP EACH EYE (21:27)
[2024-04-24] VITALS (9 sets, daily range): BP systolic 124–142; BP diastolic 66–96; PULSE 66–86; RESP 18–20; TEMP 36.1–36.2; O2SAT 98–100
[2024-04-24] MEDS: IPRATROPIUM 0.5 MG/ALBUTEROL SULFATE 2.5 MG AMPUL.NEB 3 ML INHALATION ×2 (02:47→13:52)
[2024-04-24] MEDS: LEVOTHYROXINE SODIUM 88 MCG TABLET PO (06:07)
[2024-04-24] MEDS: LEVOTHYROXINE SODIUM 100 MCG TABLET PO (06:08)
[2024-04-24 07:02] LABS: Basophils Percent Auto 0.3 % (0.2-1.2); Eosinophils Absolute Auto 0.1 K/mm3 (0-0.3); Eosinophils Percent Auto 0.8 % (0-4.4); Hematocrit 39.8 % (37.0-47.0); Hemoglobin 12.5 g/dL (12.0-15.0); Immature Granulocyte Absolute 0.02 K/mm3 (0.00-0.031); Immature Granulocyte Percent A 0.3 % (0-0.5); Lymphocytes Absolute Auto 2.48 K/mm3 (0.9-3.2); Lymphocytes Percent Auto 32.8 % (18.3-44.2); Mean Corpuscular HGB Conc 31.4 g/dl (32-36); Mean Corpuscular Hemoglobin 30.9 pg (26-34); Mean Corpuscular Volume 98.3 fl (80-100); Mean Platelet Volume 10.1 fl (7.4-10.4); Monocytes Absolute Auto 0.6 K/mm3 (0.1-0.6); Monocytes Percent Auto 7.3 % (2.6-8.5); Neutrophils Absolute Auto 4.4 K/mm3 (1.3-6.7); Neutrophils Percent Auto 58.5 % (45.5-73.1); Platelet Count Result 176 k/mm3 (150-375); Red Blood Count 4.05 M/mm3 (4.2-5.4); Red Cell Distribution Width 14.6 % (11.5-14.5); White Blood Count 7.6 K/mm3 (4.5-10.0)
[2024-04-24 07:06] LABS: Alanine Aminotransferase 39 U/L (6-35); Albumin Level 3.2 g/dL (3.5-5.1); Alkaline Phosphatase 127 U/L (38-126); Anion Gap -2 mmol/L (4-12); Aspartate Amino Transferase 51 U/L (14-36); Bilirubin,Total 0.5 mg/dL (0.2-1.3); Blood Urea Nitrogen 23 mg/dL (7-17); Calcium 10.4 mg/dL (8.4-10.2); Carbon Dioxide 35 mmol/L (22-30); Chloride 104 mmol/L (98-107); Estimated CRCL calculation 43 ml/min; Estimated Glomerular Filt Rate 60; Glucose 86 mg/dL (65-110); Magnesium 1.9 mg/dL (1.6-2.3); Potassium 4.7 mmol/L (3.4-5.0); Sodium 137 mmol/L (137-145)
[2024-04-24 07:15] LABS: NT Pro B Type Natriuretic Pept 3300 pg/mL (19.9-100)
[2024-04-24] MEDS: allopurinoL 100 MG TABLET PO ×2 (08:44→13:02)
[2024-04-24] MEDS: TAMSULOSIN HCL 0.4 MG CAPSULE PO (08:44)
[2024-04-24] MEDS: LORATADINE 5 MG TABLET PO (08:44)
[2024-04-24] MEDS: AZITHROMYCIN 250 MG TABLET PO (08:44)
[2024-04-24] MEDS: buPROPion HCL XL (24 HR) 150 MG TABCR PO (08:44)
[2024-04-24] MEDS: FUROSEMIDE 40 MG TABLET PO (08:44)
[2024-04-24] MEDS: predniSONE 20 MG TABLET 40 MG PO (08:44)
[2024-04-24] MEDS: ACIDOPHILUS/BULGARICUS CHEWABLE TABLET 1 TABLET PO (08:44)
[2024-04-24] MEDS: guaiFENesin 12 HR 600 MG TABCR PO (08:44)
[2024-04-24] MEDS: THERAPEUTIC MULTIVITAMINS/MINERALS TAB (*BKC) 1 TABLET PO (08:44)
[2024-04-24] MEDS: CHOLECALCIFEROL 1,000 UNITS TABLET 2000 UNITS PO (08:44)
[2024-04-24] MEDS: METOPROLOL TARTRATE 50 MG TAB 100 MG PO (08:44)
[2024-04-24] MEDS: APIXABAN 5 MG TABLET PO (08:44)
[2024-04-24] MEDS: polyethylene glycoL 3350 17 GM POWD.PACK PO (08:45)
[2024-04-24] MEDS: FLUTICASONE PROPIONATE 0.05% NA SPR 16 GM BTL (*BKC) 2 SPRAY NASAL (08:45)
--- NOTE | 2024-04-24 12:49 | P.DS_ITS ---
DS: Admitting Diagnosis Discharge Date 04/24/24 Admitting Diagnosis COPD Exacerbation, A-fib, CKD, Hypothyroidism DS: Discharge Diagnosis Discharge Diagnosis (1) Acute exacerbation of chronic obstructive pulmonary disease: Code(s): J44.1 - Chronic obstructive pulmonary disease with (acute) exacerbation Status: Acute Assessment and Plan: Given IV Solu-Medrol x1, transition to oral prednisone DuoNebs Azithromycin Guaifenesin 04/24/24: Pt stable on oral prednisone. Will have a taper dose for discharge today. Will complete a full course of Azithromycin and cough meds. (2) Dysphagia: Code(s): R13.10 - Dysphagia, unspecified Status: Acute Assessment and Plan: 04/23: Patient reports choking on liquids so she has decreased oral intake in response. Does not want to thicken liquids due to taste. Soft and bite sized diet (Level 6) with mildly thickened liquids (Level 2) ordered per Speech Therapy bedside swallow and clinical judgement. 04/24/24: Continue current level of dietary augmentations at discharge. (3) Adrenal insufficiency: Code(s): E27.40 - Unspecified adrenocortical insufficiency Status: Chronic Assessment and Plan: Not on home steroids (4) Atrial fibrillation: Code(s): I48.91 - Unspecified atrial fibrillation Status: Chronic Assessment and Plan: Restart Eliquis, Lipitor and metoprolol 04/24/24: Continue home meds. (5) Chronic anticoagulation: Code(s): Z79.01 - exterminator termite (current) use of anticoagulants Status: Acute Assessment and Plan: Restarted Eliquis 04/24/24: Continue home meds. (6) Chronic kidney disease, stage 3: Code(s): N18.30 - Chronic kidney disease, stage 3 unspecified Status: Acute Assessment and Plan: Daily BMP 04/24/24: Normal renal function with BUN/CR of 23/0.90 respectively. (7) Hypothyroidism: Code(s): E03.9 - Hypothyroidism, unspecified Status: Acute Assessment and Plan: Restarted levothyroxine TSH and total T3 low 04/24/24: Continue home meds (8) Psychiatric illness: Code(s): F99 - Mental disorder, not otherwise specified Status: Acute Assessment and Plan: Restarted Wellbutrin, Zoloft and Depakote 04/24/24: Continue home meds. DS: Summary Hospital Course Reason for hospitalization: COPD exacerbation Hospital Course: This 83 year old female pt with PMH of chronic obstructive pulmonary disease on p.r.n. oxygen, essential tremors, executive dysfunction, persistent atrial fibrillation, hypertension, sleep apnea, gastroesophageal reflux disease, hypothyroidism, adrenal insufficiency, chronic kidney disease, anemia, anxiety, and bipolar disorder who presented to the emergency department via EMS from [facility] with complaints of shortness of breath and was subsequently admitted for COPD exacerbation is now stable for discharge. She was admitted, received IV steroids, abx and nebulizer treatments with good recovery of her condition. She has an oxygen requirement at baseline and wears 2-3L. She has been treated and is now at her baseline oxygen requirement. She is stable to [facility] with a tapering dose of steroids, Azithromycin to complete a full course and cough meds. During her hospitalization, she did appear to have some choking when eating and therefore did not have a lot of po intake due to it. Speech evaluated and deemed her needing a soft and bite sized diet with mildly thickened liquids. No s/s of acute aspiration. Her chronic A- fib and other chronic co-morbidities have remained otherwise stable. Status at Discharge Cognitive/behavioral status at discharge: At baseline Functional status at discharge: uses cane/walker Overall status at discharge: patient is back to baseline Time Spent with Patient Time attestation: Total time spent providing and/or coordinating discharge services: Time spent: Greater than 30 minutes Specific discharge activities: follow up, medications Exam Narrative: General:?Chronically ill-appearing female in the semi-Wiggins position in bed in no distress. HEENT:?Hard of hearing. PERRL, EOMI. Sclera anicteric. Dry mucous membranes. Multiple missing teeth. Neck:??Supple. No JVD or lymphadenopathy. Respiratory:?Respirations are nonlabored. Lung sounds course Cardiovascular:??Irregularly irregular rate and rhythm. Soft murmur at the upper sternal border. Gastrointestinal:??Abdomen is soft, nontender, and nondistended with positive bowel sounds. Skin:??Warm and dry. Generalized pallor. Extremities:??No cyanosis, clubbing, or significant edema. Radial and pedal pulses intact. Neurological:??Alert and oriented.? Cranial nerves 2-12 are grossly intact. She processes questions slowly but is able to provide a good history and speech is clear. No facial asymmetry. Generally weak without gross focal findings. Psychiatric:??Pleasant and cooperative with appropriate mood and affect. Seems in good spirits. DS: Data Data Completed and Pending Completed studies during hospitalization: ITS Impressions Chest X-Ray 04/21/24 11:21 Impression: Clear lungs. Chest CTA 04/21/24 13:57 Impression: No evidence of pulmonary embolus, aortic dissection, or aortic aneurysm. Clear lungs. Chest X-Ray 04/24/24 07:15 Impression: Clear lungs. Possible COPD. Labs on day of discharge: Labs from last 24 hours 04/24/24 06:29 WBC 7.6 RBC 4.05 L Hgb 12.5 Hct 39.8 MCV 98.3 MCH 30.9 MCHC 31.4 L RDW 14.6 H Plt Count 176 MPV 10.1 Immature Gran % (Auto) 0.3 Neut % (Auto) 58.5 Lymph % (Auto) 32.8 [place] % (Auto) 7.3 Eos % (Auto) 0.8 Baso % (Auto) 0.3 Lymph # (Auto) 2.48 [place] # (Auto) 0.6 Eos # (Auto) 0.1 Baso # (Auto) 0.0 Abs Immat Gran (auto) 0.02 Absolute Neuts (auto) 4.4 Absolute Nucleated RBC 0.000 Nucleated RBC % 0.0 Sodium 137 Potassium 4.7 Chloride 104 Carbon Dioxide 35 H Anion Gap -2 L BUN 23 H Creatinine 0.90 Estim Creat Clear Calc 43 Estimated GFR 60 Glucose 86 Calcium 10.4 H Magnesium 1.9 Total Bilirubin 0.5 AST 51 H ALT 39 H Alkaline Phosphatase 127 H NT-Pro-B Natriuret Pep 3300 H Total Protein 6.0 L Albumin 3.2 L Discharge Plan Discharge Attending physician on discharge: Brandy Madsen Discharging Clinician: Brandy Madsen Anticipated Discharge Date/Time: 04/24/24 13:03 Patient Disposition: NH [facility]/As[facility] Living Activity: as tolerated Diet: other - see discharge instructions Discharge Instructions: Pt to have a soft diet with bite sized pieces of food and a mildly thickened liquids. Complete all medications as ordered. Follow up with PCP. Patient Instructions: Antibiotic Form, COPD (Chronic Obstructive Pulmonary Disease) (DC) Patient Language: Slovenian Stand Alone Forms: Mcfp Discharge Follow-up/Referrals: PHYSICIAN NOT ON STAFF,NONSTAFF [Primary Care Provider] - Discharge Medications: New azithromycin [Zithromax] 250 mg Tablet 250 mg PO DAILY Qty: 5 0RF guaifenesin [Mucus Relief ER] 600 mg Tablet Extended Release 12hr 600 mg PO Q12HR Qty: 14 0RF prednisone 20 mg Tablet 40 mg PO DAILY@0800 Qty: 7 0RF Continued atorvastatin [Lipitor] 40 mg Tablet 40 mg PO HS primidone 50 mg Tablet 150 mg PO HS polyethylene glycol 3350 [Miralax] 17 gram Powder In Packet 17 g PO DAILY gabapentin 400 mg Capsule 400 mg PO HS sertraline [Zoloft] 100 mg Tablet 150 mg PO HS Rx Instructions: total dose 150mg daily bisacodyl 10 mg Suppository 10 mg RECTAL DAILY PRN (Reason: Constipation) fluticasone propionate 50 mcg/actuation [place],Suspension 2 spray INTRANASAL DAILY levothyroxine [Synthroid] 150 mcg Tablet 200 mcg PO 0600 albuterol sulfate 90 mcg/actuation Aero Powdr Breath Act W/Sensor 1 inh INHALATION QID PRN (Reason: Shortness Of Breath Or Wheezing) allopurinol 100 mg tablet 100 mg PO TID furosemide 40 mg Tablet 40 mg PO DAILY Qty: 1 0RF diclofenac sodium 3 % Gel 1 applic TOPICAL QID PRN (Reason: Pain) Qty: 1 0RF Rx Instructions: rt hip ipratropium-albuterol 0.5 mg-3 mg(2.5 mg base)/3 mL solution for nebulization 3 ml INHALATION Q6H PRN (Reason: Congestion) tamsulosin 0.4 mg capsule 0.4 mg PO DAILY Qty: 30 0RF Acidophilus Capsule 100 mg PO Q12H nystatin 100,000 unit/gram powder 1 applic TOPICAL Q12H Rx Instructions: under breasts metoprolol tartrate 50 mg tablet 100 mg PO Q12H Eliquis 5 mg tablet 5 mg PO BID latanoprost [Xalatan] 0.005 % Drops 1 drp EACH EYE HS cetirizine 5 mg Tablet 5 mg PO DAILY calcium carbonate 500 mg calcium (1,250 mg) Tablet,Chewable 500 mg PO DAILY PRN (Reason: Acid Reflux) cholecalciferol (vitamin D3) 50 mcg (2,000 unit) Tablet 50 mcg PO DAILY acetaminophen 325 mg Tablet 325 mg PO Q6H PRN (Reason: Pain (Scale Score 1-3)) divalproex 125 mg tablet,delayed release (DR/EC) 500 mg PO HS bupropion HCl [Wellbutrin XL] 150 mg Tablet Extended Release 24 Hr 150 mg PO QAM acgjysmr-xzm-nhko-vitamin K 18 mg iron-25 mcg Tablet 1 tablet PO DAILY Date of admission: 04/22/24 10:51 Primary Care Provider: PHYSICIAN NOT ON STAFF,NONSTAFF Admitting Provider: Santy Schaffer Attending physician on admission: Brandy Madsen Condition: Stable Quality VTE Prophylaxis VTE prophylaxis: pharmacologic ordered Hospitalist MIPS Heart Failure (Exclusion) Patient has history of Heart Transplant or Left Ventricular Assistive Device?: No IF YES, STOP HERE Heart Failure (Qualifier) Patient has current or prior documentation of LVEF less than or equal to 40%, or mod/servere depressed LVSF?: No IF NO, STOP HERE
--- NOTE | 2024-04-24 13:33 | PC.NURSE ---
Telephone report given to [facility] RN.
--- NOTE | 2024-04-24 13:38 | PC.NURSE ---
Claudia, daughter, notified per telephone of discharge order back to [facility].
== END 2024-04-24 16:10 | DRG 191 ==
LOC: ANHED 10:27 → ANH3MEDSUR 16:58
PROVIDERS: Nurse Practitioner; Nurse Practitioner Gerontology; Physician Assistant; Admitting Provider Internal Medicine; Emergency Provider Emergency Medicine; Visit Provider Nurse Practitioner Adult Health
DX: J44.1 Chronic obstructive pulmonary disease with (acute) exacerbation (principal); E27.40 Unspecified adrenocortical insufficiency; I48.20 Chronic atrial fibrillation, unspecified; I11.0 Hypertensive heart disease with heart failure; I50.9 Heart failure, unspecified; E03.9 Hypothyroidism, unspecified; E78.5 Hyperlipidemia, unspecified; K21.9 Gastro-esophageal reflux disease without esophagitis; R13.10 Dysphagia, unspecified; R53.1 Weakness; G47.33 Obstructive sleep apnea (adult) (pediatric); H91.91 Unspecified hearing loss, right ear; F41.9 Anxiety disorder, unspecified; F31.9 Bipolar disorder, unspecified; Z20.822 Contact with and (suspected) exposure to COVID-19; Z95.0 Presence of cardiac pacemaker; Z79.01 Long term (current) use of anticoagulants; Z87.891 Personal history of nicotine dependence
CPT/HCPCS: 36415; 71045; 71275; 80048; 80053; 81001; 83735; 83880; 84439; 84443; 84480; 84484; 85025; 85027; 85610; 85730; 87637; 92610; 93005; 94640; 96365; 96375; 99285; A9270; G0378; J0456; J2919; J3475; J7030; J7512; Q9967